=== PATIENT | female | born 1955 | race Caucasian/White ===

== ENCOUNTER 2017-04-20 11:19 | Inpatient (IN) | payer SELFPAY ==
[2017-04-20] VITALS (11 sets, daily range): BP systolic 130–169; BP diastolic 75–103; PULSE 85–104; RESP 14–22; TEMP 98–99; O2SAT 98–100
[~2017-04-20] VITALS: Ht 147.3 cm; Wt 37.6 kg
[~2017-04-20 11:19] MED LIST: OXYC-360 PO; PROM25TA5 PO; Z.0.NO CURRENT MEDS; ZITH250T PO
[2017-04-20] MEDS ORDERED: SODIUM CHLOR 0.9% 1000 ML INJ 1,000 ML IV SCH (11:43)
[2017-04-20] MEDS ORDERED: ONDANSETRON HCL 4 MG/2 ML VIAL IVP ONE (11:45)
[2017-04-20] MEDS ORDERED: SODIUM CHLORIDE 0.9% FLUSH 10 ML FLUSH IV FLUSH PRN ×2 (11:45→15:45)
[2017-04-20] MEDS ORDERED: PANTOPRAZOLE SODIUM 40 MG VIAL IVP ONE (11:45)
[2017-04-20] MEDS ORDERED: FAMOTIDINE 20 MG/2 ML VIAL IV PUSH ONE (11:45)
[2017-04-20] MEDS ORDERED: ALUMINUM/MAGNESIUM/SIMETH 30 ML CUP PO ONE (11:45)
[2017-04-20] MEDS ORDERED: LIDOCAINE VISCOUS 2% SOLN 15 ML UDC PO ONE (11:45)
--- NOTE | 2017-04-20 11:47 | PD ---
HPI Chief Complaint: Respiratory Symptoms Time Seen by Provider: 11:42 Travel History International Travel<30 days: No Contact w/Intl Traveler<30days: No Traveled to known affect area: No History of Present Illness HPI Patient presents with acute onset of abdominal pain, nausea and vomiting since 3 AM this morning. Denies any recent antibiotics, camping, picnics or travel. She was accompanying her at [facility] earlier in the week. Denies any blood per emesis. Denies any diarrhea. Last bowel movement 2 days ago. History of abdominal hysterectomy. Denies any new chest pain shortness of breath urinary or bowel symptoms. PFSH Past Medical History Heart Rhythm Problems: No Cardiac Catheterization: No Cardiovascular Problems: Yes (mild heart attack 10 years ago) High Cholesterol: No Congestive Heart Failure: No Coronary Artery Disease: Yes ([place] 2006) Diabetes: No Diminished Hearing: No Hypertension: No Myocardial Infarction: Yes (2006) Tetanus Vaccination: Unknown Influenza Vaccination: No ?: Not Menopausal: Yes Past Surgical History Coronary Artery Bypass Graft: No Genitourinary Surgery: Yes (CERVICAL CA) Hysterectomy: Yes (25 YEARS AGO FOR CERVICAL CANCER) Tonsillectomy: Yes Social History Alcohol Use: Yes (6 BEERS DAILY) Tobacco Use: Yes (CIGARETTES, 1 PPD X 25 YEARS) Substance Use: No Allergies-Medications (Allergen,Severity, Reaction): Coded Allergies: Penicillin (Verified Allergy, Severe, Anaphylaxis, 07/06/13) Reported Meds & Prescriptions Reported Meds & Active Scripts Active Review of Systems General / Constitutional: No: Fever Eyes: No: Visual changes HENT: No: Headaches Cardiovascular: No: Chest Pain or Discomfort Respiratory: No: Shortness of Breath Gastrointestinal: Positive: Nausea, Vomiting, Abdominal Pain Genitourinary: No: Dysuria Musculoskeletal: No: Pain Skin: No Rash Neurologic: No: Weakness Psychiatric: No: Depression Endocrine: No: Polydipsia Hematologic/Lymphatic: No: Easy Bruising Physical Exam Narrative GENERAL: Well-nourished, well-developed patient. SKIN: Focused skin assessment warm/dry. HEAD: Normocephalic. EYES: No scleral icterus. No injection or drainage. NECK: Supple, trachea midline. No JVD or lymphadenopathy. CARDIOVASCULAR: Regular rate and rhythm without murmurs, gallops, or rubs. RESPIRATORY: Breath sounds equal bilaterally. No accessory muscle use. GASTROINTESTINAL: Abdomen soft, diffusely tender bilateral upper quadrants right greater than left, mildly distended. MUSCULOSKELETAL: No cyanosis, or edema. BACK: Nontender without obvious deformity. No CVA tenderness. Data Data Last Documented VS Vital Signs Date Time Temp Pulse Resp B/P Pulse Ox O2 Delivery O2 Flow Rate FiO2 04/20/17 14:04 104 163/100 100 04/20/17 12:32 98.0 20 Orders Complete Blood Count With Diff (04/20/17 11:43) Comprehensive Metabolic Panel (04/20/17 11:43) Lipase (04/20/17 11:43) Lactic Acid (04/20/17 11:43) Ct Abd/Pel W Iv Contrast(Rout) (04/20/17 11:43) Iv Access Insert/Monitor (04/20/17 11:43) Ecg Monitoring (04/20/17 11:43) Oximetry (04/20/17 11:43) Ondansetron Inj (Zofran Inj) (04/20/17 11:45) Pantoprazole Inj (Protonix Inj) (04/20/17 11:45) Sodium Chlor 0.9% 1000 Ml Inj (Ns 1000 M (04/20/17 11:43) Sodium Chloride 0.9% Flush (Ns Flush) (04/20/17 11:45) Famotidine Inj (Pepcid Inj) (04/20/17 11:45) Al-Mag Hy-Si 40-40-4 Mg/Ml Liq (Mag-Al P (04/20/17 11:45) Lidocaine 2% Viscous (Xylocaine 2% Visco (04/20/17 11:45) Oral Contrast - Adult (04/20/17 11:54) Diatrizoate Liq ( Gastroview Liq) (04/20/17 12:01) Ondansetron Inj (Zofran Inj) (04/20/17 13:30) Iohexol 350 Inj (Omnipaque 350 Inj) (04/20/17 13:57) Electrocardiogram (04/20/17 11:26) Ondansetron Inj (Zofran Inj) (04/20/17 15:15) Ketorolac Inj (Toradol Inj) (04/20/17 15:15) Admit Order (Ed Use Only) (04/20/17 ) Vital Signs (Adult) Q4H (04/20/17 15:26) Diet Npo (04/20/17 Dinner) Activity Oob With Assistance (04/20/17 15:) ^ Saline Lock (04/20/17 15:) Resp Oxygen Junaid C Titrat 1-4 L (04/20/17 ) Notify Dr: Other (04/20/17 15:26) Ondansetron Inj (Zofran Inj) (04/20/17 15:30) Acetaminophen Supp (Tylenol Supp) (04/20/17 15:30) Consult General Surgery (04/20/17 15:26) Abdomen, Kub Only (04/21/17 05:00) Labs Laboratory Tests Test 04/20/17 04/20/17 11:45 11:55 White Blood Count 8.5 TH/MM3 Red Blood Count 4.38 MIL/MM3 Hemoglobin 15.4 GM/DL Hematocrit 45.1 % Mean Corpuscular Volume 103.1 FL Mean Corpuscular Hemoglobin 35.3 PG Mean Corpuscular Hemoglobin 34.2 % Concent Red Cell Distribution Width 14.0 % Platelet Count 189 TH/MM3 Mean Platelet Volume 8.5 FL Neutrophils (%) (Auto) % Lymphocytes (%) (Auto) % Monocytes (%) (Auto) % Eosinophils (%) (Auto) % Basophils (%) (Auto) % Neutrophils # (Auto) TH/MM3 Lymphocytes # (Auto) TH/MM3 Monocytes # (Auto) TH/MM3 Eosinophils # (Auto) TH/MM3 Basophils # (Auto) TH/MM3 CBC Comment AUTO DIFF Differential Total Cells 100 Counted Neutrophils % (Manual) 82 % Lymphocytes % 9 % Monocytes % 9 % Neutrophils # (Manual) 7.0 TH/MM3 Differential Comment FINAL DIFF MANUAL Platelet Estimate NORMAL Platelet Morphology Comment NORMAL Sodium Level 132 MEQ/L Potassium Level 3.7 MEQ/L Chloride Level 94 MEQ/L Carbon Dioxide Level 25.5 MEQ/L Anion Gap 13 MEQ/L Blood Urea Nitrogen 4 MG/DL Creatinine 0.48 MG/DL Estimat Glomerular Filtration 131 ML/MIN Rate Random Glucose 138 MG/DL Calcium Level 9.6 MG/DL Total Bilirubin 2.2 MG/DL Aspartate Amino Transf 73 U/L (AST/SGOT) Alanine Aminotransferase 52 U/L (ALT/SGPT) Alkaline Phosphatase 141 U/L Total Protein 7.4 GM/DL Albumin 3.3 GM/DL Lipase 56 U/L Lactic Acid Level 1.1 mmol/L MDM Medical Decision Making Medical Screen Exam Complete: Yes Emergency Medical Condition: Yes Differential Diagnosis Small bowel obstruction, viral gastritis, GERD, cholangitis Narrative Course Assessment and plan discussed with patient at bedside. EKG reveals sinus tachycardia rate 101. CT the abdomen and pelvis reveals a small bowel obstruction and a surgically altered bladder. Physician Communication Physician Communication Spoke with Dr. Kingston / Dr Christian who are in agreement will admit with a surgical consult Diagnosis Primary Impression: SBO (small bowel obstruction) Admitting Information Admitting Physician Requests: Admit Gary Becker MD Apr 20, 2017 11:47
[2017-04-20 11:55] LABS: HEMATOCRIT 45.1 % (35.0-46.0); MEAN CELL VOLUME 103.1 FL (80.0-100.0); MEAN CORPUSCULAR HEMOGLOBIN 35.3 PG (27.0-34.0); MEAN CORPUSCULAR HGB CONC 34.2 % (32.0-36.0); PLATELET COUNT 189 TH/MM3 (150-450); RED BLOOD COUNT 4.38 MIL/MM3 (4.00-5.30); WHITE BLOOD COUNT 8.5 TH/MM3 (4.0-11.0)
[2017-04-20] MEDS ORDERED: DIATRIZOATE MEGLUM/DIATRIZOATE SOD 9 ML CUP ONE (12:01)
[2017-04-20 12:04] LABS: HEMO FLAGS AUTO DIFF
[2017-04-20 12:05] LABS: CHLORIDE 94 MEQ/L (98-107); POTASSIUM 3.7 MEQ/L (3.5-5.1); SODIUM (NA) 132 MEQ/L (136-145)
[2017-04-20 12:08] LABS: ANION GAP 13 MEQ/L (5-15); BICARBONATE 25.5 MEQ/L (21.0-32.0); BLOOD UREA NITROGEN 4 MG/DL (7-18)
[2017-04-20 12:11] LABS: ALT (GPT) 52 U/L (10-53); AST (GOT) 73 U/L (15-37); GLOMERULAR FILTRATION RATE 131 ML/MIN (>89)
[2017-04-20 12:13] LABS: TOTAL BILIRUBIN ADULT 2.2 MG/DL (0.2-1.0)
[2017-04-20 12:14] LABS: ALKALINE PHOSPHATASE 141 U/L (45-117)
[2017-04-20 12:26] LABS: PLATELET ESTIMATE SMEAR NORMAL (NORMAL); PLATELET MORPHOLOGY NORMAL (NORMAL); POLYS (SEG NEUTROPHILS) 82 % (16-70); SCAN/DIFF FINAL DIFF MANUAL; WBC DIFF SAMPLE 100
[2017-04-20] MEDS ORDERED: ONDANSETRON HCL 4 MG/2 ML VIAL IV PUSH ONE ×2 (13:30→15:15)
[2017-04-20] MEDS ORDERED: IOHEXOL 350 MG/ML 10 ML VIAL (for RAD DIAG) IV ONE (13:57)
--- NOTE | 2017-04-20 15:14 | RADHPO ---
EXAM DATE/TIME: 04/20/2017 13:36 [facility] COMPARISON: No previous studies available for comparison. INDICATIONS : Shortness of breath and pain under ribs bilateral. IV CONTRAST: 99 cc Omnipaque 350 (iohexol) IV ORAL CONTRAST: Partial prescribed oral contrast ingested. RADIATION DOSE: 4.44 CTDIvol (mGy) MEDICAL HISTORY : Cardiovascular disease. Cervical carcinoma SURGICAL HISTORY : Hysterectomy. ENCOUNTER: Initial ACUITY: 2 days PAIN SCALE: 10/10 LOCATION: Bilateral TECHNIQUE: Volumetric scanning of the abdomen and pelvis was performed. Using automated exposure control and ad justment of the mA and/or kV according to patient size, radiation dose was kept as low as reasonably achievable to obtain optimal diagnostic quality images. FINDINGS: LOWER LUNGS: The visualized lower lungs are clear. LIVER: Diffuse hypodensity of the liver indicating hepatic steatosis. SPLEEN: Normal size without lesion. PANCREAS: Within normal limits. KIDNEYS: Normal in size and shape. There is no mass, stone or hydronephrosis. ADRENAL GLANDS: Within normal limits. VASCULAR: Diffuse aortic calcification. Aortic diameter are within normal limits. BOWEL/MESENTERY: Multiple loops of dilated small bowel to the level of the pelvis. Decompressed distal small bowel is noted. There is evidence of a transition point in the anterior right lower quadrant. Possible small r ight inguinal hernia in this region. Contrast is seen to the level of the mid small bowel. Contrast i s not seen past the transition point. Colon is decompressed. No free air or free fluid. ABDOMINAL WALL: Within normal limits. RETROPERITONEUM: There is no lymphadenopathy. BLADDER: There is a trabeculated appearance of the bladder along with mild diffuse wall thickening. Question p rior cystectomy with neobladder. REPRODUCTIVE: Status post hysterectomy. Surgical clips in the retroperitoneum. INGUINAL: There is no lymphadenopathy or hernia. MUSCULOSKELETAL: Within normal limits for patient age. CONCLUSION: 1. Evidence of small bowel obstruction with transition point in the right lower quadrant. Possible sm all inguinal hernia in this region. 2. Evidence of prior hysterectomy. 3. Atypical appearance of the urinary bladder. Wall thickening and trabeculated appearance. Question prior cystectomy with neobladder. 4. Hepatic steatosis. Chivo Leigh MD on April 20, 2017 at 14:59 Board Certified Radiologist. This report was verified electronically.
[2017-04-20] MEDS ORDERED: KETOROLAC TROMETHAMINE 30 MG/ML (IVP) VIAL IV PUSH ONE (15:15)
[2017-04-20] MEDS ORDERED: ACETAMINOPHEN 650 MG SUPP PR PRN (15:30)
[2017-04-20] MEDS ORDERED: ONDANSETRON HCL 4 MG/2 ML VIAL IV PRN (15:30)
[2017-04-20] MEDS ORDERED: ONDANSETRON HCL 4 MG/2 ML VIAL IVP PRN (15:45)
[2017-04-20] MEDS ORDERED: hydrALAZINE HCL 20 MG/ML VIAL IV PRN (15:45)
[2017-04-20] MEDS ORDERED: MORPHINE SULFATE 4 MG/ML INJ IV PRN ×2 (15:45)
[2017-04-20] MEDS ORDERED: ACETAMINOPHEN 650 MG SUPP RECTAL PRN (15:45)
[2017-04-20] MEDS: REMOVE OLD PATCH T-DERMAL SCH (15:45)
[2017-04-20] MEDS ORDERED: BISACODYL 10 MG SUPP RECTAL PRN (15:45)
[2017-04-20] MEDS ORDERED: FLUMAZENIL 0.5 MG/5 ML VIAL IV PUSH PRN (15:45)
[2017-04-20] MEDS ORDERED: NS + KCL 20 MEQ INJ 1,000 ML IV SCH (15:45)
[2017-04-20] MEDS ORDERED: ENALAPRILAT 1.25 MG/ML VIAL IV PRN (15:45)
[2017-04-20] MEDS ORDERED: LORazepam 1 MG TAB PO PRN (15:45)
[2017-04-20] MEDS ORDERED: LORazepam 2 MG TAB PO PRN (15:45)
[2017-04-20] MEDS ORDERED: NALOXONE HCL 0.4 MG/ML AMP IV PRN (15:45)
[2017-04-20] MEDS ORDERED: LORazepam 2 MG/ML VIAL IV PUSH PRN ×4 (15:45)
[2017-04-20] MEDS ORDERED: HALOPERIDOL LACTATE 5 MG/ML AMP IM PRN (15:45)
[2017-04-20 15:54] LABS: PROTHROMBIN TIME - PATIENT 10.9 SEC (9.8-11.6)
--- NOTE | 2017-04-20 16:02 | HHI.HP ---
[facility] No Primary Care Physician Admission Diagnosis SBO Diagnoses: Chief Complaint: Abdominal pain Travel History International Travel<30 Days: No Contact w/Intl Traveler <30 Da: No Traveled to Known Affected Are: No History of Present Illness This is a 62-year-old female with history of coronary artery disease, tobacco and alcohol abuse and cervical cancer status post radical hysterectomy. She presents to the emergency department with acute onset of abdominal pain, nausea and vomiting since 2 AM this morning. She reports of non-bilious nonbloody vomiting associated with constant severe sharp upper abdominal pain without radiation. She also noted abdominal distention improved after several episodes of vomiting last episode 10 this morning. No bowel movement for [address] scan showed SBO. Denies fever, chills, chest pain, shortness of breath and UTI symptoms. All other systems reviewed negative Review of Systems Except as stated in HPI: all other systems reviewed are Neg Past Family Social History Past Medical History Coronary artery disease. 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 Past Surgical History Hysterectomy and tonsillectomy Reported Medications None Allergies: Coded Allergies: Penicillin (Verified Allergy, Severe, Anaphylaxis, 07/06/13) Family History No CAD Social History Continues to smoke a pack per day and drinks 6 beers a day history of alcohol withdrawal Physical Exam Vital Signs Vital Signs Date Time Temp Pulse Resp B/P Pulse Ox O2 Delivery O2 Flow Rate FiO2 04/20/17 14:04 104 163/100 100 04/20/17 12:34 100 04/20/17 12:32 98.0 103 20 169/103 100 04/20/17 11:41 100 04/20/17 11:28 98.0 103 22 163/99 100 Physical Exam GENERAL: This is a petite, well-developed patient, in no apparent distress. SKIN: No rashes, ecchymoses or lesions. Cool and dry. HEAD: Atraumatic. Normocephalic. No temporal or scalp tenderness. EYES: Pupils equal round and reactive. Extraocular motions intact. No scleral icterus. No injection or drainage. ENT: Nose without bleeding, purulent drainage or septal hematoma. Throat without erythema, tonsillar hypertrophy or exudate. Uvula midline. Airway patent. NECK: Trachea midline. No JVD or lymphadenopathy. Supple, nontender, no meningeal signs. CARDIOVASCULAR: Regular rate and rhythm without murmurs, gallops, or rubs. RESPIRATORY: Clear to auscultation. Breath sounds equal bilaterally. No wheezes , rales, or rhonchi. GASTROINTESTINAL: Abdomen soft, tender on the lower quadrants with mild distention and hypoactive bowel sounds. No guarding. MUSCULOSKELETAL: Extremities without clubbing, cyanosis, or edema. No joint tenderness, effusion, or edema noted. No calf tenderness. Negative Homans sign bilaterally. NEUROLOGICAL: Awake and alert. Cranial nerves II through XII intact. Motor and sensory grossly within normal limits. Five out of 5 muscle strength in all muscle groups. Normal speech. Laboratory Laboratory Tests Test 04/20/17 04/20/17 11:45 11:55 White Blood Count 8.5 Red Blood Count 4.38 Hemoglobin 15.4 Hematocrit 45.1 Mean Corpuscular Volume 103.1 Mean Corpuscular Hemoglobin 35.3 Mean Corpuscular Hemoglobin 34.2 Concent Red Cell Distribution Width 14.0 Platelet Count 189 Mean Platelet Volume 8.5 Neutrophils (%) (Auto) Lymphocytes (%) (Auto) Monocytes (%) (Auto) Eosinophils (%) (Auto) Basophils (%) (Auto) Neutrophils # (Auto) Lymphocytes # (Auto) Monocytes # (Auto) Eosinophils # (Auto) Basophils # (Auto) CBC Comment AUTO DIFF Differential Total Cells 100 Counted Neutrophils % (Manual) 82 Lymphocytes % 9 Monocytes % 9 Neutrophils # (Manual) 7.0 Differential Comment FINAL DIFF MANUAL Platelet Estimate NORMAL Platelet Morphology Comment NORMAL Sodium Level 132 Potassium Level 3.7 Chloride Level 94 Carbon Dioxide Level 25.5 Anion Gap 13 Blood Urea Nitrogen 4 Creatinine 0.48 Estimat Glomerular Filtration 131 Rate Random Glucose 138 Calcium Level 9.6 Total Bilirubin 2.2 Aspartate Amino Transf 73 (AST/SGOT) Alanine Aminotransferase 52 (ALT/SGPT) Alkaline Phosphatase 141 Total Protein 7.4 Albumin 3.3 Lipase 56 Lactic Acid Level 1.1 Result Diagram: 04/20/17 1145 04/20/17 1145 Imaging EKG tracing interpreted by me with sinus tachycardia, rightward axis and nonspecific inferior T changes no significant change from previous EKG Last Impressions Abdomen/Pelvis CT 04/20/17 1143 Signed Impressions: Service Date/Time: Thursday, April 20, 2017 13:36 - CONCLUSION: 1. Evidence of small bowel obstruction with transition point in the right lower quadrant. Possible small inguinal hernia in this region. 2. Evidence of prior hysterectomy. 3. Atypical appearance of the urinary bladder. Wall thickening and trabeculated appearance. Question prior cystectomy with neobladder. 4. Hepatic steatosis. Chivo Leigh MD Assessment and Plan Problem List: (1) SBO (small bowel obstruction) ICD Code: K56.69 Status: Acute Assessment and Plan This is a 62-year-old female who presents to the emergency department with acute onset of abdominal pain, nausea and vomiting since 2 AM this morning. She reports of non-bilious nonbloody vomiting associated with constant severe sharp upper abdominal pain without radiation. She also noted abdominal distention improved after several episodes of vomiting last episode 10 this morning. No bowel movement for [address] scan showed SBO. SBO with transition point in the right lower quadrant and possible inguinal hernia. History of hysterectomy. Patient will be admitted for further evaluation and treatment. Keep nothing by mouth and start IV hydration. Pain management with IV morphine counseled regarding narcotics. GI prophylaxis with IV Protonix. NGT to low intermittent wall suction if persistent vomiting or increasing abdominal distention. Gen. surgery consultation Elevated blood pressure secondary to above. Monitor with antihypertensives SIRS secondary to above. Obtain urinalysis Mild hyponatremia. Secondary to vomiting. Repeat BMP in the morning Mild AST elevation with history of alcohol use. Patient counseled. [facility] protocol Tobacco abuse. Tobacco cessation History of coronary artery disease. Denies chest pain. Outpatient follow-up DVT prophylaxis with SCD and early ambulation. Pharmacological prophylaxis pending general surgery evaluation Discussed Condition With Patient Physician Certification 2 Midnight Certification Type: Admission for Inpatient Services Order for Inpatient Services The services are ordered in accordance with Medicare regulations or non- Medicare payer requirements, as applicable. In the case of services not specified as inpatient-only, they are appropriately provided as inpatient services in accordance with the 2-midnight benchmark. Estimated LOS (days): 2 days is the estimated time the patient will need to remain in the hospital, assuming treatment plan goals are met and no additional complications. Post-Hospital Plan: Home Cuco Kingston MD Apr 20, 2017 16:02
[2017-04-20] MEDS ORDERED: MULTIVITAMIN INJ 10 ML, FOLIC ACID INJ 1 MG in SODIUM CHLORID 0.9% 500 ML INJ 500 ML IV SCH ×2 (17:00→18:00)
[2017-04-20] MEDS: PANTOPRAZOLE SODIUM 40 MG VIAL IV PUSH SCH (17:08)
[2017-04-20] MEDS ORDERED: THIAMINE INJ 100 MG in SODIUM CHLORIDE 0.9% INJ 100 ML IV SCH (18:00)
[2017-04-20] MEDS: MORPHINE SULFATE 4 MG/ML INJ IV PRN (20:00)
[2017-04-20] MEDS: THIAMINE INJ 100 MG in SODIUM CHLORIDE 0.9% INJ 100 ML IV SCH (20:06)
[2017-04-20] MEDS: MULTIVITAMIN INJ 10 ML, FOLIC ACID INJ 1 MG in SODIUM CHLORID 0.9% 500 ML INJ 500 ML IV SCH (21:54)
[2017-04-20] MEDS: SODIUM CHLORIDE 0.9% FLUSH 10 ML FLUSH IV FLUSH SCH (21:54)
[2017-04-21 00:34] VITALS: BP 136/87; PULSE 90; RESP 12; TEMP 98.9; O2SAT 98
[2017-04-21] MEDS: NS + KCL 20 MEQ INJ 1,000 ML IV SCH ×2 (03:43→13:47)
[2017-04-21 04:58] VITALS: BP 131/77; PULSE 69; RESP 12; TEMP 98; O2SAT 97
--- NOTE | 2017-04-21 05:40 | RADHPO ---
EXAM DATE/TIME: 04/21/2017 05:29 [facility] COMPARISON: CT ABDOMEN & PELVIS W CONTRAST, April 20, 2017, 13:36. INDICATIONS : Abdominal pain and distention. MEDICAL HISTORY : Cardiovascular disease. Cervical carcinoma SURGICAL HISTORY : Hysterectomy. ENCOUNTER: Initial ACUITY: 4 - 6 days PAIN SCORE: 5/10 LOCATION: Bilateral abdomen FINDINGS: The bladder appears trabeculated and distended may be a neurogenic bladder or possibly a neobladder i f the patient has had prior cystectomy. There is slight distention of loops of small bowel with maxim um diameter of 3.4 cm. CONCLUSION: Distended small bowel loops probably representing some degree of obstruction similar to the patient's CT examination. Clive Myers MD on April 21, 2017 at 5:36 Board Certified Radiologist. This report was verified electronically.
[2017-04-21] MEDS: MORPHINE SULFATE 4 MG/ML INJ IV PRN ×4 (06:34→21:52)
[2017-04-21 07:31] LABS: AUTOMATED NEUTROPHIL # 4.3 TH/MM3 (1.8-7.7); BASOPHIL # 0.1 TH/MM3 (0-0.2); BASOPHIL % 1.6 % (0.0-2.0); EOSINOPHIL % 0.6 % (0.0-4.0); HEMATOCRIT 37.1 % (35.0-46.0); HEMO FLAGS DIFF FINAL; LYMPH % 19.5 % (9.0-44.0); LYMPHOCYTE # 1.2 TH/MM3 (1.0-4.8); MEAN CELL VOLUME 103.9 FL (80.0-100.0); MEAN CORPUSCULAR HEMOGLOBIN 36.4 PG (27.0-34.0); MONO % 11.2 % (0.0-8.0); NEUT % 67.1 % (16.0-70.0); PLATELET COUNT 169 TH/MM3 (150-450); RED BLOOD COUNT 3.57 MIL/MM3 (4.00-5.30); RED CELL DISTRIBUTION WIDTH 14.2 % (11.6-17.2); WHITE BLOOD COUNT 6.3 TH/MM3 (4.0-11.0)
[2017-04-21 08:00] VITALS: BP 113/73; PULSE 76; RESP 20; TEMP 97.8; O2SAT 96; O2SAT 99
[2017-04-21 08:11] LABS: BICARBONATE 23.5 MEQ/L (21.0-32.0); POTASSIUM 3.7 MEQ/L (3.5-5.1)
[2017-04-21] MEDS: NICOTINE 21 MG/24 HR PATCH T-DERMAL SCH (08:46)
[2017-04-21] MEDS: REMOVE OLD PATCH T-DERMAL SCH (08:46)
[2017-04-21] MEDS: SODIUM CHLORIDE 0.9% FLUSH 10 ML FLUSH IV FLUSH SCH ×2 (08:46→20:08)
[2017-04-21 11:23] LABS: BLOOD, URINE NEG (NEG); GLUCOSE,URINE NEG (NEG); KETONE, URINE 15 mg/dL (NEG); PH, URINE 5.5 (5.0-8.5)
[2017-04-21 11:25] LABS: METHOD OF COLLECTION CLEAN CATCH; NITRITE,URINE POS (NEG); URINE COLOR DARK-YELLOW (YELLW/STRAW)
[2017-04-21 11:27] LABS: BACTERIA, URINE MANY /hpf; COMMENT (UR) CULTURE INDICATED; CULTURE IF INDICATED CULTURE INDICATED; SQUAMOUS EPITHELIAL CELL URINE 0-5 /hpf (0-5); WBC, URINE 15-19 /hpf (0-5)
--- NOTE | 2017-04-21 11:40 | HHI.PR ---
Subjective Remarks Follow-up SBO. Improving pain scale of 7 out of 10 with less abdominal distention. Still no gas. No nausea. Discussed with RN Objective Vitals Vital Signs Date Time Temp Pulse Resp B/P Pulse Ox O2 Delivery O2 Flow Rate FiO2 04/21/17 08:00 97.8 76 20 113/73 99 04/21/17 04:58 98.0 69 12 131/77 97 04/21/17 00:34 98.9 90 12 136/87 98 04/20/17 22:47 99 21 04/20/17 22:44 95 04/20/17 21:26 99.0 98 14 160/93 99 04/20/17 18:28 98.8 95 18 146/91 98 04/20/17 17:58 85 16 147/85 100 04/20/17 17:31 98 21 04/20/17 17:02 94 18 130/75 100 04/20/17 14:04 104 163/100 100 04/20/17 12:34 100 04/20/17 12:32 98.0 103 20 169/103 100 04/20/17 11:41 100 I/O 04/20/17 04/20/17 04/20/17 04/21/17 04/21/17 04/21/17 07:00 15:00 23:00 07:00 15:00 23:00 Intake Total 240 ml 672 ml Balance 240 ml 672 ml Intake Oral 240 ml IV Total 672 ml # Voids 0 Result Diagram: 04/21/17 0700 04/21/17 0700 Imaging Last Impressions Abdomen X-Ray 04/21/17 0500 Signed Impressions: Service Date/Time: Friday, April 21, 2017 05:29 - CONCLUSION: Distended small bowel loops probably representing some degree of obstruction similar to the patient's CT examination. Clive Myers MD Abdomen/Pelvis CT 04/20/17 1143 Signed Impressions: Service Date/Time: Thursday, April 20, 2017 13:36 - CONCLUSION: 1. Evidence of small bowel obstruction with transition point in the right lower quadrant. Possible small inguinal hernia in this region. 2. Evidence of prior hysterectomy. 3. Atypical appearance of the urinary bladder. Wall thickening and trabeculated appearance. Question prior cystectomy with neobladder. 4. Hepatic steatosis. Chivo Leigh MD Objective Remarks GENERAL: This is a petite, well-developed patient, in no apparent distress. SKIN: No rashes, ecchymoses or lesions. Cool and dry. HEAD: Atraumatic. Normocephalic. No temporal or scalp tenderness. EYES: Pupils equal round and reactive. Extraocular motions intact. No scleral icterus. No injection or drainage. ENT: Nose without bleeding, purulent drainage or septal hematoma. Throat without erythema, tonsillar hypertrophy or exudate. Uvula midline. Airway patent. NECK: Trachea midline. No JVD or lymphadenopathy. Supple, nontender, no meningeal signs. CARDIOVASCULAR: Regular rate and rhythm without murmurs, gallops, or rubs. RESPIRATORY: Clear to auscultation. Breath sounds equal bilaterally. No wheezes , rales, or rhonchi. GASTROINTESTINAL: Abdomen soft, tender on the lower quadrants with mild distention. Normoactive bowel sounds. No guarding. MUSCULOSKELETAL: Extremities without clubbing, cyanosis, or edema. No joint tenderness, effusion, or edema noted. No calf tenderness. Negative Homans sign bilaterally. NEUROLOGICAL: Awake and alert. Cranial nerves II through XII intact. Motor and sensory grossly within normal limits. Five out of 5 muscle strength in all muscle groups. Normal speech. Procedures None A/P Problem List: (1) SBO (small bowel obstruction) ICD Code: K56.69 Status: Acute Assessment and Plan This is a 62-year-old female who presents to the emergency department with acute onset of abdominal pain, nausea and vomiting since 2 AM this morning. She reports of non-bilious nonbloody vomiting associated with constant severe sharp upper abdominal pain without radiation. She also noted abdominal distention improved after several episodes of vomiting last episode 10 this morning. No bowel movement for [address] scan showed SBO. SBO with transition point in the right lower quadrant and possible inguinal hernia. History of hysterectomy. KUB today with distended small bowel loops. Improving pain but still not passing gas or bowel movement. Ice chips and IV hydration. Pain management with IV morphine counseled regarding narcotics. GI prophylaxis with IV Protonix. NGT to low intermittent wall suction if persistent vomiting or increasing abdominal distention. Gen. surgery consultation pending Elevated blood pressure secondary to above. Improving. Monitor with antihypertensives SIRS secondary to above. Resolved but abnormal urinalysis and start empiric ciprofloxacin and follow culture Mild hyponatremia. Secondary to vomiting. Improved Repeat BMP in the morning Mild AST elevation with history of alcohol use. Patient counseled. [facility] protocol Tobacco abuse. Tobacco cessation History of coronary artery disease. Denies chest pain. Outpatient follow-up DVT prophylaxis with SCD and early ambulation. Pharmacological prophylaxis pending general surgery evaluation Discharge Planning Not ready for discharge Cuco Kingston MD Apr 21, 2017 11:40
[2017-04-21 12:00] VITALS: BP 135/88; PULSE 87; RESP 21; TEMP 97; O2SAT 100
[2017-04-21] MEDS: CIPROFLOXACIN 400 MG PREMIX 200 ML IV SCH (13:47)
--- NOTE | 2017-04-21 14:46 | EKG ---
Date Performed: 04/20/2017 Time Performed: 11:26:40 PTAGE: 61 years EKG: Sinus tachycardia Rightward axis rSr'(V1) - probable normal variant Inferior T wave changes are nonspecific Borderline ECG Since PREVIOUS TRACING 08/16/2012, PACs no longer present, otherwise no significant change. [place] EVIOUS TRACIN08/16/2012 17.54 DOCTOR: Chacorta Helton Interpretating Date/Time 04/21/2017 14:46:16
--- NOTE | 2017-04-21 14:47 | EKG ---
Date Performed: 04/20/2017 Time Performed: 14:50:30 PTAGE: 61 years EKG: Sinus tachycardia. Rightward axis Inferior T wave changes are nonspecific Borderline ECG Si nce PREVIOUS TRACING 04/20/2017, no significant change. PREVIOUS TRACING 04/20/2017 DOCTOR: Chacorta Helton Interpretating Date/Time 04/21/2017 14:46:45
[2017-04-21 16:00] VITALS: BP 123/79; PULSE 77; RESP 20; TEMP 98; O2SAT 99
[2017-04-21] MEDS: PANTOPRAZOLE SODIUM 40 MG VIAL IV PUSH SCH (16:53)
[2017-04-21 20:00] VITALS: BP 132/83; PULSE 84; PULSE 90; RESP 16; TEMP 97.7; O2SAT 98
[2017-04-21] MEDS: MULTIVITAMIN INJ 10 ML, FOLIC ACID INJ 1 MG in SODIUM CHLORID 0.9% 500 ML INJ 500 ML IV SCH (20:08)
[2017-04-21] MEDS: THIAMINE INJ 100 MG in SODIUM CHLORIDE 0.9% INJ 100 ML IV SCH (20:08)
--- NOTE | 2017-04-21 20:33 | MB ---
cc: CHAGO WELSH MD DATE OF CONSULTATION 04/21/2017 REASON FOR CONSULTATION Small-bowel obstruction. HISTORY OF PRESENT ILLNESS The patient is 61-year-old female several medical issues including coronary artery disease, chronic EtOH and tobacco use, history of radical hysterectomy presents with complaints of nausea, vomiting, abdominal pain. She stated the pain started approximately 02:00 a.m. and continued to get worse. She had multiple episodes greater than 10 of vomiting and nausea. She states the pain was initially a 10/10, currently a 05/10, was worse with palpation, better with lying still. She states also some improvement with IV pain medications. She states her last bowel movement was night and she is not passing gas prior to this or after this. She also reports very weak bladder and issues of incontinence. She further denies fevers, chills, dysuria, hematuria. PAST MEDICAL HISTORY 1. Coronary artery disease. 2. Blindness. 3. Incontinence. PAST SURGICAL HISTORY 1. Medical hysterectomy, 2. Tonsillectomy. MEDICATIONS The patient is on no medications. ALLERGIES PENICILLIN. FAMILY HISTORY Denies hypertension or diabetes. SOCIAL HISTORY Positive smoking. Positive EtOH daily approximately 8 beers per day. Denies IVDA. FAMILY HISTORY Denies hypertension, diabetes. REVIEW OF SYSTEMS GENERAL: The patient denies fevers, chills. HEENT: Denies eye pain, ear pain or drainage. NECK: Denies swelling or pain. RESPIRATORY: Denies cough or wheeze. CARDIOVASCULAR: Denies palpitations or chest pain. ABDOMEN: Complains of nausea, vomiting, abdominal pain. MUSCULOSKELETAL: Denies arthralgia, myalgias. NEUROLOGIC: Denies numbness, tingling. GENITOURINARY: Denies dysuria or hematuria. ENDOCRINE: Denies polyuria, polydipsia. PHYSICAL EXAMINATION GENERAL: The patient no acute distress. VITAL SIGNS: Temperature 98, pulse 103, respiration 22, blood pressure 163/99, saturation 100%. HEENT: Pupils equal, round, reactive bilaterally. Moist mucous membranes. NECK: Supple. Trachea midline. LUNGS: Bilateral expansion. Clear. No wheeze. HEART: S1-S2 regular rhythm. No murmur. ABDOMEN: Soft. Significant distension. Mild tenderness to palpation diffuse. No rebound or guarding. EXTREMITIES: Warm, cachectic. well perfused. NEUROLOGIC: Alert and oriented times four. 5/5 motor strength. Normal gait. PSYCHIATRIC: Good insight good judgment. LABORATORY AND DIAGNOSTIC DATA WBC is 6.3, hemoglobin 13, hematocrit 37.1, platelets 169. Sodium 138, potassium 3.7, chloride 105, BUN 5, creatinine 0.41, calcium 7.9. INR is 1.0. IMAGING CT scan reviewed by myself, small-bowel obstruction transitioned right lower quadrant. Small inguinal hernia. Evidence of hysterectomy. Urinary bladder distension and thickening. ASSESSMENT The patient is a 61-year-old female, acute onset abdominal pain consistent with small-bowel obstruction. History of hysterectomy in the past. PLAN After full clinical, radiological and laboratory workup the patient with above-named issues including bowel obstruction likely etiology from previous hysterectomy and adhesions. At this point recommend n.p.o., IV fluids, NG tube placement, bowel rest. We will continue nonoperative management including abdominal exams. Observe the patient and see how she progresses. If she still delayed and does not progress, we will consider a small bowel follow-through however, if she progresses well we will remove the nasogastric tube in next several days and slowly start a diet. Currently, however, she is very significantly distended has had no flatus or bowel movement in the past several days. Further the patient drinks eight beers per day, recommend consideration for CIWA protocol and continue to monitor, observe and correct electrolytes. Thank you for consultation. MD VIVIAN Tucker/VASQUEZ /7:57 PM /8:20 PM [facility] CAMPUSFilomena
[2017-04-22] VITALS (7 sets, daily range): BP systolic 119–147; BP diastolic 73–99; PULSE 81–97; RESP 16–20; TEMP 97.1–98.8; O2SAT 98–100
[2017-04-22] MEDS: CIPROFLOXACIN 400 MG PREMIX 200 ML IV SCH ×2 (00:09→12:46)
[2017-04-22] MEDS: MORPHINE SULFATE 4 MG/ML INJ IV PRN ×3 (02:29→16:19)
[2017-04-22] MEDS: NS + KCL 20 MEQ INJ 1,000 ML IV SCH ×2 (03:37→20:52)
[2017-04-22 06:02] LABS: AUTOMATED NEUTROPHIL # 3.9 TH/MM3 (1.8-7.7); BASOPHIL % 0.4 % (0.0-2.0); EOSINOPHIL % 0.7 % (0.0-4.0); HEMATOCRIT 37.2 % (35.0-46.0); HEMO FLAGS DIFF FINAL; LYMPH % 16.5 % (9.0-44.0); LYMPHOCYTE # 0.9 TH/MM3 (1.0-4.8); MEAN CELL VOLUME 106.4 FL (80.0-100.0); MEAN CORPUSCULAR HEMOGLOBIN 36.9 PG (27.0-34.0); MEAN CORPUSCULAR HGB CONC 34.6 % (32.0-36.0); NEUT % 70.4 % (16.0-70.0); PLATELET COUNT 167 TH/MM3 (150-450); POTASSIUM 3.9 MEQ/L (3.5-5.1); RED BLOOD COUNT 3.49 MIL/MM3 (4.00-5.30); RED CELL DISTRIBUTION WIDTH 14.2 % (11.6-17.2); WHITE BLOOD COUNT 5.4 TH/MM3 (4.0-11.0)
[2017-04-22 06:06] LABS: BICARBONATE 21.4 MEQ/L (21.0-32.0); MAGNESIUM 1.8 MG/DL (1.5-2.5)
--- NOTE | 2017-04-22 06:38 | RADHPO ---
EXAM DATE/TIME: 04/22/2017 06:13 [facility] COMPARISON: ABDOMEN KUB ONLY, April 21, 2017, 5:29. INDICATIONS : Distention. MEDICAL HISTORY : Cardiovascular disease. Carcinoma, cervical. SURGICAL HISTORY : Hysterectomy. ENCOUNTER: Subsequent ACUITY: 4 - 6 days PAIN SCORE: Non-responsive. LOCATION: abdomen, all quadrants. FINDINGS: Supine view of the abdomen was performed. The bladder remains filled with contrast. Numerous air filled loops of small bowel are noted. The abdominal bowel gas pattern is normal. No abnormal masses , calcifications, or organomegaly is seen. The osseous structures are unremarkable. CONCLUSION: Normal examination. Numerous air filled loops of distended small bowel Tyler Dillon MD on April 22, 2017 at 6:34 Board Certified Radiologist. This report was verified electronically.
[2017-04-22] MEDS: SODIUM CHLORIDE 0.9% FLUSH 10 ML FLUSH IV FLUSH SCH ×2 (09:15→20:53)
[2017-04-22] MEDS: REMOVE OLD PATCH T-DERMAL SCH (09:16)
[2017-04-22] MEDS: NICOTINE 21 MG/24 HR PATCH T-DERMAL SCH (09:16)
--- NOTE | 2017-04-22 12:16 | HHI.PR ---
Subjective Subjective Notes Resting in bed Reports pain better today Objective Vitals/I&O Vital Signs Date Time Temp Pulse Resp B/P Pulse Ox O2 Delivery O2 Flow Rate FiO2 04/22/17 09:29 16 04/22/17 08:00 98.2 83 144/79 99 04/21/17 20:00 21 Labs Laboratory Tests Test 04/22/17 05:05 White Blood Count 5.4 Red Blood Count 3.49 Hemoglobin 12.9 Hematocrit 37.2 Mean Corpuscular Volume 106.4 Mean Corpuscular Hemoglobin 36.9 Mean Corpuscular Hemoglobin 34.6 Concent Red Cell Distribution Width 14.2 Platelet Count 167 Mean Platelet Volume 9.1 Neutrophils (%) (Auto) 70.4 Lymphocytes (%) (Auto) 16.5 Monocytes (%) (Auto) 12.0 Eosinophils (%) (Auto) 0.7 Basophils (%) (Auto) 0.4 Neutrophils # (Auto) 3.9 Lymphocytes # (Auto) 0.9 Monocytes # (Auto) 0.6 Eosinophils # (Auto) 0.0 Basophils # (Auto) 0.0 CBC Comment DIFF FINAL Differential Comment Sodium Level 137 Potassium Level 3.9 Chloride Level 103 Carbon Dioxide Level 21.4 Anion Gap 13 Blood Urea Nitrogen 3 Creatinine 0.36 Estimat Glomerular Filtration 183 Rate Random Glucose 58 Calcium Level 8.1 Magnesium Level 1.8 Date/Time Procedure Status Source Growth 04/21/17 11:10 Urine Culture Received Urine Clean Catch Pending Cardiovascular: Regular Lungs: Clear Abdomen: Other (distended; RLQ tenderness with palpation ) Extremities: No edema Narrative Exam NGT in place to LIWS A/P Assessment and Plan 61 year old female with SBO -Continue bowel rest -NGT to LIWS---okay to clamp while patient ambulates in the room and hallways -A few ice chips okay -Plan for SBFT tomorrow -Discussed with Dr. Kingston Attending Statement patient seen at bedside appears to be progressing well sbft tomorrow Attestation The exam, history, and the medical decision-making described in the above note were completed with the assistance of the mid-level provider. I reviewed and agree with the findings presented. I attest that I had a [id number] encounter with the patient on the same day, and personally performed and documented my assessment and findings in the medical record. Renetta Diggs 5, 2017 12:16 Joao Hatch MD May 01, 2017 09:52
--- NOTE | 2017-04-22 12:18 | HHI.PR ---
Subjective Remarks Follow-up SBO. Improving pain but not passing gas or stool. Still with abdominal distention. Discussed with general surgery, keep nothing by mouth, NGT and small bowel series. Discussed with RN Objective Vitals Vital Signs Date Time Temp Pulse Resp B/P Pulse Ox O2 Delivery O2 Flow Rate FiO2 04/22/17 09:29 16 04/22/17 08:00 98.2 83 20 144/79 99 04/22/17 04:00 98.0 87 16 142/73 99 04/22/17 00:00 97.1 81 16 142/82 98 04/21/17 20:00 98 21 04/21/17 20:00 84 04/21/17 20:00 97.7 90 16 132/83 98 04/21/17 16:00 98.0 77 20 123/79 99 I/O 04/21/17 04/21/17 04/21/17 04/22/17 04/22/17 04/22/17 07:00 15:00 23:00 07:00 15:00 23:00 Intake Total 672 ml 240 ml 1672 ml Output Total 300 ml Balance 672 ml 240 ml 1372 ml Intake Oral 240 ml IV Total 672 ml 1672 ml Output Gastric Drainage Total 300 ml # Voids 0 5 # Bowel Movements 0 Result Diagram: 04/22/17 0505 04/22/17 0505 Imaging Last Impressions Abdomen X-Ray 04/22/17 0600 Signed Impressions: Service Date/Time: Saturday, April 22, 2017 06:13 - CONCLUSION: Normal examination. Numerous air filled loops of distended small bowel Tyler Dillon MD Abdomen/Pelvis CT 04/20/17 1143 Signed Impressions: Service Date/Time: Thursday, April 20, 2017 13:36 - CONCLUSION: 1. Evidence of small bowel obstruction with transition point in the right lower quadrant. Possible small inguinal hernia in this region. 2. Evidence of prior hysterectomy. 3. Atypical appearance of the urinary bladder. Wall thickening and trabeculated appearance. Question prior cystectomy with neobladder. 4. Hepatic steatosis. Chivo Leigh MD Objective Remarks GENERAL: This is a petite, well-developed patient, in no apparent distress. SKIN: No rashes, ecchymoses or lesions. HEAD: Atraumatic. Normocephalic. EYES: Pupils equal round and reactive. Extraocular motions intact. No scleral icterus. No injection or drainage. ENT: Nose without bleeding, purulent drainage or septal hematoma. NECK: Trachea midline. No JVD or lymphadenopathy. Supple CARDIOVASCULAR: Regular rate and rhythm without murmurs, gallops, or rubs. RESPIRATORY: Clear to auscultation. Breath sounds equal bilaterally. No wheezes , rales, or rhonchi. GASTROINTESTINAL: Abdomen soft, tender on the lower quadrants with mild distention. Normoactive bowel sounds. No guarding. MUSCULOSKELETAL: Extremities without clubbing, cyanosis, or edema. No joint tenderness, effusion, or edema noted. No calf tenderness. Negative Homans sign bilaterally. NEUROLOGICAL: Awake and alert. Cranial nerves II through XII intact. Motor and sensory grossly within normal limits. Five out of 5 muscle strength in all muscle groups. Normal speech. Procedures None A/P Problem List: (1) SBO (small bowel obstruction) ICD Code: K56.69 Status: Acute Assessment and Plan This is a 62-year-old female who presents to the emergency department with acute onset of abdominal pain, nausea and vomiting since 2 AM this morning. She reports of non-bilious nonbloody vomiting associated with constant severe sharp upper abdominal pain without radiation. She also noted abdominal distention improved after several episodes of vomiting last episode 10 this morning. No bowel movement for [address] scan showed SBO. SBO with transition point in the right lower quadrant and possible inguinal hernia. History of hysterectomy. KUB today with distended small bowel loops. Improving pain but still not passing gas or bowel movement. Ice chips and IV hydration. Pain management with IV morphine counseled regarding narcotics. GI prophylaxis with IV Protonix. NGT to suction. Gen. surgery recommending small bowel series. I'm concerned she has not improved at this time she may need surgical intervention Elevated blood pressure secondary to above. Improving. Monitor with antihypertensives Sepsis with abnormal urinalysis. Continue empiric ciprofloxacin and follow culture Mild hyponatremia. Secondary to vomiting. Improved Repeat BMP in the morning Mild AST elevation with history of alcohol use. Patient counseled. [facility] protocol Tobacco abuse. Tobacco cessation History of coronary artery disease. Denies chest pain. Outpatient follow-up DVT prophylaxis with SCD and early ambulation. Pharmacological prophylaxis if okay with general surgery Discharge Planning Not ready for discharge Cuco Kingston MD Apr 22, 2017 12:18
[2017-04-22] MEDS: PANTOPRAZOLE SODIUM 40 MG VIAL IV PUSH SCH (16:13)
[2017-04-22] MEDS: THIAMINE INJ 100 MG in SODIUM CHLORIDE 0.9% INJ 100 ML IV SCH (20:53)
[2017-04-22] MEDS: MULTIVITAMIN INJ 10 ML, FOLIC ACID INJ 1 MG in SODIUM CHLORID 0.9% 500 ML INJ 500 ML IV SCH (20:53)
[2017-04-23] VITALS: BP 161/90; PULSE 102; RESP 20; TEMP 99; O2SAT 99
[2017-04-23] MEDS: CIPROFLOXACIN 400 MG PREMIX 200 ML IV SCH (01:27)
[2017-04-23] MEDS: MORPHINE SULFATE 4 MG/ML INJ IV PRN ×2 (01:28→23:44)
[2017-04-23 04:00] VITALS: BP 129/74; PULSE 95; RESP 18; TEMP 97.5; O2SAT 99
[2017-04-23 08:00] VITALS: PULSE 88; O2SAT 99
[2017-04-23] MEDS: NICOTINE 21 MG/24 HR PATCH T-DERMAL SCH (09:00)
[2017-04-23] MEDS: REMOVE OLD PATCH T-DERMAL SCH (09:00)
[2017-04-23] MEDS: SODIUM CHLORIDE 0.9% FLUSH 10 ML FLUSH IV FLUSH SCH ×2 (09:00→21:00)
[2017-04-23] MEDS ORDERED: DIATRIZOATE MEGLUM/DIATRIZOATE SOD 120 ML BTL (for RAD DIAG) NG ONE (10:00)
--- NOTE | 2017-04-23 10:56 | HHI.PR ---
Subjective Remarks Follow-up SBO. Improved abdominal pain and distention. States she passed gas. Discussed with RN and Gen. surgery [employer] Objective Vitals Vital Signs Date Time Temp Pulse Resp B/P Pulse Ox O2 Delivery O2 Flow Rate FiO2 04/23/17 08:00 99 21 04/23/17 04:00 97.5 95 18 129/74 99 04/23/17 01:33 18 04/23/17 00:00 99.0 102 20 161/90 99 04/22/17 20:35 99 21 04/22/17 20:00 98.6 96 20 136/78 100 04/22/17 16:00 98.8 94 20 119/77 100 04/22/17 12:00 97.3 97 16 147/99 99 I/O 04/22/17 04/22/17 04/22/17 04/23/17 04/23/17 04/23/17 07:00 15:00 23:00 07:00 15:00 23:00 Intake Total 1672 ml 4160 ml 240 ml 1495 ml Output Total 300 ml 500 ml 1000 ml Balance 1372 ml 3660 ml 240 ml 495 ml Intake Oral 240 ml 0 ml IV Total 1672 ml 4160 ml 1495 ml Output Gastric Drainage Total 300 ml 500 ml 1000 ml # Voids 2 2 # Bowel Movements 0 Result Diagram: 04/22/17 0505 04/22/17 0505 Imaging Last Impressions Abdomen X-Ray 04/22/17 0600 Signed Impressions: Service Date/Time: Saturday, April 22, 2017 06:13 - CONCLUSION: Normal examination. Numerous air filled loops of distended small bowel Tyler Dillon MD Abdomen/Pelvis CT 04/20/17 1143 Signed Impressions: Service Date/Time: Thursday, April 20, 2017 13:36 - CONCLUSION: 1. Evidence of small bowel obstruction with transition point in the right lower quadrant. Possible small inguinal hernia in this region. 2. Evidence of prior hysterectomy. 3. Atypical appearance of the urinary bladder. Wall thickening and trabeculated appearance. Question prior cystectomy with neobladder. 4. Hepatic steatosis. Chivo Leigh MD Objective Remarks GENERAL: This is a petite, well-developed patient, in no apparent distress. SKIN: No rashes, ecchymoses or lesions. HEAD: Atraumatic. Normocephalic. EYES: Pupils equal round and reactive. Extraocular motions intact. No scleral icterus. No injection or drainage. ENT: Nose without bleeding, purulent drainage or septal hematoma. NECK: Trachea midline. No JVD or lymphadenopathy. Supple CARDIOVASCULAR: Regular rate and rhythm without murmurs, gallops, or rubs. RESPIRATORY: Clear to auscultation. Breath sounds equal bilaterally. No wheezes , rales, or rhonchi. GASTROINTESTINAL: Abdomen soft, improved tenderness on the lower quadrants with mild distention. Normoactive bowel sounds. No guarding. MUSCULOSKELETAL: Extremities without clubbing, cyanosis, or edema. No joint tenderness, effusion, or edema noted. No calf tenderness. Negative Homans sign bilaterally. NEUROLOGICAL: Awake and alert. Cranial nerves II through XII intact. Motor and sensory grossly within normal limits. Five out of 5 muscle strength in all muscle groups. Normal speech. Procedures None A/P Problem List: (1) SBO (small bowel obstruction) ICD Code: K56.69 Status: Acute Assessment and Plan This is a 62-year-old female who presents to the emergency department with acute onset of abdominal pain, nausea and vomiting since 2 AM this morning. She reports of non-bilious nonbloody vomiting associated with constant severe sharp upper abdominal pain without radiation. She also noted abdominal distention improved after several episodes of vomiting last episode 10 this morning. No bowel movement for [address] scan showed SBO. SBO with transition point in the right lower quadrant and possible inguinal hernia. History of hysterectomy. Improving pain and passed gas no bowel movement yet. Ice chips and IV hydration. Pain management with IV morphine counseled regarding narcotics. GI prophylaxis with IV Protonix. NGT drained 1500 mL. Gen. surgery recommending small bowel series. Elevated blood pressure secondary to above. Improving. Monitor with antihypertensives Sepsis with Escherichia coli UTI resistant to ciprofloxacin. Switch to IV Bactrim while nothing by mouth. Discussed with pharmacy. Allergic to penicillin causing anaphylaxis Mild hyponatremia. Secondary to vomiting. Improved Repeat BMP in the morning Mild AST elevation with history of alcohol use. Patient counseled. [facility] protocol Tobacco abuse. Tobacco cessation History of coronary artery disease. Denies chest pain. Outpatient follow-up DVT prophylaxis with SCD and early ambulation. Pharmacological prophylaxis if okay with general surgery Discharge Planning Not ready for discharge Cuco Kingston MD Apr 23, 2017 10:56
[2017-04-23] MEDS ORDERED: DEXTROSE 5% IV SCH ×2 (11:00)
[2017-04-23] MEDS ORDERED: SULFAMETHOX IV SCH ×2 (11:00)
[2017-04-23] MEDS ORDERED: TRIMETHOPRIM IV SCH ×2 (11:00)
[2017-04-23] MEDS ORDERED: WATE IV SCH ×2 (11:00)
[2017-04-23 12:00] VITALS: BP_SYST 127; BP_SYST 148; BP_DIAS 78; BP_DIAS 98; PULSE 116; PULSE 119; RESP 18; TEMP 97.8; TEMP 98.7; O2SAT 98; O2SAT 99
[2017-04-23] MEDS: AZTREONAM INJ 500 MG in SODIUM CHLORIDE 0.9% INJ 100 ML IV SCH ×2 (12:00→22:58)
--- NOTE | 2017-04-23 13:32 | HHI.PR ---
Subjective Subjective Notes Patient reports she feels better today Reports she did pass a little gas this morning; does feel less distended Objective Vitals/I&O Vital Signs Date Time Temp Pulse Resp B/P Pulse Ox O2 Delivery O2 Flow Rate FiO2 04/23/17 12:00 98.7 116 18 148/98 99 04/23/17 08:00 21 Labs Date/Time Procedure Status Source Growth 04/21/17 11:10 Urine Culture - Final Complete Urine Clean Catch Escherichia Coli Cardiovascular: Regular Lungs: Clear Abdomen: Other (distended; less tender today than on previous exam ) Extremities: No edema Narrative Exam NGT in place to LIWS A/P Assessment and Plan 61 year old female with SBO -NGT to LIWS---okay to clamp while patient ambulates in the room and hallways -A few ice chips okay -SBFT today -Discussed with Dr. Kingston Attending Statement patient seen at bedside continues to do well await sbft Attestation The exam, history, and the medical decision-making described in the above note were completed with the assistance of the mid-level provider. I reviewed and agree with the findings presented. I attest that I had a [id number] encounter with the patient on the same day, and personally performed and documented my assessment and findings in the medical record. Renetta Diggs Apr 23, 2017 13:32 Joao Hatch MD May 01, 2017 09:57
[2017-04-23] MEDS: NS + KCL 20 MEQ INJ 1,000 ML IV SCH ×2 (16:20→21:45)
[2017-04-23] MEDS: PANTOPRAZOLE SODIUM 40 MG VIAL IV PUSH SCH (17:00)
[2017-04-23 20:00] VITALS: BP 154/89; PULSE 93; RESP 20; TEMP 98.1; O2SAT 100
[2017-04-23] MEDS: MULTIVITAMIN INJ 10 ML, FOLIC ACID INJ 1 MG in SODIUM CHLORID 0.9% 500 ML INJ 500 ML IV SCH (21:45)
[2017-04-23] MEDS: THIAMINE INJ 100 MG in SODIUM CHLORIDE 0.9% INJ 100 ML IV SCH (21:49)
[2017-04-24] VITALS: BP 157/98; PULSE 102; RESP 20; TEMP 96.9; O2SAT 98
[2017-04-24 04:00] VITALS: BP 154/102; PULSE 102; RESP 20; TEMP 98; O2SAT 98
[2017-04-24 06:18] LABS: POTASSIUM 3.5 MEQ/L (3.5-5.1)
[2017-04-24 06:22] LABS: HEMATOCRIT 38.9 % (35.0-46.0); MEAN CELL VOLUME 105.6 FL (80.0-100.0); PLATELET COUNT 240 TH/MM3 (150-450); RED BLOOD COUNT 3.68 MIL/MM3 (4.00-5.30); RED CELL DISTRIBUTION WIDTH 14.1 % (11.6-17.2); WHITE BLOOD COUNT 4.9 TH/MM3 (4.0-11.0)
[2017-04-24 06:24] LABS: BICARBONATE 19.7 MEQ/L (21.0-32.0); HEMO FLAGS AUTO DIFF
[2017-04-24 06:25] LABS: MAGNESIUM 1.6 MG/DL (1.5-2.5)
[2017-04-24 07:48] LABS: BANDS 1 % (0-6); NEUTROPHIL # MANUAL DIFF 3.7 TH/MM3 (1.8-7.7); PLATELET ESTIMATE SMEAR NORMAL (NORMAL); PLATELET MORPHOLOGY NORMAL (NORMAL); POLYS (SEG NEUTROPHILS) 74 % (16-70); SCAN/DIFF AUTO DIFF CONFIRMED; WBC DIFF SAMPLE 100
[2017-04-24 08:00] VITALS: BP 151/90; PULSE 103; PULSE 82; RESP 18; TEMP 97.7; O2SAT 100
[2017-04-24] MEDS: NICOTINE 21 MG/24 HR PATCH T-DERMAL SCH (08:50)
[2017-04-24] MEDS: SODIUM CHLORIDE 0.9% FLUSH 10 ML FLUSH IV FLUSH SCH ×2 (08:51→20:35)
[2017-04-24] MEDS: REMOVE OLD PATCH T-DERMAL SCH (09:00)
--- NOTE | 2017-04-24 09:41 | RADHPO ---
EXAM DATE/TIME: 04/23/2017 08:52 [facility] COMPARISON: ABDOMEN KUB ONLY, April 22, 2017, 6:13. INDICATIONS : Small bowel obstruction. Distention. FLUORO TIME: 0 minutes IMAGE COUNT: 13 CONTRAST: [facility] IMAGING TIME(S): 15 min, 30 min, 45 min, 1 hr, 1.5 hrs, 2.5 hrs4.5 hrs, 6.5 hrs, 9.5 hrs, 11.5 hrs, 19hrs. MEDICAL HISTORY : Myocardial infarction. Cardiovascular disease. Cervical carcinoma SURGICAL HISTORY : Hysterectomy. Tonsillectomy. ENCOUNTER: Initial ACUITY: 4 - 6 days PAIN SCORE: 8/10 LOCATION: entire abdomen. FINDINGS: The patient was given Gastrografin via the nasogastric tube. The portions of the stomach visualized a re unremarkable. There is prompt emptying of contrast through the duodenum into the proximal small dwain wel. There is diffuse dilation of the proximal small bowel. At the conclusion of the study there does appear to be some contrast within the colon. The contrast is significantly diluted throughout the di stal small bowel. CONCLUSION: Diffuse dilation of the small bowel. Contrast does appear to reach the colon. Followup KUB in approxi mately 12 hours would be of benefit for further assessment. Sammy Oliver MD on April 24, 2017 at 9:38 Board Certified Radiologist. This report was verified electronically.
[2017-04-24 12:00] VITALS: BP 153/92; PULSE 98; RESP 20; TEMP 96.6; O2SAT 100
[2017-04-24] MEDS: AZTREONAM INJ 500 MG in SODIUM CHLORIDE 0.9% INJ 100 ML IV SCH (12:00)
--- NOTE | 2017-04-24 12:06 | HHI.PR ---
Subjective Remarks Patient seen in follow-up for small bowel obstruction and Escherichia coli UTI She reports feeling better this morning. No vomiting. Still copious amount of drainage from the NG tube. She reports she had one soft bowel movement this morning. Abdomen is less distended. Objective Vitals Vital Signs Date Time Temp Pulse Resp B/P Pulse Ox O2 Delivery O2 Flow Rate FiO2 04/24/17 08:00 97.7 103 18 151/90 100 04/24/17 04:00 98.0 102 20 154/102 98 04/24/17 00:00 96.9 102 20 157/98 98 04/23/17 20:00 98.1 93 20 154/89 100 I/O 04/23/17 04/23/17 04/23/17 04/24/17 04/24/17 04/24/17 07:00 15:00 23:00 07:00 15:00 23:00 Intake Total 1495 ml 0 ml 0 ml 600 ml 500 ml Output Total 1000 ml 1025 ml Balance 495 ml 0 ml 0 ml 600 ml -525 ml Intake Oral 0 ml 0 ml 0 ml 0 ml IV Total 1495 ml 600 ml Other 500 ml Output Gastric Drainage Total 1000 ml 1025 ml # Voids 2 3 2 2 # Bowel Movements 0 1 1 0 Result Diagram: 04/24/17 0458 04/24/17 0458 Imaging Last Impressions Small Bowel X-Ray 04/23/17 0600 Signed Impressions: Service Date/Time: Sunday, April 23, 2017 08:52 - CONCLUSION: Diffuse dilation of the small bowel. Contrast does appear to reach the colon. Followup KUB in approximately 12 hours would be of benefit for further assessment. Sammy lOiver MD Abdomen X-Ray 04/22/17 0600 Signed Impressions: Service Date/Time: Saturday, April 22, 2017 06:13 - CONCLUSION: Normal examination. Numerous air filled loops of distended small bowel Tyler Dillon MD Abdomen/Pelvis CT 04/20/17 1143 Signed Impressions: Service Date/Time: Thursday, April 20, 2017 13:36 - CONCLUSION: 1. Evidence of small bowel obstruction with transition point in the right lower quadrant. Possible small inguinal hernia in this region. 2. Evidence of prior hysterectomy. 3. Atypical appearance of the urinary bladder. Wall thickening and trabeculated appearance. Question prior cystectomy with neobladder. 4. Hepatic steatosis. Chivo Leigh MD Objective Remarks GENERAL: Thin appearing female, in no apparent distress. CARDIOVASCULAR: Normal rate and regular rhythm without murmurs, gallops, or rubs. RESPIRATORY: Good respiratory efforts. Breath sounds equal and clear to auscultation bilaterally. GASTROINTESTINAL: Abdomen with some distention, nontender. Hyperactive bowel sounds. MUSCULOSKELETAL: Extremities without cyanosis, or edema. NEURO: Alert & Oriented x4 to person, place, time, situation. Moves all ext x4 PSYCH: Appropriate mood and affect. Procedures None A/P Problem List: (1) SBO (small bowel obstruction) ICD Code: K56.69 Status: Acute Assessment and Plan 62-year-old female who presents to the emergency department with acute onset of abdominal pain, nausea and vomiting since 2 AM on the day of admission. She reports of non-bilious nonbloody vomiting associated with constant severe sharp upper abdominal pain without radiation. She also noted abdominal distention improved after several episodes of vomiting last episode 10 this morning. No bowel movement for [address] scan showed SBO. SBO with transition point in the right lower quadrant and possible inguinal hernia. History of hysterectomy. - Improving pain. Patient had a bowel movement. However still having copious amount of bilious drainage from the NG tube. Small bowel study showed some contrast in the colon. KUB is recommended in 12 hours. Repeat KUB ordered. Appreciate general surgery following. Ice chips and IV hydration. - Keep NGT for now given large amount of NG tube drainage. Follow-up KUB in 12 hours. Elevated blood pressure secondary to above. Stable. Monitor with antihypertensives Sepsis with Escherichia coli UTI resistant to ciprofloxacin. Patient is allergic to penicillin. On IV Azactam. Plan to switch to oral Bactrim once able to tolerate by mouth. Mild hyponatremia. Secondary to vomiting. Resolved with hydration. Mild AST elevation with history of alcohol use. Patient counseled. CIWA protocol Tobacco abuse. Tobacco cessation DVT prophylaxis with SCD and early ambulation. Pharmacological prophylaxis if okay with general surgery Misa Leal MD Apr 24, 2017 12:06
[2017-04-24] MEDS: PANTOPRAZOLE SODIUM 40 MG VIAL IV PUSH SCH (14:56)
--- NOTE | 2017-04-24 15:46 | RADHPO ---
EXAM DATE/TIME: 04/24/2017 14:52 [facility] COMPARISON: SMALL BOWEL SERIES W/GASTROGRAFIN, April 23, 2017, 8:52. INDICATIONS : Small bowel obstruction MEDICAL HISTORY : Cardiovascular disease. SURGICAL HISTORY : Hysterectomy. ENCOUNTER: Subsequent ACUITY: 1 day PAIN SCORE: 0/10 LOCATION: Bilateral Abdomen FINDINGS: The exam demonstrates diffuse dilation of the small bowel. Contrast has passed through the small yvonne l and is present within the colon. Overall size of the distended loops of small bowel appear mildly d ecreased. CONCLUSION: 1. The oral contrast has passed through the small bowel. There is some contrast within the colon. Sammy Oliver MD on April 24, 2017 at 15:43 Board Certified Radiologist. This report was verified electronically.
[2017-04-24 16:00] VITALS: BP 173/96; PULSE 102; RESP 20; TEMP 96; O2SAT 100
--- NOTE | 2017-04-24 16:00 | HHI.PR ---
Subjective Subjective Notes Patient seen around 0715 Resting in bed Reports several BMs overnight Objective Vitals/I&O Vital Signs Date Time Temp Pulse Resp B/P Pulse Ox O2 Delivery O2 Flow Rate FiO2 04/24/17 12:00 96.6 98 20 153/92 100 04/23/17 08:00 21 Labs Laboratory Tests Test 04/24/17 04:58 White Blood Count 4.9 Red Blood Count 3.68 Hemoglobin 13.3 Hematocrit 38.9 Mean Corpuscular Volume 105.6 Mean Corpuscular Hemoglobin 36.0 Mean Corpuscular Hemoglobin 34.0 Concent Red Cell Distribution Width 14.1 Platelet Count 240 Mean Platelet Volume 8.5 Neutrophils (%) (Auto) Lymphocytes (%) (Auto) Monocytes (%) (Auto) Eosinophils (%) (Auto) Basophils (%) (Auto) Neutrophils # (Auto) Lymphocytes # (Auto) Monocytes # (Auto) Eosinophils # (Auto) Basophils # (Auto) CBC Comment AUTO DIFF Differential Total Cells 100 Counted Neutrophils % (Manual) 74 Band Neutrophils % 1 Lymphocytes % 15 Monocytes % 10 Neutrophils # (Manual) 3.7 Differential Comment AUTO DIFF CONFIRMED Platelet Estimate NORMAL Platelet Morphology Comment NORMAL Sodium Level 144 Potassium Level 3.5 Chloride Level 110 Carbon Dioxide Level 19.7 Anion Gap 14 Blood Urea Nitrogen 2 Creatinine 0.43 Estimat Glomerular Filtration 149 Rate Random Glucose 56 Calcium Level 8.5 Magnesium Level 1.6 Date/Time Procedure Status Source Growth 04/21/17 11:10 Urine Culture - Final Complete Urine Clean Catch Escherichia Coli Cardiovascular: Regular Lungs: Clear Abdomen: Non-distended, Non-tender Extremities: No edema Narrative Exam NGT in place to LIWS A/P Assessment and Plan 61 year old female with SBO -Repeat KUB this afternoon shows contrast moving to colon -Clamp NGT -Start clear liquids---sips only -SBFT shows diffuse dilation and recommends follow up KUB -Discussed with Dr. Hatch -Continue non operative treatment Attending Statement patient seen at bedside obstruction resolving clinically and radiologically continue non operative mgnt Attestation The exam, history, and the medical decision-making described in the above note were completed with the assistance of the mid-level provider. I reviewed and agree with the findings presented. I attest that I had a [id number] encounter with the patient on the same day, and personally performed and documented my assessment and findings in the medical record. Renetta Diggs Apr 24, 2017 16:00 Joao Hatch MD May 01, 2017 10:01
[2017-04-24 20:00] VITALS: BP 132/96; PULSE 98; RESP 20; TEMP 97.4; O2SAT 100
[2017-04-24] MEDS: MULTIVITAMIN INJ 10 ML, FOLIC ACID INJ 1 MG in SODIUM CHLORID 0.9% 500 ML INJ 500 ML IV SCH (20:34)
[2017-04-24] MEDS: THIAMINE INJ 100 MG in SODIUM CHLORIDE 0.9% INJ 100 ML IV SCH (20:34)
[2017-04-25] VITALS: BP 145/97; PULSE 99; RESP 20; TEMP 97.7; O2SAT 100
[2017-04-25] MEDS: AZTREONAM INJ 500 MG in SODIUM CHLORIDE 0.9% INJ 100 ML IV SCH ×2 (01:38→12:36)
[2017-04-25 04:00] VITALS: BP 136/96; PULSE 98; RESP 20; TEMP 96
[2017-04-25 05:44] LABS: MEAN CELL VOLUME 104.1 FL (80.0-100.0); MEAN CORPUSCULAR HEMOGLOBIN 36.4 PG (27.0-34.0); PLATELET COUNT 266 TH/MM3 (150-450); RED BLOOD COUNT 3.74 MIL/MM3 (4.00-5.30); RED CELL DISTRIBUTION WIDTH 14.3 % (11.6-17.2); REVIEW FLAG FINAL; WHITE BLOOD COUNT 5.3 TH/MM3 (4.0-11.0)
[2017-04-25 06:02] LABS: BICARBONATE 19.9 MEQ/L (21.0-32.0)
[2017-04-25 08:00] VITALS: BP 145/85; PULSE 102; RESP 18; TEMP 97.4; O2SAT 96
[2017-04-25] MEDS: REMOVE OLD PATCH T-DERMAL SCH (08:49)
[2017-04-25] MEDS: NICOTINE 21 MG/24 HR PATCH T-DERMAL SCH (08:49)
[2017-04-25] MEDS: SODIUM CHLORIDE 0.9% FLUSH 10 ML FLUSH IV FLUSH SCH ×2 (08:50→20:42)
[2017-04-25] MEDS: NS + KCL 20 MEQ INJ 1,000 ML IV SCH (08:50)
--- NOTE | 2017-04-25 09:45 | HHI.PR ---
Subjective Remarks Patient reports she is feeling better today. She tolerated sips of clear liquid diet. She would like to advance her diet. She denies abdominal pain, nausea or vomiting. She had one bowel movement earlier today which she described as normal. Objective Vitals Vital Signs Date Time Temp Pulse Resp B/P Pulse Ox O2 Delivery O2 Flow Rate FiO2 04/25/17 08:00 97.4 102 18 145/85 96 04/25/17 04:00 96.0 98 20 136/96 Automatic Cuff 04/25/17 00:00 97.7 99 20 145/97 100 04/24/17 20:00 97.4 98 20 132/96 100 04/24/17 16:00 96.0 102 20 173/96 100 04/24/17 12:00 96.6 98 20 153/92 100 I/O 04/24/17 04/24/17 04/24/17 04/25/17 04/25/17 04/25/17 07:00 15:00 23:00 07:00 15:00 23:00 Intake Total 600 ml 550 ml 360 ml 480 ml Output Total 1025 ml 2500 ml Balance 600 ml -475 ml -2140 ml 480 ml Intake Oral 0 ml 50 ml 360 ml 480 ml IV Total 600 ml Other 500 ml Output Gastric Drainage Total 1025 ml 2500 ml # Voids 2 3 2 3 # Bowel Movements 0 0 1 0 Result Diagram: 04/25/17 0510 04/25/17 0510 Objective Remarks GENERAL: Thin appearing female, in no apparent distress. CARDIOVASCULAR: Normal rate and regular rhythm without murmurs, gallops, or rubs. RESPIRATORY: Good respiratory efforts. Breath sounds equal and clear to auscultation bilaterally. GASTROINTESTINAL: Abdomen with some distention, nontender. Normal and active bowel sounds. MUSCULOSKELETAL: Extremities without cyanosis, or edema. NEURO: Alert & Oriented x4 to person, place, time, situation. Moves all ext x4 PSYCH: Appropriate mood and affect. Procedures None A/P Problem List: (1) SBO (small bowel obstruction) ICD Code: K56.69 Status: Acute Assessment and Plan 62-year-old female who presents to the emergency department with acute onset of abdominal pain, nausea and vomiting since 2 AM on the day of admission. She reports of non-bilious nonbloody vomiting associated with constant severe sharp upper abdominal pain without radiation. She also noted abdominal distention improved after several episodes of vomiting last episode 10 this morning. No bowel movement for [address] scan showed SBO. SBO with transition point in the right lower quadrant and possible inguinal hernia. History of hysterectomy. - Improving pain. Patient had a bowel movement. However still having copious amount of bilious drainage from the NG tube. Small bowel study showed some contrast in the colon. Repeat KUB showed contrast in the colon. Appreciate general surgery following. Patient tolerated the clear liquids. Advance to mechanical soft. -NGT clamped. Further plans per general surgery. Elevated blood pressure secondary to above. Stable. Monitor with antihypertensives Sepsis with Escherichia coli UTI resistant to ciprofloxacin. Patient is allergic to penicillin. Patient has been on Azactam. Switch to oral Bactrim for 2 more days. Mild hyponatremia. Secondary to vomiting. Resolved with hydration. Mild AST elevation with history of alcohol use. Patient counseled. CIWA protocol Tobacco abuse. Tobacco cessation DVT prophylaxis with SCD and early ambulation. Discharge Planning If continue to improve and SBO completely resolves, may potentially discharge tomorrow. Misa Leal MD Apr 25, 2017 09:44
[2017-04-25 12:00] VITALS: BP 159/86; PULSE 106; RESP 16; TEMP 98.7; O2SAT 97
[2017-04-25] MEDS ORDERED: POTASSIUM CHLORIDE 10 MEQ CONTROLLED RELEASE TAB PO ONE (12:15)
--- NOTE | 2017-04-25 12:19 | HHI.PR ---
Subjective Subjective Notes Patient seen at 0730 Resting in bed Had multiple BMs overnight Tolerated clear liquids without any nausea or vomiting Objective Vitals/I&O Vital Signs Date Time Temp Pulse Resp B/P Pulse Ox O2 Delivery O2 Flow Rate FiO2 04/25/17 12:00 98.7 106 16 159/86 97 04/23/17 08:00 21 Labs Laboratory Tests Test 04/25/17 05:10 White Blood Count 5.3 Red Blood Count 3.74 Hemoglobin 13.6 Hematocrit 39.0 Mean Corpuscular Volume 104.1 Mean Corpuscular Hemoglobin 36.4 Mean Corpuscular Hemoglobin 35.0 Concent Red Cell Distribution Width 14.3 Platelet Count 266 Mean Platelet Volume 8.1 Sodium Level 144 Potassium Level 3.0 Chloride Level 110 Carbon Dioxide Level 19.9 Anion Gap 14 Blood Urea Nitrogen 2 Creatinine 0.41 Estimat Glomerular Filtration 157 Rate Random Glucose 111 Calcium Level 8.8 Date/Time Procedure Status Source Growth 04/21/17 11:10 Urine Culture - Final Complete Urine Clean Catch Escherichia Coli Cardiovascular: Regular Lungs: Clear Abdomen: Non-distended, Non-tender Extremities: No edema Narrative Exam NGT in place ---clamped A/P Assessment and Plan 61 year old female with SBO -Tolerated clears -DC NGT -Advance to full liquids; plan to advance diet as tolerated -Discussed with Dr. Hatch -Continue non operative treatment Attending Statement patient seen at bedside doing well tolerating liquids advance remove ng Attestation The exam, history, and the medical decision-making described in the above note were completed with the assistance of the mid-level provider. I reviewed and agree with the findings presented. I attest that I had a [id number] encounter with the patient on the same day, and personally performed and documented my assessment and findings in the medical record. Renetta Diggs Apr 25, 2017 12:19 Joao Hatch MD May 02, 2017 16:34
[2017-04-25 16:00] VITALS: BP 165/78; PULSE 97; RESP 16; TEMP 97.2; O2SAT 98
[2017-04-25] MEDS: PANTOPRAZOLE SODIUM 40 MG VIAL IV PUSH SCH (17:38)
[2017-04-25 20:00] VITALS: BP 158/90; PULSE 105; RESP 16; TEMP 98.7; O2SAT 97
[2017-04-25] MEDS: MULTIVITAMIN INJ 10 ML, FOLIC ACID INJ 1 MG in SODIUM CHLORID 0.9% 500 ML INJ 500 ML IV SCH (20:42)
[2017-04-25] MEDS: THIAMINE INJ 100 MG in SODIUM CHLORIDE 0.9% INJ 100 ML IV SCH (20:42)
[2017-04-26] VITALS: BP 145/91; PULSE 108; RESP 16; TEMP 100.1; O2SAT 98
[2017-04-26] MEDS: AZTREONAM INJ 500 MG in SODIUM CHLORIDE 0.9% INJ 100 ML IV SCH (00:16)
[2017-04-26] MEDS: NS + KCL 20 MEQ INJ 1,000 ML IV SCH (04:26)
[2017-04-26 07:10] LABS: HEMATOCRIT 37.6 % (35.0-46.0); MEAN CELL VOLUME 103.6 FL (80.0-100.0); MEAN CORPUSCULAR HEMOGLOBIN 35.1 PG (27.0-34.0); MEAN CORPUSCULAR HGB CONC 33.9 % (32.0-36.0); PLATELET COUNT 270 TH/MM3 (150-450); RED BLOOD COUNT 3.63 MIL/MM3 (4.00-5.30); RED CELL DISTRIBUTION WIDTH 13.8 % (11.6-17.2); REVIEW FLAG FINAL; WHITE BLOOD COUNT 4.8 TH/MM3 (4.0-11.0)
[2017-04-26] MEDS: REMOVE OLD PATCH T-DERMAL SCH (07:25)
[2017-04-26] MEDS: SODIUM CHLORIDE 0.9% FLUSH 10 ML FLUSH IV FLUSH SCH (07:25)
[2017-04-26 07:42] LABS: BICARBONATE 21.2 MEQ/L (21.0-32.0)
[2017-04-26 07:47] LABS: POTASSIUM 2.9 MEQ/L (3.5-5.1)
--- NOTE | 2017-04-26 07:49 | HHI.PR ---
Subjective Subjective Notes Resting in bed Had regular dinner last night with no issues +BM Objective Vitals/I&O Vital Signs Date Time Temp Pulse Resp B/P Pulse Ox O2 Delivery O2 Flow Rate FiO2 04/26/17 00:00 100.1 108 16 145/91 98 04/23/17 08:00 21 Labs Laboratory Tests Test 04/26/17 05:55 White Blood Count 4.8 Red Blood Count 3.63 Hemoglobin 12.8 Hematocrit 37.6 Mean Corpuscular Volume 103.6 Mean Corpuscular Hemoglobin 35.1 Mean Corpuscular Hemoglobin 33.9 Concent Red Cell Distribution Width 13.8 Platelet Count 270 Mean Platelet Volume 8.6 Sodium Level 143 Potassium Level 2.9 Chloride Level 111 Carbon Dioxide Level 21.2 Anion Gap 11 Blood Urea Nitrogen 2 Creatinine 0.32 Estimat Glomerular Filtration 209 Rate Random Glucose 83 Calcium Level 8.2 Date/Time Procedure Status Source Growth 04/21/17 11:10 Urine Culture - Final Complete Urine Clean Catch Escherichia Coli Cardiovascular: Regular Lungs: Clear Abdomen: Non-distended, Non-tender Extremities: No edema A/P Assessment and Plan 61 year old female with SBO -Tolerating regular diet -+BM -GS clear for DC -Discussed with Dr. Hatch Attending Statement Patient seen at bedside progressing well bms tolerating diet d/c home Attestation The exam, history, and the medical decision-making described in the above note were completed with the assistance of the mid-level provider. I reviewed and agree with the findings presented. I attest that I had a [id number] encounter with the patient on the same day, and personally performed and documented my assessment and findings in the medical record. Renetta Diggs Apr 26, 2017 07:49 Joao Hatch MD May 02, 2017 16:36
[2017-04-26 08:00] VITALS: BP_SYST 147; BP_SYST 166; BP_DIAS 91; BP_DIAS 98; PULSE 79; RESP 18; TEMP 96.2; O2SAT 95
[2017-04-26] MEDS ORDERED: POTASSIUM CHLORIDE 20 MEQ CONTROLLED RELEASE TAB PO ONE (08:00)
[2017-04-26] MEDS: NICOTINE 21 MG/24 HR PATCH T-DERMAL SCH (08:13)
[2017-04-26] MEDS: POTASSIUM CHLOR 20 MEQ PREMIX 100 ML IV SCH ×2 (08:13→10:16)
[2017-04-26] MEDS ORDERED: MAGNESIUM SULFATE 1 GM PREMIX 100 ML IV ONE (09:30)
--- NOTE | 2017-04-26 11:38 | HHI.PR ---
Subjective Remarks Patient seen this morning around 10 AM. Says she is feeling all right. Tolerating diet. Positive bowel movement. Would like to go home. Potassium was low, will be replaced. Objective Vital Signs Date Time Temp Pulse Resp B/P Pulse Ox O2 Delivery O2 Flow Rate FiO2 04/26/17 08:00 96.2 79 18 147/91 95 04/26/17 00:00 100.1 108 16 145/91 98 04/25/17 20:00 98.7 105 16 158/90 97 04/25/17 16:00 97.2 97 16 165/78 98 04/25/17 12:00 98.7 106 16 159/86 97 I/O 04/25/17 04/25/17 04/25/17 04/26/17 04/26/17 04/26/17 07:00 15:00 23:00 07:00 15:00 23:00 Intake Total 1230 ml 750 ml 1340 ml Balance 1230 ml 750 ml 1340 ml Intake Oral 1230 ml 240 ml IV Total 750 ml 1100 ml # Voids 8 1 # Bowel Movements 2 1 Result Diagram: 04/26/17 0555 04/26/17 0555 Objective Remarks GENERAL: Patient sitting up in bed. Appears comfortable. Alert and oriented 3. SKIN: Warm and dry. HEAD: Normocephalic. EYES: No scleral icterus. No injection or drainage. NECK: Supple, trachea midline. No JVD. CARDIOVASCULAR: Regular rate and rhythm without murmurs, gallops, or rubs. RESPIRATORY: Breath sounds equal bilaterally. No accessory muscle use. GASTROINTESTINAL: Abdomen soft, non-tender, nondistended. No rebound or guarding. MUSCULOSKELETAL: No cyanosis, or edema. BACK: Nontender without obvious deformity. No CVA tenderness. A/P Assessment and Plan =====04/26/17 -Patient ready to be discharged, with the exception of acute hypokalemia with potassium 2.9. Will be replaced, with recheck this afternoon. Can discharge home if improved. Magnesium 1.6 on 04/24, was replaced as well. Will need to follow-up with general surgery as outpatient. 62-year-old female who presents to the emergency department with acute onset of abdominal pain, nausea and vomiting since 2 AM on the day of admission. She reports of non-bilious nonbloody vomiting associated with constant severe sharp upper abdominal pain without radiation. She also noted abdominal distention improved after several episodes of vomiting last episode 10 this morning. No bowel movement for [address] scan showed SBO. //SBO with transition point in the right lower quadrant and possible inguinal hernia. History of hysterectomy. - Improving pain. Patient had a bowel movement. However still having copious amount of bilious drainage from the NG tube. Small bowel study showed some contrast in the colon. Repeat KUB showed contrast in the colon. Appreciate general surgery following. Patient tolerated the clear liquids. Advance to mechanical soft. -NGT clamped. Further plans per general surgery. -Resolved. Patient with bowel movements //Hypokalemia. Ice and monitor. //Elevated blood pressure secondary to above. Stable. Monitor with antihypertensives //Sepsis with Escherichia coli UTI resistant to ciprofloxacin. Patient is allergic to penicillin. Patient has been on Azactam. Switch to oral Bactrim for 2 more days. //Mild hyponatremia. Secondary to vomiting. Resolved with hydration. //Mild AST elevation with history of alcohol use. Patient counseled. [place] protocol. Follow-up primary care as outpatient. Stop drinking alcohol. //Tobacco abuse. Tobacco cessation DVT prophylaxis with SCD and early ambulation. Discharge Planning Discharge home today when potassium improved. Gianni Hurtado MD Apr 26, 2017 11:38
[2017-04-26] MEDS ORDERED: MIRA3350 PO (11:39)
[2017-04-26] MEDS ORDERED: BACT800T5 PO (11:45)
--- NOTE | 2017-04-26 11:48 | HHI.DS ---
Discharge Summary Admission Date Apr 20, 2017 at 15:30 Discharge Date: Apr 26, 2017 Admitting Diagnosis SBO (1) SBO (small bowel obstruction) ICD Code: K56.69 Procedures None Brief History - From Admission This is a 62-year-old female with history of coronary artery disease, tobacco and alcohol abuse and cervical cancer status post radical hysterectomy. She presents to the emergency department with acute onset of abdominal pain, nausea and vomiting since 2 AM this morning. She reports of non-bilious nonbloody vomiting associated with constant severe sharp upper abdominal pain without radiation. She also noted abdominal distention improved after several episodes of vomiting last episode 10 this morning. No bowel movement for [address] scan showed SBO. Denies fever, chills, chest pain, shortness of breath and UTI symptoms. All other systems reviewed negative CBC/BMP: 04/26/17 0555 04/26/17 0555 Significant Findings Laboratory Tests Test 04/24/17 04/25/17 04/26/17 04:58 05:10 05:55 Red Blood Count 3.68 MIL/MM3 3.74 MIL/MM3 3.63 MIL/MM3 (4.00-5.30) (4.00-5.30) (4.00-5.30) Mean Corpuscular Volume 105.6 FL 104.1 FL 103.6 FL (80.0-100.0) (80.0-100.0) (80.0-100.0) Mean Corpuscular Hemoglobin 36.0 PG 36.4 PG 35.1 PG (27.0-34.0) (27.0-34.0) (27.0-34.0) Neutrophils % (Manual) 74 % (16-70) Monocytes % 10 % (0-8) Chloride Level 110 MEQ/L 110 MEQ/L 111 MEQ/L (98-107) (98-107) (98-107) Carbon Dioxide Level 19.7 MEQ/L 19.9 MEQ/L (21.0-32.0) (21.0-32.0) Blood Urea Nitrogen 2 MG/DL (7-18) 2 MG/DL (7-18) 2 MG/DL (7-18) Creatinine 0.43 MG/DL 0.41 MG/DL 0.32 MG/DL (0.50-1.00) (0.50-1.00) (0.50-1.00) Random Glucose 56 MG/DL 111 MG/DL (74-106) (74-106) Potassium Level 3.0 MEQ/L 2.9 MEQ/L (3.5-5.1) (3.5-5.1) Calcium Level 8.2 MG/DL (8.5-10.1) Imaging Last Impressions Abdomen X-Ray 04/24/17 2100 Signed Impressions: Service Date/Time: Monday, April 24, 2017 14:52 - CONCLUSION: 1. The oral contrast has passed through the small bowel. There is some contrast within the colon. Sammy Oliver MD Small Bowel X-Ray 04/23/17 0600 Signed Impressions: Service Date/Time: Sunday, April 23, 2017 08:52 - CONCLUSION: Diffuse dilation of the small bowel. Contrast does appear to reach the colon. Followup KUB in approximately 12 hours would be of benefit for further assessment. Sammy Oliver MD Abdomen/Pelvis CT 04/20/17 1143 Signed Impressions: Service Date/Time: Thursday, April 20, 2017 13:36 - CONCLUSION: 1. Evidence of small bowel obstruction with transition point in the right lower quadrant. Possible small inguinal hernia in this region. 2. Evidence of prior hysterectomy. 3. Atypical appearance of the urinary bladder. Wall thickening and trabeculated appearance. Question prior cystectomy with neobladder. 4. Hepatic steatosis. Chivo Leigh MD PE at Discharge GENERAL: Thin appearing female, in no apparent distress. CARDIOVASCULAR: Normal rate and regular rhythm without murmurs, gallops, or rubs. RESPIRATORY: Good respiratory efforts. Breath sounds equal and clear to auscultation bilaterally. GASTROINTESTINAL: Abdomen with some distention, nontender. Normal and active bowel sounds. MUSCULOSKELETAL: Extremities without cyanosis, or edema. NEURO: Alert & Oriented x4 to person, place, time, situation. Moves all ext x4 PSYCH: Appropriate mood and affect. Hospital Course Imaging as above. Gen. surgery was consulted. NG tube was placed, for decompression. Patient had resolution of bowel movements. Patient also had UTI , which was treated with IV antibiotics, and will continue on Bactrim to complete treatment course. Imaging as above shows thickened bladder, for which patient will need to follow-up with primary care. Patient also developed hypokalemia, potassium 2.9, likely secondary to a small degree of refeeding. This was replaced. She will need to follow-up with primary care with repeat labs. Patient conveys understanding. She will avoid alcohol consumption. =====04/26/17 -Patient ready to be discharged, with the exception of acute hypokalemia with potassium 2.9. Will be replaced, with recheck this afternoon. Can discharge home if improved. Magnesium 1.6 on 04/24, was replaced as well. Will need to follow-up with general surgery as outpatient. 62-year-old female who presents to the emergency department with acute onset of abdominal pain, nausea and vomiting since 2 AM on the day of admission. She reports of non-bilious nonbloody vomiting associated with constant severe sharp upper abdominal pain without radiation. She also noted abdominal distention improved after several episodes of vomiting last episode 10 this morning. No bowel movement for [address] scan showed SBO. //SBO with transition point in the right lower quadrant and possible inguinal hernia. History of hysterectomy. - Improving pain. Patient had a bowel movement. However still having copious amount of bilious drainage from the NG tube. Small bowel study showed some contrast in the colon. Repeat KUB showed contrast in the colon. Appreciate general surgery following. Patient tolerated the clear liquids. Advance to mechanical soft. -NGT clamped. Further plans per general surgery. -Resolved. Patient with bowel movements //UTI. Patient treated with IV antibiotics. Continue Bactrim to complete treatment course. //Hypokalemia. Ice and monitor. //Elevated blood pressure secondary to above. Stable. Monitor with antihypertensives //Sepsis with Escherichia coli UTI resistant to ciprofloxacin. Patient is allergic to penicillin. Patient has been on Azactam. Switch to oral Bactrim for 2 more days. //Mild hyponatremia. Secondary to vomiting. Resolved with hydration. //Mild AST elevation with history of alcohol use. Patient counseled. CIWA protocol. Follow-up primary care as outpatient. Stop drinking alcohol. //Tobacco abuse. Tobacco cessation DVT prophylaxis with SCD and early ambulation. Discharge Planning Discharge home today when potassium improved. Pt Condition on Discharge: Good Discharge Disposition: Discharge Home Discharge Time: <= 30 minutes Discharge Instructions DIET: Follow Instructions for: As Tolerated, No Restrictions Activities you can perform: Regular-No Restrictions Follow up Referrals: PCP Follow-up - 1 Week New Medications: Polyethylene Glycol 3350 Powder (Miralax Powder) 17 Gm Powd 17 GM PO DAILY Mix and dissolve one measuring cap-ful (17 grams) in water or juice. Constipation #1 Ref 0 CAN Sulfamethoxazole-Trimethoprim (Bactrim DS) 800-160 Mg Tab 1 TAB PO BID Infection #14 Ref 0 TAB Gianni Hurtado MD Apr 26, 2017 11:48
[2017-04-26 12:00] VITALS: BP 158/93; PULSE 103; RESP 17; TEMP 99.5; O2SAT 97
[2017-04-26 13:42] LABS: POTASSIUM 3.6 MEQ/L (3.5-5.1)
[2017-04-26 13:45] LABS: BICARBONATE 22.2 MEQ/L (21.0-32.0)
[2017-04-26 14:56] LABS: POTASSIUM 3.6 MEQ/L (3.5-5.1)
[2017-04-26 14:58] LABS: MAGNESIUM 1.9 MG/DL (1.5-2.5)
== END 2017-04-26 16:40 | disposition home or self-care (01) | DRG 872 ==
LOC: PHED 11:19 → PHEDA 15:30 → PH3B 18:11
PROVIDERS: ADMIT Internal Medicine; ATTEND Internal Medicine
DX: A41.9 Sepsis, unspecified organism (principal); K56.60 Unspecified intestinal obstruction; N39.0 Urinary tract infection, site not specified; E87.1 Hypo-osmolality and hyponatremia; I25.10 Atherosclerotic heart disease of native coronary artery without angina pectoris; F17.210 Nicotine dependence, cigarettes, uncomplicated; H54.41 Blindness, right eye, normal vision left eye; R32 Unspecified urinary incontinence; B96.20 Unspecified Escherichia coli [E. coli] as the cause of diseases classified elsewhere; Z90.710 Acquired absence of both cervix and uterus; Z88.0 Allergy status to penicillin
CPT/HCPCS: 74000; 74177; 74250; 76937; 80048; 80053; 81001; 83605; 83690; 83735; 84132; 85007; 85025; 85027; 85610; 87077; 87086; 87186; 93005; 96361; 96374; 96375; 96376; C9113; J0744; J1885; J2270; J2405; J3411; J3475; J3480; J7030; J7040; Q9963; Q9967

== ENCOUNTER 2017-10-20 03:31 | Inpatient (IN) | payer SELFPAY ==
[2017-10-20] VITALS (13 sets, daily range): BP systolic 96–190; BP diastolic 47–116; PULSE 75–110; RESP 16–24; TEMP 97.2–98.8; O2SAT 93–100
[~2017-10-20] VITALS: Ht 147.3 cm; Wt 85.1 kg
[~2017-10-20 03:31] MED LIST changes: +BACT800T5 PO; +MIRA3350 PO; -OXYC-360 PO; -PROM25TA5 PO; -Z.0.NO CURRENT MEDS; -ZITH250T PO
[2017-10-20] MEDS ORDERED: SODIUM CHLOR 0.9% 1000 ML INJ 1,000 ML IV SCH ×2 (03:53→07:15)
[2017-10-20] MEDS ORDERED: SODIUM CHLORIDE 0.9% FLUSH 10 ML FLUSH IV FLUSH PRN ×2 (04:00→07:30)
[2017-10-20] MEDS ORDERED: DIATRIZOATE MEGLUM/DIATRIZOATE SOD 9 ML CUP ONE (04:11)
[2017-10-20] MEDS ORDERED: ONDANSETRON HCL 4 MG/2 ML VIAL IV ONE ×2 (04:15→05:45)
--- NOTE | 2017-10-20 04:22 | PD ---
HPI Chief Complaint: Abdominal Pain Time Seen by Provider: 03:53 Travel History International Travel<30 days: No Contact w/Intl Traveler<30days: No Traveled to known affect area: No History of Present Illness HPI The patient is a 62-year-old female that complains of severe abdominal pain beginning at 9 PM. She took some Miralax and the pain got worse. The patient started vomiting shortly after she arrived here in the emergency department at 3 :30 AM. The patient states this is the same way she felt when she had a bowel obstruction. The patient states she had a radical hysterectomy for cervical cancer but she still has her ovaries. She has not had any other abdominal surgeries and still has her appendix and gallbladder. She denies any diarrhea. The patient admits to about 4 beers daily. She does have a history of alcohol abuse. PFSH Past Medical History Autoimmune Disease: No Heart Rhythm Problems: Yes (murmur since ) Cancer: Yes (cervical cancer ) Cardiac Catheterization: No Cardiovascular Problems: Yes (mild heart attack 10 years ago) High Cholesterol: No Chest Pain: No Congestive Heart Failure: No Coronary Artery Disease: Yes ([place] 2006) Diabetes: No Diminished Hearing: No Endocrine: No Genitourinary: No Hypertension: No Immune Disorder: No Musculoskeletal: No Neurologic: No Psychiatric: No Reproductive: No Respiratory: No Myocardial Infarction: Yes (2006) Thyroid Disease: No Menopausal: Yes Past Surgical History Coronary Artery Bypass Graft: No Genitourinary Surgery: Yes (CERVICAL CA- hysterectomy ) Hysterectomy: Yes (25 YEARS AGO FOR CERVICAL CANCER) Tonsillectomy: Yes Social History Alcohol Use: Yes (6 BEERS DAILY) Tobacco Use: Yes (CIGARETTES, 1 PPD X 25 YEARS) Substance Use: No Allergies-Medications (Allergen,Severity, Reaction): Coded Allergies: penicillin G (Unverified Allergy, Severe, Anaphylaxis, 10/20/17) Reported Meds & Prescriptions Reported Meds & Active Scripts Active Miralax Powder (Polyethylene Glycol 3350 Powder) 17 Gm Powd 17 Gm PO DAILY Mix and dissolve one measuring cap-ful (17 grams) in water or juice. Review of Systems Except as stated in HPI: all other systems reviewed are Neg Physical Exam Narrative GENERAL: The patient is alert, oriented 3, slightly dehydrated-appearing in moderate apparent distress with her abdominal discomfort. Her vital signs show heart rate of 110 a pressure 190/116 but otherwise normal. SKIN: Focused skin assessment warm/dry. HEAD: Atraumatic. Normocephalic. EYES: Pupils equal and round. No scleral icterus. No injection or drainage. ENT: No nasal bleeding or discharge. Mucous membranes pink and moist. NECK: Trachea midline. No JVD. CARDIOVASCULAR: Regular rate and rhythm. No murmur appreciated. RESPIRATORY: No accessory muscle use. Clear to auscultation. Breath sounds equal bilaterally. GASTROINTESTINAL: Abdomen soft, with tenderness primarily in the lower quadrants and the abdomen is distended. Hepatic and splenic margins not palpable. No guarding or rebound is present. MUSCULOSKELETAL: No obvious deformities. No clubbing. No cyanosis. No edema. NEUROLOGICAL: Awake and alert. No obvious cranial nerve deficits. Motor grossly within normal limits. Normal speech. PSYCHIATRIC: Appropriate mood and affect; insight and judgment normal. RECTAL EXAM: No masses or tenderness, stool is brown. No fecal impactions are noted. The stool is guaiac-negative. Data Data Last Documented VS Vital Signs Date Time Temp Pulse Resp B/P (MAP) Pulse Ox O2 Delivery O2 Flow Rate FiO2 10/20/17 07:24 75 17 97/50 (66) 100 Nasal Cannula 2.00 10/20/17 03:39 98.1 Orders Orders Complete Blood Count With Diff (10/20/17 03:53) Comprehensive Metabolic Panel (10/20/17 03:53) Lipase (10/20/17 03:53) Urinalysis - C+S If Indicated (10/20/17 03:53) Ct Abd/Pel W Iv Contrast(Rout) (10/20/17 03:53) Iv Access Insert/Monitor (10/20/17 03:53) Ecg Monitoring (10/20/17 03:53) Oximetry (10/20/17 03:53) Sodium Chlor 0.9% 1000 Ml Inj (Ns 1000 M (10/20/17 03:53) Sodium Chloride 0.9% Flush (Ns Flush) (10/20/17 04:00) Electrocardiogram (10/20/17 03:53) Chest, Pa & Lat (10/20/17 03:55) Oral Contrast - Adult (10/20/17 04:04) Diatrizoate Liq ( Gastroview Liq) (10/20/17 04:11) Ondansetron Inj (Zofran Inj) (10/20/17 04:15) Diatrizoate Liq (Md Stoner Liq) (10/20/17 04:30) Cath For Specimen (10/20/17 04:54) Urine Culture (10/20/17 05:00) Ondansetron Inj (Zofran Inj) (10/20/17 05:45) Hydromorphone Pf Inj (Dilaudid Pf Inj) (10/20/17 06:00) Metoclopramide Inj (Reglan Inj) (10/20/17 06:00) Ng Gastric Tube Insert/Monitor (10/20/17 05:59) Iohexol 350 Inj (Omnipaque 350 Inj) (10/20/17 06:09) Alcohol (Ethanol) (10/20/17 06:57) Sodium Chlor 0.9% 1000 Ml Inj (Ns 1000 M (10/20/17 07:15) Admit To Inpatient (10/20/17 ) Vital Signs (Adult) Q4H (10/20/17 07:27) Activity Bed Rest With Brp (10/20/17 07:27) Diet Npo (10/20/17 Breakfast) Sodium Chlor 0.9% 1000 Ml Inj (Ns 1000 M (10/20/17 08:00) Sodium Chloride 0.9% Flush (Ns Flush) (10/20/17 07:30) Sodium Chloride 0.9% Flush (Ns Flush) (10/20/17 09:00) Ondansetron Inj (Zofran Inj) (10/20/17 07:30) Basic Metabolic Panel (Bmp) (10/21/17 06:00) Complete Blood Count With Diff (10/21/17 06:00) Naloxone Inj (Narcan Inj) (10/20/17 07:30) Basic Metabolic Panel (Bmp) (10/20/17 07:27) Admit Order (Ed Use Only) (10/20/17 07:31) Labs Laboratory Tests Test 10/20/17 03:55 10/20/17 05:00 10/20/17 07:10 White Blood Count 8.1 TH/MM3 Red Blood Count 4.87 MIL/MM3 Hemoglobin 16.4 GM/DL Hematocrit 49.3 % Mean Corpuscular Volume 101.1 FL Mean Corpuscular Hemoglobin 33.7 PG Mean Corpuscular Hemoglobin Concent 33.3 % Red Cell Distribution Width 14.8 % Platelet Count 262 TH/MM3 Mean Platelet Volume 9.4 FL Neutrophils (%) (Auto) 55.0 % Lymphocytes (%) (Auto) 34.8 % Monocytes (%) (Auto) 7.7 % Eosinophils (%) (Auto) 1.8 % Basophils (%) (Auto) 0.7 % Neutrophils # (Auto) 4.5 TH/MM3 Lymphocytes # (Auto) 2.8 TH/MM3 Monocytes # (Auto) 0.6 TH/MM3 Eosinophils # (Auto) 0.1 TH/MM3 Basophils # (Auto) 0.1 TH/MM3 CBC Comment DIFF FINAL Differential Comment Blood Urea Nitrogen 3 MG/DL Creatinine 0.53 MG/DL Random Glucose 106 MG/DL Total Protein 8.5 GM/DL Albumin 3.6 GM/DL Calcium Level 9.5 MG/DL Alkaline Phosphatase 131 U/L Aspartate Amino Transf (AST/SGOT) 162 U/L Alanine Aminotransferase (ALT/SGPT) 98 U/L Total Bilirubin 0.7 MG/DL Sodium Level 131 MEQ/L Potassium Level 6.3 MEQ/L Chloride Level 98 MEQ/L Carbon Dioxide Level 25.1 MEQ/L Anion Gap 8 MEQ/L Estimat Glomerular Filtration Rate 117 ML/MIN Lipase 117 U/L Urine Color YELLOW Urine Turbidity CLEAR Urine pH 5.5 Urine Specific [place] 1.005 Urine Protein NEG mg/dL Urine Glucose (UA) NEG mg/dL Urine Ketones NEG mg/dL Urine Occult Blood NEG Urine Nitrite POS Urine Bilirubin NEG Urine Leukocyte Esterase NEG Urine WBC 0-2 /hpf Urine Squamous Epithelial Cells 0-5 /hpf Urine Bacteria MANY /hpf Microscopic Urinalysis Comment CULTURE INDICATED Ethyl Alcohol Level 71 MG/DL [facility] Medical Decision Making Medical Screen Exam Complete: Yes Emergency Medical Condition: Yes Medical Record Reviewed: Yes Interpretation(s) The CT abdomen/pelvis with IV contrast is suggestive of a small bowel obstruction. A small amount of air in the right abdomen is nonspecific and follow-up is suggested to see if this is free air. The CBC shows a hemoglobin of 16.4 and hematocrit of 49.3. This is likely hemoconcentration from dehydration. The urine shows positive nitrite and many bacteria and culture is indicated. This was a catheterized urine. The complete metabolic profile shows a total protein of 8.5, alkaline phosphatase of 131 and GOT of 162 with ALT of 98 and sodium of 131. The lipase is normal. Differential Diagnosis Small bowel obstruction, fecal impaction, electrolyte disorder, dehydration Narrative Course The patient is very symptomatic and is getting an NG tube. This is likely a small bowel obstruction. She is dehydrated as reflected by the elevated hemoglobin and hematocrit which probably represent hemoconcentration. Diagnosis Primary Impression: SBO (small bowel obstruction) Additional Impression: Dehydration, moderate Admitting Information Admitting Physician Requests: Admit Bob Mora MD Oct 20, 2017 04:22
[2017-10-20 04:23] LABS: CHLORIDE 98 MEQ/L (98-107); POTASSIUM 6.3 MEQ/L (3.5-5.1); SODIUM (NA) 131 MEQ/L (136-145)
[2017-10-20 04:27] LABS: ANION GAP 8 MEQ/L (5-15); BICARBONATE 25.1 MEQ/L (21.0-32.0); BLOOD UREA NITROGEN 3 MG/DL (7-18)
[2017-10-20 04:30] LABS: AST (GOT) 162 U/L (15-37); GLOMERULAR FILTRATION RATE 117 ML/MIN (>89)
[2017-10-20] MEDS ORDERED: DIATRIZOATE MEGLUM/DIATRIZOATE SOD 9 ML CUP PO ONE (04:30)
[2017-10-20 04:31] LABS: TOTAL BILIRUBIN ADULT 0.7 MG/DL (0.2-1.0)
[2017-10-20 04:33] LABS: ALKALINE PHOSPHATASE 131 U/L (45-117)
[2017-10-20 05:16] LABS: BLOOD, URINE NEG (NEG); GLUCOSE,URINE NEG (NEG); KETONE, URINE NEG (NEG); NITRITE,URINE POS (NEG); PH, URINE 5.5 (5.0-8.5)
[2017-10-20 05:23] LABS: URINE COLOR YELLOW (YELLW/STRAW)
--- NOTE | 2017-10-20 05:23 | RADRPT ---
EXAM DATE/TIME: 10/20/2017 04:11 [facility] COMPARISON: No previous studies available for comparison. INDICATIONS : Shortness of breath and vomiting. MEDICAL HISTORY : Myocardial infarction. Cardiovascular disease, Cervical carcinoma SURGICAL HISTORY : Hysterectomy. Tonsillectomy. ENCOUNTER: Initial ACUITY: 1 day PAIN SCORE: 8/10 LOCATION: Bilateral chest FINDINGS: PA and lateral views of the chest demonstrate a normal-sized cardiac silhouette. There is no effusion , consolidation, or pneumothorax. The bones and soft tissues demonstrate no acute abnormality. CONCLUSION: No acute cardiopulmonary abnormality is identified. Harris Aranda MD on October 20, 2017 at 5:19 Board Certified Radiologist. This report was verified electronically.
[2017-10-20 05:24] LABS: BACTERIA, URINE MANY /hpf; COMMENT (UR) CULTURE INDICATED; CULTURE IF INDICATED CULTURE INDICATED; SQUAMOUS EPITHELIAL CELL URINE 0-5 /hpf (0-5); WBC, URINE 0-2 /hpf (0-5)
[2017-10-20 05:46] LABS: AUTOMATED NEUTROPHIL # 4.5 TH/MM3 (1.8-7.7); BASOPHIL # 0.1 TH/MM3 (0-0.2); BASOPHIL % 0.7 % (0.0-2.0); EOSINOPHIL # 0.1 TH/MM3 (0-0.4); EOSINOPHIL % 1.8 % (0.0-4.0); HEMATOCRIT 49.3 % (35.0-46.0); LYMPH % 34.8 % (9.0-44.0); LYMPHOCYTE # 2.8 TH/MM3 (1.0-4.8); MEAN CELL VOLUME 101.1 FL (80.0-100.0); MEAN CORPUSCULAR HEMOGLOBIN 33.7 PG (27.0-34.0); MEAN CORPUSCULAR HGB CONC 33.3 % (32.0-36.0); MONO % 7.7 % (0.0-8.0); PLATELET COUNT 262 TH/MM3 (150-450); RED BLOOD COUNT 4.87 MIL/MM3 (4.00-5.30); RED CELL DISTRIBUTION WIDTH 14.8 % (11.6-17.2); WHITE BLOOD COUNT 8.1 TH/MM3 (4.0-11.0)
[2017-10-20 05:49] LABS: HEMO FLAGS DIFF FINAL
[2017-10-20 05:52] LABS: ALT (GPT) 98 U/L (10-53)
[2017-10-20] MEDS ORDERED: HYDROmorphone HCL PF 1 MG/ML VIAL IVP ONE (06:00)
[2017-10-20] MEDS ORDERED: METOCLOPRAMIDE HCL 10 MG/2 ML VIAL IVS ONE (06:00)
[2017-10-20] MEDS ORDERED: IOHEXOL 350 MG/ML 10 ML VIAL (for RAD DIAG) IVCONTRAST ONE (06:09)
--- NOTE | 2017-10-20 06:36 | RADRPT ---
EXAM DATE/TIME: 10/20/2017 06:02 [facility] COMPARISON: CT ABDOMEN & PELVIS W CONTRAST, April 20, 2017, 13:36. INDICATIONS : Severe abdominal pain with extreme nausea and vomiting. Prior history of bowel obstruction. IV CONTRAST: 88 cc Omnipaque 350 (iohexol) IV ORAL CONTRAST: Partial prescribed oral contrast ingested. RADIATION DOSE: 3.64 CTDIvol (mGy) MEDICAL HISTORY : Cardiovascular disease. Cervical cancer SURGICAL HISTORY : Tonsillectomy. Hysterectomy. ENCOUNTER: Initial ACUITY: 1 day PAIN SCALE: 10/10 LOCATION: abdomen TECHNIQUE: Volumetric scanning of the abdomen and pelvis was performed. Using automated exposure control and ad justment of the mA and/or kV according to patient size, radiation dose was kept as low as reasonably achievable to obtain optimal diagnostic quality images. DICOM format image data is available electro nically for review and comparison. FINDINGS: LOWER LUNGS: The visualized lower lungs are clear. LIVER: Mild diffuse decreased density without lesion. There is no dilation of the biliary tree. No calcifi ed gallstones. SPLEEN: Normal size without lesion. PANCREAS: Within normal limits. KIDNEYS: Normal in size and shape. There is no mass, stone or hydronephrosis. ADRENAL GLANDS: Within normal limits. VASCULAR: There is no aortic aneurysm. There is severe atherosclerotic disease. BOWEL/MESENTERY: Stomach demonstrates no abnormality. Proximal small bowel is within normal limits. The mid to distal small bowel is abnormally dilated measuring up to 3.8 cm. These dilated small bowel segments demonstr ate air-fluid levels. Transition point is somewhere in the right lower quadrant but is not specifical ly identified. The distal small bowel is decompressed. Colon is decompressed. There is air in the rig ht abdomen that is nonspecific and could be within bowel that may be extraluminal. There is trace coni e fluid in the pelvis. ABDOMINAL WALL: Within normal limits. RETROPERITONEUM: There is no lymphadenopathy. Multiple surgical clips are present in the retroperitoneum. BLADDER: Urinary bladder demonstrates abnormal wall thickening with a trabeculated appearance stable from the prior study. REPRODUCTIVE: Uterus is absent. INGUINAL: No lymphadenopathy or hernia. MUSCULOSKELETAL: There are degenerative changes of the lumbar spine. CONCLUSION: 1. Abnormal dilated mid and distal small bowel with air-fluid levels and decompressed distal small dwain wel. Transition point is in the right lower quadrant but no specific cause for the caliber change is identified. The appearance is suggestive of some degree of small bowel obstruction and appears simila r to the prior exam. 2. There is a small amount of air in the right abdomen that is nonspecific and cannot exclude a small amount of free air. Suggest followup imaging to assess for change if no surgery was performed. 3. Stable abnormal appearance of the urinary bladder with wall thickening and trabeculated appearance . Harris Aranda MD on October 20, 2017 at 6:25 Board Certified Radiologist. This report was verified electronically.
[2017-10-20] MEDS ORDERED: NALOXONE HCL 0.4 MG/ML AMP IV PUSH PRN (07:30)
[2017-10-20] MEDS ORDERED: ONDANSETRON HCL 4 MG/2 ML VIAL IVP PRN (07:30)
[2017-10-20] MEDS: SODIUM CHLOR 0.9% 1000 ML INJ 1,000 ML IV SCH ×2 (08:06→15:31)
[2017-10-20] MEDS: SODIUM CHLORIDE 0.9% FLUSH 10 ML FLUSH IV FLUSH SCH ×2 (09:00→21:18)
--- NOTE | 2017-10-20 09:17 | HHI.HP ---
HPI Service [facility] Primary Care Physician No Primary Care Physician Admission Diagnosis Small bowel obstruction, moderate dehydration Diagnoses: (1) SBO (small bowel obstruction) (2) Dehydration, moderate (3) Abnormal urinalysis Chief Complaint: Abdominal pain Travel History International Travel<30 Days: No Contact w/Intl Traveler <30 Da: No Traveled to Known Affected Are: No History of Present Illness Written by Roma Browne, acting as scribe for Dr. New on 10/20/17 at 09:12. Mrs. Pretty is a 62-year-old female patient with a known medical history of small bowel obstruction, CAD with history of MS who presented to the ED with complaints of worsening abdominal pain. Patient states that the abdominal pain started yesterday morning and had become more severe around 2100 when she decided to take a Miralax. Patient's last BM was three days ago. Does admit to nausea and vomiting upon presentation to the ED. Does admit to low-grade fever and chills. Denies diarrhea. Patient was admitted in April for a small bowel obstruction, was seen by general surgery and was treated nonoperatively with IV antibiotics which eventually the obstruction resolved. Since that time symptoms have resolved up until yesterday. Patient lives with her who is disabled , patient is primary refueler. Daughter is arriving to town to assist. Patient indicates full code status. Review of Systems Constitutional: COMPLAINS OF: Fever, Chills Eyes: COMPLAINS OF: Vision loss (chronic right eye blindness) Respiratory: DENIES: Cough, Shortness of breath Cardiovascular: DENIES: Chest pain, Palpitations Gastrointestinal: COMPLAINS OF: Abdominal pain, Nausea, Vomiting, DENIES: Black stools, Bloody stools, Constipation, Diarrhea Musculoskeletal: DENIES: Joint pain Integumentary: DENIES: Rash Psychiatric: COMPLAINS OF: Anxiety Except as stated in HPI: all other systems reviewed are Neg Past Family Social History Past Medical History CAD Right eye blindness Past Surgical History Hysterectomy Tonsillectomy Reported Medications Active Miralax Powder (Polyethylene Glycol 3350 Powder) 17 Gm Powd 17 Gm PO DAILY Mix and dissolve one measuring cap-ful (17 grams) in water or juice. Allergies: Coded Allergies: penicillin G (Unverified Allergy, Severe, Anaphylaxis, 10/20/17) Active Ordered Medications Current Medications Medications (Trade) Dose Ordered Sig/Jeremy Route Start Time Stop Time Status Last Admin Sodium Chloride 1,000 ml @ 100 mls/hr Q10H IV 10/20/17 08:00 10/20/17 08:06 (NS Flush) 2 ml UNSCH PRN IV FLUSH 10/20/17 07:30 (NS Flush) 2 ml BID IV FLUSH 10/20/17 09:00 (Zofran Inj) 4 mg Q6H PRN IVP 10/20/17 07:30 (Narcan Inj) 0.4 mg UNSCH PRN IV PUSH 10/20/17 07:30 Family History Denies any significant family medical history. Social History Does admit to smoking 1 ppd of cigarettes x 25 years. Admits to drinking 6 beers daily. Denies any illicit drug use. Physical Exam Vital Signs Vital Signs Date Time Temp Pulse Resp B/P (MAP) Pulse Ox O2 Delivery O2 Flow Rate FiO2 10/20/17 08:50 10/20/17 08:15 100 18 114/66 (82) 94 Room Air 10/20/17 07:50 93 Room Air 10/20/17 07:24 75 17 97/50 (66) 100 Nasal Cannula 2.00 10/20/17 07:02 89 18 96/47 (63) 99 Room Air 10/20/17 06:41 98 20 131/64 (86) 99 10/20/17 04:48 20 10/20/17 04:23 94 16 175/89 (117) 96 10/20/17 03:39 98.1 110 18 190/116 (140) 96 Physical Exam GENERAL: This is a well-developed thin female patient lying in bed with present abdominal discomfort, dry heaving and nausea. SKIN: No rashes Warm and dry. HEENT: Atraumatic. Normocephalic. Pupils equal round and reactive. Extraocular motions intact. No scleral icterus. No injection or drainage. Nose without bleeding. Uvula midline. Airway patent. NECK: Trachea midline. No JVD. Supple. CARDIOVASCULAR: Regular rate and rhythm without murmurs, gallops, or rubs. RESPIRATORY: Clear to auscultation. Breath sounds equal bilaterally. No wheezes , rales, or rhonchi. GASTROINTESTINAL: Abdomen soft, round, distended. No guarding. Bowel sounds absent. NGT in place to suction. MUSCULOSKELETAL: Extremities without clubbing, cyanosis, or edema. No joint tenderness, effusion, or edema noted. NEUROLOGICAL: Awake and alert. Cranial nerves II through XII intact. Motor and sensory grossly within normal limits. Five out of 5 muscle strength in all muscle groups. Normal speech. Laboratory Laboratory Tests Test 10/20/17 03:55 10/20/17 05:00 10/20/17 07:10 10/20/17 08:43 White Blood Count 8.1 Red Blood Count 4.87 Hemoglobin 16.4 Hematocrit 49.3 Mean Corpuscular Volume 101.1 Mean Corpuscular Hemoglobin 33.7 Mean Corpuscular Hemoglobin Concent 33.3 Red Cell Distribution Width 14.8 Platelet Count 262 Mean Platelet Volume 9.4 Neutrophils (%) (Auto) 55.0 Lymphocytes (%) (Auto) 34.8 Monocytes (%) (Auto) 7.7 Eosinophils (%) (Auto) 1.8 Basophils (%) (Auto) 0.7 Neutrophils # (Auto) 4.5 Lymphocytes # (Auto) 2.8 Monocytes # (Auto) 0.6 Eosinophils # (Auto) 0.1 Basophils # (Auto) 0.1 CBC Comment DIFF FINAL Differential Comment Blood Urea Nitrogen 3 Creatinine 0.53 Random Glucose 106 Total Protein 8.5 Albumin 3.6 Calcium Level 9.5 Alkaline Phosphatase 131 Aspartate Amino Transf (AST/SGOT) 162 Alanine Aminotransferase (ALT/SGPT) 98 Total Bilirubin 0.7 Sodium Level 131 Potassium Level 6.3 Chloride Level 98 Carbon Dioxide Level 25.1 Anion Gap 8 Estimat Glomerular Filtration Rate 117 Lipase 117 Urine Color YELLOW Urine Turbidity CLEAR Urine pH 5.5 Urine Specific [place] 1.005 Urine Protein NEG Urine Glucose (UA) NEG Urine Ketones NEG Urine Occult Blood NEG Urine Nitrite POS Urine Bilirubin NEG Urine Leukocyte Esterase NEG Urine WBC 0-2 Urine Squamous Epithelial Cells 0-5 Urine Bacteria MANY Microscopic Urinalysis Comment CULTURE INDICATED Ethyl Alcohol Level 71 Date/Time Source Procedure Growth Status 10/20/17 05:00 Urine Clean Catch Urine Culture Pending Received Result Diagram: 10/20/175 10/20/17354 Imaging Last Impressions Chest X-Ray 10/20/17354 Signed Impressions: Service Date/Time: Friday, October 20, 2017 04:11 - CONCLUSION: No acute cardiopulmonary abnormality is identified. Harris Aranda MD Abdomen/Pelvis CT 10/20/17 0353 Signed Impressions: Service Date/Time: Friday, October 20, 2017 06:02 - CONCLUSION: 1. Abnormal dilated mid and distal small bowel with air-fluid levels and decompressed distal small bowel. Transition point is in the right lower quadrant but no specific cause for the caliber change is identified. The appearance is suggestive of some degree of small bowel obstruction and appears similar to the prior exam. 2. There is a small amount of air in the right abdomen that is nonspecific and cannot exclude a small amount of free air. Suggest followup imaging to assess for change if no surgery was performed. 3. Stable abnormal appearance of the urinary bladder with wall thickening and trabeculated appearance. MD Michi Martinez VTE Risk Assessment Caprindeangelo VTE Risk Assessment: Mod/High Risk (score >= 2) Caprini Risk Assessment Model Point Value = 1 Point Value = 2 Point Value = 3 Point Value = 5 Age 41-60 Minor surgery BMI > 25 kg/m2 Swollen legs Varicose veins or History of unexplained or recurrent spontaneous Oral contraceptives or hormone replacement Sepsis (< 1 month) Serious lung disease, including pneumonia (< 1 month) Abnormal pulmonary function Acute myocardial infarction Congestive heart failure (< 1 month) History of inflammatory bowel disease Medical patient at bed rest Age 61-74 Arthroscopic surgery Major open surgery (> 45 min) Laparoscopic surgery (> 45 min) Malignancy Confined to bed (> 72 hours) Immobilizing plaster cast Central venous access Age >= 75 History of VTE Family history of VTE Factor V Leiden Prothrombin [id number] Lupus anticoagulant Anticardiolipin antibodies Elevated serum homocysteine Heparin-induced thrombocytopenia Other congenital or acquired thrombophilia Stroke (< 1 month) Elective arthroplasty Hip, pelvis, or leg fracture Acute spinal cord injury (< 1 month) Prophylaxis Regimen Total Risk Factor Score Risk Level Prophylaxis Regimen 0-1 Low Early ambulation 2 Moderate Order ONE of the following: *Sequential Compression Device (SCD) *Heparin 5000 units SQ BID 3-4 Higher Order ONE of the following medications: *Heparin 5000 units SQ TID *Enoxaparin/Lovenox 40 mg SQ daily (WT < 150 kg, CrCl > 30 mL/min) *Enoxaparin/Lovenox 30 mg SQ daily (WT < 150 kg, CrCl > 10-29 mL/min) *Enoxaparin/Lovenox 30 mg SQ BID (WT < 150 kg, CrCl > 30 mL/min) AND/OR *Sequential Compression Device (SCD) 5 or more Highest Order ONE of the following medications: *Heparin 5000 units SQ TID (Preferred with Epidurals) *Enoxaparin/Lovenox 40 mg SQ daily (WT < 150 kg, CrCl > 30 mL/min) *Enoxaparin/Lovenox 30 mg SQ daily (WT < 150 kg, CrCl > 10-29 mL/min) *Enoxaparin/Lovenox 30 mg SQ BID (WT < 150 kg, CrCl > 30 mL/min) AND *Sequential Compression Device (SCD) Assessment and Plan Problem List: (1) SBO (small bowel obstruction) ICD Code: K56.69 - Other intestinal obstruction Status: Acute Plan: Abdominal/Pelvis CT reviewed showing abnormal dilated mid and distal small bowel air-fluid suggesting some degree of small bowel obstruction. CXR reviewed showing no acute disease. General surgery consulted, appreciate input and further recommendations. NGT placed, continued and placed to suction. Monitor output. Ensure hydration, NS @ 100 ml/hr. Control nausea, Zofran available PRN. Control pain, Dilaudid IV available PRN pain. Will check KUB in am. Follow. (2) Dehydration, moderate ICD Code: E86.0 - Dehydration Status: Acute Plan: Status post 2 L NS bolus in ED. CBC reviewed, hemoglobin 16.4/hematocrit 49.3 likely secondary to dehydration. BMP showing hyperkalemia, repeat 3.9 status post hydration. Continue IVF. Supportive care. Follow CBC and BMP in am. (3) Abnormal urinalysis ICD Code: R82.90 - Unspecified abnormal findings in urine Plan: UA showing bacteria, culture pending. Will follow. Code Status Full code. Discussed Condition With Patient Physician Certification 2 Midnight Certification Type: Admission for Inpatient Services Order for Inpatient Services The services are ordered in accordance with Medicare regulations or non- Medicare payer requirements, as applicable. In the case of services not specified as inpatient-only, they are appropriately provided as inpatient services in accordance with the 2-midnight benchmark. Estimated LOS (days): 3 3 days is the estimated time the patient will need to remain in the hospital, assuming treatment plan goals are met and no additional complications. Post-Hospital Plan: Not yet determined Roma Browne Oct 20, 2017 09:17
[2017-10-20 09:21] LABS: BICARBONATE 20.6 MEQ/L (21.0-32.0); POTASSIUM 3.9 MEQ/L (3.5-5.1)
[2017-10-20] MEDS: HYDROmorphone HCL PF 1 MG/ML VIAL IV PUSH PRN ×2 (10:18→13:54)
--- NOTE | 2017-10-20 10:26 | RADRPT ---
EXAM DATE/TIME: 10/20/2017 09:51 [facility] COMPARISON: CT ABDOMEN & PELVIS W CONTRAST, October 20, 2017, 6:02. ABDOMEN KUB ONLY, April 24, 2017, 14:52. INDICATIONS : Abdomen pain, nausea MEDICAL HISTORY : Myocardial infarction. bowel obstruction SURGICAL HISTORY : Hysterectomy. ENCOUNTER: Subsequent ACUITY: 2 days PAIN SCORE: 3/10 LOCATION: Bilateral abdomen FINDINGS: Supine view of the abdomen was performed. Dilated small bowel loops are seen. Contrast in distended u rinary bladder. No abnormal masses, calcifications, or organomegaly is seen. Nasogastric tube tip in stomach. Multiple surgical clips in the mid to lower abdomen. The osseous structures are unremarkabl e. CONCLUSION: Multiple dilated small bowel loops which can be seen with ileus/obstruction. Quirino Mccain MD on October 20, 2017 at 10:22 Board Certified Radiologist. This report was verified electronically.
[2017-10-20] MEDS ORDERED: FLUMAZENIL 0.5 MG/5 ML VIAL IV PUSH PRN ×2 (14:00→14:15)
[2017-10-20] MEDS ORDERED: LORazepam 2 MG TAB PO PRN (14:15)
[2017-10-20] MEDS ORDERED: LORazepam 1 MG TAB PO PRN (14:15)
[2017-10-20] MEDS ORDERED: LORazepam 2 MG/ML VIAL IV PUSH PRN ×4 (14:15)
[2017-10-20] MEDS: MULTIVITAMIN INJ 10 ML, FOLIC ACID INJ 1 MG in SODIUM CHLORID 0.9% 500 ML INJ 500 ML IV SCH (15:31)
[2017-10-20] MEDS: THIAMINE INJ 100 MG in SODIUM CHLORIDE 0.9% INJ 100 ML IV SCH (15:31)
--- NOTE | 2017-10-20 16:25 | MB ---
cc: CHAGO WELSH MD DATE OF CONSULTATION 10/20/2017 REASON FOR CONSULTATION Small-bowel obstruction. HISTORY OF PRESENT ILLNESS The patient is a 62-year-old female who presents with a history of previous small bowel obstruction treated nonoperative. She presents with acute onset of abdominal pain, starting approximately around 09:00 p.m. She states the pain was initially a 10/10, it was somewhat diffuse, located in mid abdomen and continued to get worse. She came to emergency department for further evaluation including CT scan showing findings of significantly dilated loops of small bowel with decompressed bowel. Therefore surgery was consulted. The patient notes again the pain was somewhat of a sudden onset and she has had multiple dry heaves with nausea and some vomiting. She did have bowel movement last night after giving herself some MiraLax to try to improve the situation. She did complain of some distension as well. She denied any fevers or chills. PAST MEDICAL HISTORY 1. Coronary artery disease. 2. History of myocardial infarction. 3. Blindness. 4. Incontinence. PAST SURGICAL HISTORY 1. Hysterectomy. 2. Tonsillectomy. MEDICATIONS See EMR. ALLERGIES PENICILLIN. FAMILY HISTORY Denies diabetes, hypertension. SOCIAL HISTORY Positive smoking. Positive ethyl alcohol, approximately 8 beers a day. Denies IVDA. REVIEW OF SYSTEMS GENERAL: Denies fevers, chills. HEENT: Denies eye pain, ear pain. NECK: Denies swelling or pain. RESPIRATORY: Denies cough or wheeze. CARDIOVASCULAR: Denies palpitations or chest pain. ABDOMEN: Complains of nausea, vomiting, abdominal pain. MUSCULOSKELETAL: Denies arthralgia, myalgias. NEUROLOGIC: Denies numbness or tingling. GENITOURINARY: Denies dysuria, hematuria. ENDOCRINE: Denies polyuria, polydipsia. PHYSICAL EXAMINATION GENERAL: The patient no acute distress. VITAL SIGNS: Temperature 98.8, pulse 92, respirations 20, 162/74 was blood pressure. Saturation 97%. HEENT: Pupils equal, round, reactive. NECK: Supple. Trachea midline. LUNGS: Clear to auscultation bilaterally. Bilateral expansion. HEART: S1-S2 regular. ABDOMEN: Soft, distended. Positive tenderness to palpation. No rebound. No guarding. Well-healed surgical scars. No peritoneal signs. EXTREMITIES: Warm, well-perfused. NEUROLOGIC: GCS of 15. 5/5 motor all extremities. PSYCHIATRIC: Good insight, good judgment. LABORATORY AND DIAGNOSTIC DATA WBC is 8.1, hemoglobin 16.4, hematocrit 49.3, platelets 262. Sodium 138, potassium 3.9, chloride 108, BUN 3, creatinine 0.4. IMAGING CT reviewed by myself discussed with radiology, significant dilated fluid filled loops of small bowel similar to previous CT scan over 6 months ago. Transition point in the right lower quadrant. Further examination does not appear to any extraluminal air on the scan. ASSESSMENT The patient is a 62-year-old female presents with recurrent small-bowel obstruction history of a surgeries, significant medical issues as well. . PLAN After full clinical, radiologic, and laboratory workup the patient with above-named issues including small bowel obstruction. At this point I recommend and agree with NG tube placement for decompression. Continue abdominal exams. Will check and correct any electrolytes. IV fluids, pain control. Will attempt nonoperative management. The patient may be better warranted transferring to the main [facility] if surgery is entertained as this is her repeat bowel obstruction but again will initially attempt nonoperative management. Discussed with the patient in detail who understands and agrees. MD VIVIAN Tucker/VASQUEZ /3:40 PM /4:01 PM
--- NOTE | 2017-10-20 22:14 | EKG ---
Date Performed: 10/20/2017 Time Performed: 04:35:15 PTAGE: 62 years EKG: Sinus rhythm MARKED RIGHT AXIS DEVIATION ABNORMAL ECG PREVIOUS TRACING : 04/20/2017 14.50 Compared to prior tracing no significant change DOCTOR: [place]an Interpretating Date/Time 10/20/2017 22:13:44
[2017-10-21] VITALS: BP 134/79; PULSE 78; RESP 20; TEMP 97.9; O2SAT 98
[2017-10-21] MEDS: SODIUM CHLOR 0.9% 1000 ML INJ 1,000 ML IV SCH ×3 (00:19→23:45)
[2017-10-21 06:46] LABS: AUTOMATED NEUTROPHIL # 5.6 TH/MM3 (1.8-7.7); BASOPHIL % 0.5 % (0.0-2.0); EOSINOPHIL # 0.1 TH/MM3 (0-0.4); EOSINOPHIL % 0.8 % (0.0-4.0); HEMATOCRIT 39.9 % (35.0-46.0); HEMO FLAGS DIFF FINAL; LYMPH % 13.8 % (9.0-44.0); MEAN CELL VOLUME 102.3 FL (80.0-100.0); MEAN CORPUSCULAR HEMOGLOBIN 33.9 PG (27.0-34.0); MEAN CORPUSCULAR HGB CONC 33.2 % (32.0-36.0); MONO % 7.4 % (0.0-8.0); NEUT % 77.5 % (16.0-70.0); PLATELET COUNT 192 TH/MM3 (150-450); RED CELL DISTRIBUTION WIDTH 14.8 % (11.6-17.2); WHITE BLOOD COUNT 7.2 TH/MM3 (4.0-11.0)
--- NOTE | 2017-10-21 06:50 | RADRPT ---
EXAM DATE/TIME: 10/21/2017 06:08 [facility] COMPARISON: ABDOMEN KUB ONLY, October 20, 2017, 9:51. INDICATIONS : Distention. MEDICAL HISTORY : Cardiovascular disease. Cervical cancer. SURGICAL HISTORY : Hysterectomy. ENCOUNTER: Subsequent ACUITY: 2 days PAIN SCORE: 4/10 LOCATION: abdomen, all quadrants. FINDINGS: A single AP view of the abdomen was obtained and again demonstrates a nasogastric tube in place. Ther e's been interval improvement in the bowel gas pattern with increased colonic gas. There is a single loop of nondilated air-containing small bowel in the midabdomen. There is no evidence of free air on this supine study. Multiple surgical clips and ronnie are again noted in the lower abdomen. There is decreased stool in the distal colon. CONCLUSION: Interval improvement in bowel gas pattern. Dayo Winter MD on October 21, 2017 at 6:47 Board Certified Radiologist. This report was verified electronically.
[2017-10-21 07:00] LABS: BICARBONATE 20.3 MEQ/L (21.0-32.0)
[2017-10-21 07:12] LABS: CALCIUM-PROTEIN CORRECTED 7.8 MG/DL (8.5-10.1)
[2017-10-21 08:00] VITALS: BP 147/78; PULSE 85; RESP 16; TEMP 98.5; O2SAT 97
[2017-10-21] MEDS ORDERED: BENZOCAINE 6 MG/MENTHOL 10 MG LOZENGE BUCCAL PRN (08:30)
--- NOTE | 2017-10-21 09:39 | HHI.PR ---
cc: HoldenoJao Jania WRIGHT Subjective Subjective Notes Resting in bed Has had multiple BMs overnight and this AM Thirsty Asking for cough drops Objective Vitals/I&O Vital Signs Date Time Temp Pulse Resp B/P (MAP) Pulse Ox O2 Delivery O2 Flow Rate FiO2 10/21/17 08:00 98.5 85 16 147/78 (101) 97 10/20/17 08:15 Room Air 10/20/17 07:24 2.00 Labs Laboratory Tests Test 10/21/17 06:22 White Blood Count 7.2 Red Blood Count 3.90 Hemoglobin 13.2 Hematocrit 39.9 Mean Corpuscular Volume 102.3 Mean Corpuscular Hemoglobin 33.9 Mean Corpuscular Hemoglobin Concent 33.2 Red Cell Distribution Width 14.8 Platelet Count 192 Mean Platelet Volume 8.0 Neutrophils (%) (Auto) 77.5 Lymphocytes (%) (Auto) 13.8 Monocytes (%) (Auto) 7.4 Eosinophils (%) (Auto) 0.8 Basophils (%) (Auto) 0.5 Neutrophils # (Auto) 5.6 Lymphocytes # (Auto) 1.0 Monocytes # (Auto) 0.5 Eosinophils # (Auto) 0.1 Basophils # (Auto) 0.0 CBC Comment DIFF FINAL Differential Comment Blood Urea Nitrogen 3 Creatinine 0.34 Random Glucose 61 Total Protein 5.9 Calcium Level 7.2 Sodium Level 141 Potassium Level 3.0 Chloride Level 107 Carbon Dioxide Level 20.3 Anion Gap 14 Estimat Glomerular Filtration Rate 194 Protein Corrected Calcium 7.8 Date/Time Source Procedure Growth Status 10/20/17 05:00 Urine Clean Catch Urine Culture Pending Received Cardiovascular: Regular Lungs: Clear Abdomen: Other (soft non tender; NGT to LIWS ) Extremities: No edema A/P Assessment and Plan 62 year old female with SBO -Clamp NGT -Okay for ice chips -+BM -OOB and mobilize -Continue IVF -Continue nonoperative treatment Renetta Diggs Oct 21, 2017 09:39
[2017-10-21] MEDS ORDERED: POTASSIUM PHOSPHATE INJ 30 MMOL in SODIUM CHLOR 0.9% 250 ML INJ 250 ML IV ONE (10:00)
[2017-10-21] MEDS ORDERED: CALCIUM GLUCONATE INJ 1 GM in DEXTROSE 5% IN WATER 100ML INJ 100 ML IV ONE ×2 (10:00)
--- NOTE | 2017-10-21 10:27 | HHI.PR ---
Subjective Remarks Follow up small bowel obstruction. Patient seen and examined, lying in bed comfortably. Slept well. Positive BM x 3 overnight. NGT clamped this am, denies any nausea or vomiting. Afebrile. Abdominal pain minimal. Objective Vitals Vital Signs Date Time Temp Pulse Resp B/P (MAP) Pulse Ox O2 Delivery O2 Flow Rate FiO2 10/21/17 08:00 98.5 85 16 147/78 (101) 97 10/21/17 00:00 97.9 78 20 134/79 (97) 98 10/20/17 20:00 98.4 102 20 147/87 (107) 97 Manual Cuff/Auscultation 10/20/17 16:00 98.0 94 24 142/80 (100) 94 10/20/17 14:43 140/88 (105) 10/20/17 14:24 20 10/20/17 12:00 98.8 92 20 162/74 (103) 97 I/O 10/20/17 10/20/17 10/20/17 10/21/17 10/21/17 10/21/17 07:00 15:00 23:00 07:00 15:00 23:00 Intake Total 1000 ml 1066 ml 1600 ml 1600 ml Output Total 30 ml 200 ml 25 ml Balance 970 ml 866 ml 1600 ml 1575 ml Intake Oral 0 ml 0 ml IV Total 1000 ml 1066 ml 1600 ml 1600 ml Gastric Drainage Total 200 ml 25 ml Emesis 30 ml # Voids 3 3 3 # Bowel Movements 1 3 1 Result Diagram: 10/21/1722 10/21/17 06 Imaging Last Impressions Abdomen X-Ray 10/21/17 06 Signed Impressions: Service Date/Time: Saturday, October 21, 2017 06:08 - CONCLUSION: Interval improvement in bowel gas pattern. Dayo Winter MD Chest X-Ray 10/20/17 0352 Signed Impressions: Service Date/Time: Friday, October 20, 2017 04:11 - CONCLUSION: No acute cardiopulmonary abnormality is identified. Harris Aranda MD Abdomen/Pelvis CT 10/20/17 5850 Signed Impressions: Service Date/Time: Friday, October 20, 2017 06:02 - CONCLUSION: 1. Abnormal dilated mid and distal small bowel with air-fluid levels and decompressed distal small bowel. Transition point is in the right lower quadrant but no specific cause for the caliber change is identified. The appearance is suggestive of some degree of small bowel obstruction and appears similar to the prior exam. 2. There is a small amount of air in the right abdomen that is nonspecific and cannot exclude a small amount of free air. Suggest followup imaging to assess for change if no surgery was performed. 3. Stable abnormal appearance of the urinary bladder with wall thickening and trabeculated appearance. Harris Aranda MD Objective Remarks GENERAL: This is a well-developed thin female patient lying in bed with presence of NGT, no distress. SKIN: No rashes Warm and dry. HEENT: Atraumatic. Normocephalic. Pupils equal round and reactive. Extraocular motions intact. No scleral icterus. No injection or drainage. Nose without bleeding. Uvula midline. Airway patent. NECK: Trachea midline. No JVD. Supple. CARDIOVASCULAR: Regular rate and rhythm without murmurs, gallops, or rubs. RESPIRATORY: Clear to auscultation. Breath sounds equal bilaterally. No wheezes , rales, or rhonchi. GASTROINTESTINAL: Abdomen soft, round, distended. No guarding. Bowel sounds present x 4 quadrants. NGT clamped. MUSCULOSKELETAL: Extremities without clubbing, cyanosis, or edema. No joint tenderness, effusion, or edema noted. NEUROLOGICAL: Awake and alert. Cranial nerves II through XII intact. Motor and sensory grossly within normal limits. Five out of 5 muscle strength in all muscle groups. Normal speech. A/P Problem List: (1) SBO (small bowel obstruction) ICD Code: K56.69 - Other intestinal obstruction Status: Acute Plan: Abdominal/Pelvis CT reviewed showing abnormal dilated mid and distal small bowel air-fluid suggesting some degree of small bowel obstruction. CXR reviewed showing no acute disease. General surgery consulted, appreciate input and further recommendations. Nonoperative at this time, NGT placed and clamped. Minimal output at night. Ensure hydration, NS @ 100 ml/hr. Control nausea, Zofran available PRN. Control pain, Dilaudid IV available PRN pain. Repeat KUB this am showing interval improvement in bowel gas pattern. (2) Dehydration, moderate ICD Code: E86.0 - Dehydration Status: Acute Plan: Status post 2 L NS bolus in ED. CBC reviewed, hemoglobin 16.4/hematocrit 49.3 likely secondary to dehydration is now WNL today. Follow CBC And BMP in am. (3) Abnormal urinalysis ICD Code: R82.90 - Unspecified abnormal findings in urine Plan: UA showing bacteria, culture pending. Will follow. (4) Electrolyte abnormality ICD Code: E87.8 - Other disorders of electrolyte and fluid balance, not elsewhere classified Plan: BMP showing hypokalemia, 3.0 today. Replete. Presence of hypomagnesium and hypocalcemia. Replete. Continue IVF. Supportive care. Repeat BMP in am. Follow. (5) Alcohol abuse ICD Code: F10.10 - Alcohol abuse, uncomplicated Plan: [facility] protocol as ordered. Monitor for withdrawal symptoms. Seizure precautions. Continue thiamine, multivitamin and folate. Encourage cessation. Roma Browne Oct 21, 2017 10:27
[2017-10-21 12:00] VITALS: BP 155/89; PULSE 93; RESP 16; TEMP 99.4; O2SAT 96
[2017-10-21] MEDS: SODIUM CHLORIDE 0.9% FLUSH 10 ML FLUSH IV FLUSH SCH ×2 (13:15→19:52)
[2017-10-21] MEDS ORDERED: cefTRIAXone INJ 1,000 MG in SODIUM CHLORIDE 0.9% INJ 100 ML IV SCH (15:15)
[2017-10-21 16:00] VITALS: BP 153/92; PULSE 90; RESP 18; TEMP 99.4; O2SAT 97
[2017-10-21] MEDS: THIAMINE INJ 100 MG in SODIUM CHLORIDE 0.9% INJ 100 ML IV SCH (18:51)
[2017-10-21] MEDS: MULTIVITAMIN INJ 10 ML, FOLIC ACID INJ 1 MG in SODIUM CHLORID 0.9% 500 ML INJ 500 ML IV SCH (18:51)
[2017-10-21] MEDS: AZTREONAM INJ 1,000 MG in SODIUM CHLORIDE 0.9% INJ 100 ML IV SCH ×2 (18:52→23:50)
[2017-10-21 20:00] VITALS: BP 165/90; PULSE 89; RESP 20; TEMP 98.8; O2SAT 98
[2017-10-22] VITALS: BP 165/96; PULSE 93; RESP 20; TEMP 98.7; O2SAT 98
[2017-10-22 06:18] LABS: AUTOMATED NEUTROPHIL # 5.1 TH/MM3 (1.8-7.7); BASOPHIL % 0.3 % (0.0-2.0); EOSINOPHIL # 0.1 TH/MM3 (0-0.4); EOSINOPHIL % 1.3 % (0.0-4.0); HEMATOCRIT 39.7 % (35.0-46.0); HEMO FLAGS DIFF FINAL; LYMPH % 15.9 % (9.0-44.0); LYMPHOCYTE # 1.1 TH/MM3 (1.0-4.8); MEAN CELL VOLUME 102.5 FL (80.0-100.0); MEAN CORPUSCULAR HEMOGLOBIN 34.1 PG (27.0-34.0); MEAN CORPUSCULAR HGB CONC 33.3 % (32.0-36.0); MONO % 7.1 % (0.0-8.0); NEUT % 75.4 % (16.0-70.0); PLATELET COUNT 180 TH/MM3 (150-450); RED BLOOD COUNT 3.87 MIL/MM3 (4.00-5.30); RED CELL DISTRIBUTION WIDTH 14.8 % (11.6-17.2); WHITE BLOOD COUNT 6.8 TH/MM3 (4.0-11.0)
[2017-10-22 06:27] LABS: POTASSIUM 3.3 MEQ/L (3.5-5.1)
[2017-10-22 06:31] LABS: BICARBONATE 15.8 MEQ/L (21.0-32.0)
[2017-10-22 06:34] LABS: MAGNESIUM 1.4 MG/DL (1.5-2.5)
[2017-10-22] MEDS ORDERED: DEXTROSE 50% IN WATER 50 ML SYRINGE ONE (06:49)
[2017-10-22] MEDS ORDERED: DEXTROSE 50% IN WATER 50 ML VIAL(D50) IV PUSH PRN (07:00)
[2017-10-22] MEDS ORDERED: GLUCAGON 1 MG/ML VIAL OTHER PRN (07:00)
--- NOTE | 2017-10-22 07:03 | HHI.PR ---
Subjective Subjective Notes no nausea or vomiting, +bms, ng clamped Objective Vitals/I&O Vital Signs Date Time Temp Pulse Resp B/P (MAP) Pulse Ox O2 Delivery O2 Flow Rate FiO2 10/22/17 00:00 98.7 93 20 165/96 (119) 98 10/20/17 08:15 Room Air 10/20/17 07:24 2.00 Labs Laboratory Tests Test 10/22/17 05:30 White Blood Count 6.8 Red Blood Count 3.87 Hemoglobin 13.2 Hematocrit 39.7 Mean Corpuscular Volume 102.5 Mean Corpuscular Hemoglobin 34.1 Mean Corpuscular Hemoglobin Concent 33.3 Red Cell Distribution Width 14.8 Platelet Count 180 Mean Platelet Volume 8.3 Neutrophils (%) (Auto) 75.4 Lymphocytes (%) (Auto) 15.9 Monocytes (%) (Auto) 7.1 Eosinophils (%) (Auto) 1.3 Basophils (%) (Auto) 0.3 Neutrophils # (Auto) 5.1 Lymphocytes # (Auto) 1.1 Monocytes # (Auto) 0.5 Eosinophils # (Auto) 0.1 Basophils # (Auto) 0.0 CBC Comment DIFF FINAL Differential Comment Blood Urea Nitrogen 5 Creatinine 0.35 Random Glucose 49 Calcium Level 7.9 Magnesium Level 1.4 Sodium Level 137 Potassium Level 3.3 Chloride Level 105 Carbon Dioxide Level 15.8 Anion Gap 16 Estimat Glomerular Filtration Rate 188 Date/Time Source Procedure Growth Status 10/20/17 05:00 Urine Clean Catch Urine Culture - Preliminary Gram Negative Jackson Resulted Abdomen: Other (soft nt/nd) A/P Assessment and Plan 62 year old female with recurrent SBO -Clamp NGT -Okay for ice chips -+BM -OOB and mobilize -Continue IVF - will check SBFT if negative will remove ng and start clears Joao Hatch MD Oct 22, 2017 07:03
[2017-10-22 08:00] VITALS: BP 168/80; PULSE 76; RESP 16; TEMP 98.2; O2SAT 98
[2017-10-22] MEDS: AZTREONAM INJ 1,000 MG in SODIUM CHLORIDE 0.9% INJ 100 ML IV SCH (08:00)
[2017-10-22] MEDS: MAGNESIUM SULFATE 1 GM PREMIX 100 ML IV SCH ×4 (08:00→14:31)
[2017-10-22] MEDS ORDERED: D5-NS + KCL 20 MEQ INJ 1,000 ML IV SCH ×2 (08:00→12:00)
[2017-10-22] MEDS: SODIUM CHLORIDE 0.9% FLUSH 10 ML FLUSH IV FLUSH SCH (09:14)
[2017-10-22] MEDS ORDERED: DIATRIZOATE MEGLUM/DIATRIZOATE SOD 120 ML BTL (for RAD DIAG) NG ONE (10:00)
--- NOTE | 2017-10-22 11:31 | RADRPT ---
EXAM DATE/TIME: 10/22/2017 09:48 [facility] COMPARISON: SMALL BOWEL SERIES W/GASTROGRAFIN, April 23, 2017, 8:52. INDICATIONS : Evaluate small bowel obstruction. Vomiting. FLUORO TIME: 0.5 minutes IMAGE COUNT: 7 CONTRAST: MD Stoner IMAGING TIME(S): 15 min, 30 min, 45 min, 1 hr MEDICAL HISTORY : Cardiovascular disease. Cervical cancer SURGICAL HISTORY : Tonsillectomy. Hysterectomy. ENCOUNTER: Subsequent ACUITY: 3 days PAIN SCORE: 0/10 LOCATION: Abdomen, upper quadrant. FINDINGS: Naso- gastric tube colon decompressed stomach. No constricting or obstructing lesion identified. There is mild dilatation of proximal small bowel c ompared to distal, nonspecific. Transit time is 45 minutes. CONCLUSION: Limited exam, negative for obstruction. Varun Oliver MD FACR on October 22, 2017 at 11:28 Board Certified Radiologist. This report was verified electronically.
[2017-10-22 12:00] VITALS: BP 154/78; PULSE 72; RESP 16; TEMP 96.7; O2SAT 99
--- NOTE | 2017-10-22 13:18 | HHI.PR ---
Subjective Remarks Patient seen and examined today for follow-up on small bowel obstruction. Patient is doing well. She denies any abdominal pain. She indicates that she has had multiple bowel movements over the last 2 days. Discussed with nursing staff indicates general surgery wanting to have small bowel follow-through and depending on the results will determine her course of care. The present time she is clinically stable. Afebrile. Very eager to get the NG tube removed Objective Vitals Vital Signs Date Time Temp Pulse Resp B/P (MAP) Pulse Ox O2 Delivery O2 Flow Rate FiO2 10/22/17 12:00 96.7 72 16 154/78 (103) 99 10/22/17 08:00 98.2 76 16 168/80 (109) 98 10/22/17 00:00 98.7 93 20 165/96 (119) 98 10/21/17 20:00 98.8 89 20 165/90 (115) 98 10/21/17 16:00 99.4 90 18 153/92 (112) 97 I/O 10/21/17 10/21/17 10/21/17 10/22/17 10/22/17 10/22/17 07:00 15:00 23:00 07:00 15:00 23:00 Intake Total 1600 ml 201 ml 510 ml 900 ml Output Total 25 ml Balance 1575 ml 201 ml 510 ml 900 ml Intake Oral 0 ml 0 ml 0 ml IV Total 1600 ml 201 ml 510 ml 900 ml Gastric Drainage Total 25 ml # Voids 3 1 1 6 # Bowel Movements 3 1 1 3 Result Diagram: 10/22/17 0530 10/22/17 0530 Imaging Last Impressions Small Bowel X-Ray 10/22/17 0000 Signed Impressions: Service Date/Time: Sunday, October 22, 2017 09:48 - CONCLUSION: Limited exam , negative for obstruction. Varun Oliver MD FACR Abdomen X-Ray 10/21/17 0600 Signed Impressions: Service Date/Time: Saturday, October 21, 2017 06:08 - CONCLUSION: Interval improvement in bowel gas pattern. Dayo Winter MD Chest X-Ray 10/20/17 0355 Signed Impressions: Service Date/Time: Friday, October 20, 2017 04:11 - CONCLUSION: No acute cardiopulmonary abnormality is identified. Harris Aranda MD Abdomen/Pelvis CT 10/20/17 0357 Signed Impressions: Service Date/Time: Friday, October 20, 2017 06:02 - CONCLUSION: 1. Abnormal dilated mid and distal small bowel with air-fluid levels and decompressed distal small bowel. Transition point is in the right lower quadrant but no specific cause for the caliber change is identified. The appearance is suggestive of some degree of small bowel obstruction and appears similar to the prior exam. 2. There is a small amount of air in the right abdomen that is nonspecific and cannot exclude a small amount of free air. Suggest followup imaging to assess for change if no surgery was performed. 3. Stable abnormal appearance of the urinary bladder with wall thickening and trabeculated appearance. Harris Aranda MD Objective Remarks GENERAL: Well-developed, frail and cachectic, in no acute distress. alert and orientated HEENT: Head is normocephalic without any lesions or masses noted. Facial features are symmetric. Eyes: Extraocular muscles are intact. Conjunctivae were clear. NG tube in place NECK: Supple without any masses. Trachea midline no deviation. No JVD, CARDIAC: Regular rhythm, regular rate. S1/S2 are heard. No murmurs gallops or rubs. LUNGS: Clear to auscultation bilaterally. No wheeze, rhonchi or rales. No use of accessory muscles on inspiration or expiration. ABDOMEN: Soft, nontender. Nondistended. Bowel sounds heard in all 4 quadrants. No organomegaly or masses. Negative rebound, negative guarding EXTREMITIES: No edema, pulses are equal bilaterally. No cyanosis or clubbing NEUROLOGY: Mood and affect appear appropriate. Cranial nerves II through XII grossly intact. Moving all extremities, speech is clear Urinary Catheter: No Vascular Central Line Catheter: No A/P Assessment and Plan Small bowel obstruction, recurrent Abdominal CT does show abnormal dilated mid and distal small bowel with air fluid suggesting small bowel obstruction Patient was admitted with conservative management, nothing by mouth, IV fluids, NG tube, Zofran, pain control Gen. surgery consulted who recommended small bowel series today Small bowel series does not show any signs of obstruction Discussed with general surgery who indicated can remove NG tube and start sips of clear liquid diet Metabolic acidosis with anion gap Likely secondary to NG tube, small bowel obstruction, GI loss, hypoglycemia, alcohol abuse Continue IV fluids changed to D5 NS with KCL Continue monitor BMP Electrolyte abnormalities with hypokalemia, hypomagnesemia, hypocalcemia Continue monitor and replete as needed Hypoglycemia Status post D50 Change IV fluids Monitor glucose level Urinary tract infection Culture with greater than 100,000 colonies of Escherichia coli, which is resistant to Cipro, tetracycline, Bactrim Patient on Azactam, anticipate changing to Macrobid upon discharge Alcohol abuse Patient started on CIWA protocol, has not required any treatment since Discontinue CIWA at this time DVT prevention Sequential compression devices Discharge Planning Discharge planning in 24-48 hours depending on patient's response to treatment and tolerating diet Medical Decision Making MDM Remarks The exam, history, and the medical decision-making described in the above note were completed with the assistance of the mid-level provider. I reviewed and agree with the findings presented. I attest that I had a [id number] encounter with the patient on the same day, and personally performed and documented my assessment and findings in the medical record. Ms. Pretty is currently doing well. Sitting on the toilet seat. She reports no acute concerns. Denies any abdominal pain, fever, chills. GENERAL: Alert, NAD. NG tube in place. SKIN: Warm and dry. HEAD: Normocephalic. EYES: No scleral icterus. No injection or drainage. NECK: Supple, trachea midline. No JVD or lymphadenopathy. CARDIOVASCULAR: Regular rate and rhythm without murmurs, gallops, or rubs. RESPIRATORY: Breath sounds equal bilaterally. No accessory muscle use. GASTROINTESTINAL: Abdomen soft, non-tender, nondistended. MUSCULOSKELETAL: No cyanosis, or edema. BACK: Nontender without obvious deformity. No CVA tenderness. A/P: Recurrent SBO - NG tube to be discontinued today. Advance diet as tolerated. Currently on Clear liquid diet. UTI - Continue Aztreonam. We can switch her to Nitrofurantoin on discharge. If she tolerated diet well, possibly discharge tomorrow. Rudy Mora Oct 22, 2017 1:18 pm Adrián Burrell DO Oct 22, 2017 2:22 pm
[2017-10-22] MEDS: MULTIVITAMIN INJ 10 ML, FOLIC ACID INJ 1 MG in SODIUM CHLORID 0.9% 500 ML INJ 500 ML IV SCH (14:31)
[2017-10-22] MEDS: THIAMINE INJ 100 MG in SODIUM CHLORIDE 0.9% INJ 100 ML IV SCH (15:21)
[2017-10-22 16:00] VITALS: BP 172/80; PULSE 80; RESP 16; TEMP 97.6; O2SAT 99
[2017-10-22 16:20] LABS: POTASSIUM 4.1 MEQ/L (3.5-5.1)
== END 2017-10-22 18:05 | disposition left against medical advice (07) | DRG 389 ==
LOC: PHED 03:31 → PHEDA 07:33 → PH3B 08:52
PROVIDERS: ADMIT Hospitalist; ATTEND Hospitalist
DX: K56.609 Unspecified intestinal obstruction, unspecified as to partial versus complete obstruction (principal); E87.2 Acidosis; N39.0 Urinary tract infection, site not specified; E83.42 Hypomagnesemia; E16.2 Hypoglycemia, unspecified; F17.210 Nicotine dependence, cigarettes, uncomplicated; I25.10 Atherosclerotic heart disease of native coronary artery without angina pectoris; E83.51 Hypocalcemia; E87.6 Hypokalemia; E86.0 Dehydration; F10.10 Alcohol abuse, uncomplicated; H54.61 Unqualified visual loss, right eye, normal vision left eye; Z16.23 Resistance to quinolones and fluoroquinolones; R01.1 Cardiac murmur, unspecified; B96.20 Unspecified Escherichia coli [E. coli] as the cause of diseases classified elsewhere; I25.2 Old myocardial infarction; Z85.41 Personal history of malignant neoplasm of cervix uteri
CPT/HCPCS: 71020; 74000; 74177; 74250; 80048; 80053; 80307; 81001; 82948; 83690; 83735; 84100; 84155; 85025; 87077; 87086; 87186; 93005; 96361; 96374; 96375; 96376; J0610; J1170; J2405; J2765; J3411; J3475; J3480; J7030; J7040; J7050; P9612; Q9963; Q9967

== ENCOUNTER 2017-11-01 05:51 | Inpatient (IN) | payer SELFPAY ==
[2017-11-01] VITALS (8 sets, daily range): BP systolic 161–197; BP diastolic 76–97; PULSE 93–103; RESP 16–20; TEMP 97–98.1; O2SAT 94–100
[~2017-11-01] VITALS: Ht 147.3 cm; Wt 42.9 kg
[~2017-11-01 05:51] MED LIST changes: -BACT800T5 PO; +EPINEPHrine HCL (1:10,000) 1 MG/10 ML SYRINGE IV ONE
--- NOTE | 2017-11-01 06:30 | PD ---
HPI Chief Complaint: Abdominal Pain Time Seen by Provider: 05:59 Travel History International Travel<30 days: No Contact w/Intl Traveler<30days: No Traveled to known affect area: No History of Present Illness HPI The patient is a 62-year-old female that I saw on 20 October and admitted for a small bowel obstruction. During the admission she ultimately began having bowel movements and her abdominal pain and distention 1 away. She actually signed out AMA but felt much better at the time. It appears that the physicians were about to discharge her anyway. She did well until 7 PM yesterday when she began having the same abdominal distention and pain along with nausea without vomiting. She comes in today for possible small bowel obstruction. She denies any melanotic or bloody stools. She denies any fever. The patient's only abdominal surgery is a radical hysterectomy for cervical cancer. She still has her ovaries in place. She still has her gallbladder and appendix. PFSH Past Medical History Autoimmune Disease: No Heart Rhythm Problems: Yes (MURMUR SINCE ) Cancer: Yes (CERVICAL CA) Cardiac Catheterization: No Cardiovascular Problems: Yes High Cholesterol: No Chest Pain: No Congestive Heart Failure: No COPD: Yes Coronary Artery Disease: Yes (DC 2006) Diabetes: No Diminished Hearing: No Endocrine: No Gastrointestinal Disorders: Yes (BOWEL OBSTRUCTION 04/2017) Genitourinary: No Hypertension: No Immune Disorder: No Musculoskeletal: No Neurologic: No Psychiatric: No Reproductive: No Respiratory: Yes Immunizations Current: No Myocardial Infarction: Yes (2006) Thyroid Disease: No ?: Not Menopausal: Yes Past Surgical History Coronary Artery Bypass Graft: No Genitourinary Surgery: Yes Hysterectomy: Yes Tonsillectomy: Yes Other Surgery: Yes Social History Alcohol Use: Yes (6 BEERS DAILY) Tobacco Use: Yes (CIGARETTES, 1 PPD X 25 YEARS) Substance Use: No Allergies-Medications (Allergen,Severity, Reaction): Coded Allergies: penicillin G (Unverified Allergy, Severe, Anaphylaxis, 11/01/17) Reported Meds & Prescriptions Reported Meds & Active Scripts Active Review of Systems Except as stated in HPI: all other systems reviewed are Neg Physical Exam Narrative GENERAL: The patient is alert, oriented 3 in moderate apparent distress with her abdominal discomfort. Her vital signs show blood pressure 197/76 and pulse of 93 but otherwise normal. SKIN: Focused skin assessment warm/dry. HEAD: Atraumatic. Normocephalic. EYES: Pupils equal and round. No scleral icterus. No injection or drainage. ENT: No nasal bleeding or discharge. Mucous membranes pink and moist. NECK: Trachea midline. No JVD. CARDIOVASCULAR: Regular rate and rhythm. No murmur appreciated. RESPIRATORY: No accessory muscle use. Clear to auscultation. Breath sounds equal bilaterally. GASTROINTESTINAL: Abdomen soft, with tenderness diffusely but mostly over the lower quadrants with the abdomen distended again over the lower quadrants. Hepatic and splenic margins not palpable. No guarding or rebound is present. MUSCULOSKELETAL: No obvious deformities. No clubbing. No cyanosis. No edema. NEUROLOGICAL: Awake and alert. No obvious cranial nerve deficits. Motor grossly within normal limits. Normal speech. PSYCHIATRIC: Appropriate mood and affect; insight and judgment normal. RECTAL EXAM: No masses or tenderness, stool is brown and guaiac-negative. No fecal impactions are noted. Data Data Last Documented VS Vital Signs Date Time Temp Pulse Resp B/P (MAP) Pulse Ox O2 Delivery O2 Flow Rate FiO2 11/01/17 06:09 98.1 93 20 197/76 (116) 100 Orders Orders Complete Blood Count With Diff (11/01/17 06:34) Comprehensive Metabolic Panel (11/01/17 06:34) Lipase (11/01/17 06:34) Urinalysis - C+S If Indicated (11/01/17 06:34) Ct Abd/Pel W Iv Contrast(Rout) (11/01/17 06:34) Iv Access Insert/Monitor (11/01/17 06:34) Ecg Monitoring (11/01/17 06:34) Oximetry (11/01/17 06:34) Sodium Chloride 0.9% Flush (Ns Flush) (11/01/17 06:45) Oral Contrast - Adult (11/01/17 06:39) Ondansetron Inj (Zofran Inj) (11/01/17 06:45) Sodium Chlor 0.9% 1000 Ml Inj (Ns 1000 M (11/01/17 06:45) Alcohol (Ethanol) (11/01/17 06:48) MDM Medical Decision Making Medical Screen Exam Complete: Yes Emergency Medical Condition: Yes Medical Record Reviewed: Yes Differential Diagnosis Small bowel obstruction, intestinal ileus, appendicitis, cholecystitis, dehydration, pancreatitis, electrolyte disorder Narrative Course It is now 0654 and the patient is discharged to Dr. Breaux. Bob Mora MD Nov 01, 2017 06:30
[2017-11-01] MEDS ORDERED: SODIUM CHLOR 0.9% 1000 ML INJ 1,000 ML IV SCH (06:45)
[2017-11-01] MEDS ORDERED: SODIUM CHLORIDE 0.9% FLUSH 10 ML FLUSH IV FLUSH PRN ×2 (06:45→09:45)
[2017-11-01] MEDS ORDERED: ONDANSETRON HCL 4 MG/2 ML VIAL IV ONE (06:45)
[2017-11-01 07:01] LABS: AUTOMATED NEUTROPHIL # 7.3 TH/MM3 (1.8-7.7); BASOPHIL # 0.4 TH/MM3 (0-0.2); EOSINOPHIL # 0.1 TH/MM3 (0-0.4); EOSINOPHIL % 1.1 % (0.0-4.0); HEMATOCRIT 44.4 % (35.0-46.0); HEMO FLAGS DIFF FINAL; LYMPH % 12.9 % (9.0-44.0); LYMPHOCYTE # 1.2 TH/MM3 (1.0-4.8); MEAN CELL VOLUME 100.7 FL (80.0-100.0); MEAN CORPUSCULAR HGB CONC 33.8 % (32.0-36.0); MONO % 4.9 % (0.0-8.0); NEUT % 77.1 % (16.0-70.0); PLATELET COUNT 415 TH/MM3 (150-450); RED BLOOD COUNT 4.41 MIL/MM3 (4.00-5.30); RED CELL DISTRIBUTION WIDTH 14.6 % (11.6-17.2); WHITE BLOOD COUNT 9.5 TH/MM3 (4.0-11.0)
[2017-11-01] MEDS ORDERED: DIATRIZOATE MEGLUM/DIATRIZOATE SOD 9 ML CUP ONE (07:01)
--- NOTE | 2017-11-01 07:19 | PD ---
Physical Exam Narrative Received sign out from previous team to follow up labs, CTa/p 62yo F with PMH of repeat small bowel obstruction, cervical CA s/p radical hysterectomy, alcohol abuse, and right eye blindness since childhood presents to the ED with c/o abdominal pain, abdominal distension and nausea since 7pm yesterday. Pain is achy and diffuse, started in upper abdomen then travel throughout. Pain is mild and intermittent. Last bowel movement was 2 days ago. She was passing gas last night. Denies any fever, chest pain, sob, vomiting. Pt was admitted 10/20 for small bowel obstruction and medically managed. Pt was seen by Dr. Hatch. Pt also had another episode of small bowel obstruction that was medically managed in 04/2017. Only abdominal surgery was hysterectomy. Pt does drink alcohol often but not every day. Last drink was 8pm last night. Labs reviewed, no leukocytosis. H/H normal. K is 5.4 but there is slight hemolysis noted. Lipase low. AST mildly elevated at 42 which is lower than before. Alcohol less than 3. CT a/p showed distal small bowel obstruction again. Pt had a bowel movement at CT scan. She is currently refusing NG tube placement and said she has not vomited. Discussed with Dr. New and accepted to her service. Surgery consult placed. Data Data Last Documented VS Vital Signs Date Time Temp Pulse Resp B/P (MAP) Pulse Ox O2 Delivery O2 Flow Rate FiO2 11/01/17 08:20 103 18 163/84 (110) 99 Room Air 11/01/17 06:09 98.1 Orders Orders Complete Blood Count With Diff (11/01/17 06:34) Comprehensive Metabolic Panel (11/01/17 06:34) Lipase (11/01/17 06:34) Urinalysis - C+S If Indicated (11/01/17 06:34) Ct Abd/Pel W Iv Contrast(Rout) (11/01/17 06:34) Iv Access Insert/Monitor (11/01/17 06:34) Ecg Monitoring (11/01/17 06:34) Oximetry (11/01/17 06:34) Sodium Chloride 0.9% Flush (Ns Flush) (11/01/17 06:45) Oral Contrast - Adult (11/01/17 06:39) Ondansetron Inj (Zofran Inj) (11/01/17 06:45) Sodium Chlor 0.9% 1000 Ml Inj (Ns 1000 M (11/01/17 06:45) Alcohol (Ethanol) (11/01/17 06:54) Diatrizoate Liq ( Gastroview Liq) (11/01/17 07:01) NPO (11/01/17 08:26) Iohexol 350 Inj (Omnipaque 350 Inj) (11/01/17 08:36) Insert Ng Tube (11/01/17 08:43) Consult General Surgery (11/01/17 ) Morphine Inj (Morphine Inj) (11/01/17 09:45) (Hub Use Only)Inp Phy Cons/Ref (11/01/17 ) Admit To Inpatient (11/01/17 ) Vital Signs (Adult) Q4H (11/01/17 09:40) Diet Npo (11/01/17 Breakfast) Sodium Chlor 0.9% 1000 Ml Inj (Ns 1000 M (11/01/17 09:40) Sodium Chloride 0.9% Flush (Ns Flush) (11/01/17 09:45) Sodium Chloride 0.9% Flush (Ns Flush) (11/01/17 21:00) Ondansetron Inj (Zofran Inj) (11/01/17 09:45) Basic Metabolic Panel (Bmp) (11/02/17 06:00) Naloxone Inj (Narcan Inj) (11/01/17 09:45) Admit Order (Ed Use Only) (11/01/17 09:41) Labs Laboratory Tests Test 11/01/17 06:54 White Blood Count 9.5 TH/MM3 Red Blood Count 4.41 MIL/MM3 Hemoglobin 15.0 GM/DL Hematocrit 44.4 % Mean Corpuscular Volume 100.7 FL Mean Corpuscular Hemoglobin 34.0 PG Mean Corpuscular Hemoglobin Concent 33.8 % Red Cell Distribution Width 14.6 % Platelet Count 415 TH/MM3 Mean Platelet Volume 7.6 FL Neutrophils (%) (Auto) 77.1 % Lymphocytes (%) (Auto) 12.9 % Monocytes (%) (Auto) 4.9 % Eosinophils (%) (Auto) 1.1 % Basophils (%) (Auto) 4.0 % Neutrophils # (Auto) 7.3 TH/MM3 Lymphocytes # (Auto) 1.2 TH/MM3 Monocytes # (Auto) 0.5 TH/MM3 Eosinophils # (Auto) 0.1 TH/MM3 Basophils # (Auto) 0.4 TH/MM3 CBC Comment DIFF FINAL Differential Comment Blood Urea Nitrogen 2 MG/DL Creatinine 0.54 MG/DL Random Glucose 100 MG/DL Total Protein 6.9 GM/DL Albumin 2.8 GM/DL Calcium Level 8.8 MG/DL Alkaline Phosphatase 114 U/L Aspartate Amino Transf (AST/SGOT) 42 U/L Alanine Aminotransferase (ALT/SGPT) 31 U/L Total Bilirubin 0.6 MG/DL Sodium Level 139 MEQ/L Potassium Level 5.4 MEQ/L Chloride Level 103 MEQ/L Carbon Dioxide Level 29.4 MEQ/L Anion Gap 7 MEQ/L Estimat Glomerular Filtration Rate 114 ML/MIN Lipase 67 U/L Ethyl Alcohol Level LESS THAN 3 MG/DL MDM Supervised Visit with LULY: No Diagnosis Primary Impression: SBO (small bowel obstruction) Admitting Information Admitting Physician Requests: Admit Itzel Breaux DO Nov 01, 2017 07:19
[2017-11-01 07:48] LABS: CHLORIDE 103 MEQ/L (98-107); SODIUM (NA) 139 MEQ/L (136-145)
[2017-11-01 07:50] LABS: POTASSIUM 5.4 MEQ/L (3.5-5.1)
[2017-11-01 07:52] LABS: BICARBONATE 29.4 MEQ/L (21.0-32.0)
[2017-11-01 07:53] LABS: BLOOD UREA NITROGEN 2 MG/DL (7-18)
[2017-11-01 07:55] LABS: ALT (GPT) 31 U/L (10-53); AST (GOT) 42 U/L (15-37); GLOMERULAR FILTRATION RATE 114 ML/MIN (>89)
[2017-11-01 07:57] LABS: TOTAL BILIRUBIN ADULT 0.6 MG/DL (0.2-1.0)
[2017-11-01 07:58] LABS: ALKALINE PHOSPHATASE 114 U/L (45-117)
[2017-11-01 08:10] LABS: ALCOHOL LESS THAN 3 MG/DL (0-5); ANION GAP 7 MEQ/L (5-15)
[2017-11-01] MEDS ORDERED: IOHEXOL 350 MG/ML 10 ML VIAL (for RAD DIAG) IVCONTRAST ONE (08:36)
--- NOTE | 2017-11-01 08:55 | RADRPT ---
EXAM DATE/TIME: 11/01/2017 08:28 [facility] COMPARISON: CT ABDOMEN & PELVIS W CONTRAST, October 20, 2017, 6:02. INDICATIONS : Diagnosed last week with small bowel obstruction, has increased pain now. IV CONTRAST: 80 cc Omnipaque 350 (iohexol) IV ORAL CONTRAST: Partial prescribed oral contrast ingested. RADIATION DOSE: 4.32 CTDIvol (mGy) MEDICAL HISTORY : Chronic obstructive pulmonary disease. Myocardial infarction. Cervical cancer, Bowel obstruction SURGICAL HISTORY : Hysterectomy. ENCOUNTER: Initial ACUITY: 2 weeks PAIN SCALE: 10/10 LOCATION: abdomen TECHNIQUE: Volumetric scanning of the abdomen and pelvis was performed. Using automated exposure control and ad justment of the mA and/or kV according to patient size, radiation dose was kept as low as reasonably achievable to obtain optimal diagnostic quality images. DICOM format image data is available electro nically for review and comparison. FINDINGS: Today's exam is compared to the prior study of 10/20/2017. On the prior exam multiple distended loops of small bowel are seen throughout the abdomen. There appears to be a transition zone in the right lo wer quadrant. These findings are characteristic of a small bowel structure. On today's examination th ere is been no new significant changes. There continues to be multiple distended loops of small bowel with a transition zone in the right lower quadrant characteristic of a small bowel obstruction. The overall small bowel distention is about the same. No free air or free fluid is seen. The colon is non distended. There is some stool and air in the colon. The urinary bladder is moderately distended. No new or significant changes are seen compared to the prior examination. CONCLUSION: Followup CT scan of the abdomen pelvis again demonstrates a distal small bowel obstruction without si gnificant change compared to the prior examination. Daljit Jenkins MD on November 01, 2017 at 8:49 Board Certified Radiologist. This report was verified electronically.
[2017-11-01] MEDS ORDERED: ONDANSETRON HCL 4 MG/2 ML VIAL IVP PRN (09:45)
[2017-11-01] MEDS ORDERED: MORPHINE SULFATE 2 MG/ML INJ IV PUSH ONE (09:45)
[2017-11-01] MEDS ORDERED: NALOXONE HCL 0.4 MG/ML AMP IV PUSH PRN (09:45)
[2017-11-01] MEDS: SODIUM CHLOR 0.9% 1000 ML INJ 1,000 ML IV SCH ×2 (09:58→21:31)
--- NOTE | 2017-11-01 13:26 | HHI.PR ---
Subjective Remarks Readmit < 30 days. Please refer to previous History and Physical note from prior admission. Agree with plan. Patient seen and examined at bedside. Patient was discharged last week for small bowel obstruction and treated medically. She actually left AMA due to some family issues but a that time it appeared that she was improving to go home. Patient states she has overall been feeling well since she left the hospital up until around 1900 last evening. She developed severe abdominal pain located in her mid-epigastric area that is constant in nature, rated a 8/10 on pain scale. She does admit to one bout of vomiting in radiology last evening. Last BM was two days ago. Denies any hematochezia. Denies any recent fever, chills, headache, shortness of breath, or dysuria. Has been eating well for the past week. Does admit to drinking two alcoholic drinks last evening. Objective Vitals Vital Signs Date Time Temp Pulse Resp B/P (MAP) Pulse Ox O2 Delivery O2 Flow Rate FiO2 11/01/17 10:37 11/01/17 09:52 101 16 161/82 (108) 94 Room Air 11/01/17 08:20 103 18 163/84 (110) 99 Room Air 11/01/17 07:05 100 Room Air 11/01/17 06:09 98.1 93 20 197/76 (116) 100 11/01/17 05:56 98.1 93 20 197/76 (116) 100 I/O 10/31/17 10/31/17 10/31/17 11/01/17 11/01/17 11/01/17 07:00 15:00 23:00 07:00 15:00 23:00 Intake Total 1000 ml Balance 1000 ml Intake IV Total 1000 ml Result Diagram: 11/01/17 0654 11/01/17 0654 Imaging Last Impressions Abdomen/Pelvis CT 11/01/17 0634 Signed Impressions: Service Date/Time: Wednesday, November 01, 2017 08:28 - CONCLUSION: Followup CT scan of the abdomen pelvis again demonstrates a distal small bowel obstruction without significant change compared to the prior examination. Daljit Jenkins MD Objective Remarks GENERAL: This is a well-developed thin female patient lying in bed with present abdominal discomfort and distention. SKIN: No rashes Warm and dry. HEENT: Atraumatic. Normocephalic. Pupils equal round and reactive. Extraocular motions intact. No scleral icterus. No injection or drainage. Nose without bleeding. Uvula midline. Airway patent. NECK: Trachea midline. No JVD. Supple. CARDIOVASCULAR: Regular rate and rhythm without murmurs, gallops, or rubs. RESPIRATORY: Clear to auscultation. Breath sounds equal bilaterally. No wheezes , rales, or rhonchi. GASTROINTESTINAL: Abdomen soft, round, distended. No guarding. Bowel sounds present. MUSCULOSKELETAL: Extremities without clubbing, cyanosis, or edema. No joint tenderness, effusion, or edema noted. NEUROLOGICAL: Awake and alert. Cranial nerves II through XII intact. Motor and sensory grossly within normal limits. Five out of 5 muscle strength in all muscle groups. Normal speech. A/P Problem List: (1) SBO (small bowel obstruction) ICD Code: K56.69 - Other intestinal obstruction Status: Acute Plan: Abdominal CT reviewed showing small bowel obstruction. General surgery reconsulted, appreciate further recommendations and input. NGT ordered and patient previously refused. Patient encouraged to allow NGT placement for decompression. She is agreeable. Ensure hydration. Control pain with IV narcotics. Control nausea, Zofran available PRN. (2) Hypertension ICD Code: I10 - Essential (primary) hypertension Plan: Suspect secondary to pain. Will monitor BP trends. No hx of HTN. DVT Prophylaxis: SCDs. Roma Browne Nov 01, 2017 13:26
[2017-11-01] MEDS: MORPHINE SULFATE 4 MG/ML INJ IV PUSH PRN ×2 (16:06→21:28)
[2017-11-01 18:27] LABS: PROTHROMBIN TIME - PATIENT 10.5 SEC (9.8-11.6)
[2017-11-01] MEDS ORDERED: LACTATED RINGER'S 1000 ML IV PRN (21:00)
[2017-11-01] MEDS: SODIUM CHLORIDE 0.9% FLUSH 10 ML FLUSH IV FLUSH SCH (21:28)
--- NOTE | 2017-11-01 21:28 | EKG ---
Date Performed: 11/01/2017 Time Performed: 17:34:28 PTAGE: 62 years EKG: Sinus rhythm RIGHT AXIS DEVIATION LOW QRS VOLTAGE IN EXTREMITY LEADS ABNORMAL ECG PREVIOUS TRACING : 10/20/2017 04.35 No significant change from previous tracing noted. DOCTOR: Stanton Valentin Interpretating Date/Time 11/01/2017 21:27:31
[2017-11-02] VITALS: BP 174/86; PULSE 90; RESP 18; TEMP 96.5; O2SAT 96
[2017-11-02 04:00] VITALS: BP 157/85; PULSE 92; RESP 18; TEMP 97.9; O2SAT 94
[2017-11-02] MEDS: MORPHINE SULFATE 4 MG/ML INJ IV PUSH PRN ×2 (06:28→23:21)
[2017-11-02] MEDS: SODIUM CHLOR 0.9% 1000 ML INJ 1,000 ML IV SCH ×3 (06:29→23:09)
--- NOTE | 2017-11-02 07:22 | MB ---
cc: CHAGO WELSH MD DATE OF CONSULTATION: 11/01/2017 REASON FOR CONSULTATION: A recurrent small-bowel obstruction. HISTORY OF PRESENT ILLNESS The patient is a 62-year-old female who presents with acute onset of abdominal pain, distension and nausea, vomiting. The patient had a very recent admission with similar symptoms in small bowel obstruction. She was treated initially nonoperatively and slowly began to improve. However she did leave AMA due to social issues and family issues at the time was tolerating clear liquids. She returns to the emergency department due to recurrence of abdominal pain and significant nausea, vomiting. She had a CT scan showing similar dilated small bowel and obstruction and similar area. NG tube has been placed. She does feel with better. She has not had bowel movement in several days is not passing gas. She denies any fevers at home. PAST MEDICAL HISTORY 1. Coronary disease 2. Myocardial infarction 3. Blindness. 4. Incontinence. 5. Bowel obstructions. PAST SURGICAL HISTORY Tonsillectomy hysterectomy. MEDICATIONS See EMR. ALLERGIES PENICILLIN. FAMILY HISTORY Denies any diabetes, hypertension. SOCIAL HISTORY Positive smoking, occasional Ethyl alcohol, eight beers daily. Denies IVDA. REVIEW OF SYSTEMS GENERAL: Denies fevers, chills. HEAD, EYES, EARS, NOSE, AND THROAT: Denies eye pain, ear pain. NECK: Denies swelling or pain. RESPIRATORY: Denies cough, wheeze. HEART: Denies palpitation or chest pain. ABDOMEN: Complained of nausea and vomiting, abdominal pain. GENITOURINARY: Denies dysuria, hematuria. ENDOCRINE: Denies polyuria, polydipsia. PHYSICAL EXAMINATION GENERAL: The patient notes acute distress. VITAL SIGNS: Temperature 97.6, pulse 80, respirations 16, blood pressure 152/84, saturation 99%. HEAD, EYES, EARS, NOSE, AND THROAT: Pupils equal, round, reactive to light and accommodation, eye blindness, no acuity. NECK: Supple. Trachea midline. LUNGS: Clear to auscultation bilateral expansion. HEART: S1, S2, regular. ABDOMEN: Soft. positive distension with positive tenderness to palpation. No rebound, no guarding. EXTREMITIES: Warm, well-perfused. NEUROLOGIC: GCS of 15, moving all extremities. Has had good insight. Good judgment. LABORATORY AND DIAGNOSTIC DATA WBC 9.5, hemoglobin 15, hematocrit 44.4, platelets 4153, 139, potassium 5.4, chloride of 103, BUN is 2, creatinine 0.5, AST 42, ALT 31, INR is 1. The CT reviewed by myself showing bowel obstruction similar to previous with dilated loops of small bowel. No intraperitoneal air. ASSESSMENT The patient is a 61-year-old female who presents with recurrent small-bowel obstruction likely due to the adhesions. PLAN After full clinical radiologic laboratory workup the patient with the above named diagnosis including bowel obstruction at this point will discuss with the patient regarding operative intervention and plan for operation including diagnostic laparoscopy, Possible small bowel resection. Possible exploratory laparotomy, possible ostomy. She has failed conservative management and is in need of operation. The patient understands, agrees and would like to proceed. I discussed risks in full detail. She would like to proceed with the operation and states she cannot continue to live like this. We will continue NG tube to low intermittent suction. Continue abdominal exams. Correct electrolytes and continue to follow the patient. MD VIVIAN Tucker/ez /12:01 AM /6:58 AM MOUNA
[2017-11-02 07:25] LABS: BICARBONATE 23.1 MEQ/L (21.0-32.0)
[2017-11-02 08:00] VITALS: BP 155/84; PULSE 98; RESP 18; TEMP 98; O2SAT 94
[2017-11-02] MEDS: SODIUM CHLORIDE 0.9% FLUSH 10 ML FLUSH IV FLUSH SCH ×2 (08:44→23:09)
[2017-11-02 10:31] LABS: MAGNESIUM 1.4 MG/DL (1.5-2.5)
--- NOTE | 2017-11-02 10:35 | HHI.HP ---
[facility] Service [facility] Primary Care Physician No Primary Care Physician Admission Diagnosis Small bowel obstruction Diagnoses: (1) SBO (small bowel obstruction) Diagnosis: Principal (2) Hypertension Diagnosis: Secondary Chief Complaint: Severe abdominal pain and nausea Travel History International Travel<30 Days: No Contact w/Intl Traveler <30 Da: No Traveled to Known Affected Are: No History of Present Illness Note from 11/01/17. Ms. Pretty is a 62-year-old female patient with a known medical history of small bowel obstruction, CAD with history of GA who presented to the ED with complaints of worsening abdominal pain. Patient was discharged last week for small bowel obstruction and treated medically. She actually left AMA due to some family issues but a that time it appeared that she was improving to go home. Patient states she has overall been feeling well since she left the hospital up until around 1900 last evening. She developed severe abdominal pain located in her mid-epigastric area that is constant in nature, rated a 8/10 on pain scale. She does admit to one bout of vomiting in radiology last evening. Last BM was two days ago. Denies any hematochezia. Denies any recent fever, chills, headache, shortness of breath, or dysuria. Has been eating well for the past week. Does admit to drinking two alcoholic drinks last evening. Patient was admitted in April for a small bowel obstruction, was seen by general surgery and was treated nonoperatively with IV antibiotics which eventually the obstruction resolved. Review of Systems Constitutional: DENIES: Fever, Chills Eyes: DENIES: Blurred vision, Diplopia Respiratory: DENIES: Cough, Sputum production, Shortness of breath Cardiovascular: DENIES: Chest pain Gastrointestinal: COMPLAINS OF: Abdominal pain, Nausea, Vomiting, DENIES: Black stools, Bloody stools, Constipation, Diarrhea Hematologic/lymphatic: DENIES: Bruising Psychiatric: COMPLAINS OF: Anxiety Except as stated in HPI: all other systems reviewed are Neg Past Family Social History Past Medical History CAD Right eye blindness Previous SBO with medical management. Past Surgical History Tonsillectomy Reported Medications Reported Meds & Active Scripts Active Allergies: Coded Allergies: penicillin G (Unverified Allergy, Severe, Anaphylaxis, 11/01/17) Active Ordered Medications Current Medications Medications (Trade) Dose Ordered Sig/Jeremy Route Start Time Stop Time Status Last Admin Sodium Chloride 1,000 ml @ 100 mls/hr Q10H IV 11/01/17 09:40 11/02/17 06:29 (NS Flush) 2 ml UNSCH PRN IV FLUSH 11/01/17 09:45 (NS Flush) 2 ml BID IV FLUSH 11/01/17 21:00 11/01/17 21:28 (Zofran Inj) 4 mg Q6H PRN IVP 11/01/17 09:45 (Narcan Inj) 0.4 mg UNSCH PRN IV PUSH 11/01/17 09:45 (Morphine Inj) 4 mg Q3H PRN IV PUSH 11/01/17 13:45 11/02/17 06:28 Lactated Ringer's 1,000 ml @ 30 mls/hr Q24H PRN IV 11/01/17 21:00 11/04/17 20:59 Potassium Chloride 100 ml @ 50 mls/hr Q2H IV 11/02/17 11:00 11/02/17 14:59 Family History Denies any significant family medical history. Social History Does admit to smoking 1 ppd of cigarettes x 25 years. Admits to drinking 6 beers daily. Denies any illicit drug use. Physical Exam Vital Signs Vital Signs Date Time Temp Pulse Resp B/P (MAP) Pulse Ox O2 Delivery O2 Flow Rate FiO2 11/02/17 08:00 98.0 98 18 155/84 (107) 94 11/02/17 04:00 97.9 92 18 157/85 (109) 94 11/02/17 00:00 96.5 90 18 174/86 (115) 96 11/01/17 20:00 97.5 94 18 169/82 (111) 96 11/01/17 16:00 97.0 97 16 182/97 (125) 97 11/01/17 12:00 97.3 96 18 166/85 (112) 97 11/01/17 10:37 Physical Exam GENERAL: This is a well-developed thin female patient lying in bed with present abdominal discomfort and distention. SKIN: No rashes Warm and dry. HEENT: Atraumatic. Normocephalic. Pupils equal round and reactive. Extraocular motions intact. No scleral icterus. No injection or drainage. Nose without bleeding. Uvula midline. Airway patent. NECK: Trachea midline. No JVD. Supple. CARDIOVASCULAR: Regular rate and rhythm without murmurs, gallops, or rubs. RESPIRATORY: Clear to auscultation. Breath sounds equal bilaterally. No wheezes , rales, or rhonchi. GASTROINTESTINAL: Abdomen soft, round, distended. No guarding. Bowel sounds present. MUSCULOSKELETAL: Extremities without clubbing, cyanosis, or edema. No joint tenderness, effusion, or edema noted. NEUROLOGICAL: Awake and alert. Cranial nerves II through XII intact. Motor and sensory grossly within normal limits. Five out of 5 muscle strength in all muscle groups. Normal speech. Laboratory Laboratory Tests Test 11/01/17 17:39 11/02/17 06:22 Prothrombin Time 10.5 Prothromb Time International Ratio 1.0 Blood Urea Nitrogen 1 Creatinine 0.30 Random Glucose 75 Calcium Level 7.6 Magnesium Level 1.4 Sodium Level 143 Potassium Level 3.0 Chloride Level 109 Carbon Dioxide Level 23.1 Anion Gap 11 Estimat Glomerular Filtration Rate 225 Result Diagram: 11/01/17 0654 11/02/17 0622 Imaging Last Impressions Abdomen/Pelvis CT 11/01/17 0634 Signed Impressions: Service Date/Time: Wednesday, November 01, 2017 08:28 - CONCLUSION: Followup CT scan of the abdomen pelvis again demonstrates a distal small bowel obstruction without significant change compared to the prior examination. Daljit Jenkins MD Septic Shock Reassessment Septic shock perfusion: reassessment completed Caprini VTE Risk Assessment Caprini VTE Risk Assessment: Mod/High Risk (score >= 2) Caprini Risk Assessment Model Point Value = 1 Point Value = 2 Point Value = 3 Point Value = 5 Age 41-60 Minor surgery BMI > 25 kg/m2 Swollen legs Varicose veins or History of unexplained or recurrent spontaneous Oral contraceptives or hormone replacement Sepsis (< 1 month) Serious lung disease, including pneumonia (< 1 month) Abnormal pulmonary function Acute myocardial infarction Congestive heart failure (< 1 month) History of inflammatory bowel disease Medical patient at bed rest Age 61-74 Arthroscopic surgery Major open surgery (> 45 min) Laparoscopic surgery (> 45 min) Malignancy Confined to bed (> 72 hours) Immobilizing plaster cast Central venous access Age >= 75 History of VTE Family history of VTE Factor V Leiden Prothrombin [id number] Lupus anticoagulant Anticardiolipin antibodies Elevated serum homocysteine Heparin-induced thrombocytopenia Other congenital or acquired thrombophilia Stroke (< 1 month) Elective arthroplasty Hip, pelvis, or leg fracture Acute spinal cord injury (< 1 month) Prophylaxis Regimen Total Risk Factor Score Risk Level Prophylaxis Regimen 0-1 Low Early ambulation 2 Moderate Order ONE of the following: *Sequential Compression Device (SCD) *Heparin 5000 units SQ BID 3-4 Higher Order ONE of the following medications: *Heparin 5000 units SQ TID *Enoxaparin/Lovenox 40 mg SQ daily (WT < 150 kg, CrCl > 30 mL/min) *Enoxaparin/Lovenox 30 mg SQ daily (WT < 150 kg, CrCl > 10-29 mL/min) *Enoxaparin/Lovenox 30 mg SQ BID (WT < 150 kg, CrCl > 30 mL/min) AND/OR *Sequential Compression Device (SCD) 5 or more Highest Order ONE of the following medications: *Heparin 5000 units SQ TID (Preferred with Epidurals) *Enoxaparin/Lovenox 40 mg SQ daily (WT < 150 kg, CrCl > 30 mL/min) *Enoxaparin/Lovenox 30 mg SQ daily (WT < 150 kg, CrCl > 10-29 mL/min) *Enoxaparin/Lovenox 30 mg SQ BID (WT < 150 kg, CrCl > 30 mL/min) AND *Sequential Compression Device (SCD) Assessment and Plan Problem List: (1) SBO (small bowel obstruction) ICD Code: K56.69 - Other intestinal obstruction Status: Acute Plan: Abdominal CT reviewed showing small bowel obstruction. General surgery reconsulted, appreciate further recommendations and input. NGT ordered and patient previously refused. Patient encouraged to allow NGT placement for decompression. She is agreeable. Ensure hydration. Control pain with IV narcotics. Control nausea, Zofran available PRN. (2) Hypertension ICD Code: I10 - Essential (primary) hypertension Plan: Suspect secondary to pain. Will monitor BP trends. No hx of HTN. DVT Prophylaxis: SCDs. Physician Certification 2 Midnight Certification Type: Admission for Inpatient Services Order for Inpatient Services The services are ordered in accordance with Medicare regulations or non- Medicare payer requirements, as applicable. In the case of services not specified as inpatient-only, they are appropriately provided as inpatient services in accordance with the 2-midnight benchmark. Estimated LOS (days): 3 3 days is the estimated time the patient will need to remain in the hospital, assuming treatment plan goals are met and no additional complications. Post-Hospital Plan: Home Roma Browne Nov 02, 2017 10:35
[2017-11-02] MEDS: POTASSIUM CHLOR 20 MEQ PREMIX 100 ML IV SCH ×2 (11:12→13:00)
[2017-11-02 11:45] VITALS: BP 161/93; PULSE 92; RESP 19; TEMP 98.1; O2SAT 93
--- NOTE | 2017-11-02 12:38 | HHI.PR ---
Subjective Remarks Admission Note: Ms. Pretty is a 62-year-old female patient with a known medical history of small bowel obstruction, CAD with history of MA who presented to the ED with complaints of worsening abdominal pain. Patient was discharged last week for small bowel obstruction and treated medically. She actually left AMA due to some family issues but a that time it appeared that she was improving to go home. Patient states she has overall been feeling well since she left the hospital up until around 1900 last evening. She developed severe abdominal pain located in her mid-epigastric area that is constant in nature, rated a 8/10 on pain scale. She does admit to one bout of vomiting in radiology last evening. Last BM was two days ago. Denies any hematochezia. Denies any recent fever, chills, headache, shortness of breath, or dysuria. Has been eating well for the past week. Does admit to drinking two alcoholic drinks last evening. Patient was admitted in April for a small bowel obstruction, was seen by general surgery and was treated nonoperatively with IV antibiotics which eventually the obstruction resolved. 11/02: Seen in her bedroom, discussed with nurse and Multidisciplinary rounds, she is awaiting for Surgery, as per patient she smokes on daily bases also she drinks at least 6 beer daily will start CIWA protocol. NG tube in place. Objective Vital Signs Date Time Temp Pulse Resp B/P (MAP) Pulse Ox O2 Delivery O2 Flow Rate FiO2 11/02/17 11:45 98.1 92 19 161/93 (115) 93 11/02/17 08:00 98.0 98 18 155/84 (107) 94 11/02/17 04:00 97.9 92 18 157/85 (109) 94 11/02/17 00:00 96.5 90 18 174/86 (115) 96 11/01/17 20:00 97.5 94 18 169/82 (111) 96 11/01/17 16:00 97.0 97 16 182/97 (125) 97 I/O 11/01/17 11/01/17 11/01/17 11/02/17 11/02/17 11/02/17 07:00 15:00 23:00 07:00 15:00 23:00 Intake Total 1000 ml 1060 ml 1000 ml Output Total 250 ml Balance 1000 ml 1060 ml 1000 ml -250 ml Intake Oral 60 ml 0 ml IV Total 1000 ml 1000 ml 1000 ml Gastric Drainage Total 250 ml # Voids 1 2 3 # Bowel Movements 1 1 0 Result Diagram: 11/01/17 0654 11/02/17 0622 Imaging Last Impressions Abdomen/Pelvis CT 11/01/17 0634 Signed Impressions: Service Date/Time: Wednesday, November 01, 2017 08:28 - CONCLUSION: Followup CT scan of the abdomen pelvis again demonstrates a distal small bowel obstruction without significant change compared to the prior examination. Daljit Jenkins MD Procedures NG tube placement to slow suction Other Results Laboratory Tests Test 11/01/17 06:54 11/01/17 17:39 11/02/17 06:22 White Blood Count 9.5 TH/MM3 Red Blood Count 4.41 MIL/MM3 Hemoglobin 15.0 GM/DL Hematocrit 44.4 % Mean Corpuscular Volume 100.7 FL Mean Corpuscular Hemoglobin 34.0 PG Mean Corpuscular Hemoglobin Concent 33.8 % Red Cell Distribution Width 14.6 % Platelet Count 415 TH/MM3 Mean Platelet Volume 7.6 FL Neutrophils (%) (Auto) 77.1 % Lymphocytes (%) (Auto) 12.9 % Monocytes (%) (Auto) 4.9 % Eosinophils (%) (Auto) 1.1 % Basophils (%) (Auto) 4.0 % Neutrophils # (Auto) 7.3 TH/MM3 Lymphocytes # (Auto) 1.2 TH/MM3 Monocytes # (Auto) 0.5 TH/MM3 Eosinophils # (Auto) 0.1 TH/MM3 Basophils # (Auto) 0.4 TH/MM3 CBC Comment DIFF FINAL Differential Comment Blood Urea Nitrogen 2 MG/DL 1 MG/DL Creatinine 0.54 MG/DL 0.30 MG/DL Random Glucose 100 MG/DL 75 MG/DL Total Protein 6.9 GM/DL Albumin 2.8 GM/DL Calcium Level 8.8 MG/DL 7.6 MG/DL Alkaline Phosphatase 114 U/L Aspartate Amino Transf (AST/SGOT) 42 U/L Alanine Aminotransferase (ALT/SGPT) 31 U/L Total Bilirubin 0.6 MG/DL Sodium Level 139 MEQ/L 143 MEQ/L Potassium Level 5.4 MEQ/L 3.0 MEQ/L Chloride Level 103 MEQ/L 109 MEQ/L Carbon Dioxide Level 29.4 MEQ/L 23.1 MEQ/L Lipase 67 U/L Ethyl Alcohol Level LESS THAN 3 MG/DL Prothrombin Time 10.5 SEC Prothromb Time International Ratio 1.0 RATIO Magnesium Level 1.4 MG/DL Anion Gap 11 MEQ/L Estimat Glomerular Filtration Rate 225 ML/MIN Objective Remarks GENERAL: no acute distress. laying in bed. SKIN: No rashes Warm and dry. HEENT: Atraumatic. Normocephalic. NECK: Trachea midline. No JVD. Supple. CARDIOVASCULAR: Regular rate and rhythm without murmurs, gallops, or rubs. RESPIRATORY: Clear to auscultation. Breath sounds equal bilaterally. No wheezes , rales, or rhonchi. GASTROINTESTINAL: Abdomen soft, round, distended. No guarding. Bowel sounds present. MUSCULOSKELETAL: Extremities without clubbing, cyanosis, or edema. No joint tenderness, effusion, or edema noted. NEUROLOGICAL: Awake and alert. No focal deficits. Medications and IVs Current Medications Medications (Trade) Dose Ordered Sig/Jeremy Route Start Time Stop Time Status Last Admin Sodium Chloride 1,000 ml @ 100 mls/hr Q10H IV 11/01/17 09:40 11/02/17 06:29 (NS Flush) 2 ml UNSCH PRN IV FLUSH 11/01/17 09:45 (NS Flush) 2 ml BID IV FLUSH 11/01/17 21:00 11/01/17 21:28 (Zofran Inj) 4 mg Q6H PRN IVP 11/01/17 09:45 (Narcan Inj) 0.4 mg UNSCH PRN IV PUSH 11/01/17 09:45 (Morphine Inj) 4 mg Q3H PRN IV PUSH 11/01/17 13:45 11/02/17 06:28 Lactated Ringer's 1,000 ml @ 30 mls/hr Q24H PRN IV 11/01/17 21:00 11/04/17 20:59 Potassium Chloride 100 ml @ 50 mls/hr Q2H IV 11/02/17 11:00 11/02/17 14:59 11/02/17 11:12 A/P Assessment and Plan 1. Small bowel obstruction, status post NG tube to Slow suction, seen by General service center specialist doctor Holden recommended for diagnostic laparoscopy, possible small bowel resection, exploratory laparotomy and possible Ostomy. 2. hypertension mild uncontrol started on Hydralazine IV PRN 3. electrolyte derangement replaced and following. DVT Prophylaxis: SCDs. Bi Richmond MD Nov 02, 2017 12:38
[2017-11-02] MEDS ORDERED: hydrALAZINE HCL 20 MG/ML VIAL IV PUSH PRN (12:45)
[2017-11-02] MEDS ORDERED: LORazepam 2 MG TAB PO PRN (14:00)
[2017-11-02] MEDS ORDERED: ENALAPRILAT 1.25 MG/ML VIAL IV PUSH PRN (14:00)
[2017-11-02] MEDS ORDERED: FLUMAZENIL 0.5 MG/5 ML VIAL IV PUSH PRN (14:00)
[2017-11-02] MEDS ORDERED: LORazepam 1 MG TAB PO PRN (14:00)
[2017-11-02] MEDS: MAGNESIUM SULFATE 1 GM PREMIX 100 ML IV SCH ×2 (14:25→15:09)
[2017-11-02 16:00] VITALS: BP 151/86; PULSE 87; RESP 18; TEMP 97.8; O2SAT 91
[2017-11-02] MEDS ORDERED: THIAMINE INJ 100 MG in SODIUM CHLORIDE 0.9% INJ 100 ML IV SCH (16:00)
[2017-11-02] MEDS ORDERED: MULTIVITAMIN INJ 10 ML, FOLIC ACID INJ 1 MG in SODIUM CHLORID 0.9% 500 ML INJ 500 ML IV SCH (16:00)
[2017-11-02] MEDS: RESP: ALBUTEROL 2.5 MG/IPRATROPIUM 0.5 MG NEB (SCH) NEB ×2 (16:13→21:08)
[2017-11-02 20:00] VITALS: BP 163/92; PULSE 105; RESP 20; TEMP 100.1; O2SAT 94
[2017-11-02] MEDS: guaiFENesin E.R. 600 MG TAB PO SCH (21:00)
[2017-11-03] VITALS (12 sets, daily range): BP systolic 119–169; BP diastolic 76–90; PULSE 90–102; RESP 16–20; TEMP 98–98.9; O2SAT 94–100
[2017-11-03] MEDS: RESP: ALBUTEROL 2.5 MG/IPRATROPIUM 0.5 MG NEB (SCH) NEB ×4 (03:52→20:16)
[2017-11-03 07:47] LABS: AUTOMATED NEUTROPHIL # 8.8 TH/MM3 (1.8-7.7); BASOPHIL # 0.1 TH/MM3 (0-0.2); BASOPHIL % 1.4 % (0.0-2.0); EOSINOPHIL # 0.1 TH/MM3 (0-0.4); EOSINOPHIL % 0.5 % (0.0-4.0); HEMATOCRIT 40.1 % (35.0-46.0); HEMO FLAGS DIFF FINAL; LYMPH % 10.2 % (9.0-44.0); LYMPHOCYTE # 1.1 TH/MM3 (1.0-4.8); MEAN CELL VOLUME 102.8 FL (80.0-100.0); MEAN CORPUSCULAR HEMOGLOBIN 35.5 PG (27.0-34.0); MEAN CORPUSCULAR HGB CONC 34.5 % (32.0-36.0); MONO % 5.7 % (0.0-8.0); NEUT % 82.2 % (16.0-70.0); PLATELET COUNT 360 TH/MM3 (150-450); WHITE BLOOD COUNT 10.7 TH/MM3 (4.0-11.0)
[2017-11-03 08:09] LABS: BICARBONATE 21.1 MEQ/L (21.0-32.0); MAGNESIUM 1.7 MG/DL (1.5-2.5); POTASSIUM 3.2 MEQ/L (3.5-5.1)
[2017-11-03] MEDS: SODIUM CHLORIDE 0.9% FLUSH 10 ML FLUSH IV FLUSH SCH ×2 (09:00→19:44)
[2017-11-03] MEDS: guaiFENesin E.R. 600 MG TAB PO SCH ×2 (09:00→19:44)
[2017-11-03] MEDS ORDERED: BUPIVACAINE/EPINEPHRINE 0.25% PF 30 ML VIAL ONE (10:44)
[2017-11-03] MEDS ORDERED: ACETAMINOPHEN 1000 MG/100 ML 100 ML IV ONE (10:57)
--- NOTE | 2017-11-03 11:07 | HHI.PR ---
Immediate Post Op Note Procedure Date: Nov 03, 2017 Pre Op Diagnosis: recurrent small bowel obstruction Post Op Diagnosis: same, adhesions Surgeon: Joao Hatch MD Lumber Loader(s): see or sheet Procedure: ex lap, SANKET, small bowel resection Findings: multiple adhesions Complications: none Specimen(s) removed: none Estimated blood loss: 50cc Anesthesia: General IVF Patient to: PACU Patient Condition: Good Joao Hatch MD Nov 03, 2017 11:07
[2017-11-03] MEDS ORDERED: metroNIDAZOLE 500 MG INJ 100 ML IV ONE (11:11)
[2017-11-03] MEDS ORDERED: CLINDAMYCIN PHOS 600 MG/4 ML VIAL ONE (11:11)
[2017-11-03] MEDS ORDERED: POTASSIUM CHLOR 20 MEQ PREMIX 100 ML ONE (11:17)
[2017-11-03] MEDS ORDERED: PHENYLEPH/NS 1000 MCG/10 ML SYR IV ONE (12:00)
[2017-11-03] MEDS ORDERED: ROCURONIUM INJ 50 MG/5 ML SYRINGE IV PUSH ONE (12:00)
[2017-11-03] MEDS ORDERED: POTASSIUM CHLOR 20 MEQ PREMIX 100 ML IV ONE (12:00)
[2017-11-03] MEDS ORDERED: ONDANSETRON HCL 4 MG/2 ML VIAL IV PUSH ONE (12:00)
[2017-11-03] MEDS ORDERED: GLYCOPYRROLATE 1 MG/5 ML SYRINGE IV PUSH ONE (12:00)
[2017-11-03] MEDS ORDERED: DEXAMETHASONE SOD PHOS 4 MG/ML VIAL IV ONE (12:00)
[2017-11-03] MEDS ORDERED: MIDAZOLAM HCL 2 MG/2 ML VIAL IV ONE (12:00)
[2017-11-03] MEDS ORDERED: NEOSTIGMINE 5 MG/5 ML SYRINGE IV PUSH ONE (12:00)
[2017-11-03] MEDS: MAGNESIUM SULFATE 1 GM PREMIX 100 ML IV SCH ×4 (12:00→15:30)
[2017-11-03] MEDS ORDERED: LIDOCAINE HCL 1% PF 5 ML SYRINGE OTHER ONE (12:00)
[2017-11-03] MEDS ORDERED: PROPOFOL 200 MG/20 ML AMP IV ONE (12:00)
[2017-11-03] MEDS ORDERED: SUCCINYLCHOLINE CHLORIDE 100 MG/5 ML SYRINGE IV PUSH ONE (12:00)
--- NOTE | 2017-11-03 12:03 | HHI.PR ---
Subjective Remarks Admission Note: Ms. Pretty is a 62-year-old female patient with a known medical history of small bowel obstruction, CAD with history of CA who presented to the ED with complaints of worsening abdominal pain. Patient was discharged last week for small bowel obstruction and treated medically. She actually left AMA due to some family issues but a that time it appeared that she was improving to go home. Patient states she has overall been feeling well since she left the hospital up until around 1900 last evening. She developed severe abdominal pain located in her mid-epigastric area that is constant in nature, rated a 8/10 on pain scale. She does admit to one bout of vomiting in radiology last evening. Last BM was two days ago. Denies any hematochezia. Denies any recent fever, chills, headache, shortness of breath, or dysuria. Has been eating well for the past week. Does admit to drinking two alcoholic drinks last evening. Patient was admitted in April for a small bowel obstruction, was seen by general surgery and was treated nonoperatively with IV antibiotics which eventually the obstruction resolved. 11/02: Seen in her bedroom, discussed with nurse and Multidisciplinary rounds, she is awaiting for Surgery, as per patient she smokes on daily bases also she drinks at least 6 beer daily will start CIWA protocol. NG tube in place. 11/03: Stable in her bedroom awaiting surgery later today, discussed on Multidisciplinary round at 10 am, follow electrolytes in am tomorrow. no nausea , vomit or diarrhea. Objective Vital Signs Date Time Temp Pulse Resp B/P (MAP) Pulse Ox O2 Delivery O2 Flow Rate FiO2 11/03/17 08:00 98.2 102 19 169/90 (116) 96 11/03/17 00:00 98.0 90 20 143/76 (98) 95 11/02/17 20:00 100.1 105 20 163/92 (115) 94 11/02/17 16:00 97.8 87 18 151/86 (107) 91 I/O 11/02/17 11/02/17 11/02/17 11/03/17 11/03/17 11/03/17 07:00 15:00 23:00 07:00 15:00 23:00 Intake Total 1000 ml 400 ml 0 ml Output Total 250 ml 75 ml 100 ml Balance 1000 ml -250 ml 325 ml -100 ml Intake Oral 0 ml 0 ml 0 ml IV Total 1000 ml 400 ml Gastric Drainage Total 250 ml 75 ml 100 ml # Voids 3 2 2 # Bowel Movements 0 0 Result Diagram: 11/03/17 0658 11/03/1758 Imaging Last Impressions Abdomen/Pelvis CT 11/01/17 0634 Signed Impressions: Service Date/Time: Wednesday, November 01, 2017 08:28 - CONCLUSION: Followup CT scan of the abdomen pelvis again demonstrates a distal small bowel obstruction without significant change compared to the prior examination. Daljit Jenkins MD Procedures NG tube placement to slow suction Other Results Laboratory Tests Test 11/01/17 06:54 11/01/17 17:39 11/03/17 06:58 Blood Urea Nitrogen 2 MG/DL 2 MG/DL Creatinine 0.54 MG/DL 0.39 MG/DL Random Glucose 100 MG/DL 92 MG/DL Total Protein 6.9 GM/DL Albumin 2.8 GM/DL Calcium Level 8.8 MG/DL 8.2 MG/DL Alkaline Phosphatase 114 U/L Aspartate Amino Transf (AST/SGOT) 42 U/L Alanine Aminotransferase (ALT/SGPT) 31 U/L Total Bilirubin 0.6 MG/DL Sodium Level 139 MEQ/L 140 MEQ/L Potassium Level 5.4 MEQ/L 3.2 MEQ/L Chloride Level 103 MEQ/L 107 MEQ/L Carbon Dioxide Level 29.4 MEQ/L 21.1 MEQ/L Lipase 67 U/L Ethyl Alcohol Level LESS THAN 3 MG/DL Prothrombin Time 10.5 SEC Prothromb Time International Ratio 1.0 RATIO White Blood Count 10.7 TH/MM3 Red Blood Count 3.90 MIL/MM3 Hemoglobin 13.9 GM/DL Hematocrit 40.1 % Mean Corpuscular Volume 102.8 FL Mean Corpuscular Hemoglobin 35.5 PG Mean Corpuscular Hemoglobin Concent 34.5 % Red Cell Distribution Width 15.0 % Platelet Count 360 TH/MM3 Mean Platelet Volume 8.0 FL Neutrophils (%) (Auto) 82.2 % Lymphocytes (%) (Auto) 10.2 % Monocytes (%) (Auto) 5.7 % Eosinophils (%) (Auto) 0.5 % Basophils (%) (Auto) 1.4 % Neutrophils # (Auto) 8.8 TH/MM3 Lymphocytes # (Auto) 1.1 TH/MM3 Monocytes # (Auto) 0.6 TH/MM3 Eosinophils # (Auto) 0.1 TH/MM3 Basophils # (Auto) 0.1 TH/MM3 CBC Comment DIFF FINAL Differential Comment Phosphorus Level 2.9 MG/DL Magnesium Level 1.7 MG/DL Anion Gap 12 MEQ/L Estimat Glomerular Filtration Rate 166 ML/MIN Objective Remarks GENERAL: no acute distress. laying in bed. SKIN: No rashes Warm and dry. HEENT: Atraumatic. Normocephalic. NECK: Trachea midline. No JVD. Supple. CARDIOVASCULAR: Regular rate and rhythm without murmurs, gallops, or rubs. RESPIRATORY: Clear to auscultation. Breath sounds equal bilaterally. No wheezes , rales, or rhonchi. GASTROINTESTINAL: Abdomen soft, round, distended. No guarding. Bowel sounds present. MUSCULOSKELETAL: Extremities without clubbing, cyanosis, or edema. No joint tenderness, effusion, or edema noted. NEUROLOGICAL: Awake and alert. No focal deficits. Medications and IVs Current Medications Medications (Trade) Dose Ordered Sig/Jeremy Route Start Time Stop Time Status Last Admin Sodium Chloride 1,000 ml @ 100 mls/hr Q10H IV 11/01/17 09:40 11/02/17 23:09 (NS Flush) 2 ml UNSCH PRN IV FLUSH 11/01/17 09:45 (NS Flush) 2 ml BID IV FLUSH 11/01/17 21:00 11/02/17 23:09 (Zofran Inj) 4 mg Q6H PRN IVP 11/01/17 09:45 (Narcan Inj) 0.4 mg UNSCH PRN IV PUSH 11/01/17 09:45 (Morphine Inj) 4 mg Q3H PRN IV PUSH 11/01/17 13:45 11/02/17 23:21 Lactated Ringer's 1,000 ml @ 30 mls/hr Q24H PRN IV 11/01/17 21:00 11/04/17 20:59 (Vasotec Inj) 0.65 mg Q6H PRN IV PUSH 11/02/17 14:00 11/02/17 15:09 (Duoneb Neb) 1 ampule Q6HR NEB NEB 11/02/17 16:00 11/03/17 03:52 (Mucinex Er) 600 mg BID PO 11/02/17 21:00 Multivitamins 10 ml/Folic Acid 1 mg/Sodium Chloride 510.2 ml @ 125 mls/hr Q24H IV 11/02/17 16:00 11/07/17 15:59 11/02/17 16:00 Thiamine HCl 100 mg/Sodium Chloride 101 ml @ 100 mls/hr Q24H IV 11/02/17 16:00 11/05/17 15:59 11/02/17 16:06 (Vitamin B1) 100 mg DAILY PO 11/06/17 09:00 (Romazicon Inj) 0.2 mg Q1M PRN IV PUSH 11/02/17 14:00 (Ativan) 1 mg Q4H PRN PO 11/02/17 14:00 (Ativan) 2 mg Q2H PRN PO 11/02/17 14:00 A/P Assessment and Plan 1. Small bowel obstruction, status post NG tube to Slow suction, seen by General practice specialist doctor Holden recommended for diagnostic laparoscopy, possible small bowel resection, exploratory laparotomy and possible Ostomy. will be going for surgery later today 2. hypertension mild uncontrol started on Hydralazine IV PRN 3. electrolyte derangement replaced yesterday today continue with Potassium level in 3.2 will give 40 meq of Potassium chloride replace also magnesium will follow in am tomorrow. 4. Tobacco dependence strongly recommended to stop smoking, giving bronchodilator, mucolytic and incentive spirometry 5. Alcohol abuse on CIWA protocol no signs of withdrawal. DVT Prophylaxis: SCDs. Discharge Planning once cleared by General Surgery. Bi Richmond MD Nov 03, 2017 12:03
[2017-11-03 13:24] LABS: BLOOD GAS BASE EXCESS -7.6 mmol/L (-2-2); BLOOD GAS CARBOXYHEMOGLOBIN 0.7 % (0-4); BLOOD GAS HCO3 19 mmol/L (22-26); BLOOD GAS O2 HGB SATURATION 93 % (90-100); BLOOD GAS OXYGEN CONTENT 16.8 Vol % (12.0-20.0); BLOOD GAS PCO2 45 mmHg (38-42); BLOOD GAS PO2 90 mmHg (61-120); BLOOD GAS TOTAL HGB 12.8 G/DL (12.0-16.0); CRITICAL VALUE YES; DRAW SITE ART LINE; FIO2 60 %; OXYGEN DEVICE VENTILATOR; TEMP CORR TO 98.6; VENT SETTINGS CPAP +5PEEP/15PSV
[2017-11-03 13:25] LABS: STAT YES
[2017-11-03] MEDS ORDERED: SODIUM CHLOR 0.9% 1000 ML INJ 1,000 ML IV SCH (13:29)
[2017-11-03] MEDS ORDERED: SODIUM CHLORIDE 0.9% FLUSH 10 ML FLUSH IV FLUSH PRN (13:30)
[2017-11-03 13:33] LABS: AUTOMATED NEUTROPHIL # 9.7 TH/MM3 (1.8-7.7); BASOPHIL # 0.1 TH/MM3 (0-0.2); BASOPHIL % 0.9 % (0.0-2.0); EOSINOPHIL # 0.1 TH/MM3 (0-0.4); EOSINOPHIL % 0.5 % (0.0-4.0); HEMATOCRIT 39.3 % (35.0-46.0); LYMPH % 16.5 % (9.0-44.0); MEAN CELL VOLUME 103.8 FL (80.0-100.0); MEAN CORPUSCULAR HEMOGLOBIN 34.6 PG (27.0-34.0); MEAN CORPUSCULAR HGB CONC 33.3 % (32.0-36.0); MONO % 2.8 % (0.0-8.0); NEUT % 79.3 % (16.0-70.0); PLATELET COUNT 351 TH/MM3 (150-450); RED BLOOD COUNT 3.79 MIL/MM3 (4.00-5.30); RED CELL DISTRIBUTION WIDTH 14.6 % (11.6-17.2); WHITE BLOOD COUNT 12.3 TH/MM3 (4.0-11.0)
[2017-11-03 13:34] LABS: HEMO FLAGS AUTO DIFF
[2017-11-03] MEDS ORDERED: SODIUM BICARBONATE 8.4% INJ 50 ML ONE (13:35)
[2017-11-03] MEDS ORDERED: NOREPINEPHRINE 4 MG/4 ML AMP ONE (13:35)
[2017-11-03] MEDS ORDERED: SODIUM BICARBONATE 8.4% INJ 50 MEQ/50 ML SYR ONE (13:49)
[2017-11-03] MEDS ORDERED: VASOPRESSIN 20 UNITS/ML VIAL (IVTITR) ONE (13:50)
[2017-11-03] MEDS: VASOPRESSIN INJ 40 UNITS in DEXTROSE 5% IN WATER 100ML INJ 98 ML IV SCH ×4 (13:52→19:00)
--- NOTE | 2017-11-03 13:52 | PD.CONS ---
HPI Service Critical Care Medicine Consult Requested By Dr. Burgos Reason for Consult Ventricular fibrillation arrest Acute respiratory failure Cardiogenic shock Metabolic acidosis Lactic acidosis Status post lysis of additional small bowel resection Hypokalemia Hypomagnesemia Primary Care Physician No Primary Care Physician History of Present Illness Patient is a 62-year-old female with past medical history significant for coronary artery disease, NC in 2017, alcohol abuse, tobacco abuse who underwent small bowel resection and lysis of additions today by Dr. Hatch for recurrent small bowel obstruction. Postop patient was extubated and was moved to the PACU. While entering PACU unit patient suddenly became cyanotic and unresponsive and was emergently placed on the monitor in PACU, and Zoll pads attached. CPR was immediately initiated as the patient was found to be pulseless. Patient received epinephrine 2 and monitor showed ventricular fibrillation. Patient was shocked with 200 J DC CV, with return of spontaneous circulation. Patient was reintubated and placed on mechanical ventilation by anesthesia during the Code which last for only 3 minutes. Post code received one amp of bicarbonate, as ABG showed metabolic acidosis. 2 L of normal saline boluses ordered which she is getting now. Had been started on Levophed for shock I evaluated the patient in the PACU. Patient's intubated not on sedation. Systolic blood pressure in the mid 80s on Levophed 5 mcg/m. Patient appears critically ill but she can wake up and follow basic commands. There is no indication for induced hypothermia at this time for neuro protection. I have ordered cardiac workup including cardiac enzymes stat 2-D echo. EKG did not show QT prolongation. Other labs are pending at this time. Levophed will be titrated to maintain MAP>65, and also vasopressin added Review of Systems ROS Limitations: Intubated Past Family Social History Allergies: Coded Allergies: penicillin G (Unverified Allergy, Severe, Anaphylaxis, 11/01/17) Past Medical History Coronary artery disease with's history of NC in 2007 Right eye blindness Recurrent small bowel obstruction Alcohol dependence Tobacco abuse Past Surgical History Tonsillectomy Reported Medications No metastases Active Ordered Medications Currently on Levophed infusion Family History Unable to obtain as patient is intubated Social History Smokes about a pack of cigarettes daily and drinks 6 beers daily Physical Exam Vital Signs Vital Signs Date Time Temp Pulse Resp B/P (MAP) Pulse Ox O2 Delivery O2 Flow Rate FiO2 11/03/17 08:00 98.2 102 19 169/90 (116) 96 11/03/17 00:00 98.0 90 20 143/76 (98) 95 11/02/17 20:00 100.1 105 20 163/92 (115) 94 11/02/17 16:00 97.8 87 18 151/86 (107) 91 Physical Exam GENERAL: This is a well-developed thin female patient lying in PACU, intubated SKIN: No rashes Warm and dry. HEENT: Atraumatic. Normocephalic. R eye nonreactive (Blind i right eye per history), L eye reactive NECK: Trachea midline. No JVD. Supple. CARDIOVASCULAR: Tachycardic rhythm. Hypotensive. On Levophed 5 mcg/m RESPIRATORY: Breath sounds equal bilaterally. Bilateral crackles GASTROINTESTINAL: Abdomen soft, round, non distended. Midline incision dressing intact MUSCULOSKELETAL: Extremities without clubbing, cyanosis, or edema. NEUROLOGICAL: Intubated sedated. Wakes up follows commands 4. Weak lethargic Laboratory Laboratory Tests Test 11/03/17 06:58 11/03/17 13:15 11/03/17 13:23 11/03/17 13:38 White Blood Count 10.7 12.3 Red Blood Count 3.90 3.79 Hemoglobin 13.9 13.1 Hematocrit 40.1 39.3 Mean Corpuscular Volume 102.8 103.8 Mean Corpuscular Hemoglobin 35.5 34.6 Mean Corpuscular Hemoglobin Concent 34.5 33.3 Red Cell Distribution Width 15.0 14.6 Platelet Count 360 351 Mean Platelet Volume 8.0 7.1 Neutrophils (%) (Auto) 82.2 79.3 Lymphocytes (%) (Auto) 10.2 16.5 Monocytes (%) (Auto) 5.7 2.8 Eosinophils (%) (Auto) 0.5 0.5 Basophils (%) (Auto) 1.4 0.9 Neutrophils # (Auto) 8.8 9.7 Lymphocytes # (Auto) 1.1 2.0 Monocytes # (Auto) 0.6 0.3 Eosinophils # (Auto) 0.1 0.1 Basophils # (Auto) 0.1 0.1 CBC Comment DIFF FINAL AUTO DIFF Differential Comment Blood Urea Nitrogen 2 Creatinine 0.39 Random Glucose 92 Calcium Level 8.2 Phosphorus Level 2.9 Magnesium Level 1.7 Sodium Level 140 Potassium Level 3.2 Chloride Level 107 Carbon Dioxide Level 21.1 Anion Gap 12 Estimat Glomerular Filtration Rate 166 Blood Gas Puncture Site ART LINE Blood Gas Patient Temperature 98.6 Blood Gas HCO3 19 Blood Gas Base Excess -7.6 Blood Gas Oxygen Saturation 93 Arterial Blood pH 7.24 Arterial Blood Partial Pressure CO2 45 Arterial Blood Partial Pressure O2 90 Arterial Blood Oxygen Content 16.8 Arterial Blood Carboxyhemoglobin 0.7 Arterial Blood Methemoglobin 1.0 Blood Gas Hemoglobin 12.8 Oxygen Delivery Device VENTILATOR Blood Gas Ventilator Setting CPAP +5PEEP/15PSV Blood Gas Inspired Oxygen 60 Result Diagram: 11/03/17 1323 11/03/17 0658 Imaging Chest x-ray shows pulmonary edema CT of the abdomen pelvis shows evidence of distal small bowel obstruction Septic Shock Reassessment Septic shock perfusion: reassessment completed Assessment and Plan Assessment and Plan ASSESSMENT: Cardiac arrest/ventricular fibrillation Acute hypoxemic respiratory failure Pulmonary edema Cardiogenic shock Metabolic acidosis Lactic acidosis Status post lysis of additional small bowel resection Hypokalemia Hypomagnesemia PLAN by system: NEURO: Alcohol dependence - Versed for sedation and fentanyl for pain control - Patient does open eyes and follow commands, no indication for induced hypothermia - Supplement and multivitamin thiamine RESP: Acute hypoxemic respiratory failure Pulmonary edema - Assist-control mechanical ventilation with rate of 16 total volume 450 PEEP 5 - Titrate FiO2 to keep saturation more than 90% - Sputum culture, DuoNeb every 6 hours when necessary - Ventilator bundle CV: Ventricular fibrillation arrest Cardiac shock History of coronary artery disease rule out ACS - Postop developed ventricle fibrillation received CPR for 3 minutes, epinephrine 2 and DC cardioversion 1 - EKG does not show any acute ST-T wave changes, check cardiac enzymes - Stat 2-D echo, cardiology consult - Levophed and vasopressin to keep map above 65 - Total 3 L normal saline boluses and normal saline at 150 ML per hour - Keep potassium more than 4, magnesium more than 2 GI: Recurrent small bowel obstruction 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 Hatch : - Monitor renal function closely. Place Dang catheter. ID: Probable sepsis - Send sputum blood and urine culture - Empiric Zosyn 3.375 GM IV q6, for broad-spectrum abdominal and lung coverage HEME: - Monitor CBC, CMP, coags ENDO: Hypokalemia Hypomagnesemia - Aggressive electrolyte replacement per protocol PROPH: - Bilateral lower extremity SCDs. Avoid chemical DVT prophylaxis immediately postop. IV famotidine LINES: - Left radial art line placed by anesthesia today. Will place central line in ICU CC time 82 min Patient is critically ill status post cardiac arrest. Currently on 2 pressors Levophed and vasopressin. Need aggressive fluid resuscitation cardiac evaluation, and work up for cardiac arrest Code Status Full Discussed Condition With Roman Burgos and Aleena Lee MD Nov 03, 2017 13:52
--- NOTE | 2017-11-03 13:53 | RADRPT ---
EXAM DATE/TIME: 11/03/2017 13:18 [facility] COMPARISON: No previous studies available for comparison. INDICATIONS : Post intubation. MEDICAL HISTORY : Chronic obstructive pulmonary disease. Myocardial infarction. Cervical cancer, Bowel obstruction. SURGICAL HISTORY : Hysterectomy. ENCOUNTER: Initial ACUITY: 1 day PAIN SCORE: Non-responsive. LOCATION: Bilateral chest FINDINGS: The endotracheal tube has its tip 2 cm above the polo. A nasogastric has its tip below diaphragm. D iffuse infiltrates are noted bilaterally consistent with mild pulmonary vascular congestion versus pn eumonia. The heart is top normal in size. CONCLUSION: 1. Diffuse infiltrates consistent with mild pulmonary vascular congestion versus pneumonia. 2. Endotracheal tube and nasogastric tube are in good positions. Christopher Osborne MD on November 03, 2017 at 13:50 Board Certified Radiologist. This report was verified electronically.
[2017-11-03] MEDS ORDERED: MIDAZOLAM 100 MG/100 ML INJ 100 ML ONE (13:56)
[2017-11-03 14:05] LABS: BICARBONATE 20.5 MEQ/L (21.0-32.0); MAGNESIUM 1.4 MG/DL (1.5-2.5); POTASSIUM 3.4 MEQ/L (3.5-5.1)
[2017-11-03 14:06] LABS: SCAN/DIFF AUTO DIFF CONFIRMED
[2017-11-03] MEDS ORDERED: DO NOT ADM ANY ANTICOAGULANT DRUGS PRN (14:15)
[2017-11-03] MEDS ORDERED: POTASSIUM CHLOR 40 MEQ PREMIX 100 ML IV PRN (14:15)
[2017-11-03] MEDS ORDERED: POTASSIUM CHLORIDE 25 MEQ EFFERVESCENT TAB PO PRN (14:15)
[2017-11-03] MEDS ORDERED: MAGNESIUM SULFATE INJ 4 GM in SODIUM CHLORIDE 0.9% INJ 92 ML IV PRN (14:15)
[2017-11-03] MEDS ORDERED: POTASSIUM PHOSPHATE MONOBASIC 500 MG TAB PO PRN (14:15)
[2017-11-03] MEDS ORDERED: POTASSIUM PHOSPHATE MONOBASIC 500 MG TAB PO/TUBE PRN (14:15)
[2017-11-03] MEDS ORDERED: SODIUM PHOSPHATE INJ 30 MMOL in SODIUM CHLOR 0.9% 250 ML INJ 240 ML IV PRN (14:15)
[2017-11-03] MEDS ORDERED: POTASSIUM PHOSPHATE INJ 30 MMOL in SODIUM CHLOR 0.9% 250 ML INJ 250 ML IV PRN (14:15)
[2017-11-03] MEDS ORDERED: MAGNESIUM OXIDE 400 MG TAB PO PRN (14:15)
[2017-11-03] MEDS ORDERED: POTASSIUM CHLOR 20 MEQ PREMIX 100 ML IV PRN ×2 (14:15)
[2017-11-03 14:21] LABS: CALCIUM-PROTEIN CORRECTED 8.5 MG/DL (8.5-10.1)
[2017-11-03] MEDS ORDERED: MIDAZOLAM HCL 5 MG/ML VIAL (1 ML) ONE (14:58)
[2017-11-03 15:25] LABS: BLOOD GAS BASE EXCESS -3.2 mmol/L (-2-2); BLOOD GAS CARBOXYHEMOGLOBIN 1.2 % (0-4); BLOOD GAS HCO3 21 mmol/L (22-26); BLOOD GAS METHEMOGLOBIN 0.9 % (0-2); BLOOD GAS O2 HGB SATURATION 92 % (90-100); BLOOD GAS OXYGEN CONTENT 15.9 Vol % (12.0-20.0); BLOOD GAS PCO2 36 mmHg (38-42); BLOOD GAS PO2 73 mmHg (61-120); BLOOD GAS TOTAL HGB 12.3 G/DL (12.0-16.0); TEMP CORR TO 98.6
[2017-11-03 15:26] LABS: CRITICAL VALUE NO; DRAW SITE ART LINE; FIO2 50 %; OXYGEN DEVICE VENTILATOR; STAT YES; ULNAR PULSE PRESENT; VENT SETTINGS PRVC/AC
[2017-11-03 15:27] LABS: BLOOD GAS VENOUS BASE EXCESS -0.7 mmol/L (-2-2); BLOOD GAS VENOUS HCO3 24 mmol/L (22-26); BLOOD GAS VENOUS O2 CONTENT 12.8 Vol % (9.0-17.0); BLOOD GAS VENOUS O2 HGB SAT 71 % (70-76); BLOOD GAS VENOUS PCO2 44 mmHg (44-48); BLOOD GAS VENOUS PO2 43 mmHg (35-40); BLOOD GAS VENOUS pH 7.36 (7.360-7.400); CRITICAL VALUE NO; OXYGEN DEVICE VENTILATOR; TEMP CORR TO 98.6
[2017-11-03 15:28] LABS: DRAW SITE CENTRAL LINE; FIO2 50 %; STAT YES; VENT SETTINGS PRVC/AC
--- NOTE | 2017-11-03 15:28 | ECHRPT ---
Indication: cardiac arrest CONCLUSIONS The left ventricular systolic function is severely reduced . Ejection fraction is somewhat difficul t to estimate, possibly 30%. Moderate sized area of apical akinesis. Normal left ventricular size. Wall thickness is normal. Mild mitral valve regurgitation. There is mild tricuspid valve regurgitation. The estimated pulmonary arterial pressure is 46 mmHg. BP: / HR: Rhythm: MEASUREMENTS (Male / Female) Normal Values Technical Quality: 2D ECHO LV Diastolic Diameter PLAX 2.9 cm 4.2 - 5.9 / 3.9 - 5.3 cm LV Systolic Diameter PLAX 2.6 cm IVS Diastolic Thickness 0.6 cm 0.6 - 1.0 / 0.6 - 0.9 cm LVPW Diastolic Thickness 0.6 cm 0.6 - 1.0 / 0.6 - 0.9 cm LV Relative Wall Thickness 0.4 RV Internal Dim ED PLAX 1.8 cm DOPPLER LV E' Lateral Velocity 8.2 cm/s LV E' Septal Velocity 8.7 cm/s TR Peak Velocity 301.0 cm/s TR Peak Gradient 36.0 mmHg Right Atrial Pressure 10.0 mmHg Pulmonary Artery Systolic Pressu 46.2 mmHg Right Ventricular Systolic Press 46.2 mmHg FINDINGS LEFT VENTRICLE The left ventricular systolic function is severely reduced . Ejection fraction is somewhat difficul t to estimate, possibly 30%. Moderate sized area of apical akinesis. Normal left ventricular size. Wall thickness is normal. RIGHT VENTRICLE Normal right ventricular size and systolic function. LEFT ATRIUM The left atrial size is normal. RIGHT ATRIUM The right atrial size is normal. ATRIAL SEPTUM Normal atrial septal thickness without atrial level shunting by limited color doppler interrogation. AORTA The aortic root and proximal ascending aorta are normal in size on limited imaging. MITRAL VALVE Structurally normal mitral valve. Mild mitral valve regurgitation. AORTIC VALVE Trileaflet aortic valve. No aortic valve regurgitation. No aortic valve stenosis. TRICUSPID VALVE Structurally normal tricuspid valve. There is mild tricuspid valve regurgitation. The estimated pulmonary arterial pressure is 46 mmHg. PULMONARY VALVE No pulmonary valve regurgitation or stenosis. VESSELS The inferior vena cava is normal in size. PERICARDIUM No pericardial effusion. Stanton Valentin MD (Electronically Signed) Final Date:03 November 2017 15:27
[2017-11-03] MEDS: SODIUM CHLOR 0.9% 1000 ML INJ 1,000 ML IV SCH ×2 (15:30→19:09)
--- NOTE | 2017-11-03 15:36 | PD.PROCEDR ---
Central Line Procedure REASON FOR PROCEDURE Central venous access PROCEDURE PERFORMED Central line placement: Right subclavian central line CONSENT Emergency procedure, s/p Cardiac arrest, Shock ANESTHESIA Local injection of 1% Lidocaine DESCRIPTION OF THE PROCEDURE The patient was placed in supine, mild Trendelenburg position. The area was exposed and cleansed with ChloraPrep, times two. Large sterile drape was used to cover the patient, with the site exposed, under sterile conditions including cap, face mask, sterile gown, and sterile gloves. On single attempt, the introducer needle was inserted with negative pressure in syringe and venous flash was obtained. The guide wire was then advanced without any restriction and the needle was removed. The dilator was used without any complications. Using Seldinger technique the 20 CM 7F ABX coated catheter was advanced over the guide wire to a depth of 17centimeters. The guide wire was removed. All ports were aspirated with dark venous blood return and flushed easily with sterile saline. All ports were capped. Antibiotic disc was placed around central line at puncture site. The central line was secured to the skin with two interrupted 2.0 silk sutures. The area was bandaged with sterile see- through central line bandage. COMPLICATIONS: No apparent complications ESTIMATED BLOOD LOSS: Less than 1 cc. Aleena Iglesias MD Nov 03, 2017 15:36
[2017-11-03] MEDS: MAGNESIUM SULFATE INJ 2 GM in SODIUM CHLORIDE 0.9% INJ 96 ML IV PRN (15:40)
[2017-11-03] MEDS ORDERED: MIDAZOLAM HCL 5 MG/ML VIAL (1 ML) IV ONE (16:00)
--- NOTE | 2017-11-03 16:14 | RADRPT ---
EXAM DATE/TIME: 11/03/2017 15:26 [facility] COMPARISON: CHEST PA & LAT, October 20, 2017, 4:11. INDICATIONS : Confirm placement of right subclavian central line. MEDICAL HISTORY : Chronic obstructive pulmonary disease. Myocardial infarction. Cervical can cer SURGICAL HISTORY : Hysterectomy. ENCOUNTER: Subsequent ACUITY: 4 - 6 days PAIN SCORE: Non-responsive. LOCATION: Right chest FINDINGS: A single view of the chest demonstrates a right-sided subclavian venous catheter. The catheter extend s across midline and overlies the left side of the mediastinum. Could be within a left-sided SVC or a lateral internal mammary vein . The endotracheal tube, nasogastric are both in good position. Mild diffuse pulmonary vascular prominence The cardiomediastinal contours are unremarkable. Osseous stru ctures are intact. Minimal consolidation right lower lobe CONCLUSION: Right subclavian line in place extending across midline to the left. Low glass reveal ed it to be within a venous structure. Left-sided SVC versus some type of internal mammary vessel is suggested .lateral film could confirm . Some indistinctness of the right hemidiaphragm c/w right low er lobe atelectasis. Tyler Dillon MD on November 03, 2017 at 16:10 Board Certified Radiologist. This report was verified electronically.
--- NOTE | 2017-11-03 16:18 | MB ---
cc: DEAN HALL M.D. DATE OF CONSULTATION: 11/03/2017. REASON FOR CONSULTATION: Status post ventricular fibrillation arrest. HISTORY OF PRESENT ILLNESS: History is currently unobtainable from the patient who is intubated and sedated. History is obtained from medical records and from Dr. Aleena Iglesias. She is a 62-year-old white female with a history of cervical cancer, poorly documented history of myocardial infarction in 2006 and right eye blindness who was admitted to the hospital with recurrent small-bowel obstruction. Today she underwent exploratory laparotomy, lysis of adhesions, partial small bowel resection. After the surgery, she apparently became cyanotic and developed ventricular fibrillation. Brief chest compressions were administered and the patient's rhythm was restored to sinus rhythm after a single shock. PAST MEDICAL HISTORY: 1. Cervical cancer status post radical hysterectomy in the . 2. Right eye blindness. 3. Not well-documented history of myocardial infarction 2006. [place] records show no evidence for myocardial infarction in 2006. PAST SURGICAL HISTORY: 1. Tonsillectomy 2. Radical hysterectomy . CARDIAC MEDICATIONS AT HOME: None. ALLERGIES: PENICILLIN. FAMILY HISTORY: Currently unobtainable. SOCIAL HISTORY: Currently unobtainable. The patient apparently smokes about a pack of cigarettes per day and drinks six beers a day. REVIEW OF SYSTEMS: Currently unobtainable. PHYSICAL EXAMINATION: VITAL SIGNS: Blood pressure 120/70 with a pulse of 100, respirations 20. GENERAL: In general she is a well-developed, well-nourished white female currently intubated and sedated. HEAD, EYES, EARS, NOSE, THROAT: On HEENT examination jugular venous pressure is hard to assess. Carotid pulses are 2+ bilaterally and without bruits. CHEST: Examination of the chest reveals clear lung jurado anteriorly. CARDIAC: On cardiac examination, she has a regular rhythm and rate without S3, S4 or murmur. ABDOMEN: On abdominal examination, aggressive palpation was not pursued. No bowel sounds are present. EXTREMITIES: Examination of extremities reveals no clubbing, cyanosis or edema. LABORATORY DATA: Laboratory data includes WBC 12.3, hemoglobin 13.1, platelets 351,000. Potassium 3.4, magnesium 1.4, BUN to creatinine 0.40. Troponin 0.02. INR 1.0. IMAGING STUDIES: Chest x-ray shows diffuse infiltrates suggestive of mild pulmonary vascular congestion versus pneumonia. EKGS: EKG shows sinus tachycardia, low QRS voltage in the limb leads, borderline poor R-wave progression, nonspecific intraventricular conduction delay, right axis deviation. IMPRESSION: Apparent ventricular fibrillation arrest in this 62-year-old white female with a history of cervical cancer, not well-documented history of myocardial infarction in 2006, status post exploratory laparotomy and lysis of adhesions and small bowel resection today for small bowel obstruction. At this point, there is no definite evidence for acute coronary syndrome. No acute ST segment or T-wave changes are seen on EKG. Initial cardiac enzymes are negative. Her echocardiogram does show a moderate sized area of apical akinesis. Ejection fraction is somewhat difficult to estimate, possibly 30%. The echo findings certainly could be due to a previous myocardial infarction. Takotsubo syndrome also could be considered. At this time, she remains in sinus rhythm. RECOMMENDATIONS: 1. Eventually start beta tosha and ZENA therapy as blood pressures will allow. 2. When okay from a surgical standpoint, recommend daily baby aspirin. 3. Consider cardiac catheterization or nuclear stress testing for further evaluation once she has been extubated. 4. Await subsequent cardiac enzymes. 5. Start lidocaine drip or Amiodarone drip if she has recurrent ventricular tachyarrhythmias. MD HECTOR Callahan/LESIA /3:44 PM /4:00 PM MOUNA
[2017-11-03] MEDS: ASPIRIN 300 MG SUPP RECTAL SCH (18:00)
[2017-11-03 18:33] LABS: CREATINE KINASE 49 U/L (26-192)
[2017-11-03] MEDS: MIDAZOLAM 100 MG/100 ML INJ 100 ML IV PRN (19:00)
[2017-11-03] MEDS: NOREPINEPHRINE 4 MG/D5W 250 ML IV PRN (19:00)
[2017-11-03] MEDS: FAMOTIDINE 20 MG/2 ML VIAL IV PUSH SCH (19:43)
[2017-11-03] MEDS: MORPHINE SULFATE 4 MG/ML INJ IV PUSH PRN (20:00)
[2017-11-03] MEDS: CHLORHEXIDINE 0.12% (ORAL KIT) 15 ML CUP MT SCH (20:00)
[2017-11-03 22:27] LABS: APTT (PATIENT) 26.5 SEC (24.3-30.1); INTERNATIONAL NORMALIZED RATIO 1.1 RATIO; PROTHROMBIN TIME - PATIENT 11.4 SEC (9.8-11.6)
[2017-11-03 23:00] LABS: POTASSIUM 4.7 MEQ/L (3.5-5.1)
[2017-11-03] MEDS ORDERED: SODIUM CHLORID 0.9% 500 ML INJ 500 ML IV ONE (23:15)
[2017-11-04] VITALS (18 sets, daily range): BP systolic 90–129; BP diastolic 59–92; PULSE 83–129; RESP 16; TEMP 97.8–98.9; O2SAT 100
[2017-11-04 00:47] LABS: AUTOMATED NEUTROPHIL # 12.3 TH/MM3 (1.8-7.7); BASOPHIL % 0.2 % (0.0-2.0); HEMATOCRIT 35.5 % (35.0-46.0); HEMO FLAGS DIFF FINAL; LYMPH % 3.8 % (9.0-44.0); LYMPHOCYTE # 0.5 TH/MM3 (1.0-4.8); MEAN CELL VOLUME 102.1 FL (80.0-100.0); MEAN CORPUSCULAR HEMOGLOBIN 35.7 PG (27.0-34.0); MONO % 4.8 % (0.0-8.0); NEUT % 91.2 % (16.0-70.0); PLATELET COUNT 270 TH/MM3 (150-450); RED BLOOD COUNT 3.48 MIL/MM3 (4.00-5.30); RED CELL DISTRIBUTION WIDTH 14.1 % (11.6-17.2); WHITE BLOOD COUNT 13.5 TH/MM3 (4.0-11.0)
[2017-11-04] MEDS: MORPHINE SULFATE 4 MG/ML INJ IV PUSH PRN ×2 (00:48→05:17)
[2017-11-04] MEDS: SODIUM CHLOR 0.9% 1000 ML INJ 1,000 ML IV SCH ×3 (00:48→08:38)
[2017-11-04] MEDS ORDERED: SODIUM CHLORID 0.9% 500 ML INJ 500 ML IV ONE ×2 (03:15→05:15)
[2017-11-04] MEDS: MIDAZOLAM 100 MG/100 ML INJ 100 ML IV PRN (03:54)
[2017-11-04] MEDS: RESP: ALBUTEROL 2.5 MG/IPRATROPIUM 0.5 MG NEB (SCH) NEB ×4 (04:04→21:12)
[2017-11-04] MEDS: NOREPINEPHRINE 4 MG/D5W 250 ML IV PRN (08:45)
--- NOTE | 2017-11-04 08:49 | RADRPT ---
EXAM DATE/TIME: 11/04/2017 08:21 [facility] COMPARISON: CHEST SINGLE AP, November 03, 2017, 15:26. INDICATIONS : Respiratory distress. Short of breath MEDICAL HISTORY : Myocardial infarction. Cardiovascular disease, Cervical carcinoma SURGICAL HISTORY : Hysterectomy. Tonsillectomy. ENCOUNTER: Subsequent ACUITY: 3 weeks PAIN SCORE: Non-responsive. LOCATION: Bilateral chest FINDINGS: A single portable frontal view the chest shows an endotracheal tube with the tip 2 cm proximal to the polo. Right subclavian central line crosses the midline and courses inferior along the left parast ernal region. This is unchanged. Nasogastric tube coiled in the stomach. Tiny bilateral pleural effus ions and bibasilar parenchymal opacities are stable. CONCLUSION: 1. Unchanged tiny bilateral pleural effusions and bibasilar atelectasis versus infiltrates. 2. Right subclavian central line in an atypical location. I cannot exclude an arterial access based o n this image alone. PA and lateral views of the chest could be performed to further evaluate if neede nicole Perea Jr., MD on November 04, 2017 at 8:43 Board Certified Radiologist. This report was verified electronically.
[2017-11-04] MEDS ORDERED: MULTIVITAMIN INJ 10 ML, THIAMINE INJ 100 MG, FOLIC ACID INJ 1 MG in DEXT 5%-NACL 0.9% 5... IV SCH (09:00)
[2017-11-04] MEDS: ASPIRIN 300 MG SUPP RECTAL SCH (09:00)
[2017-11-04] MEDS: SODIUM CHLORIDE 0.9% FLUSH 10 ML FLUSH IV FLUSH SCH ×2 (09:00→20:44)
[2017-11-04] MEDS: guaiFENesin E.R. 600 MG TAB PO SCH ×2 (09:00→20:42)
[2017-11-04] MEDS: MULTIVITAMIN INJ 10 ML, THIAMINE INJ 100 MG, FOLIC ACID INJ 1 MG in DEXT 5%-NACL 0.9% 5... IV SCH (09:00)
[2017-11-04] MEDS: FAMOTIDINE 20 MG/2 ML VIAL IV PUSH SCH ×2 (09:12→20:43)
[2017-11-04] MEDS: CHLORHEXIDINE 0.12% (ORAL KIT) 15 ML CUP MT SCH ×2 (09:13→20:00)
--- NOTE | 2017-11-04 09:54 | PD.CARD.PN ---
Subjective Subjective Remarks Intubated. Sedated. Objective Medications Item Value Date Time Norepinephrine 250 ml @ 7.5 mls/hr 11/03/172014 Bitartrate TITRATE PRN/IV 11/03/17 1900 Aspirin 150 mg 11/03/17 1800 (Aspirin Supp) DAILY/RECTAL 11/03/17 1800 Current Medications Medications (Trade) Dose Ordered Sig/Jeremy Route Start Time Stop Time Status Last Admin Sodium Chloride 1,000 ml @ 150 mls/hr Q6H40M IV 11/01/17 09:40 11/04/17 08:38 (Zofran Inj) 4 mg Q6H PRN IVP 11/01/17 09:45 (Narcan Inj) 0.4 mg UNSCH PRN IV PUSH 11/01/17 09:45 Lactated Ringer's 1,000 ml @ 30 mls/hr Q24H PRN IV 11/01/17 21:00 11/04/17 20:59 (Vasotec Inj) 0.65 mg Q6H PRN IV PUSH 11/02/17 14:00 11/02/17 15:09 (Duoneb Neb) 1 ampule Q6HR NEB NEB 11/02/17 16:00 11/04/17 09:02 (Mucinex Er) 600 mg BID PO 11/02/17 21:00 (Vitamin B1) 100 mg DAILY PO 11/06/17 09:00 (Romazicon Inj) 0.2 mg Q1M PRN IV PUSH 11/02/17 14:00 (Ativan) 1 mg Q4H PRN PO 11/02/17 14:00 (Ativan) 2 mg Q2H PRN PO 11/02/17 14:00 (NS Flush) 2 ml UNSCH PRN IV FLUSH 11/03/17 13:30 (NS Flush) 2 ml BID IV FLUSH 11/03/17 21:00 11/04/17 09:00 (Peridex 0.12% Liq) 15 ml BID@08,20 MT 11/03/17 20:00 11/04/17 09:13 (Pepcid Inj) 20 mg Q12HR IV PUSH 11/03/17 13:30 11/04/17 09:12 Midazolam HCl 100 ml @ 2 mls/hr TITRATE PRN IV 11/03/17 14:00 11/04/17 03:54 Vasopressin 40 units/Dextrose 100 ml @ 6 mls/hr [id number] IV 11/03/17 13:52 Future Hold 11/03/17 19:00 Multivitamins 10 ml/Thiamine HCl 100 mg/Folic Acid 1 mg/Dextrose/ Sodium Chloride 511.2 ml @ 125 mls/hr DAILY IV 11/03/17 15:00 11/04/17 09:00 Miscellaneous Information ALL NURSING DEPARTME... UNSCH PRN .XX 11/03/17 14:15 11/04/17 14:14 Potassium Chloride 100 ml @ 50 mls/hr Q2H PRN IV 11/03/17 14:15 Potassium Chloride 100 ml @ 50 mls/hr Q2H PRN IV 11/03/17 14:15 (K-Lyte Cl Eff) 50 meq UNSCH PRN PO 11/03/17 14:15 Potassium Chloride 100 ml @ 25 mls/hr UNSCH PRN IV 11/03/17 14:15 Potassium Chloride 100 ml @ 50 mls/hr Q2H PRN IV 11/03/17 14:15 11/03/17 15:40 Magnesium Sulfate 4 gm/Sodium Chloride 100 ml @ 50 mls/hr UNSCH PRN IV 11/03/17 14:15 (Mag-Ox) 800 mg UNSCH PRN PO 11/03/17 14:15 Magnesium Sulfate 2 gm/Sodium Chloride 100 ml @ 50 mls/hr UNSCH PRN IV 11/03/17 14:15 11/03/17 15:40 (K-Phos) 2,000 mg Q4H PRN PO 11/03/17 14:15 Sodium Phosphate 30 mmol/Sodium Chloride 250 ml @ 42 mls/hr UNSCH PRN IV 11/03/17 14:15 (K-Phos) 2,000 mg UNSCH PRN PO/TUBE 11/03/17 14:15 Potassium Phosphate 30 mmol/ Sodium Chloride 260 ml @ 42 mls/hr UNSCH PRN IV 11/03/17 14:15 (Aspirin Supp) 150 mg DAILY RECTAL 11/03/17 18:00 11/03/17 18:00 Norepinephrine Bitartrate 250 ml @ 7.5 mls/hr TITRATE PRN IV 11/03/17 20:15 11/03/17 19:00 (Morphine Inj) 4 mg Q3H PRN IV PUSH 11/04/17 10:00 Vital Signs / I&O Vital Signs Date Time Temp Pulse Resp B/P (MAP) Pulse Ox O2 Delivery O2 Flow Rate FiO2 11/04/17 09:02 100 50 11/04/17 06:25 98 89/59 11/04/17 06:00 98 11/04/17 04:05 100 50 11/04/17 04:00 98.9 98 16 90/59 (69) 100 11/04/17 04:00 88 11/04/17 02:00 85 11/04/17 01:05 100 50 11/04/17 00:00 83 11/04/17 00:00 98.7 92 16 122/92 (102) 100 11/03/17 22:00 98 11/03/17 21:26 100 50 11/03/17 20:00 90 11/03/17 20:00 98.9 90 16 119/84 (96) 100 11/03/17 19:00 102 133/85 11/03/17 19:00 102 135/85 11/03/17 16:41 100 50 11/03/17 15:30 100 16 137/90 (106) 100 126/78 (94) 11/03/17 15:23 96 11/03/17 14:30 94 50 11/03/17 14:20 99 100 11/03/17 14:15 97 50 11/03/17 14:15 108 22 96 Mechanical Ventilator 120/70 (87) 11/03/17 14:10 109 22 98 Mechanical Ventilator 124/72 (89) 11/03/17 14:00 106 22 103/68 (80) 98 Mechanical Ventilator 99/54 (69) 11/03/17 13:56 107 22 109/63 (78) 100 Mechanical Ventilator 99/54 (69) 11/03/17 13:55 100 87/52 11/03/17 13:52 100 19 87/52 (64) 99 Mechanical Ventilator 83/48 (60) 11/03/17 13:48 100 20 97/59 (72) 100 Mechanical Ventilator 93/53 (66) 11/03/17 13:44 106 19 91/53 (66) 100 Mechanical Ventilator 84/47 (59) 11/03/17 13:40 118 18 106/69 (81) 97 Mechanical Ventilator 105/56 (72) 11/03/17 13:40 118 106/56 11/03/17 13:36 105 19 103/67 (79) 97 Mechanical Ventilator 99/53 (68) 11/03/17 13:35 109 15 97 Mechanical Ventilator 133/81 (98) 11/03/17 13:33 104 15 94/61 (72) 97 Mechanical Ventilator 99/54 (69) 11/03/17 13:30 106 15 91/66 (74) 95 Mechanical Ventilator 98/63 (75) 11/03/17 13:28 110 15 89/69 (76) 99 Mechanical Ventilator 88/58 (68) 11/03/17 13:25 127 15 99 Mechanical Ventilator 106/68 (81) 11/03/17 13:24 122 15 102/64 (77) 99 Mechanical Ventilator 109/73 (85) 11/03/17 13:20 97.2 126 15 123/77 (92) 99 Mechanical Ventilator 127/77 (94) 11/03/17 13:16 138 15 153/90 (111) 99 Mechanical Ventilator 168/96 (120) 11/03/17 13:15 144 15 176/102 (126) 99 Mechanical Ventilator 60 11/03/17 13:15 96 60 11/03/17 13:12 60 11/03/17 13:12 146 15 193/102 (132) 99 Mechanical Ventilator 60 11/03/17 13:10 161 15 211/112 (145) 99 Mechanical Ventilator 60 11/03/17 13:09 158 15 213/127 (155) 99 Mechanical Ventilator 60 11/03/17 13:08 162 15 218/145 (169) 99 Mechanical Ventilator 60 11/03/17 13:05 12 93 Ambu Bag 11/03/17 13:02 82/47 (59) Ambu Bag I/O 11/03/17 11/03/17 11/03/17 11/04/17 11/04/17 11/04/17 07:00 15:00 23:00 07:00 15:00 23:00 Intake Total 0 ml 2900 ml 1254 ml 2668.4 ml Output Total 100 ml 1510 ml 340 ml 695 ml Balance -100 ml 1390 ml 914 ml 1973.4 ml Intake Oral 0 ml 0 ml IV Total 2500 ml 1254 ml 2668.4 ml Other 400 ml Output Urine Total 1400 ml 220 ml 175 ml Gastric Drainage Total 100 ml 0 ml Drainage Total 60 ml 120 ml 520 ml Estimated Blood Loss 50 ml Bladder Scan Volume Amount 8 ml # Voids 2 # Bowel Movements 0 Physical Exam GENERAL: Well developed, well nourished. Intubated. Sedated. HEENT: Jugular venous pressure is normal. CHEST: Lungs clear to auscultation anteriorly. CARDIAC: Regular rate and rhythm without S3, S4, or murmur. ABDOMEN: Soft, aggressive palpation not pursued. No definite bowel sounds. EXTREMITIES: No clubbing, cyanosis, or edema. Laboratory Laboratory Tests Test 11/03/17 13:15 11/03/17 13:23 11/03/17 13:38 11/03/17 14:30 Blood Gas Puncture Site ART LINE Blood Gas Patient Temperature 98.6 Blood Gas HCO3 19 mmol/L Blood Gas Base Excess -7.6 mmol/L Blood Gas Oxygen Saturation 93 % Arterial Blood pH 7.24 Arterial Blood Partial Pressure CO2 45 mmHg Arterial Blood Partial Pressure O2 90 mmHg Arterial Blood Oxygen Content 16.8 Vol % Arterial Blood Carboxyhemoglobin 0.7 % Arterial Blood Methemoglobin 1.0 % Blood Gas Hemoglobin 12.8 G/DL Oxygen Delivery Device VENTILATOR Blood Gas Ventilator Setting CPAP +[id number] Blood Gas Inspired Oxygen 60 % White Blood Count 12.3 TH/MM3 Red Blood Count 3.79 MIL/MM3 Hemoglobin 13.1 GM/DL Hematocrit 39.3 % Mean Corpuscular Volume 103.8 FL Mean Corpuscular Hemoglobin 34.6 PG Mean Corpuscular Hemoglobin Concent 33.3 % Red Cell Distribution Width 14.6 % Platelet Count 351 TH/MM3 Mean Platelet Volume 7.1 FL Neutrophils (%) (Auto) 79.3 % Lymphocytes (%) (Auto) 16.5 % Monocytes (%) (Auto) 2.8 % Eosinophils (%) (Auto) 0.5 % Basophils (%) (Auto) 0.9 % Neutrophils # (Auto) 9.7 TH/MM3 Lymphocytes # (Auto) 2.0 TH/MM3 Monocytes # (Auto) 0.3 TH/MM3 Eosinophils # (Auto) 0.1 TH/MM3 Basophils # (Auto) 0.1 TH/MM3 CBC Comment AUTO DIFF Differential Comment AUTO DIFF CONFIRMED Blood Urea Nitrogen 2 MG/DL Creatinine 0.40 MG/DL Random Glucose 176 MG/DL Total Protein 5.1 GM/DL Calcium Level 7.4 MG/DL Magnesium Level 1.4 MG/DL Sodium Level 139 MEQ/L Potassium Level 3.4 MEQ/L Chloride Level 108 MEQ/L Carbon Dioxide Level 20.5 MEQ/L Anion Gap 11 MEQ/L Estimat Glomerular Filtration Rate 161 ML/MIN Protein Corrected Calcium 8.5 MG/DL Total Creatine Kinase 49 U/L Troponin I 0.02 NG/ML Lactic Acid Level 4.2 mmol/L Nasal Screen MRSA (PCR) MRSA NOT DETECTED Test 11/03/17 15:13 11/03/17 15:15 11/03/17 20:57 11/04/17 00:30 Blood Gas Puncture Site CENTRAL LINE ART LINE Blood Gas Patient Temperature 98.6 98.6 Venous Blood pH 7.36 Venous Blood Partial Pressure CO2 44 mmHg Venous Blood Partial Pressure O2 43 mmHg Venous Blood HCO3 24 mmol/L Venous Blood Oxygen Saturation 71 % Venous Blood Oxygen Content 12.8 Vol % Venous Blood Base Excess -0.7 mmol/L Oxygen Delivery Device VENTILATOR VENTILATOR Blood Gas Ventilator Setting PRVC/AC PRVC/AC Blood Gas Inspired Oxygen 50 % 50 % Blood Gas HCO3 21 mmol/L Blood Gas Base Excess -3.2 mmol/L Blood Gas Oxygen Saturation 92 % Arterial Blood pH 7.39 Arterial Blood Partial Pressure CO2 36 mmHg Arterial Blood Partial Pressure O2 73 mmHg Arterial Blood Oxygen Content 15.9 Vol % Arterial Blood Carboxyhemoglobin 1.2 % Arterial Blood Methemoglobin 0.9 % Blood Gas Hemoglobin 12.3 G/DL Prothrombin Time 11.4 SEC Prothromb Time International Ratio 1.1 RATIO Activated Partial Thromboplast Time 26.5 SEC Potassium Level 4.7 MEQ/L Phosphorus Level 2.8 MG/DL Magnesium Level 2.0 MG/DL Total Creatine Kinase 56 U/L Troponin I 0.29 NG/ML White Blood Count 13.5 TH/MM3 Red Blood Count 3.48 MIL/MM3 Hemoglobin 12.4 GM/DL Hematocrit 35.5 % Mean Corpuscular Volume 102.1 FL Mean Corpuscular Hemoglobin 35.7 PG Mean Corpuscular Hemoglobin Concent 35.0 % Red Cell Distribution Width 14.1 % Platelet Count 270 TH/MM3 Mean Platelet Volume 7.7 FL Neutrophils (%) (Auto) 91.2 % Lymphocytes (%) (Auto) 3.8 % Monocytes (%) (Auto) 4.8 % Eosinophils (%) (Auto) 0.0 % Basophils (%) (Auto) 0.2 % Neutrophils # (Auto) 12.3 TH/MM3 Lymphocytes # (Auto) 0.5 TH/MM3 Monocytes # (Auto) 0.6 TH/MM3 Eosinophils # (Auto) 0.0 TH/MM3 Basophils # (Auto) 0.0 TH/MM3 CBC Comment DIFF FINAL Differential Comment Test 11/04/17 05:25 11/04/17 09:05 Total Creatine Kinase 60 U/L Troponin I 0.29 NG/ML Imaging Last 24 hours Impressions Chest X-Ray 11/04/17 0000 Signed Impressions: Service Date/Time: Saturday, November 04, 2017 08:21 - CONCLUSION: 1. Unchanged tiny bilateral pleural effusions and bibasilar atelectasis versus infiltrates. 2. Right subclavian central line in an atypical location. I cannot exclude an arterial access based on this image alone. PA and lateral views of the chest could be performed to further evaluate if needed. Larry Perea Jr., MD Assessment and Plan Problem List: (1) Ventricular fibrillation ICD Codes: I49.01 - Ventricular fibrillation Status: Acute Plan: Stable overnight. No further ventricular tachyarrhythmias. Continue to monitor. Work up her cardiomyopathy. (2) Cardiomyopathy ICD Codes: I42.9 - Cardiomyopathy, unspecified Plan: Moderate size area of apical akinesis, EF roughly 30% by echo. Troponin levels flat and only slightly elevated. CK's negative for acute OK. Cardiomyopathy possibly from underlying CAD, possibly Takotsubo syndrome. BP's too low for beta tosha, ZENA-I at this time. REC continue supportive care, daily aspirin cath possibly mid to late week Code Status full code Discussed Condition With patient Problem Qualifiers (1) Cardiomyopathy: Qualified Codes: I42.9 - Cardiomyopathy, unspecified Stanton Valentin MD Nov 04, 2017 09:54
[2017-11-04] MEDS ORDERED: MORPHINE SULFATE 2 MG/ML INJ IV PUSH PRN (10:00)
[2017-11-04 10:10] LABS: BICARBONATE 20.9 MEQ/L (21.0-32.0); CALCIUM-PROTEIN CORRECTED 8.4 MG/DL (8.5-10.1); MAGNESIUM 1.8 MG/DL (1.5-2.5); POTASSIUM 3.6 MEQ/L (3.5-5.1); TOTAL BILIRUBIN ADULT 0.4 MG/DL (0.2-1.0)
[2017-11-04] MEDS ORDERED: ALBUMIN 25% INJ 100 ML IV STA (14:47)
--- NOTE | 2017-11-04 14:49 | HHI.CCPN ---
Objective Vital Signs Date Time Temp Pulse Resp B/P (MAP) Pulse Ox O2 Delivery O2 Flow Rate FiO2 11/04/17 14:00 92 11/04/17 12:00 97.8 16 111/76 (88) 100 116/70 (85) 11/04/17 09:02 50 11/03/17 14:15 Mechanical Ventilator Intake and Output 11/04/17 11/04/17 11/05/17 08:00 16:00 00:00 Intake Total 2668.4 ml 240 ml Output Total 695 ml Balance 1973.4 ml 240 ml Result Diagram: 11/04/17 0030 11/04/17 0905 Other Results Laboratory Tests Test 11/03/17 15:13 11/03/17 15:15 Blood Gas Puncture Site CENTRAL LINE ART LINE Blood Gas Patient Temperature 98.6 98.6 Venous Blood pH 7.36 (7.360-7.400) Venous Blood Partial Pressure CO2 44 mmHg (44-48) Venous Blood Partial Pressure O2 43 mmHg (35-40) Venous Blood HCO3 24 mmol/L (22-26) Venous Blood Oxygen Saturation 71 % (70-76) Venous Blood Oxygen Content 12.8 Vol % (9.0-17.0) Venous Blood Base Excess -0.7 mmol/L (-2-2) Oxygen Delivery Device VENTILATOR VENTILATOR Blood Gas Ventilator Setting PRVC/AC PRVC/AC Blood Gas Inspired Oxygen 50 % 50 % Blood Gas HCO3 21 mmol/L (22-26) Blood Gas Base Excess -3.2 mmol/L (-2-2) Blood Gas Oxygen Saturation 92 % (90-100) Arterial Blood pH 7.39 (7.380-7.420) Arterial Blood Partial Pressure CO2 36 mmHg (38-42) Arterial Blood Partial Pressure O2 73 mmHg (61-120) Arterial Blood Oxygen Content 15.9 Vol % (12.0-20.0) Arterial Blood Carboxyhemoglobin 1.2 % (0-4) Arterial Blood Methemoglobin 0.9 % (0-2) Blood Gas Hemoglobin 12.3 G/DL (12.0-16.0) Imaging Chest x-ray shows pulmonary edema CT of the abdomen pelvis shows evidence of distal small bowel obstruction Objective Remarks GENERAL: This is a well-developed thin female patient lying in PACU, intubated SKIN: No rashes Warm and dry. HEENT: Atraumatic. Normocephalic. R eye nonreactive (Blind i right eye per history), L eye reactive NECK: Trachea midline. No JVD. Supple. CARDIOVASCULAR: Tachycardic rhythm. Hypotensive. On Levophed 5 mcg/m RESPIRATORY: Breath sounds equal bilaterally. Bilateral crackles GASTROINTESTINAL: Abdomen soft, round, non distended. Midline incision dressing intact MUSCULOSKELETAL: Extremities without clubbing, cyanosis, or edema. NEUROLOGICAL: Intubated sedated. Wakes up follows commands 4. Weak lethargic A/P Assessment and Plan ASSESSMENT: Cardiac arrest/ventricular fibrillation Acute hypoxemic respiratory failure Pulmonary edema Cardiogenic shock Metabolic acidosis Lactic acidosis Status post lysis of additional small bowel resection Hypokalemia Hypomagnesemia PLAN by system: NEURO: Alcohol dependence - Versed for sedation and fentanyl for pain control - Patient does open eyes and follow commands, no indication for induced hypothermia - Supplement and multivitamin thiamine RESP: Acute hypoxemic respiratory failure Pulmonary edema - Assist-control mechanical ventilation with rate of 16 total volume 450 PEEP 5 - Titrate FiO2 to keep saturation more than 90% - Sputum culture, DuoNeb every 6 hours when necessary - Ventilator bundle CV: Ventricular fibrillation arrest Cardiac shock History of coronary artery disease rule out ACS - Postop developed ventricle fibrillation received CPR for 3 minutes, epinephrine 2 and DC cardioversion 1 - EKG does not show any acute ST-T wave changes, check cardiac enzymes - Stat 2-D echo, cardiology consult - Levophed and vasopressin to keep map above 65 - Total 3 L normal saline boluses and normal saline at 150 ML per hour - Keep potassium more than 4, magnesium more than 2 GI: Recurrent small bowel obstruction 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 Hatch : - Monitor renal function closely. Place Dang catheter. ID: Probable sepsis - Send sputum blood and urine culture - Empiric Zosyn 3.375 GM IV q6, for broad-spectrum abdominal and lung coverage HEME: - Monitor CBC, CMP, coags ENDO: Hypokalemia Hypomagnesemia - Aggressive electrolyte replacement per protocol PROPH: - Bilateral lower extremity SCDs. Avoid chemical DVT prophylaxis immediately postop. IV famotidine LINES: - Left radial art line placed by anesthesia today. Will place central line in ICU CC time 82 min Patient is critically ill status post cardiac arrest. Currently on 2 pressors Levophed and vasopressin. Need aggressive fluid resuscitation cardiac evaluation, and work up for cardiac arrest Aleena Iglesias MD Nov 04, 2017 14:49
[2017-11-04] MEDS ORDERED: FUROSEMIDE 40 MG/4 ML VIAL IV PUSH ONE (15:00)
--- NOTE | 2017-11-04 15:07 | HHI.CCPN ---
Subjective Remarks/Hospital Course Patient is a 62-year-old female with past medical history significant for coronary artery disease, [place] in 2017, alcohol abuse, tobacco abuse who underwent small bowel resection and lysis of additions today by Dr. Hatch for recurrent small bowel obstruction. Postop patient was extubated and was moved to the PACU. While entering PACU unit patient suddenly became cyanotic and unresponsive and was emergently placed on the monitor in PACU, and Zoll pads attached. CPR was immediately initiated as the patient was found to be pulseless. Patient received epinephrine 2 and monitor showed ventricular fibrillation. Patient was shocked with 200 J DC CV, with return of spontaneous circulation. Patient was reintubated and placed on mechanical ventilation by anesthesia during the Code which last for only 3 minutes. Post code received one amp of bicarbonate, as ABG showed metabolic acidosis. 2 L of normal saline boluses ordered which she is getting now. Had been started on Levophed for shock I evaluated the patient in the PACU. Patient's intubated not on sedation. Systolic blood pressure in the mid 80s on Levophed 5 mcg/m. Patient appears critically ill but she can wake up and follow basic commands. There is no indication for induced hypothermia at this time for neuro protection. I have ordered cardiac workup including cardiac enzymes stat 2-D echo. EKG did not show QT prolongation. Other labs are pending at this time. Levophed will be titrated to maintain MAP>65, and also vasopressin added SUBJ 11/04: Patient remains intubated sedated critically ill. Currently on 7 mcg/m of Levophed. Chest x-ray shows pulmonary vascular congestion. Will start weaning sedation. Give IV Lasix 40 mg 1 along with IV albumin and potassium replacement. Son at bedside updated Objective Vital Signs Date Time Temp Pulse Resp B/P (MAP) Pulse Ox O2 Delivery O2 Flow Rate FiO2 11/04/17 14:00 92 11/04/17 12:00 97.8 16 111/76 (88) 100 116/70 (85) 11/04/17 09:02 50 11/03/17 14:15 Mechanical Ventilator Intake and Output 11/04/17 11/04/17 11/05/17 08:00 16:00 00:00 Intake Total 2668.4 ml 240 ml Output Total 695 ml Balance 1973.4 ml 240 ml Result Diagram: 11/04/17 0030 11/04/17904 Other Results Laboratory Tests Test 11/03/17 15:13 11/03/17 15:15 Blood Gas Puncture Site CENTRAL LINE ART LINE Blood Gas Patient Temperature 98.6 98.6 Venous Blood pH 7.36 (7.360-7.400) Venous Blood Partial Pressure CO2 44 mmHg (44-48) Venous Blood Partial Pressure O2 43 mmHg (35-40) Venous Blood HCO3 24 mmol/L (22-26) Venous Blood Oxygen Saturation 71 % (70-76) Venous Blood Oxygen Content 12.8 Vol % (9.0-17.0) Venous Blood Base Excess -0.7 mmol/L (-2-2) Oxygen Delivery Device VENTILATOR VENTILATOR Blood Gas Ventilator Setting PRVC/AC PRVC/AC Blood Gas Inspired Oxygen 50 % 50 % Blood Gas HCO3 21 mmol/L (22-26) Blood Gas Base Excess -3.2 mmol/L (-2-2) Blood Gas Oxygen Saturation 92 % (90-100) Arterial Blood pH 7.39 (7.380-7.420) Arterial Blood Partial Pressure CO2 36 mmHg (38-42) Arterial Blood Partial Pressure O2 73 mmHg (61-120) Arterial Blood Oxygen Content 15.9 Vol % (12.0-20.0) Arterial Blood Carboxyhemoglobin 1.2 % (0-4) Arterial Blood Methemoglobin 0.9 % (0-2) Blood Gas Hemoglobin 12.3 G/DL (12.0-16.0) Imaging Chest x-ray shows pulmonary edema CT of the abdomen pelvis shows evidence of distal small bowel obstruction Objective Remarks GENERAL: This is a well-developed thin female patient lying in bed, intubated SKIN: No rashes Warm and dry. HEENT: Atraumatic. Normocephalic. R eye nonreactive (Blind in right eye per history), L eye reactive NECK: Trachea midline. No JVD. Supple. CARDIOVASCULAR: Tachycardic rhythm. On Levophed 7 mcg/m RESPIRATORY: Breath sounds equal bilaterally. Bilateral crackles GASTROINTESTINAL: Abdomen soft, round, non distended. Midline incision dressing intact MUSCULOSKELETAL: Extremities without clubbing, cyanosis, or edema. NEUROLOGICAL: Intubated sedated. Wakes up follows commands 4. Sedated with Versed Urinary Catheter: Yes Assessment to: Continue Vascular Central Line Catheter: Yes Assessment to: Continue A/P Assessment and Plan ASSESSMENT: Cardiac arrest/ventricular fibrillation Acute hypoxemic respiratory failure Pulmonary edema Cardiogenic shock Metabolic acidosis Lactic acidosis Status post lysis of additional small bowel resection Hypokalemia Hypomagnesemia PLAN by system: NEURO: Alcohol dependence - Versed for sedation and fentanyl for pain control - Patient does open eyes and follow commands, no indication for induced hypothermia - Supplement and multivitamin thiamine - Watch for seizure, withdrawal symptoms RESP: Acute hypoxemic respiratory failure Pulmonary edema - Assist-control mechanical ventilation with rate of 16 total volume 450 PEEP 5 - Titrate FiO2 to keep saturation more than 90% - Sputum culture, DuoNeb every 6 hours when necessary - Ventilator bundle CV: Ventricular fibrillation arrest Cardiogenic shock History of coronary artery disease rule out ACS - Postop developed ventricle fibrillation received CPR for 3 minutes, epinephrine 2 and DC cardioversion 1 11/03 - EKG does not show any acute ST-T wave changes, Cardiac enzymes mildly elevated - Stat 2-D echo, cardiology Dr. aceves. Continue asa - Echo showed apical wall motion abnormality EF 30%. Tentative plan for cardiac catheter Saturday - Levophed to keep map above 65 - Total 3 L normal saline boluses and normal saline at 150 ML per hour DC IVF. 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 Hatch : - Monitor renal function closely. Dang catheter. - IV Lasix as above ID: Probable sepsis - F/u sputum blood and urine culture - Empiric Zosyn 3.375 GM IV q6, for broad-spectrum abdominal and lung coverage HEME: - Monitor CBC, CMP, coags ENDO: Hypokalemia Hypomagnesemia - Aggressive electrolyte replacement per protocol PROPH: - Bilateral lower extremity SCDs. Place on 30 mg Lovenox daily. IV famotidine LINES: - Left radial art line placed by anesthesia today. s/p L subclavian central line in ICU 11/03/17 CC time 40 min Patient is critically ill status post cardiac arrest. Currently on Levophed and vasopressin. Start diuresis. Need cardiac catheterization once extubated Aleena Iglesias MD Nov 04, 2017 15:06
--- NOTE | 2017-11-04 15:42 | EKG ---
Date Performed: 11/03/2017 Time Performed: 13:28:50 PTAGE: 62 years EKG: SINUS TACHYCARDIA WITH OCCASIONAL VENTRICULAR PREMATURE COMPLEXES LOW QRS VOLTAGE IN EXTREM ITY LEADS LEFT POSTERIOR FASCICULAR BLOCK ABNORMAL ECG Since PREVIOUS TRACING , no significant change noted PREVIOUS TRACIN11/01/2017 17.34 DOCTOR: Graciela Paz Interpretating Date/Time 11/04/2017 15:40:16
--- NOTE | 2017-11-04 17:06 | HHI.PR ---
Subjective Subjective Notes Intubated/Sedated Objective Vitals/I&O Vital Signs Date Time Temp Pulse Resp B/P (MAP) Pulse Ox O2 Delivery O2 Flow Rate FiO2 11/04/17 16:35 100 40 11/04/17 14:00 92 11/04/17 12:00 97.8 16 111/76 (88) 116/70 (85) 11/03/17 14:15 Mechanical Ventilator Labs Laboratory Tests Test 11/03/17 20:57 11/04/17 00:30 11/04/17 05:25 11/04/17 09:05 Prothrombin Time 11.4 Prothromb Time International Ratio 1.1 Activated Partial Thromboplast Time 26.5 Potassium Level 4.7 3.6 Phosphorus Level 2.8 Magnesium Level 2.0 1.8 Total Creatine Kinase 56 60 Troponin I 0.29 0.29 White Blood Count 13.5 Red Blood Count 3.48 Hemoglobin 12.4 Hematocrit 35.5 Mean Corpuscular Volume 102.1 Mean Corpuscular Hemoglobin 35.7 Mean Corpuscular Hemoglobin Concent 35.0 Red Cell Distribution Width 14.1 Platelet Count 270 Mean Platelet Volume 7.7 Neutrophils (%) (Auto) 91.2 Lymphocytes (%) (Auto) 3.8 Monocytes (%) (Auto) 4.8 Eosinophils (%) (Auto) 0.0 Basophils (%) (Auto) 0.2 Neutrophils # (Auto) 12.3 Lymphocytes # (Auto) 0.5 Monocytes # (Auto) 0.6 Eosinophils # (Auto) 0.0 Basophils # (Auto) 0.0 CBC Comment DIFF FINAL Differential Comment Blood Urea Nitrogen 4 Creatinine 0.27 Random Glucose 125 Total Protein 4.6 Albumin 1.7 Calcium Level 7.0 Alkaline Phosphatase 80 Aspartate Amino Transf (AST/SGOT) 36 Alanine Aminotransferase (ALT/SGPT) 34 Total Bilirubin 0.4 Sodium Level 143 Chloride Level 115 Carbon Dioxide Level 20.9 Anion Gap 7 Estimat Glomerular Filtration Rate 254 Protein Corrected Calcium 8.4 Date/Time Source Procedure Growth Status 11/03/17 20:57 Blood Peripheral Aerobic Blood Culture - Preliminary NO GROWTH IN 1 DAY Resulted 11/03/17 20:57 Blood Peripheral Anaerobic Blood Culture - Preliminary NO GROWTH IN 1 DAY Resulted Cardiovascular: Regular Lungs: Clear Abdomen: Other (ALEJANDRO in place with mild drainage ) Extremities: No edema A/P Assessment and Plan 62 year old female POD1 ex lap; SANKET; SBR -intubated sedated vent mgnt per ccm -Requiring low dose of pressor support -CCM following -f/u cardio recs -Leave ALEJANDRO in place Attending Statement patient seen at bedside on vent cardio eval for possible intervention surgery site stable Attestation The exam, history, and the medical decision-making described in the above note were completed with the assistance of the mid-level provider. I reviewed and agree with the findings presented. I attest that I had a [id number] encounter with the patient on the same day, and personally performed and documented my assessment and findings in the medical record. Renetta Diggs Nov 04, 2017 17:06 Joao Hatch MD Nov 11, 2017 07:22
[2017-11-05] VITALS (21 sets, daily range): BP systolic 115–151; BP diastolic 75–92; PULSE 105–138; RESP 16–28; TEMP 97.8–100; O2SAT 91–100
[2017-11-05] MEDS: RESP: ALBUTEROL 2.5 MG/IPRATROPIUM 0.5 MG NEB (SCH) NEB ×4 (03:37→22:13)
[2017-11-05] MEDS ORDERED: SODIUM CHLOR 0.9% 1000 ML INJ 1,000 ML IV SCH (07:48)
--- NOTE | 2017-11-05 07:48 | PD.CARD.PN ---
Subjective Subjective Remarks Intubated. Awake. Alert. Denies CP, dyspnea, dizziness. Denies history of CP 's at home. Objective Medications Item Value Date Time Norepinephrine 250 ml @ 7.5 mls/hr 11/03/172014 Bitartrate TITRATE PRN/IV 11/04/17 0845 Aspirin 150 mg 11/03/17 1800 (Aspirin Supp) DAILY/RECTAL 11/04/17 0900 Current Medications Medications (Trade) Dose Ordered Sig/Jeremy Route Start Time Stop Time Status Last Admin (Zofran Inj) 4 mg Q6H PRN IVP 11/01/17 09:45 (Narcan Inj) 0.4 mg UNSCH PRN IV PUSH 11/01/17 09:45 (Vasotec Inj) 0.65 mg Q6H PRN IV PUSH 11/02/17 14:00 11/02/17 15:09 (Duoneb Neb) 1 ampule Q6HR NEB NEB 11/02/17 16:00 11/05/17 03:37 (Mucinex Er) 600 mg BID PO 11/02/17 21:00 (Vitamin B1) 100 mg DAILY PO 11/06/17 09:00 (Romazicon Inj) 0.2 mg Q1M PRN IV PUSH 11/02/17 14:00 (Ativan) 1 mg Q4H PRN PO 11/02/17 14:00 11/04/17 23:25 (Ativan) 2 mg Q2H PRN PO 11/02/17 14:00 (NS Flush) 2 ml UNSCH PRN IV FLUSH 11/03/17 13:30 (NS Flush) 2 ml BID IV FLUSH 11/03/17 21:00 11/04/17 20:44 (Peridex 0.12% Liq) 15 ml BID@08,20 MT 11/03/17 20:00 11/04/17 20:00 (Pepcid Inj) 20 mg Q12HR IV PUSH 11/03/17 13:30 11/04/17 20:43 Midazolam HCl 100 ml @ 2 mls/hr TITRATE PRN IV 11/03/17 14:00 11/04/17 03:54 Vasopressin 40 units/Dextrose 100 ml @ 6 mls/hr [id number] IV 11/03/17 13:52 Future Hold 11/03/17 19:00 Multivitamins 10 ml/Thiamine HCl 100 mg/Folic Acid 1 mg/Dextrose/ Sodium Chloride 511.2 ml @ 125 mls/hr DAILY IV 11/03/17 15:00 11/04/17 09:00 Potassium Chloride 100 ml @ 50 mls/hr Q2H PRN IV 11/03/17 14:15 Potassium Chloride 100 ml @ 50 mls/hr Q2H PRN IV 11/03/17 14:15 (K-Lyte Cl Eff) 50 meq UNSCH PRN PO 11/03/17 14:15 Potassium Chloride 100 ml @ 25 mls/hr UNSCH PRN IV 11/03/17 14:15 Potassium Chloride 100 ml @ 50 mls/hr Q2H PRN IV 11/03/17 14:15 11/03/17 15:40 Magnesium Sulfate 4 gm/Sodium Chloride 100 ml @ 50 mls/hr UNSCH PRN IV 11/03/17 14:15 (Mag-Ox) 800 mg UNSCH PRN PO 11/03/17 14:15 Magnesium Sulfate 2 gm/Sodium Chloride 100 ml @ 50 mls/hr UNSCH PRN IV 11/03/17 14:15 11/03/17 15:40 (K-Phos) 2,000 mg Q4H PRN PO 11/03/17 14:15 Sodium Phosphate 30 mmol/Sodium Chloride 250 ml @ 42 mls/hr UNSCH PRN IV 11/03/17 14:15 (K-Phos) 2,000 mg UNSCH PRN PO/TUBE 11/03/17 14:15 Potassium Phosphate 30 mmol/ Sodium Chloride 260 ml @ 42 mls/hr UNSCH PRN IV 11/03/17 14:15 (Aspirin Supp) 150 mg DAILY RECTAL 11/03/17 18:00 11/04/17 09:00 Norepinephrine Bitartrate 250 ml @ 7.5 mls/hr TITRATE PRN IV 11/03/17 20:15 11/04/17 08:45 (Morphine Inj) 4 mg Q3H PRN IV PUSH 11/04/17 10:00 Vital Signs / I&O Vital Signs Date Time Temp Pulse Resp B/P (MAP) Pulse Ox O2 Delivery O2 Flow Rate FiO2 11/05/17 06:00 119 11/05/17 04:20 100 40 11/05/17 04:00 98.4 110 16 127/78 (94) 100 138/77 (97) 11/05/17 04:00 110 11/05/17 02:00 114 11/05/17 00:10 100 40 11/05/17 00:00 97.8 120 20 137/92 (107) 100 144/78 (100) 11/05/17 00:00 120 11/04/17 22:00 120 11/04/17 21:08 100 40 11/04/17 20:00 98.6 129 16 121/79 (93) 100 129/69 (89) 11/04/17 20:00 129 11/04/17 18:00 118 11/04/17 16:35 100 40 11/04/17 16:00 98.9 114 16 119/76 (90) 100 116/70 (85) 11/04/17 16:00 114 11/04/17 14:00 92 11/04/17 12:05 100 50 11/04/17 12:00 97.8 101 16 111/76 (88) 100 116/70 (85) 11/04/17 12:00 101 11/04/17 10:00 88 11/04/17 09:02 100 50 11/04/17 08:45 92 130/86 11/04/17 08:00 97.8 84 16 109/73 (85) 100 108/64 (79) 11/04/17 08:00 84 I/O 11/04/17 11/04/17 11/04/17 11/05/17 11/05/17 11/05/17 07:00 15:00 23:00 07:00 15:00 23:00 Intake Total 2668.4 ml 751.2 ml 1542 ml 184 ml Output Total 695 ml 1690 ml 1115 ml Balance 1973.4 ml 751.2 ml -148 ml -931 ml IV Total 2668.4 ml 751.2 ml 1542 ml 124 ml Tube Irrigant 60 ml Output Urine Total 175 ml 1300 ml 925 ml Gastric Drainage Total 0 ml 0 ml Drainage Total 520 ml 390 ml 190 ml Bladder Scan Volume Amount 8 ml # Bowel Movements 0 0 Physical Exam GENERAL: Well developed, well nourished. Intubated. HEENT: Jugular venous pressure is normal. CHEST: Lungs clear to auscultation anteriorly. CARDIAC: Regular rate and rhythm without S3, S4, or murmur. ABDOMEN: Soft, aggressive palpation not pursued. Bowel sounds scant. EXTREMITIES: No clubbing, cyanosis, or edema. Laboratory Laboratory Tests Test 11/04/17 09:05 11/05/17 00:50 Blood Urea Nitrogen 4 MG/DL Creatinine 0.27 MG/DL Random Glucose 125 MG/DL Total Protein 4.6 GM/DL Albumin 1.7 GM/DL Calcium Level 7.0 MG/DL Magnesium Level 1.8 MG/DL Alkaline Phosphatase 80 U/L Aspartate Amino Transf (AST/SGOT) 36 U/L Alanine Aminotransferase (ALT/SGPT) 34 U/L Total Bilirubin 0.4 MG/DL Sodium Level 143 MEQ/L Potassium Level 3.6 MEQ/L Chloride Level 115 MEQ/L Carbon Dioxide Level 20.9 MEQ/L Anion Gap 7 MEQ/L Estimat Glomerular Filtration Rate 254 ML/MIN Protein Corrected Calcium 8.4 MG/DL Troponin I 0.23 NG/ML Assessment and Plan Problem List: (1) Ventricular fibrillation ICD Codes: I49.01 - Ventricular fibrillation Status: Acute Plan: Stable overnight. No further ventricular tachyarrhythmias. Continue to monitor. To further work up her cardiomyopathy. (2) Cardiomyopathy ICD Codes: I42.9 - Cardiomyopathy, unspecified Plan: Moderate size area of apical akinesis, EF roughly 30% by echo. Troponin levels remain flat and only slightly elevated. CK's negative for acute TX. Cardiomyopathy possibly from underlying CAD, possibly Takotsubo syndrome. Repeat EKG last night with new diffuse T wave inversion. REC continue daily aspirin cath tomorrow start low dose beta tosha, ZENA-I Code Status full code Discussed Condition With patient Problem Qualifiers (1) Cardiomyopathy: Qualified Codes: I42.9 - Cardiomyopathy, unspecified Stanton Valentin MD Nov 05, 2017 07:48
[2017-11-05] MEDS ORDERED: diphenhydrAMINE HCL 50 MG CAP PO SCH (08:00)
[2017-11-05] MEDS ORDERED: DIAZEPAM 10 MG TAB PO SCH (08:00)
[2017-11-05] MEDS ORDERED: MIDAZOLAM HCL 2 MG/2 ML VIAL IV PUSH SCH (08:00)
[2017-11-05] MEDS: ASPIRIN 300 MG SUPP RECTAL SCH (09:00)
[2017-11-05 09:54] LABS: BLOOD GAS BASE EXCESS -0.4 mmol/L (-2-2); BLOOD GAS CARBOXYHEMOGLOBIN 1.1 % (0-4); BLOOD GAS HCO3 23 mmol/L (22-26); BLOOD GAS METHEMOGLOBIN 0.8 % (0-2); BLOOD GAS O2 HGB SATURATION 97 % (90-100); BLOOD GAS OXYGEN CONTENT 15.3 Vol % (12.0-20.0); BLOOD GAS PCO2 34 mmHg (38-42); BLOOD GAS PO2 126 mmHg (61-120); BLOOD GAS TOTAL HGB 11.1 G/DL (12.0-16.0); CRITICAL VALUE NO; DRAW SITE ART LINE; FIO2 40 %; OXYGEN DEVICE VENTILATOR; STAT NO; TEMP CORR TO 98.6; ULNAR PULSE PRESENT; VENT SETTINGS CPAP/PS5/PEEP5
[2017-11-05] MEDS: MULTIVITAMIN INJ 10 ML, THIAMINE INJ 100 MG, FOLIC ACID INJ 1 MG in DEXT 5%-NACL 0.9% 5... IV SCH (09:56)
[2017-11-05] MEDS: CHLORHEXIDINE 0.12% (ORAL KIT) 15 ML CUP MT SCH ×2 (09:56→20:00)
[2017-11-05] MEDS: FAMOTIDINE 20 MG/2 ML VIAL IV PUSH SCH ×2 (09:57→20:38)
[2017-11-05] MEDS: guaiFENesin E.R. 600 MG TAB PO SCH ×2 (09:57→19:57)
[2017-11-05] MEDS: SODIUM CHLORIDE 0.9% FLUSH 10 ML FLUSH IV FLUSH SCH ×2 (09:57→20:38)
[2017-11-05] MEDS: CARVEDILOL 3.125 MG TAB PO SCH ×2 (09:57→20:38)
--- NOTE | 2017-11-05 10:16 | RADRPT ---
EXAM DATE/TIME: 11/05/2017 09:28 [facility] COMPARISON: CHEST SINGLE AP, November 04, 2017, 8:21. CHEST SINGLE AP, November 03, 2017, 15:26. CHEST SINGLE A P, November 03, 2017, 13:18. INDICATIONS : Short of breath MEDICAL HISTORY : Myocardial infarction. Cardiovascular disease. SURGICAL HISTORY : Hysterectomy. Tonsillectomy. ENCOUNTER: Subsequent ACUITY: 3 weeks PAIN SCORE: Non-responsive. LOCATION: Chest FINDINGS: A single view of the chest demonstrates the endotracheal tube, nasogastric tube and right subclavian central line are unchanged in position. Again we are assuming a left-sided SVC or internal mammary ce ntral venous catheter placement. Persistent indistinctness of the right hemidiaphragm suggesting a pl eural effusion. Mild bibasilar consolidations.. The cardiomediastinal contours are unremarkable. Os seous structures are intact. CONCLUSION: Stable consolidation right lung base with probable pleural effusion. Tubes and catheters in good posi tion when accounting for the right subclavian aberrant anatomy. Tyler Dillon MD on November 05, 2017 at 10:12 Board Certified Radiologist. This report was verified electronically.
--- NOTE | 2017-11-05 10:24 | HHI.CCPN ---
Subjective Remarks/Hospital Course Patient is a 62-year-old female with past medical history significant for coronary artery disease, NM in 2017, alcohol abuse, tobacco abuse who underwent small bowel resection and lysis of additions today by Dr. Hatch for recurrent small bowel obstruction. Postop patient was extubated and was moved to the PACU. While entering PACU unit patient suddenly became cyanotic and unresponsive and was emergently placed on the monitor in PACU, and Zoll pads attached. CPR was immediately initiated as the patient was found to be pulseless. Patient received epinephrine 2 and monitor showed ventricular fibrillation. Patient was shocked with 200 J DC CV, with return of spontaneous circulation. Patient was reintubated and placed on mechanical ventilation by anesthesia during the Code which last for only 3 minutes. Post code received one amp of bicarbonate, as ABG showed metabolic acidosis. 2 L of normal saline boluses ordered which she is getting now. Had been started on Levophed for shock I evaluated the patient in the PACU. Patient's intubated not on sedation. Systolic blood pressure in the mid 80s on Levophed 5 mcg/m. Patient appears critically ill but she can wake up and follow basic commands. There is no indication for induced hypothermia at this time for neuro protection. I have ordered cardiac workup including cardiac enzymes stat 2-D echo. EKG did not show QT prolongation. Other labs are pending at this time. Levophed will be titrated to maintain MAP>65, and also vasopressin added SUBJ 11/04: Patient remains intubated sedated critically ill. Currently on 7 mcg/m of Levophed. Chest x-ray shows pulmonary vascular congestion. Will start weaning sedation. Give IV Lasix 40 mg 1 along with IV albumin and potassium replacement. Son at bedside updated 11/05: Off sedation. tolerating CPAP, following commands. Coreg and Lisinopril started by Dr. Valentin. Start scheduled IV Lasix, Add Aldactone if BP remains stable in 24 hours Objective Vital Signs Date Time Temp Pulse Resp B/P (MAP) Pulse Ox O2 Delivery O2 Flow Rate FiO2 11/05/17 10:17 95 Nasal Cannula 3.00 11/05/17 08:16 40 11/05/17 06:00 119 11/05/17 04:00 98.4 16 127/78 (94) 138/77 (97) Intake and Output 11/05/17 11/05/17 11/06/17 08:00 16:00 00:00 Intake Total 184 ml Output Total 1115 ml Balance -931 ml Result Diagram: 11/04/17 0030 11/04/17 0905 Other Results Laboratory Tests Test 11/05/17 09:45 Blood Gas Puncture Site ART LINE Blood Gas Patient Temperature 98.6 Blood Gas HCO3 23 mmol/L (22-26) Blood Gas Base Excess -0.4 mmol/L (-2-2) Blood Gas Oxygen Saturation 97 % (90-100) Arterial Blood pH 7.45 (7.380-7.420) Arterial Blood Partial Pressure CO2 34 mmHg (38-42) Arterial Blood Partial Pressure O2 126 mmHg (61-120) Arterial Blood Oxygen Content 15.3 Vol % (12.0-20.0) Arterial Blood Carboxyhemoglobin 1.1 % (0-4) Arterial Blood Methemoglobin 0.8 % (0-2) Blood Gas Hemoglobin 11.1 G/DL (12.0-16.0) Oxygen Delivery Device VENTILATOR Blood Gas Ventilator Setting CPAP/PS5/PEEP5 Blood Gas Inspired Oxygen 40 % Imaging Chest x-ray shows pulmonary edema CT of the abdomen pelvis shows evidence of distal small bowel obstruction Objective Remarks GENERAL: Thin built female patient lying in bed SKIN: No rashes Warm and dry. HEENT: Atraumatic. Normocephalic. R eye nonreactive (Blind in right eye per history), L eye reactive NECK: Trachea midline. No JVD. Supple. CARDIOVASCULAR: Tachycardic rhythm. No murmurs RESPIRATORY: Breath sounds equal bilaterally. Bilateral crackles GASTROINTESTINAL: Abdomen soft, round, non distended. Midline incision dressing intact MUSCULOSKELETAL: Extremities without clubbing, cyanosis, or edema. NEUROLOGICAL: Intubated off sedation. Wakes up follows commands 4. No focal deficits A/P Assessment and Plan ASSESSMENT: Cardiac arrest/ventricular fibrillation Acute hypoxemic respiratory failure Pulmonary edema Right pleural effusion Cardiogenic shock-resolved Metabolic acidosis Lactic acidosis Status post lysis of additional small bowel resection Hypokalemia Hypomagnesemia PLAN by system: NEURO: Alcohol dependence - Hold sedation for possible extubation - CIWA protocol post extubation - Supplement and multivitamin thiamine - Watch for seizure, withdrawal symptoms RESP: Acute hypoxemic respiratory failure Pulmonary edema - CPAP trial, wean to extubate - CXR shows R pl effusion - Sputum culture, DuoNeb every 6 hours when necessary - Ventilator bundle CV: Ventricular fibrillation arrest Cardiogenic shock -resolved History of coronary artery disease rule out ACS Cardiomyopathy with EF 30% most likely ischemic - Postop developed ventricle fibrillation received CPR for 3 minutes, epinephrine 2 and DC cardioversion 1 11/03 - New EKG shows lateral T inversions possibly ischemia - Stat 2-D echo, cardiology Dr. Valentin. Continue ASA - Started on lisinopril and Coreg. IV Lasix 40 mg every 12 with potassium replacement, add Aldactone in 24 hours - Echo showed apical wall motion abnormality EF 30%. Tentative plan for cardiac catheterization Saturday - Keep potassium more than 4, magnesium more than 2 - Evaluate for AICD prior to DC GI: Recurrent small bowel obstruction status post lysis of adhesion, SB resection - Keep nothing by mouth, IV famotidine - Postop management per Dr. Hatch : - Monitor renal function closely. Dang catheter. - IV Lasix as above ID: Probable sepsis - F/u sputum blood and urine culture. Send sputum cx - Empiric Zosyn 3.375 GM IV q6, for broad-spectrum abdominal and lung coverage - R pl effusion most likely from heart failure HEME: - Monitor CBC, CMP, coags ENDO: Hypokalemia Hypomagnesemia - Aggressive electrolyte replacement per protocol PROPH: - Bilateral lower extremity SCDs. Place on 30 mg Lovenox daily. IV famotidine LINES: - Left radial art line placed by anesthesia today. s/p L subclavian central line in ICU 11/03/17 - DC art line, central line CC time 30 min Patient is critically ill status post cardiac arrest. Currently on Levophed and vasopressin. Start diuresis. Need cardiac catheterization once extubated Aleena Iglesias MD Nov 05, 2017 10:24
[2017-11-05] MEDS: METOPROLOL TARTRATE 5 MG/5 ML VIAL IV PUSH PRN ×2 (11:04→17:05)
[2017-11-05] MEDS: ASPIRIN 81 MG CHEW TAB PO SCH (11:04)
[2017-11-05 11:10] LABS: AUTOMATED NEUTROPHIL # 9.4 TH/MM3 (1.8-7.7); BASOPHIL # 0.1 TH/MM3 (0-0.2); BASOPHIL % 0.5 % (0.0-2.0); EOSINOPHIL % 0.3 % (0.0-4.0); HEMATOCRIT 34.1 % (35.0-46.0); HEMO FLAGS DIFF FINAL; LYMPH % 9.7 % (9.0-44.0); LYMPHOCYTE # 1.1 TH/MM3 (1.0-4.8); MEAN CELL VOLUME 102.5 FL (80.0-100.0); MEAN CORPUSCULAR HEMOGLOBIN 35.3 PG (27.0-34.0); MEAN CORPUSCULAR HGB CONC 34.4 % (32.0-36.0); MONO % 5.3 % (0.0-8.0); NEUT % 84.2 % (16.0-70.0); PLATELET COUNT 339 TH/MM3 (150-450); RED BLOOD COUNT 3.33 MIL/MM3 (4.00-5.30); RED CELL DISTRIBUTION WIDTH 14.7 % (11.6-17.2); WHITE BLOOD COUNT 11.2 TH/MM3 (4.0-11.0)
[2017-11-05] MEDS: POTASSIUM CHLORIDE 25 MEQ EFFERVESCENT TAB PO SCH ×2 (11:12→20:38)
[2017-11-05 11:21] LABS: ALT (GPT) 26 U/L (10-53); ANION GAP 10 MEQ/L (5-15); AST (GOT) 18 U/L (15-37); BLOOD UREA NITROGEN 4 MG/DL (7-18); CHLORIDE 110 MEQ/L (98-107); GLOMERULAR FILTRATION RATE 234 ML/MIN (>89); MAGNESIUM 1.6 MG/DL (1.5-2.5); POTASSIUM 3.1 MEQ/L (3.5-5.1); SODIUM (NA) 144 MEQ/L (136-145)
[2017-11-05 11:36] LABS: ALKALINE PHOSPHATASE 75 U/L (45-117); TOTAL BILIRUBIN ADULT 0.6 MG/DL (0.2-1.0)
[2017-11-05] MEDS: ENALAPRIL MALEATE 2.5 MG TAB PO SCH (12:05)
[2017-11-05] MEDS: POTASSIUM CHLOR 40 MEQ PREMIX 100 ML IV PRN ×2 (12:06→16:28)
--- NOTE | 2017-11-05 12:06 | HHI.PR ---
Subjective Subjective Notes Intubated; following commands Objective Vitals/I&O Vital Signs Date Time Temp Pulse Resp B/P (MAP) Pulse Ox O2 Delivery O2 Flow Rate FiO2 11/05/17 10:17 95 Nasal Cannula 3.00 11/05/17 08:16 40 11/05/17 06:00 119 11/05/17 04:00 98.4 16 127/78 (94) 138/77 (97) Labs Laboratory Tests Test 11/05/17 00:50 11/05/17 09:45 11/05/17 10:00 Troponin I 0.23 Blood Gas Puncture Site ART LINE Blood Gas Patient Temperature 98.6 Blood Gas HCO3 23 Blood Gas Base Excess -0.4 Blood Gas Oxygen Saturation 97 Arterial Blood pH 7.45 Arterial Blood Partial Pressure CO2 34 Arterial Blood Partial Pressure O2 126 Arterial Blood Oxygen Content 15.3 Arterial Blood Carboxyhemoglobin 1.1 Arterial Blood Methemoglobin 0.8 Blood Gas Hemoglobin 11.1 Oxygen Delivery Device VENTILATOR Blood Gas Ventilator Setting CPAP/PS5/PEEP5 Blood Gas Inspired Oxygen 40 White Blood Count 11.2 Red Blood Count 3.33 Hemoglobin 11.7 Hematocrit 34.1 Mean Corpuscular Volume 102.5 Mean Corpuscular Hemoglobin 35.3 Mean Corpuscular Hemoglobin Concent 34.4 Red Cell Distribution Width 14.7 Platelet Count 339 Mean Platelet Volume 8.5 Neutrophils (%) (Auto) 84.2 Lymphocytes (%) (Auto) 9.7 Monocytes (%) (Auto) 5.3 Eosinophils (%) (Auto) 0.3 Basophils (%) (Auto) 0.5 Neutrophils # (Auto) 9.4 Lymphocytes # (Auto) 1.1 Monocytes # (Auto) 0.6 Eosinophils # (Auto) 0.0 Basophils # (Auto) 0.1 CBC Comment DIFF FINAL Differential Comment Blood Urea Nitrogen 4 Creatinine 0.29 Random Glucose 83 Total Protein 5.3 Albumin 2.4 Calcium Level 8.2 Magnesium Level 1.6 Alkaline Phosphatase 75 Aspartate Amino Transf (AST/SGOT) 18 Alanine Aminotransferase (ALT/SGPT) 26 Total Bilirubin 0.6 Sodium Level 144 Potassium Level 3.1 Chloride Level 110 Carbon Dioxide Level 24.0 Anion Gap 10 Estimat Glomerular Filtration Rate 234 Date/Time Source Procedure Growth Status 11/03/17 20:57 Blood Peripheral Aerobic Blood Culture - Preliminary NO GROWTH IN 2 DAYS Resulted 11/03/17 20:57 Blood Peripheral Anaerobic Blood Culture - Preliminary NO GROWTH IN 2 DAYS Resulted Cardiovascular: Regular Lungs: Clear Abdomen: Other (ALEJANDRO in place; abdomen soft ) Extremities: No edema A/P Assessment and Plan 62 year old female POD2 ex lap; SANKET; SBR -Off pressor support -CCM following -Vent per CCM---extubated after exam---discussed with Dr. Iglesias -Will start sips of clears; NPO after MN for cardiac cath in the morning -Leave ALEJANDRO in place Attending Statement patient seen at bedside cardio cath tomorrow pt more stable improving Attestation The exam, history, and the medical decision-making described in the above note were completed with the assistance of the mid-level provider. I reviewed and agree with the findings presented. I attest that I had a [id number] encounter with the patient on the same day, and personally performed and documented my assessment and findings in the medical record. Renetta Diggs Nov 05, 2017 12:06 Joao Hatch MD Nov 11, 2017 07:29
--- NOTE | 2017-11-05 16:18 | EKG ---
Date Performed: 11/05/2017 Time Performed: 00:03:30 PTAGE: 62 years EKG: Probable atrial tachycardia. Right axis deviation Possible anterior infarct - age undetermi lance Inferior/lateral ST-T changes may be due to myocardial ischemia Low QRS voltages in limb leads Wh en compared to previousn tracing, there is now new diffuse ST-T changes, suggestive of ischemia. Clin ical corrolation is suggested. Abnormal ECG PREVIOUS TRACING : 11/03/2017 13.28 DOCTOR: Te Garg Interpretating Date/Time 11/05/2017 16:17:58
[2017-11-05] MEDS: MAGNESIUM SULFATE INJ 2 GM in SODIUM CHLORIDE 0.9% INJ 96 ML IV PRN (17:05)
[2017-11-05] MEDS ORDERED: ROCURONIUM INJ 50 MG/5 ML VIAL ONE (17:55)
[2017-11-05] MEDS ORDERED: ETOMIDATE 40 MG/20 ML VIAL ONE (17:55)
[2017-11-05] MEDS ORDERED: FUROSEMIDE 40 MG/4 ML VIAL IV PUSH SCH (18:00)
--- NOTE | 2017-11-05 18:06 | PD.PROCEDR ---
Procedure Note Procedure After the risks and benefits were discussed the following procedure was performed: INTUBATION: The patient was put in optimal position for the procedure. Rapid sequence intubation was initiated by me using 20 milligrams of etomidate IV and 50 milligrams of Rocuronium IV. DL with Mac 4 blade Grade 2 view single attempt. The patient was intubated with a 7.5 cuffed endotracheal tube. Tube placement was confirmed by visualization of the tube and balloon passing through the cords, capnometry and subsequent chest x-ray. Breath sounds were equal and well aerated bilaterally postintubation. No breath sounds over stomach. Patient tolerated procedure well. Aleena Iglesias MD Nov 05, 2017 18:05
[2017-11-05] MEDS ORDERED: ROCURONIUM INJ 50 MG/5 ML VIAL IV PUSH ONE (18:15)
[2017-11-05] MEDS ORDERED: ETOMIDATE 40 MG/20 ML VIAL IV PUSH ONE (18:15)
--- NOTE | 2017-11-05 19:08 | RADRPT ---
EXAM DATE/TIME: 11/05/2017 18:15 [facility] COMPARISON: CHEST SINGLE AP, November 05, 2017, 9:28. INDICATIONS : Post intubation. MEDICAL HISTORY : Myocardial infarction. Cardiovascular disease. SURGICAL HISTORY : Hysterectomy. Tonsillectomy. ENCOUNTER: Subsequent ACUITY: 3 weeks PAIN SCORE: Non-responsive. LOCATION: Bilateral chest FINDINGS: Endotracheal tube tip is 2.2 cm above the polo. Right subclavian catheter tip is unchanged in posi tion superimposed upon the left suprahilar region. Gastric tube traverses the [id number]. There is persisting consolidation in the left lower lung and increasing patchy infiltrates throughout the r ight lung with new areas of partially consolidated infiltrate in the right upper lobe and stable trac e in the right lower lung causing loss of delineation of the entire right hemidiaphragm. CONCLUSION: 1. ET tube in good position. 2. New partially consolidated infiltrates in the right upper lobe and persistent infiltrates in both lower lobes. Larry Melissa MD on November 05, 2017 at 19:05 Board Certified Radiologist. This report was verified electronically.
[2017-11-05] MEDS ORDERED: METOPROLOL TARTRATE 5 MG/5 ML VIAL IV PUSH ONE (19:15)
[2017-11-05 22:13] LABS: BLOOD GAS BASE EXCESS 1.5 mmol/L (-2-2); BLOOD GAS CARBOXYHEMOGLOBIN 1.1 % (0-4); BLOOD GAS HCO3 24 mmol/L (22-26); BLOOD GAS METHEMOGLOBIN 0.8 % (0-2); BLOOD GAS O2 HGB SATURATION 95 % (90-100); BLOOD GAS OXYGEN CONTENT 17.2 Vol % (12.0-20.0); BLOOD GAS PCO2 31 mmHg (38-42); BLOOD GAS PO2 78 mmHg (61-120); BLOOD GAS TOTAL HGB 12.9 G/DL (12.0-16.0); DRAW SITE LT RADIAL; FIO2 60 %; NUMBER OF ARTERIAL PUNCTURES 1; OXYGEN DEVICE VENTILATOR; STAT NO; TEMP CORR TO 98.6; ULNAR PULSE PRESENT; VENT SETTINGS PRVC/AC
--- NOTE | 2017-11-05 22:43 | MP ---
cc: CHAGO HATCH MD DATE OF SURGERY 11/03/2017 PREOPERATIVE DIAGNOSIS Recurrent small-bowel obstruction. POSTOPERATIVE DIAGNOSIS Recurrent small bowel obstruction, adhesions. SURGEON Dr. Chago Hatch MARKER MAKER See OR sheet. ANESTHESIA GETA. IV FLUIDS See anesthesia sheet. PROCEDURES PERFORMED 1. Exploratory laparotomy. 2. Lysis of adhesions. 3. Small bowel resection with primary anastomosis. FINDINGS Good hemostasis. Adhesion with scarring, stricturing to the right lower quadrant. SPECIMEN Small bowel ESTIMATED BLOOD LOSS 50 mL DRAINS 10-Romansh round drain INDICATION The patient is a 62-year-old female who presented with acute onset of abdominal pain. She had further workup including CT scan showing bowel obstruction. This is the patient's third bowel obstruction in a year. The patient was recently admitted with bowel obstruction, initially treated nonoperatively. However, the patient did leave AMA and returned short interval due to continued significant symptoms. Therefore decision was made for operative intervention. Discussed with the patient in detail, stated understanding and agreed. Discussed with the patient in detail regarding some elevation of risk due to comorbidities. The patient wanting surgery due to the recurrence and obstruction and significant pain. PROCEDURE IN DETAIL The patient was taken to the operating suite, placed in supine position. She was prepped and draped in usual sterile fashion after induction of general endotracheal anesthesia, Brief time-out done stating correct patient, procedure, surgical site and we were all in agreement with this. Attention first directed to the midline abdomen, an incision was made with a [address] the way down to pubis. Further dissection done with electro Bovie cautery. Grasper was used to grasp the other side of the peritoneum. This was incised with Metzenbaum. Further excision with electro Bovie cautery. On inspection there is noted to be some adhesions. These adhesions were taken down with Metzenbaum scissors bluntly. Identification in the right lower quadrant noted a small stricturing with adhesions to the anterior right abdominal wall. The section was mobilized but again noted to have some stricturing and somewhat tight with dilated proximal bowel and decompressed distal bowel. The small bowel was run from ligament of Treitz all the way up to terminal ileum without further evidence of abnormality. Adhesions were continued to mobilize including the omentum and small bowel in order to adequately free the bowel from the attachments. The decision was made for a small bowel resection for which the adhesion and the tightened stricture were removed. This was done with a SHIRA stapler and blue load to either side. Debi was used to clamp the mesentery and tie with 2-0 ties. Hemostasis obtained. I then commenced with a primary anastomosis was done in a [id number] fashion. stay suture was placed with 3-0 silk. Enterotomies were made in the staple line and through and through layer was made with a SHIRA stapler blue load. A TA-30 was used for the further closure of the staple line. Limbert sutures were done to reapproximate and reinforce the staple line. Mesenteric defect was closed, crotch stitch was placed. Abdomen irrigated thoroughly. The anastomosis was placed in the abdominal wall and attempts to place omentum over it were done. Hemostasis obtained. Next the incision was then closed with a #1 looped PDS in a running fashion. The skin was closed with ronnie and a ALEJANDRO dressing was placed. All lap and instrument counts were correct at the end of the procedure. No operative complications. The patient was taken to PACU. Chago Hatch MD LSTaryn/KK /9:02 PM /10:25 PM MTDFilomena
[2017-11-06] VITALS (19 sets, daily range): BP systolic 119–140; BP diastolic 77–91; PULSE 89–114; RESP 15–22; TEMP 98.3–100.2; O2SAT 94–100
[2017-11-06 00:40] LABS: POTASSIUM 3.8 MEQ/L (3.5-5.1)
[2017-11-06] MEDS: RESP: ALBUTEROL 2.5 MG/IPRATROPIUM 0.5 MG NEB (SCH) NEB ×4 (03:55→20:06)
--- NOTE | 2017-11-06 05:56 | RADRPT ---
EXAM DATE/TIME: 11/06/2017 04:35 [facility] COMPARISON: CHEST SINGLE AP, November 05, 2017, 9:28. CHEST SINGLE AP, November 05, 2017, 18:15. INDICATIONS : Shortness of breath. MEDICAL HISTORY : Chronic obstructive pulmonary disease. Myocardial infarction. Cardiovascular disease, Cervical cancer, Bowel obstruction SURGICAL HISTORY : Hysterectomy. Tonsillectomy ENCOUNTER: Subsequent ACUITY: 3 weeks PAIN SCORE: Non-responsive. LOCATION: Bilateral chest FINDINGS: ET tube, NG tube and right subclavian line appear well placed. The right subclavian line does cross t he midline and extends inferiorly to the left of midline presumably within a left SVC. The heart size is normal. There is increased density seen throughout much the right lung and at the left mid and lo wer lung. There is at least a mild right pleural effusion. CONCLUSION: There is a fairly diffuse consolidation which appear worse. This likely represents worsening edema. T here is persistent mild right pleural effusion. Harris Nash MD on November 06, 2017 at 5:51 Board Certified Radiologist. This report was verified electronically.
[2017-11-06 06:10] LABS: ANION GAP 9 MEQ/L (5-15); AST (GOT) 26 U/L (15-37); BICARBONATE 26.9 MEQ/L (21.0-32.0); BLOOD UREA NITROGEN 5 MG/DL (7-18); CHLORIDE 106 MEQ/L (98-107); GLOMERULAR FILTRATION RATE 166 ML/MIN (>89); MAGNESIUM 1.8 MG/DL (1.5-2.5); POTASSIUM 3.9 MEQ/L (3.5-5.1); SODIUM (NA) 142 MEQ/L (136-145)
[2017-11-06 06:11] LABS: ALT (GPT) 21 U/L (10-53)
[2017-11-06 06:13] LABS: ALKALINE PHOSPHATASE 84 U/L (45-117); TOTAL BILIRUBIN ADULT 0.9 MG/DL (0.2-1.0)
[2017-11-06 06:18] LABS: AUTOMATED NEUTROPHIL # 12.5 TH/MM3 (1.8-7.7); BASOPHIL # 0.1 TH/MM3 (0-0.2); BASOPHIL % 0.4 % (0.0-2.0); EOSINOPHIL % 0.1 % (0.0-4.0); HEMATOCRIT 34.2 % (35.0-46.0); HEMO FLAGS DIFF FINAL; LYMPH % 6.8 % (9.0-44.0); LYMPHOCYTE # 0.9 TH/MM3 (1.0-4.8); MEAN CELL VOLUME 102.1 FL (80.0-100.0); MEAN CORPUSCULAR HEMOGLOBIN 34.9 PG (27.0-34.0); MEAN CORPUSCULAR HGB CONC 34.1 % (32.0-36.0); NEUT % 89.7 % (16.0-70.0); PLATELET COUNT 307 TH/MM3 (150-450); RED BLOOD COUNT 3.35 MIL/MM3 (4.00-5.30); RED CELL DISTRIBUTION WIDTH 14.8 % (11.6-17.2)
[2017-11-06] MEDS: CHLORHEXIDINE 0.12% (ORAL KIT) 15 ML CUP MT SCH ×2 (08:00→20:11)
[2017-11-06] MEDS: SODIUM CHLORIDE 0.9% FLUSH 10 ML FLUSH IV FLUSH SCH ×2 (08:01→20:12)
[2017-11-06] MEDS: THIAMINE HCL 100 MG TAB PO SCH (08:30)
[2017-11-06] MEDS: CARVEDILOL 3.125 MG TAB PO SCH ×2 (08:30→20:11)
[2017-11-06] MEDS: MULTIVITAMIN INJ 10 ML, THIAMINE INJ 100 MG, FOLIC ACID INJ 1 MG in DEXT 5%-NACL 0.9% 5... IV SCH (08:30)
[2017-11-06] MEDS: ASPIRIN 81 MG CHEW TAB PO SCH (08:30)
[2017-11-06] MEDS: guaiFENesin E.R. 600 MG TAB PO SCH ×2 (08:30→20:12)
[2017-11-06] MEDS: ENALAPRIL MALEATE 2.5 MG TAB PO SCH (08:30)
[2017-11-06] MEDS: FAMOTIDINE 20 MG/2 ML VIAL IV PUSH SCH ×2 (08:30→20:11)
[2017-11-06] MEDS: FUROSEMIDE 40 MG/4 ML VIAL IV PUSH SCH ×2 (08:31→17:14)
[2017-11-06] MEDS: POTASSIUM CHLORIDE 25 MEQ EFFERVESCENT TAB PO SCH ×2 (08:31→20:20)
--- NOTE | 2017-11-06 09:53 | HHI.CCPN ---
Subjective Remarks/Hospital Course Patient is a 62-year-old female with past medical history significant for coronary artery disease, MD in 2017, alcohol abuse, tobacco abuse who underwent small bowel resection and lysis of additions today by Dr. Hatch for recurrent small bowel obstruction. Postop patient was extubated and was moved to the PACU. While entering PACU unit patient suddenly became cyanotic and unresponsive and was emergently placed on the monitor in PACU, and Zoll pads attached. CPR was immediately initiated as the patient was found to be pulseless. Patient received epinephrine 2 and monitor showed ventricular fibrillation. Patient was shocked with 200 J DC CV, with return of spontaneous circulation. Patient was reintubated and placed on mechanical ventilation by anesthesia during the Code which last for only 3 minutes. Post code received one amp of bicarbonate, as ABG showed metabolic acidosis. 2 L of normal saline boluses ordered which she is getting now. Had been started on Levophed for shock I evaluated the patient in the PACU. Patient's intubated not on sedation. Systolic blood pressure in the mid 80s on Levophed 5 mcg/m. Patient appears critically ill but she can wake up and follow basic commands. There is no indication for induced hypothermia at this time for neuro protection. I have ordered cardiac workup including cardiac enzymes stat 2-D echo. EKG did not show QT prolongation. Other labs are pending at this time. Levophed will be titrated to maintain MAP>65, and also vasopressin added SUBJ 11/04: Patient remains intubated sedated critically ill. Currently on 7 mcg/m of Levophed. Chest x-ray shows pulmonary vascular congestion. Will start weaning sedation. Give IV Lasix 40 mg 1 along with IV albumin and potassium replacement. Son at bedside updated 11/05: Off sedation. tolerating CPAP, following commands. Coreg and Lisinopril started by Dr. Valentin. Start scheduled IV Lasix, Add Aldactone if BP remains stable in 24 hours 11/06: Reintubated yesterday evening for severe hypoxemic respiratory failure secondary to pulmonary edema. Chest x-ray shows bilateral severe pulmonary edema. IV Lasix increased to [address] Valentin planning on cardiac catheterization in the afternoon Objective Vital Signs Date Time Temp Pulse Resp B/P (MAP) Pulse Ox O2 Delivery O2 Flow Rate FiO2 11/06/17 09:12 99 40 11/06/17 08:00 111 11/06/17 08:00 99.3 22 123/81 (95) 11/05/17 20:00 Ventilator 11/05/17 10:17 3.00 Intake and Output 11/06/17 11/06/17 11/07/17 08:00 16:00 00:00 Intake Total 392 ml Output Total 3135 ml Balance -2743 ml Result Diagram: 11/06/17 0520 11/06/17 0520 Other Results Laboratory Tests Test 11/05/17 22:00 Blood Gas Puncture Site LT RADIAL Blood Gas Patient Temperature 98.6 Blood Gas HCO3 24 mmol/L (22-26) Blood Gas Base Excess 1.5 mmol/L (-2-2) Blood Gas Oxygen Saturation 95 % (90-100) Arterial Blood pH 7.51 (7.380-7.420) Arterial Blood Partial Pressure CO2 31 mmHg (38-42) Arterial Blood Partial Pressure O2 78 mmHg (61-120) Arterial Blood Oxygen Content 17.2 Vol % (12.0-20.0) Arterial Blood Carboxyhemoglobin 1.1 % (0-4) Arterial Blood Methemoglobin 0.8 % (0-2) Blood Gas Hemoglobin 12.9 G/DL (12.0-16.0) Oxygen Delivery Device VENTILATOR Blood Gas Ventilator Setting PRVC/AC Blood Gas Inspired Oxygen 60 % Imaging Chest x-ray shows pulmonary edema CT of the abdomen pelvis shows evidence of distal small bowel obstruction Objective Remarks GENERAL: Thin built female patient lying in bed, intubated SKIN: No rashes Warm and dry. HEENT: Atraumatic. Normocephalic. R eye nonreactive (Blind in right eye per history), L eye reactive NECK: Trachea midline. No JVD. Supple. CARDIOVASCULAR: Tachycardic rhythm. No murmurs RESPIRATORY: Breath sounds equal bilaterally. Bilateral crackles and few wheezes GASTROINTESTINAL: Abdomen soft, round, non distended. Midline incision dressing intact. Mild tenderness to palpation MUSCULOSKELETAL: Extremities without clubbing, cyanosis, or edema. NEUROLOGICAL: Intubated off sedation. Wakes up follows commands 4. No focal deficits Urinary Catheter: Yes Assessment to: Continue Vascular Central Line Catheter: Yes Assessment to: Continue A/P Assessment and Plan ASSESSMENT: Cardiac arrest/ventricular fibrillation Acute hypoxemic respiratory failure Pulmonary edema Right pleural effusion Cardiogenic shock-resolved Metabolic acidosis Lactic acidosis Status post lysis of additional small bowel resection Hypokalemia Hypomagnesemia PLAN by system: NEURO: Alcohol dependence - Propofol for sedation and patient comfort - CIWA protocol post extubation - Supplement and multivitamin thiamine - Watch for seizure, alcohol withdrawal RESP: Acute hypoxemic respiratory failure Pulmonary edema - Extubated 11/05/17 after patient passed weaning trials, but needed emergency intubation at 6 PM yesterday for severe pulmonary edema - CXR shows severe bilateral pulmonary edema - Sputum culture, DuoNeb every 6 hours when necessary. Ventilator bundle CV: Ventricular fibrillation arrest Cardiogenic shock -resolved History of coronary artery disease rule out ACS Cardiomyopathy with EF 30% most likely ischemic - Postop developed ventricle fibrillation received CPR for 3 minutes, epinephrine 2 and DC cardioversion 1 11/03 - New EKG shows lateral T inversions possibly ischemia - Stat 2-D echo, cardiology Dr. Valentin. Continue ASA Cath today - On lisinopril and Coreg. IV Lasix 40 mg every 12 with potassium replacement, increase to 40 q8 - DAPT may be beeded after cath today - Echo showed apical wall motion abnormality EF 30%. Tentative plan for cardiac catheterization Saturday - Keep potassium more than 4, magnesium more than 2 - Evaluate for AICD prior to Discharge GI: Recurrent small bowel obstruction status post lysis of adhesion, SB resection - Keep nothing by mouth, IV famotidine. Start trickle feed per general surgery - Postop management per Dr. Hatch : - Monitor renal function closely. Dang catheter. - IV Lasix as above ID: Probable sepsis - F/u sputum blood and urine culture. Send sputum cx - Empiric Zosyn 3.375 GM IV q6, for broad-spectrum abdominal and lung coverage - R pleural effusion most likely from heart failure HEME: - Monitor CBC, CMP, coags ENDO: Hypokalemia Hypomagnesemia - Aggressive electrolyte replacement per protocol PROPH: - Bilateral lower extremity SCDs. Lovenox on hold for cath. IV famotidine LINES: - Left radial art line placed by anesthesia today. s/p L subclavian central line in ICU 11/03/17 - Continue right subclavian central line (located in persistent left SVC) CC time 40 min Patient is critically ill status post cardiac arrest. Currently on Levophed and vasopressin. Start diuresis. Need cardiac catheterization once extubated Aleena Iglesias MD Nov 06, 2017 09:53
--- NOTE | 2017-11-06 10:26 | HHI.PR ---
Subjective Subjective Notes Re-intubated yesterday afternoon Family at bedside; Dr. Iglesias also at bedside Following commands Objective Vitals/I&O Vital Signs Date Time Temp Pulse Resp B/P (MAP) Pulse Ox O2 Delivery O2 Flow Rate FiO2 11/06/17 10:00 89 11/06/17 09:12 99 40 11/06/17 08:00 99.3 22 123/81 (95) 11/05/17 20:00 Ventilator 11/05/17 10:17 3.00 Labs Laboratory Tests Test 11/05/17 22:00 11/06/17 00:00 11/06/17 05:20 Blood Gas Puncture Site LT RADIAL Blood Gas Patient Temperature 98.6 Blood Gas HCO3 24 Blood Gas Base Excess 1.5 Blood Gas Oxygen Saturation 95 Arterial Blood pH 7.51 Arterial Blood Partial Pressure CO2 31 Arterial Blood Partial Pressure O2 78 Arterial Blood Oxygen Content 17.2 Arterial Blood Carboxyhemoglobin 1.1 Arterial Blood Methemoglobin 0.8 Blood Gas Hemoglobin 12.9 Oxygen Delivery Device VENTILATOR Blood Gas Ventilator Setting PRVC/AC Blood Gas Inspired Oxygen 60 Potassium Level 3.8 3.9 Magnesium Level 2.0 1.8 White Blood Count 14.0 Red Blood Count 3.35 Hemoglobin 11.7 Hematocrit 34.2 Mean Corpuscular Volume 102.1 Mean Corpuscular Hemoglobin 34.9 Mean Corpuscular Hemoglobin Concent 34.1 Red Cell Distribution Width 14.8 Platelet Count 307 Mean Platelet Volume 8.7 Neutrophils (%) (Auto) 89.7 Lymphocytes (%) (Auto) 6.8 Monocytes (%) (Auto) 3.0 Eosinophils (%) (Auto) 0.1 Basophils (%) (Auto) 0.4 Neutrophils # (Auto) 12.5 Lymphocytes # (Auto) 0.9 Monocytes # (Auto) 0.4 Eosinophils # (Auto) 0.0 Basophils # (Auto) 0.1 CBC Comment DIFF FINAL Differential Comment Blood Urea Nitrogen 5 Creatinine 0.39 Random Glucose 79 Total Protein 5.1 Albumin 2.1 Calcium Level 8.3 Phosphorus Level 2.0 Alkaline Phosphatase 84 Aspartate Amino Transf (AST/SGOT) 26 Alanine Aminotransferase (ALT/SGPT) 21 Total Bilirubin 0.9 Sodium Level 142 Chloride Level 106 Carbon Dioxide Level 26.9 Anion Gap 9 Estimat Glomerular Filtration Rate 166 Date/Time Source Procedure Growth Status 11/03/17 20:57 Blood Peripheral Aerobic Blood Culture - Preliminary NO GROWTH IN 2 DAYS Resulted 11/03/17 20:57 Blood Peripheral Anaerobic Blood Culture - Preliminary NO GROWTH IN 2 DAYS Resulted Cardiovascular: Regular Lungs: Clear Abdomen: Other (abdomen soft; minimally tenderness; ALEJANDRO in place with moderate drainage; DIPESH with SS drainage ) Extremities: No edema A/P Assessment and Plan 62 year old female POD3 ex lap; SANKET; SBR -Re-intubated yesterday afternoon -Vent per CCM---extubated after exam---discussed with Dr. Iglesias -Cardiology plans Cardiac Cath today -Okay to start trickle feed after cardiac cath -Leave ALEJANDRO in place Attending Statement patient seen at bedside await cardio cath results start TF Attestation The exam, history, and the medical decision-making described in the above note were completed with the assistance of the mid-level provider. I reviewed and agree with the findings presented. I attest that I had a [id number] encounter with the patient on the same day, and personally performed and documented my assessment and findings in the medical record. Renetta Diggs Nov 06, 2017 10:26 Joao Hatch MD Nov 11, 2017 16:48
[2017-11-06] MEDS ORDERED: MIDAZOLAM HCL 2 MG/2 ML VIAL ONE ×2 (14:10→14:37)
--- NOTE | 2017-11-06 14:45 | PD.CARD.PN ---
Subjective Subjective Remarks Intubated. Awake. Alert. Denies CP, dyspnea, dizziness. Objective Medications Item Value Date Time Furosemide 40 mg 11/06/17 1000 (Lasix Inj) Q8H/IV PUSH 11/06/17 0831 Aspirin 81 mg 11/05/17 1100 (Aspirin Chew) DAILY/PO 11/06/17 0830 Potassium Bicarb/ 25 meq 11/05/17 1030 Potassium Chloride Q12HR/PO 11/06/17 0831 (K-Lyte Cl Eff) Metoprolol 2.5 mg 11/05/17 1030 Tartrate Q6H PRN/IV PUSH 11/05/17 1705 (Lopressor Inj) Carvedilol 3.125 mg 11/05/17 0900 (Coreg) Q12HR/PO 11/06/17 0830 Enalapril Maleate 2.5 mg 11/05/17 0900 (Vasotec) DAILY/PO 11/06/17 0830 Enalaprilat 0.65 mg 11/02/17 1400 (Vasotec Inj) Q6H PRN/IV PUSH 11/02/17 1509 Current Medications Medications (Trade) Dose Ordered Sig/Jeremy Route Start Time Stop Time Status Last Admin (Zofran Inj) 4 mg Q6H PRN IVP 11/01/17 09:45 (Narcan Inj) 0.4 mg UNSCH PRN IV PUSH 11/01/17 09:45 (Vasotec Inj) 0.65 mg Q6H PRN IV PUSH 11/02/17 14:00 11/02/17 15:09 (Mucinex Er) 600 mg BID PO 11/02/17 21:00 11/06/17 08:30 (Vitamin B1) 100 mg DAILY PO 11/06/17 09:00 11/06/17 08:30 (Romazicon Inj) 0.2 mg Q1M PRN IV PUSH 11/02/17 14:00 (Ativan) 1 mg Q4H PRN PO 11/02/17 14:00 11/04/17 23:25 (Ativan) 2 mg Q2H PRN PO 11/02/17 14:00 (NS Flush) 2 ml UNSCH PRN IV FLUSH 11/03/17 13:30 (NS Flush) 2 ml BID IV FLUSH 11/03/17 21:00 11/06/17 08:01 (Peridex 0.12% Liq) 15 ml BID@08,20 MT 11/03/17 20:00 11/06/17 08:00 (Pepcid Inj) 20 mg Q12HR IV PUSH 11/03/17 13:30 11/06/17 08:30 Vasopressin 40 units/Dextrose 100 ml @ 6 mls/hr [id number] IV 11/03/17 13:52 Future Hold 11/03/17 19:00 Multivitamins 10 ml/Thiamine HCl 100 mg/Folic Acid 1 mg/Dextrose/ Sodium Chloride 511.2 ml @ 125 mls/hr DAILY IV 11/03/17 15:00 11/06/17 08:30 Potassium Chloride 100 ml @ 50 mls/hr Q2H PRN IV 11/03/17 14:15 11/05/17 16:28 Potassium Chloride 100 ml @ 50 mls/hr Q2H PRN IV 11/03/17 14:15 (K-Lyte Cl Eff) 50 meq UNSCH PRN PO 11/03/17 14:15 Potassium Chloride 100 ml @ 25 mls/hr UNSCH PRN IV 11/03/17 14:15 Potassium Chloride 100 ml @ 50 mls/hr Q2H PRN IV 11/03/17 14:15 11/03/17 15:40 Magnesium Sulfate 4 gm/Sodium Chloride 100 ml @ 50 mls/hr UNSCH PRN IV 11/03/17 14:15 (Mag-Ox) 800 mg UNSCH PRN PO 11/03/17 14:15 Magnesium Sulfate 2 gm/Sodium Chloride 100 ml @ 50 mls/hr UNSCH PRN IV 11/03/17 14:15 11/05/17 17:05 (K-Phos) 2,000 mg Q4H PRN PO 11/03/17 14:15 Sodium Phosphate 30 mmol/Sodium Chloride 250 ml @ 42 mls/hr UNSCH PRN IV 11/03/17 14:15 11/06/17 08:02 (K-Phos) 2,000 mg UNSCH PRN PO/TUBE 11/03/17 14:15 Potassium Phosphate 30 mmol/ Sodium Chloride 260 ml @ 42 mls/hr UNSCH PRN IV 11/03/17 14:15 (Morphine Inj) 4 mg Q3H PRN IV PUSH 11/04/17 10:00 (Benadryl) 50 mg SENIOR CARE SPECIALIST PO 11/05/17 08:00 11/09/17 07:59 (Valium) 10 mg SENIOR CARE SPECIALIST PO 11/05/17 08:00 11/09/17 07:59 (Coreg) 3.125 mg Q12HR PO 11/05/17 09:00 11/06/17 08:30 (Vasotec) 2.5 mg DAILY PO 11/05/17 09:00 11/06/17 08:30 (Aspirin Chew) 81 mg DAILY PO 11/05/17 11:00 11/06/17 08:30 (K-Lyte Cl Eff) 25 meq Q12HR PO 11/05/17 10:30 11/06/17 08:31 (Lopressor Inj) 2.5 mg Q6H PRN IV PUSH 11/05/17 10:30 11/05/17 17:05 Propofol 100 ml @ 1.425 mls/ hr TITRATE PRN IV 11/05/17 19:15 (Duoneb Neb) 1 ampule Q6HR NEB NEB 11/06/17 10:00 11/06/17 09:11 (Lasix Inj) 40 mg Q8H IV PUSH 11/06/17 10:00 11/06/17 08:31 Vital Signs / I&O Vital Signs Date Time Temp Pulse Resp B/P (MAP) Pulse Ox O2 Delivery O2 Flow Rate FiO2 11/06/17 12:01 96 40 11/06/17 12:00 105 11/06/17 12:00 99.6 110 20 119/77 (91) 99 11/06/17 12:00 60 11/06/17 10:00 89 11/06/17 09:12 99 40 11/06/17 08:00 111 11/06/17 08:00 60 11/06/17 08:00 99.3 111 22 123/81 (95) 100 11/06/17 06:00 97 11/06/17 04:00 60 11/06/17 04:00 99.9 112 18 140/91 (107) 98 11/06/17 04:00 103 11/06/17 03:50 100 60 11/06/17 02:00 108 11/06/17 00:00 60 11/06/17 00:00 100.2 112 18 140/91 (107) 98 11/06/17 00:00 112 11/05/17 23:38 99 60 11/05/17 22:00 117 11/05/17 20:00 100.0 105 16 147/84 (105) 100 11/05/17 20:00 60 11/05/17 20:00 105 11/05/17 20:00 99 Ventilator 11/05/17 19:55 99 60 11/05/17 18:19 95 60 11/05/17 18:00 138 11/05/17 18:00 60 11/05/17 17:45 92 100 11/05/17 16:00 121 11/05/17 16:00 98.3 121 28 151/90 (110) 91 I/O 11/05/17 11/05/17 11/05/17 11/06/17 11/06/17 11/06/17 07:00 15:00 23:00 07:00 15:00 23:00 Intake Total 184 ml 500 ml 900 ml 392 ml Output Total 1115 ml 605 ml 3135 ml Balance -931 ml 500 ml 295 ml -2743 ml Intake Oral 480 ml IV Total 124 ml 500 ml 300 ml 232 ml Tube Irrigant 60 ml Other 120 ml 160 ml Output Urine Total 925 ml 425 ml 2725 ml Gastric Drainage Total 0 ml 0 ml 350 ml Drainage Total 190 ml 180 ml 60 ml # Bowel Movements 0 0 0 Physical Exam GENERAL: Well developed, well nourished. Intubated. HEENT: Jugular venous pressure is normal. CHEST: Lungs clear to auscultation anteriorly. CARDIAC: Regular rate and rhythm without S3, S4, or murmur. ABDOMEN: Soft, aggressive palpation not pursued. Bowel sounds scant. EXTREMITIES: No clubbing, cyanosis, or edema. Laboratory Laboratory Tests Test 11/05/17 22:00 11/06/17 00:00 11/06/17 05:20 Blood Gas Puncture Site LT RADIAL Blood Gas Patient Temperature 98.6 Blood Gas HCO3 24 mmol/L Blood Gas Base Excess 1.5 mmol/L Blood Gas Oxygen Saturation 95 % Arterial Blood pH 7.51 Arterial Blood Partial Pressure CO2 31 mmHg Arterial Blood Partial Pressure O2 78 mmHg Arterial Blood Oxygen Content 17.2 Vol % Arterial Blood Carboxyhemoglobin 1.1 % Arterial Blood Methemoglobin 0.8 % Blood Gas Hemoglobin 12.9 G/DL Oxygen Delivery Device VENTILATOR Blood Gas Ventilator Setting PRVC/AC Blood Gas Inspired Oxygen 60 % Potassium Level 3.8 MEQ/L 3.9 MEQ/L Magnesium Level 2.0 MG/DL 1.8 MG/DL White Blood Count 14.0 TH/MM3 Red Blood Count 3.35 MIL/MM3 Hemoglobin 11.7 GM/DL Hematocrit 34.2 % Mean Corpuscular Volume 102.1 FL Mean Corpuscular Hemoglobin 34.9 PG Mean Corpuscular Hemoglobin Concent 34.1 % Red Cell Distribution Width 14.8 % Platelet Count 307 TH/MM3 Mean Platelet Volume 8.7 FL Neutrophils (%) (Auto) 89.7 % Lymphocytes (%) (Auto) 6.8 % Monocytes (%) (Auto) 3.0 % Eosinophils (%) (Auto) 0.1 % Basophils (%) (Auto) 0.4 % Neutrophils # (Auto) 12.5 TH/MM3 Lymphocytes # (Auto) 0.9 TH/MM3 Monocytes # (Auto) 0.4 TH/MM3 Eosinophils # (Auto) 0.0 TH/MM3 Basophils # (Auto) 0.1 TH/MM3 CBC Comment DIFF FINAL Differential Comment Blood Urea Nitrogen 5 MG/DL Creatinine 0.39 MG/DL Random Glucose 79 MG/DL Total Protein 5.1 GM/DL Albumin 2.1 GM/DL Calcium Level 8.3 MG/DL Phosphorus Level 2.0 MG/DL Alkaline Phosphatase 84 U/L Aspartate Amino Transf (AST/SGOT) 26 U/L Alanine Aminotransferase (ALT/SGPT) 21 U/L Total Bilirubin 0.9 MG/DL Sodium Level 142 MEQ/L Chloride Level 106 MEQ/L Carbon Dioxide Level 26.9 MEQ/L Anion Gap 9 MEQ/L Estimat Glomerular Filtration Rate 166 ML/MIN Imaging Last 24 hours Impressions Chest X-Ray 11/06/17 0600 Signed Impressions: Service Date/Time: Monday, November 06, 2017 04:35 - CONCLUSION: There is a fairly diffuse consolidation which appear worse. This likely represents worsening edema. There is persistent mild right pleural effusion. Harris Nash MD Assessment and Plan Problem List: (1) Ventricular fibrillation ICD Codes: I49.01 - Ventricular fibrillation Status: Acute Plan: Stable overnight. No further ventricular tachyarrhythmias. Continue to monitor. Continue beta tosha. Consider LifeVest prior to discharge. (2) Cardiomyopathy ICD Codes: I42.9 - Cardiomyopathy, unspecified Status: Chronic Plan: Moderate size area of apical akinesis, EF roughly 30% by echo, 25% by cath. Appears cardiomyopathy due to Takotsubo syndrome. Minimal CAD on cath. Worsening CXR findings and respiratory status. REC continue daily aspirin continue low dose beta tosha, ZENA-I, IV Lasix recheck echo in 3 months Code Status full code Problem Qualifiers (1) Cardiomyopathy: Qualified Codes: I42.9 - Cardiomyopathy, unspecified Stanton Valentin MD Nov 06, 2017 14:45
[2017-11-06] MEDS ORDERED: SODIUM CHLOR 0.9% 1000 ML INJ 1,000 ML IV SCH (14:46)
--- NOTE | 2017-11-06 14:54 | CATHPROC ---
[employer] HIS Report Study Information Study Number Admission Scheduled Start Study Start [id number] Nov 01 2017 9:41AM 11/05/2017 Nov 06 2017 1:46PM [facility] Cardiac Catheterization Admit Source Facility Department Emergency department [facility] Physician and Clinical Staff Initial Stanton Ferrara Tire Setter Julia Galarza RN Tire Setter Funmi Riggs RN Tire Setter Alvarado RN, Emil Recorder Nicolas Peters,RT(R) Scrub Yazmin Marquez,FISH ROD MAKER TECH2 Procedures Performed Procedure Location (Site) Vessel Name Angiogram LV LV Ventricle Coronary Angiograms LCA Left Coronary Coronary Angiograms RCA Right Coronary L Heart Cath Equipment Time Inventory Control/Shipping Receiving Description Size Mfg Part Number Used/Scraped TRANSDUCER, TRUWAVE [id number] 13:47 SCOTT DUTTA * Used W/STOCKCOCK *[id number] [id number] *[id number] *[id number] PIGTAIL ANG. 145 INFINITI 534-652S CATHETER *[id number] 13:47 MEDLINE INDUSTRIES PACK, CCL CUSTOM * Used *[id number] 13:47 MEDLINE PACER PEN, SKIN DUAL W/ RULER * Used *[id number] 13:47 PROFICIO SHEATH, FR6.5 PRELUDE 11CM FR 6.5 038ACT Used *[id number] 13:47 Collibra MEDICAL WIRE, 3MMJ .035 180CM 180CM Used *[id number] 13:47 NAMIC MANIFOLD, 4 PORT * Used *[id number] 13:47 NYCOMED OMNIPAQUE, 350 MG, 150ML 150ML [id number] Used 14:20 NYCOMED OMNIPAQUE, 350 MG, 50ML 50ML [id number] Used [id number] 13:47 LOPEZ MEDICAL BLANKET,WARM AIR CCL * Used *[id number] History: Current Medications Medication Dosage/Unit Route Frequency Last Date/Time Taken ASA CARVEDILOL History: Allergies Allergy Reaction Penicillin Anaphylaxis penicillin G Anaphylaxis History: Risk Factors Family History of Hypertension Dyslipidemia Previous AR Previous Heart Failure Premature CAD Yes No No Yes No Prior Valve Prior PCI Prior CABG Surgery No No No Cerebrovascular Peripheral Artery Chronic Lung On Dialysis Diabetes Disease Disease Disease No Yes No No No History: CV Disease Selection Items AR History: Stress Tests Stress or Imaging Studies Performed No History: Other Disease Selection Items HTN History: Other Current Smoker Method Packs a Day Years Used Pack Years Yes Cigarettes 12 07 20 Labs Hgb (g/dl) Hct (%) RBC (MIL/MM3) WBC (l/cumm) Platelets (thousands) 11.60-17.00 35.00-51.00 4.00-5.90 4.00-11.00 150.00-450.00 11.7 34.2 3.3 14 307 Glucose (mg/dl) BUN (mg/dl) Creatinine (mg/dl) BUN:Creatinine (1:x) 74.00-106.00 7.00-18.00 0.50-1.30 10.00-20.00 79 5 0.4 12.5 Na (meq/l) K (meq/l) Cl (meq/l) CO2 (mmol/L) Ca (mg/dl) 136.00-145.00 3.50-5.10 98.00-107.00 21.00-32.00 8.50-10.10 142 3.9 106 26.9 8.3 INR (PTT:PT) 0.90-1.10 1.1 CPK-MB (ng/ML) 0.50-3.60 Not Drawn Medication Medication Total Dose (Bolus/Oral) Medication Total Dosage/Unit 1% XYLOCAINE 20 mL VERSED 3 mg Medications (Bolus/Oral) Medication Time Given Dosage/Unit Administered By Reason 1% XYLOCAINE 11/06/2017 2:10:51 PM 20 mL Funmi Riggs 20 mL 1% XYLOCAINE given in lab by Funmi Riggs RN in Right Groin via Subcutaneous. VERSED 11/06/2017 2:11:49 PM 2 mg Funmi Riggs 2 mg VERSED given in lab by Funmi Riggs RN in Left Forearm via Peripheral IV. VERSED 11/06/2017 2:39:16 PM 1 mg Funmi Riggs 1 mg VERSED given in lab by Funmi Riggs RN in Left Forearm via Peripheral IV. Medication (Drip) Medication Time Given Dosage/Unit Concentration/Unit Diluent (ml) Solution IV Solutions 11/06/2017 1:46:44 PM 0 mL (IV) 500 NaCl .9 IV Solutions given in lab by Emil Childers RN in Left Forearm via Peripheral IV. Pump/Drip Flow = 20 m l/hr using NaCl .9. Initial Case Assessment Cardiovascular HR Rhythm NIBP Chest Pain 107 Sinus 135/91 0 Edema Present Skin color Skin None Normal Warm Dry Neurological State Unresponsive Respiration - General Respiration Rate SpO2 (%) (B/min) 35 98 Respiration - Ventilator Type Intubation Type ET(oral) Respiration - Ventilator Settings TV (ml) FIO2 (%) PEEP (cm/H2O) 475 40 5 Final Case Assessment Cardiovascular HR Rhythm NIBP Chest Pain 116 Sinus/Tach 138/95 0 Edema Present Skin color Skin None Normal Warm Dry Circulatory - Right Pulses Dorsalis Pedis Femoral 1 1 Scale (0,1,2,3,4,d) Circulatory - Left Pulses Dorsalis Pedis Femoral 1 1 Scale (0,1,2,3,4,d) Neurological State Drowsy Respiration - General Respiration Rate SpO2 (%) (B/min) 15 98 Respiration - Ventilator Type Intubation Type ET(oral) Respiration - Ventilator Settings TV (ml) FIO2 (%) PEEP (cm/H2O) 475 40 5 Chronological Log Time Study Chronological Log 13:45:41 Patient arrived via Bed. 13:46:24 Patient Name, D.O.B, / Armband Verified By R.N. 13:46:25 Consent signed by the physician and the patient and verified by the [facility] staff. 13:46:26 Pre-op and post- op instructions given; patient acknowledges understanding of instructions. 13:46:28 Verbal Stimulation=0 Physical Stimulation=0 Airway=2 Respiration=2 TOTAL=4. (0=absent, 1=li mited, 2=present) 13:46:29 Presedation assessment performed by [facility] RN. 13:46:33 Patient has been NPO for More than 6Hrs. 13:46:34 Skin Breakdown-mid line abdominal incision, post surgery. 13:46:35 Patient Warmer Placed on the Table. 13:46:37 Edyta Prominences Protected 13:46:43 A # 20 IV was noted in the Forearm (left). Grade = 0 13:46:44 IV Solutions given in lab by Emil Childers RN in Left Forearm via Peripheral IV. Pump/Drip F low = 20 ml/hr using NaCl .9. 13:46:44 History and physical on the chart or being dictated. Assessment: Initial Case, PI=896 BPM, Rhythm=Sinus, BACS=382/91 mmhg, Chest Pain=0, Edema=None, Color=Normal, Skin = Warm, Dry 13:46:45 Neurological: State=Unresponsive Respiration: Resp=35 B/min, SpO2=98 %, Type=ET(Oral), PG=560 mL, FIO2=40 %, PEEP=5 cm/H2O Vitals capture started with the following parameters, Patient=Adult, Interval=5 min, Initial Pr ijptym=221 mmHg, 13:52:18 Deflation Rate=5 mmHg, Cuff placed on Left Arm 13:52:36 A Central line triple lumen was noted in the Subclav. Vein (Rt). 13:53:13 HR=39 bpm, YLJU=183/91 mmhg, SpO2=96.0 %, Resp=27 B/min, Pain=0, Barbara=7, Norton=3 13:53:59 Reference ECG taken 13:57:48 CT=389 bpm, IZFR=233/85 mmhg, SpO2=98.0 %, Resp=15 B/min, Pain=0, Barbara=7, Norton=3 14:02:19 MD paged 14:02:21 MD responded 14:02:24 Bilateral groins prepped with 2% chlorhexidine, and draped after a 3 minute waiting time. 14:02:45 YL=776 bpm, AUZI=762/92 mmhg, SpO2=99.0 %, Resp=18 B/min, Pain=0, Barbara=7, Norton=3 14:05:49 MD arrived. 14:07:17 Pressure channel 1 zeroed. 14:07:46 AJ=812 bpm, OTRO=117/88 mmhg, ZmI7=131.0 %, Resp=16 B/min, Pain=0, Barbara=7, Norton=3 Time Out. Correct patient, correct procedure, correct physician, power injector 14:10:35 not loaded with contrast with surgical team present. Time Out Concurred by MD and individual st aff in procedure. 14:10:49 Case Start 14:10:51 20 mL 1% XYLOCAINE given in lab by Funmi Riggs, RN in Right Groin via Subcutaneous. 14:11:49 2 mg VERSED given in lab by Funmi Riggs, RN in Left Forearm via Peripheral IV. 14:12:45 DB=127 bpm, GTDK=112/90 mmhg, SpO2=99.0 %, Resp=14 B/min, Pain=0, Barbara=7, Norton=3 14:12:56 Access site was Right Femoral Artery. 14:13:01 A sheath was advanced into the Fem Art (right) using the ~TECHNIQUE~ technique. A JL 4.0 INFINITI CATHETER FR 6 was advanced over a wire. OMNIPAQUE, 350 MG, 150ML 150ML was us ed for 14:13:20 injections. 14:14:20 The LCA was injected and visualized at various angles. OMNIPAQUE, 350 MG, 150ML 150ML used . 14:14:57 Catheter was removed A 3DRC INFINITI CATHETER FR 6 was advanced over a wire. OMNIPAQUE, 350 MG, 150ML 150ML was used for 14:14:58 injections. 14:15:46 The RCA was injected and visualized at various angles. OMNIPAQUE, 350 MG, 150ML 150ML used . 14:16:43 Catheter was removed A PIGTAIL ANG. 145 INFINITI CATHETER FR 6 was advanced over a wire. OMNIPAQUE, 350 MG, 150ML 15 0ML was 14:17:38 used for injections. 14:17:46 CW=443 bpm, BNUI=525/93 mmhg, PmL2=661.0 %, Resp=20 B/min, Pain=0, Barbara=7, Norton=3 Recorded Pressure: LV, WD=513, Condition=Condition 1 14:18:24 (Left Ventricle) LV 138/16/24 14:19:34 The LV was injected at 12 cc/sec for a total of 42. OMNIPAQUE, 350 MG, 50ML 50ML used. Recorded Pressure: LV, Ao, DQ=524, Condition=Condition 1 14:19:55 (Left Ventricle) LV 104/11/15, (Aorta) Ao 109/60/82 14:20:43 Catheter was removed A JL 4.0 INFINITI CATHETER FR 6 was advanced over a wire. OMNIPAQUE, 350 MG, 150ML 150ML was us ed for 14:20:44 injections. 14:22:47 OC=964 bpm, MRWC=466/93 mmhg, SpO2=99.0 %, Resp=15 B/min, Pain=0, Barbara=7, Norton=3 14:23:35 An injection in the Fem Art (right) was made through the SHEATH, FR6.5 PRELUDE 11CM FR 6.5 . 14:26:53 Left subclavian venogram done to prove central line placement. No blood return thru centra l line. 14:27:44 Case End 14:27:50 LZ=881 bpm, UJBS=172/89 mmhg, BeH2=573.0 %, Resp=21 B/min, Pain=0, Barbara=7, Norton=3 14:29:11 Sheath removed; pressure applied to access site. 14:: No case complications noted. 14:: Cine recording checked. 14::22 A Left Heart Cath was performed. 14:30:57 Bedside Report will be given. Assessment: Final Case, FW=056 BPM, Rhythm=Sinus/Tach, SSYL=841/95 mmhg, Chest Pain=0, Edema=N one, Color=Normal, Skin = Warm, Dry Right Pulses: Castillo Ped=1, Femoral=1 14:31:54 Left Pulses: Castillo Ped=1, Femoral=1 Neurological: State=Drowsy Respiration: Resp=15 B/min, SpO2=98 %, Type=ET(Oral), ES=580 mL, FIO2=40 %, PEEP=5 cm/H2O 14:32:49 FX=997 bpm, GSII=730/95 mmhg, NwY8=090.0 %, Resp=28 B/min, Pain=0, Barbara=7, Norton=3 14:37:50 TT=618 bpm, IVSA=631/95 mmhg, SpO2=97.0 %, Resp=17 B/min, Pain=0, Barbara=7, Norton=3 14:39:16 1 mg VERSED given in lab by Funmi Riggs, RN in Left Forearm via Peripheral IV. 14:40:38 Sterile dressing applied to site 14:42:57 IT=721 bpm, LFEH=671/77 mmhg, SpO2=89.0 %, Resp=22 B/min, Pain=0, Barbara=7, Norton=3 14:47:46 BO=423 bpm, XGQP=616/86 mmhg, SpO2=98.0 %, Resp=27 B/min, Pain=0, Barbara=7, Norton=3 14:51:48 Vitals capture stopped. 14:53:31 Patient moved to stretcher End Study - Contrast Media Used In Study Contrast Total Opened (mL) Total Used (mL) Total Wasted (mL) Omnipaque 150 75 75 End Study - Maximum Contrast Load Max Contrast Load (mL) 590.9 End Study - Radiation Exposure Fluoro Time (minutes) 2.5 End Study - Patient Disposition Complications Transferred To Interventional Outcome No Critical Care Bed No attempt made
[2017-11-06] MEDS ORDERED: MISC INFORMATION XX ONE (15:00)
[2017-11-06] MEDS ORDERED: ATROPINE SULFATE 1 MG/ML VIAL IV PRN (15:00)
[2017-11-06] MEDS ORDERED: SODIUM CHLOR 0.9% 250 ML INJ 250 ML IV PRN (15:00)
[2017-11-06] MEDS ORDERED: HEPARIN-NS/PF INJ 500 ML ONE ×2 (15:22→15:23)
[2017-11-06] MEDS ORDERED: IOHEXOL 350 MG/ML 100 ML BTL (for Cath Lab) OTHER ONE (15:41)
--- NOTE | 2017-11-06 16:03 | MA ---
cc: DEAN HALL M.D. DATE: 11/06/2017 PROCEDURES Left heart catheterization, selective coronary angiography, left ventriculography, venogram of the left subclavian and persistent left superior vena cava. PROCEDURE NOTE The patient was brought to the cardiac catheterization laboratory in a fasting state after having signed informed consent. The right groin was prepped and draped as per policy and anesthetized with 1% lidocaine. Arterial access was obtained via the right femoral artery and a 6-Syrian sheath placed. Coronary arteriography was performed using 6-Syrian Dhruv left 4.0 and right progressive catheters. Left ventriculography was done using a standard 6-Syrian pigtail. There were no apparent immediate complications. HEMODYNAMIC DATA Left ventricle 104 with an end-diastolic pressure of 15-20. Aorta 109/60 with a mean of 82. There is no significant transvalvular aortic gradient on pullback of the pigtail catheter. CORONARY ARTERIOGRAPHY The left main is normal. The left anterior descending is a small to medium sized vessel giving rise to very tiny diagonals. No definite disease is seen in the LAD system. There is a very large ramus intermedius which appears to be angiographically normal. The left circumflex is a medium-sized though dominant vessel giving rise to tiny obtuse marginals. There is relatively diffuse mild disease of the proximal to mid left circumflex resulting in up to 15% stenosis. The right coronary artery is a very small nondominant vessel with no disease. LEFT VENTRICULOGRAPHY On contrast injection of the left ventricle, only the basal segments of the left ventricle contract. Ejection fraction is somewhat difficult to estimate, possibly 25%. Contrast injection was also done in the left arm peripheral IV to assess the position of a right subclavian central line. It appears to be in a persistent left superior vena cava. CONCLUSION 1. Minimal to mild left circumflex disease, otherwise normal coronary arteries. 2. Severely reduced left ventricular systolic function with ejection fraction estimated at 25% with a fairly large area of apical akinesis. MD HECTOR Callahan/MIRIAM /2:34 PM /3:47 PM [facility]
[2017-11-06] MEDS: PROPOFOL 1000 MG/100 ML IV PRN (17:15)
[2017-11-06 23:37] LABS: CRITICAL VALUE YES
[2017-11-07] VITALS (19 sets, daily range): BP systolic 90–120; BP diastolic 65–76; PULSE 87–102; RESP 12–18; TEMP 97.5–100.2; O2SAT 98–100
[2017-11-07] MEDS: FUROSEMIDE 40 MG/4 ML VIAL IV PUSH SCH ×3 (01:38→17:39)
[2017-11-07] MEDS: RESP: ALBUTEROL 2.5 MG/IPRATROPIUM 0.5 MG NEB (SCH) NEB ×4 (03:08→21:37)
[2017-11-07 06:26] LABS: BICARBONATE 25.3 MEQ/L (21.0-32.0); POTASSIUM 3.7 MEQ/L (3.5-5.1)
[2017-11-07] MEDS: DEXT 5%-NACL 0.9% 1000 ML INJ 1,000 ML IV SCH (07:00)
[2017-11-07] MEDS: CHLORHEXIDINE 0.12% (ORAL KIT) 15 ML CUP MT SCH ×2 (08:00→19:48)
--- NOTE | 2017-11-07 08:34 | HHI.CCPN ---
Subjective Remarks/Hospital Course Patient is a 62-year-old female with past medical history significant for coronary artery disease, [place] in 2017, alcohol abuse, tobacco abuse who underwent small bowel resection and lysis of additions today by Dr. Hatch for recurrent small bowel obstruction. Postop patient was extubated and was moved to the PACU. While entering PACU unit patient suddenly became cyanotic and unresponsive and was emergently placed on the monitor in PACU, and Zoll pads attached. CPR was immediately initiated as the patient was found to be pulseless. Patient received epinephrine 2 and monitor showed ventricular fibrillation. Patient was shocked with 200 J DC CV, with return of spontaneous circulation. Patient was reintubated and placed on mechanical ventilation by anesthesia during the Code which last for only 3 minutes. Post code received one amp of bicarbonate, as ABG showed metabolic acidosis. 2 L of normal saline boluses ordered which she is getting now. Had been started on Levophed for shock I evaluated the patient in the PACU. Patient's intubated not on sedation. Systolic blood pressure in the mid 80s on Levophed 5 mcg/m. Patient appears critically ill but she can wake up and follow basic commands. There is no indication for induced hypothermia at this time for neuro protection. I have ordered cardiac workup including cardiac enzymes stat 2-D echo. EKG did not show QT prolongation. Other labs are pending at this time. Levophed will be titrated to maintain MAP>65, and also vasopressin added SUBJ 11/04: Patient remains intubated sedated critically ill. Currently on 7 mcg/m of Levophed. Chest x-ray shows pulmonary vascular congestion. Will start weaning sedation. Give IV Lasix 40 mg 1 along with IV albumin and potassium replacement. Son at bedside updated 11/05: Off sedation. tolerating CPAP, following commands. Coreg and Lisinopril started by Dr. Valentin. Start scheduled IV Lasix, Add Aldactone if BP remains stable in 24 hours 11/06: Reintubated yesterday evening for severe hypoxemic respiratory failure secondary to pulmonary edema. Chest x-ray shows bilateral severe pulmonary edema. IV Lasix increased to [address] Valentin planning on cardiac catheterization in the afternoon 11/07: Remains intubated on mild sedation with 10 mcg/m of propofol. Wakes up easily follows commands. Urine output almost 5 L with IV Lasix. Cardiac catheterization yesterday mild CAD-possible Takotsubo cardiomyopathy per Dr. Valentin. Will repeat Echo in 5-7 days Objective Vital Signs Date Time Temp Pulse Resp B/P (MAP) Pulse Ox O2 Delivery O2 Flow Rate FiO2 11/07/17 06:00 87 11/07/17 05:05 100 40 11/07/17 04:00 97.5 16 90/69 (76) 11/05/17 20:00 Ventilator 11/05/17 10:17 3.00 Intake and Output 11/07/17 11/07/17 11/08/17 08:00 16:00 00:00 Output Total 2770 ml Balance -2770 ml Result Diagram: 11/06/17 0520 11/07/17 0435 Imaging Chest x-ray shows pulmonary edema CT of the abdomen pelvis shows evidence of distal small bowel obstruction Objective Remarks GENERAL: Thin built female patient lying in bed, intubated SKIN: No rashes Warm and dry. HEENT: Atraumatic. Normocephalic. R eye nonreactive (Blind in right eye per history), L eye reactive NECK: Trachea midline. No JVD. Supple. CARDIOVASCULAR: S1-S2 normal. No murmurs RESPIRATORY: Breath sounds equal bilaterally. Bilateral crackles and few wheezes GASTROINTESTINAL: Abdomen soft, round, non distended. Midline incision dressing intact. Mild tenderness to palpation MUSCULOSKELETAL: Extremities without clubbing, cyanosis, or edema. NEUROLOGICAL: Intubated off sedation. Wakes up follows commands 4. No focal deficits A/P Assessment and Plan ASSESSMENT: Cardiac arrest/ventricular fibrillation Acute hypoxemic respiratory failure Severe cardiomyopathy ejection fraction EF 25-30% Congestive heart failure Cardiogenic shock-resolved Metabolic acidosis/Lactic acidosis Status post lysis of additional small bowel resection Hypokalemia Hypomagnesemia PLAN by system: NEURO: Alcohol dependence - Propofol for sedation and patient comfort, hold sedation for weaning trials - WA protocol post extubation - Supplement and multivitamin thiamine - Watch for seizure, alcohol withdrawal RESP: Acute hypoxemic respiratory failure Pulmonary edema - Extubated 11/05/17 after patient passed weaning trials, but needed emergency intubation at 6 PM yesterday for severe pulmonary edema - CXR shows severe bilateral pulmonary edema, repeat CXR today - Sputum culture pending, DuoNeb every 6 hours when necessary. Ventilator bundle CV: Ventricular fibrillation arrest Cardiogenic shock -resolved Congestive heart failure Cardiomyopathy/Possible Takotsubo CM History of coronary artery disease rule out ACS Cardiomyopathy with EF 30% most likely ischemic - Postop developed ventricle fibrillation received CPR for 3 minutes, epinephrine 2 and DC cardioversion 1 11/03 - Cardiac cath q101/07: Minimal to mild left circumflex disease, otherwise normal coronary arteries. Severely reduced left ventricular systolic function with EF 25% with a fairly large area of apical akinesis. - On lisinopril and Coreg. IV Lasix 40 mg every 8 with potassium replacement, increase to 40 q8 - Echo showed apical wall motion abnormality EF 30%. Tentative plan for cardiac catheterization Saturday - Keep potassium more than 4, magnesium more than 2 - Evaluate for AICD prior to Discharge, may need life vest GI: Recurrent small bowel obstruction status post lysis of adhesion, SB resection - Keep nothing by mouth, IV famotidine. Start trickle feed per general surgery if not extubated today - Postop management per Dr. Hatch : - Monitor renal function closely. Dang catheter. - IV Lasix as above ID: Probable sepsis - F/u sputum blood and urine culture. Sputum cx-pending - Empiric Zosyn 3.375 GM IV q6, for broad-spectrum abdominal and lung coverage - Rleural effusion most likely from heart failure HEME: - Monitor CBC, CMP, coags ENDO: Hypokalemia Hypomagnesemia - Aggressive electrolyte replacement per protocol PROPH: - Bilateral lower extremity SCDs. Lovenox on hold for cath-resume. IV famotidine LINES: - s/p L subclavian central line in ICU 11/03/17 - Continue right subclavian central line (located in persistent left SVC). This was confirmed to be in persistent Left SVC by cardiac cath also by venogram CC time 40 min Patient is critically ill status post cardiac arrest. Cardiac catheterization shows minimal coronary artery disease EF reduced to 25. Critically ill but stable, remains at high risk for cardiopulmonary decompensation. Attempt prolonged vent wean Aleena Iglesias MD Nov 07, 2017 08:34
[2017-11-07] MEDS: MULTIVITAMIN INJ 10 ML, THIAMINE INJ 100 MG, FOLIC ACID INJ 1 MG in DEXT 5%-NACL 0.9% 5... IV SCH (08:48)
[2017-11-07] MEDS: SODIUM CHLORIDE 0.9% FLUSH 10 ML FLUSH IV FLUSH SCH ×2 (08:49→19:49)
[2017-11-07] MEDS: FAMOTIDINE 20 MG/2 ML VIAL IV PUSH SCH ×2 (08:49→19:48)
[2017-11-07] MEDS: ENALAPRIL MALEATE 2.5 MG TAB PO SCH (08:49)
[2017-11-07] MEDS: guaiFENesin E.R. 600 MG TAB PO SCH ×2 (08:49→19:49)
[2017-11-07] MEDS: ASPIRIN 81 MG CHEW TAB PO SCH (08:49)
[2017-11-07] MEDS: CARVEDILOL 3.125 MG TAB PO SCH ×2 (08:49→19:48)
[2017-11-07] MEDS: THIAMINE HCL 100 MG TAB PO SCH (08:49)
[2017-11-07] MEDS: POTASSIUM CHLORIDE 25 MEQ EFFERVESCENT TAB PO SCH ×2 (08:50→19:49)
--- NOTE | 2017-11-07 09:06 | RADRPT ---
EXAM DATE/TIME: 11/07/2017 08:29 [facility] COMPARISON: CHEST SINGLE AP, November 06, 2017, 4:35. INDICATIONS : Respiratory disease. Shortness of breath. MEDICAL HISTORY : Chronic obstructive pulmonary disease. Myocardial infarction. Cardiovascular disease. Cervical ca ncer, Bowel obstruction. SURGICAL HISTORY : Hysterectomy. Tonsillectomy. ENCOUNTER: Subsequent ACUITY: 2 days PAIN SCORE: Non-responsive. LOCATION: Bilateral chest FINDINGS: A single view of the chest demonstrates endotracheal tube, nasogastric tube, and right subclavian attila tral line are all in stable position. Pulmonary vascular congestion remains right worse the left. Michael ateral pleural effusions right greater left. I don't see any visible pneumothorax.. Osseous structur es are intact. CONCLUSION: Pulmonary vascular congestion remains right greater left. Right-sided pleural effusion. Tyler Dillon MD on November 07, 2017 at 9:02 Board Certified Radiologist. This report was verified electronically.
--- NOTE | 2017-11-07 09:37 | PD.CARD.PN ---
Subjective Subjective Remarks Intubated. Awake. Alert. Denies CP, dyspnea, dizziness, palpitations. Admits to high level of emotional stress recently. Objective Medications Item Value Date Time Furosemide 40 mg 11/06/17 1000 (Lasix Inj) Q8H/IV PUSH 11/07/17 0850 Aspirin 81 mg 11/05/17 1100 (Aspirin Chew) DAILY/PO 11/07/17 0849 Potassium Bicarb/ 25 meq 11/05/17 1030 Potassium Chloride Q12HR/PO 11/07/17 0850 (K-Lyte Cl Eff) Metoprolol 2.5 mg 11/05/17 1030 Tartrate Q6H PRN/IV PUSH 11/05/17 1705 (Lopressor Inj) Carvedilol 3.125 mg 11/05/17 0900 (Coreg) Q12HR/PO 11/07/17 0849 Enalapril Maleate 2.5 mg 11/05/17 0900 (Vasotec) DAILY/PO 11/07/17 0849 Enalaprilat 0.65 mg 11/02/17 1400 (Vasotec Inj) Q6H PRN/IV PUSH 11/02/17 1509 Current Medications Medications (Trade) Dose Ordered Sig/Jeremy Route Start Time Stop Time Status Last Admin (Zofran Inj) 4 mg Q6H PRN IVP 11/01/17 09:45 (Narcan Inj) 0.4 mg UNSCH PRN IV PUSH 11/01/17 09:45 (Vasotec Inj) 0.65 mg Q6H PRN IV PUSH 11/02/17 14:00 11/02/17 15:09 (Mucinex Er) 600 mg BID PO 11/02/17 21:00 11/07/17 08:49 (Vitamin B1) 100 mg DAILY PO 11/06/17 09:00 11/07/17 08:49 (Romazicon Inj) 0.2 mg Q1M PRN IV PUSH 11/02/17 14:00 (Ativan) 1 mg Q4H PRN PO 11/02/17 14:00 11/04/17 23:25 (Ativan) 2 mg Q2H PRN PO 11/02/17 14:00 (NS Flush) 2 ml UNSCH PRN IV FLUSH 11/03/17 13:30 (NS Flush) 2 ml BID IV FLUSH 11/03/17 21:00 11/07/17 08:49 (Peridex 0.12% Liq) 15 ml BID@08,20 MT 11/03/17 20:00 11/07/17 08:00 (Pepcid Inj) 20 mg Q12HR IV PUSH 11/03/17 13:30 11/07/17 08:49 Vasopressin 40 units/Dextrose 100 ml @ 6 mls/hr [id number] IV 11/03/17 13:52 Future Hold 11/03/17 19:00 Multivitamins 10 ml/Thiamine HCl 100 mg/Folic Acid 1 mg/Dextrose/ Sodium Chloride 511.2 ml @ 125 mls/hr DAILY IV 11/03/17 15:00 11/07/17 08:48 Potassium Chloride 100 ml @ 50 mls/hr Q2H PRN IV 11/03/17 14:15 11/05/17 16:28 Potassium Chloride 100 ml @ 50 mls/hr Q2H PRN IV 11/03/17 14:15 (K-Lyte Cl Eff) 50 meq UNSCH PRN PO 11/03/17 14:15 Potassium Chloride 100 ml @ 25 mls/hr UNSCH PRN IV 11/03/17 14:15 Potassium Chloride 100 ml @ 50 mls/hr Q2H PRN IV 11/03/17 14:15 11/03/17 15:40 Magnesium Sulfate 4 gm/Sodium Chloride 100 ml @ 50 mls/hr UNSCH PRN IV 11/03/17 14:15 (Mag-Ox) 800 mg UNSCH PRN PO 11/03/17 14:15 Magnesium Sulfate 2 gm/Sodium Chloride 100 ml @ 50 mls/hr UNSCH PRN IV 11/03/17 14:15 11/05/17 17:05 (K-Phos) 2,000 mg Q4H PRN PO 11/03/17 14:15 Sodium Phosphate 30 mmol/Sodium Chloride 250 ml @ 42 mls/hr UNSCH PRN IV 11/03/17 14:15 11/06/17 08:02 (K-Phos) 2,000 mg UNSCH PRN PO/TUBE 11/03/17 14:15 Potassium Phosphate 30 mmol/ Sodium Chloride 260 ml @ 42 mls/hr UNSCH PRN IV 11/03/17 14:15 (Morphine Inj) 4 mg Q3H PRN IV PUSH 11/04/17 10:00 (Benadryl) 50 mg [employer] PO 11/05/17 08:00 11/09/17 07:59 (Valium) 10 mg [employer] PO 11/05/17 08:00 11/09/17 07:59 (Coreg) 3.125 mg Q12HR PO 11/05/17 09:00 11/07/17 08:49 (Vasotec) 2.5 mg DAILY PO 11/05/17 09:00 11/07/17 08:49 (Aspirin Chew) 81 mg DAILY PO 11/05/17 11:00 11/07/17 08:49 (K-Lyte Cl Eff) 25 meq Q12HR PO 11/05/17 10:30 11/07/17 08:50 (Lopressor Inj) 2.5 mg Q6H PRN IV PUSH 11/05/17 10:30 11/05/17 17:05 Propofol 100 ml @ 1.425 mls/ hr TITRATE PRN IV 11/05/17 19:15 11/06/17 17:15 (Duoneb Neb) 1 ampule Q6HR NEB NEB 11/06/17 10:00 11/07/17 08:02 (Lasix Inj) 40 mg Q8H IV PUSH 11/06/17 10:00 11/07/17 08:50 (Atropine Inj) 0.5 mg UNSCH PRN IV 11/06/17 15:00 Sodium Chloride 250 ml @ 0 mls/hr UNSCH X1 PRN IV 11/06/17 15:00 11/07/17 14:59 Dextrose/Sodium Chloride 1,000 ml @ 50 mls/hr Q20H IV 11/07/17 07:00 11/07/17 07:00 Vital Signs / I&O Vital Signs Date Time Temp Pulse Resp B/P (MAP) Pulse Ox O2 Delivery O2 Flow Rate FiO2 11/07/17 08:23 100 40 11/07/17 08:23 40 11/07/17 06:00 87 11/07/17 05:05 100 40 11/07/17 04:00 60 11/07/17 04:00 97.5 102 16 90/69 (76) 100 11/07/17 04:00 102 11/07/17 03:08 99 40 11/07/17 02:00 98 11/07/17 00:00 100.2 102 15 106/65 (79) 98 11/07/17 00:00 60 11/07/17 00:00 102 11/06/17 23:39 98 40 11/06/17 22:00 102 11/06/17 20:06 96 40 11/06/17 20:00 110 11/06/17 20:00 98.3 108 15 132/78 (96) 98 11/06/17 20:00 60 11/06/17 18:00 114 11/06/17 16:42 94 40 11/06/17 16:00 111 11/06/17 16:00 98.9 111 18 130/86 (101) 94 11/06/17 16:00 60 11/06/17 14:00 105 11/06/17 13:45 100 100 11/06/17 12:01 96 40 11/06/17 12:00 105 11/06/17 12:00 99.6 110 20 119/77 (91) 99 11/06/17 12:00 60 11/06/17 10:00 89 I/O 11/06/17 11/06/17 11/06/17 11/07/17 11/07/17 11/07/17 07:00 15:00 23:00 07:00 15:00 23:00 Intake Total 392 ml 741 ml Output Total 3135 ml 2080 ml 2770 ml Balance -2743 ml -1339 ml -2770 ml IV Total 232 ml 741 ml Other 160 ml Output Urine Total 2725 ml 2000 ml 2700 ml Gastric Drainage Total 350 ml 0 ml Drainage Total 60 ml 80 ml 70 ml # Bowel Movements 0 0 Physical Exam GENERAL: Well developed, well nourished. Intubated. Awake and in no acute distress. HEENT: Jugular venous pressure is normal. CHEST: Lungs clear to auscultation anteriorly. CARDIAC: Regular rate and rhythm without S3, S4, or murmur. ABDOMEN: Soft, aggressive palpation not pursued. Bowel sounds present. EXTREMITIES: No clubbing, cyanosis, or edema. Laboratory Laboratory Tests Test 11/06/17 19:40 11/07/17 04:35 Phosphorus Level 4.0 MG/DL Blood Urea Nitrogen 8 MG/DL Creatinine 0.32 MG/DL Random Glucose 62 MG/DL Calcium Level 7.8 MG/DL Sodium Level 145 MEQ/L Potassium Level 3.7 MEQ/L Chloride Level 104 MEQ/L Carbon Dioxide Level 25.3 MEQ/L Anion Gap 16 MEQ/L Estimat Glomerular Filtration Rate 209 ML/MIN Imaging Last 24 hours Impressions Chest X-Ray 11/07/17 0000 Signed Impressions: Service Date/Time: October 08:29 - CONCLUSION: Pulmonary vascular congestion remains right greater left. Right-sided pleural effusion. Tyler Dillon MD Assessment and Plan Problem List: (1) Ventricular fibrillation ICD Codes: I49.01 - Ventricular fibrillation Status: Acute Plan: Stable since immediate post op period. No further ventricular tachyarrhythmias. Appears she has underlying Takotsubo syndrome with EF 25%. REC continue to monitor continue beta tosha as BP's tolerate will speak to [employer] rep about external defibrillator for this patient, who apparently has no insurance will be out of town until 11/11; please call coverage if additional cardiac problems or questions arise (2) Cardiomyopathy ICD Codes: I42.9 - Cardiomyopathy, unspecified Status: Chronic Plan: Moderate size area of apical akinesis, EF roughly 30% by echo, 25% by cath. Appears cardiomyopathy due to Takotsubo syndrome. Minimal CAD on cath. BP's too low to intensify medical regimen. REC continue daily aspirin continue low dose beta tosha, ZENA-I, IV Lasix diuresis needs repeat echo in 3-4 months Code Status full code Discussed Condition With patient Problem Qualifiers (1) Cardiomyopathy: Qualified Codes: I42.9 - Cardiomyopathy, unspecified Stanton Valentin MD Nov 07, 2017 09:37
--- NOTE | 2017-11-07 12:57 | HHI.PR ---
Subjective Subjective Notes Intubated; on CPAP Following commands Feels hungry Objective Vitals/I&O Vital Signs Date Time Temp Pulse Resp B/P (MAP) Pulse Ox O2 Delivery O2 Flow Rate FiO2 11/07/17 12:00 40 11/07/17 12:00 92 11/07/17 12:00 99.1 12 112/65 (81) 100 11/05/17 20:00 Ventilator 11/05/17 10:17 3.00 Labs Laboratory Tests Test 11/06/17 19:40 11/07/17 04:35 Phosphorus Level 4.0 Blood Urea Nitrogen 8 Creatinine 0.32 Random Glucose 62 Calcium Level 7.8 Sodium Level 145 Potassium Level 3.7 Chloride Level 104 Carbon Dioxide Level 25.3 Anion Gap 16 Estimat Glomerular Filtration Rate 209 Date/Time Source Procedure Growth Status 11/03/17 20:57 Blood Peripheral Aerobic Blood Culture - Preliminary NO GROWTH IN 4 DAYS Resulted 11/03/17 20:57 Blood Peripheral Anaerobic Blood Culture - Preliminary NO GROWTH IN 4 DAYS Resulted 11/06/17 12:00 Sputum Endotracheal Gram Stain - Final Resulted 11/06/17 12:00 Sputum Culture - Preliminary Gram Negative Jackson Resulted Cardiovascular: Regular Lungs: Clear Abdomen: Other (ALEJANDRO in place with minimal drainage; DIPESH with serosanguineous) Extremities: No edema A/P Assessment and Plan 62 year old female POD4 ex lap; SANKET; SBR -on CPAP trial; possible extubated -Vent per [facility]-----discussed with Dr. Harris Shearer done yesterday shows mild CAD -Okay to start trickle feed if not extubated -If extubated ---start clear liquids -Leave ALEJANDRO in place -Discussed also with ORTIZ Desouza Attending Statement patient seen at bedside s/p cath with mild cad start clears if extubated alejandro Attestation The exam, history, and the medical decision-making described in the above note were completed with the assistance of the mid-level provider. I reviewed and agree with the findings presented. I attest that I had a [id number] encounter with the patient on the same day, and personally performed and documented my assessment and findings in the medical record. Dontae,Renetta B. VOICER Nov 07, 2017 12:57 Joao Hatch MD Nov 11, 2017 19:19
[2017-11-07] MEDS: PROPOFOL 1000 MG/100 ML IV PRN (14:00)
[2017-11-08] VITALS (17 sets, daily range): BP systolic 94–135; BP diastolic 56–77; PULSE 84–99; RESP 15–31; TEMP 98.3–99.4; O2SAT 97–100
[2017-11-08] MEDS: FUROSEMIDE 40 MG/4 ML VIAL IV PUSH SCH ×2 (01:10→11:01)
[2017-11-08] MEDS: DEXT 5%-NACL 0.9% 1000 ML INJ 1,000 ML IV SCH ×2 (03:06→21:28)
[2017-11-08] MEDS: RESP: ALBUTEROL 2.5 MG/IPRATROPIUM 0.5 MG NEB (SCH) NEB ×4 (04:51→21:21)
--- NOTE | 2017-11-08 06:40 | RADRPT ---
EXAM DATE/TIME: 11/08/2017 04:33 [facility] COMPARISON: CHEST SINGLE AP, November 03, 2017, 15:26. CHEST SINGLE AP, November 03, 2017, 13:18. CHEST SINGLE AP, November 07, 2017, 8:29. INDICATIONS : Respiratory disease. MEDICAL HISTORY : Myocardial infarction. Cardiovascular disease, Cervical carcinoma. Chronic obstructive pulmonary dise ase. Bowel obstruction. SURGICAL HISTORY : Hysterectomy. Tonsillectomy. ENCOUNTER: Subsequent ACUITY: 3 weeks PAIN SCORE: Non-responsive. LOCATION: Bilateral chest FINDINGS: Endotracheal tube is present with tip several centimeters above the polo. Nasogastric tube coils in the stomach. Right subclavian central catheter is stable in atypical position descending left of mid line. Hazy right base pleural-parenchymal opacity is grossly stable. Left lung is stable and grossly clear. Cardiac contours are unchanged. CONCLUSION: No significant interval change Harris Salas MD on November 08, 2017 at 6:35 Board Certified Radiologist. This report was verified electronically.
[2017-11-08 07:06] LABS: AUTOMATED NEUTROPHIL # 7.3 TH/MM3 (1.8-7.7); BASOPHIL % 0.3 % (0.0-2.0); EOSINOPHIL # 0.1 TH/MM3 (0-0.4); HEMATOCRIT 31.8 % (35.0-46.0); HEMO FLAGS DIFF FINAL; LYMPH % 10.9 % (9.0-44.0); MEAN CELL VOLUME 101.4 FL (80.0-100.0); MEAN CORPUSCULAR HEMOGLOBIN 34.5 PG (27.0-34.0); MEAN CORPUSCULAR HGB CONC 34.1 % (32.0-36.0); MONO % 5.8 % (0.0-8.0); PLATELET COUNT 304 TH/MM3 (150-450); RED BLOOD COUNT 3.13 MIL/MM3 (4.00-5.30); RED CELL DISTRIBUTION WIDTH 14.6 % (11.6-17.2); WHITE BLOOD COUNT 8.8 TH/MM3 (4.0-11.0)
[2017-11-08 07:39] LABS: ALKALINE PHOSPHATASE 95 U/L (45-117); ALT (GPT) 24 U/L (10-53); ANION GAP 9 MEQ/L (5-15); AST (GOT) 52 U/L (15-37); BICARBONATE 27.7 MEQ/L (21.0-32.0); BLOOD UREA NITROGEN 9 MG/DL (7-18); CHLORIDE 103 MEQ/L (98-107); GLOMERULAR FILTRATION RATE 128 ML/MIN (>89); MAGNESIUM 1.4 MG/DL (1.5-2.5); SODIUM (NA) 140 MEQ/L (136-145); TOTAL BILIRUBIN ADULT 0.8 MG/DL (0.2-1.0)
[2017-11-08 07:43] LABS: POTASSIUM 2.5 MEQ/L (3.5-5.1)
[2017-11-08] MEDS: SODIUM CHLORIDE 0.9% FLUSH 10 ML FLUSH IV FLUSH SCH ×2 (07:53→21:28)
[2017-11-08] MEDS: CHLORHEXIDINE 0.12% (ORAL KIT) 15 ML CUP MT SCH ×2 (07:53→20:00)
[2017-11-08] MEDS: POTASSIUM CHLORIDE 25 MEQ EFFERVESCENT TAB PO SCH (07:54)
[2017-11-08] MEDS: CARVEDILOL 3.125 MG TAB PO SCH ×2 (07:54→21:28)
[2017-11-08] MEDS: FAMOTIDINE 20 MG/2 ML VIAL IV PUSH SCH ×2 (07:54→21:28)
[2017-11-08] MEDS: ASPIRIN 81 MG CHEW TAB PO SCH (07:54)
[2017-11-08] MEDS: guaiFENesin E.R. 600 MG TAB PO SCH ×2 (07:55→21:28)
[2017-11-08] MEDS: ENALAPRIL MALEATE 2.5 MG TAB PO SCH (07:55)
[2017-11-08] MEDS: THIAMINE HCL 100 MG TAB PO SCH (07:55)
[2017-11-08] MEDS: POTASSIUM CHLOR 40 MEQ PREMIX 100 ML IV PRN (07:56)
[2017-11-08] MEDS: MULTIVITAMIN INJ 10 ML, THIAMINE INJ 100 MG, FOLIC ACID INJ 1 MG in DEXT 5%-NACL 0.9% 5... IV SCH (08:24)
[2017-11-08] MEDS: MAGNESIUM SULFATE INJ 2 GM in SODIUM CHLORIDE 0.9% INJ 96 ML IV PRN (11:01)
--- NOTE | 2017-11-08 12:03 | HHI.CCPN ---
Subjective Remarks/Hospital Course Patient is a 62-year-old female with past medical history significant for coronary artery disease, [place] in 2017, alcohol abuse, tobacco abuse who underwent small bowel resection and lysis of additions today by Dr. Hatch for recurrent small bowel obstruction. Postop patient was extubated and was moved to the PACU. While entering PACU unit patient suddenly became cyanotic and unresponsive and was emergently placed on the monitor in PACU, and Zoll pads attached. CPR was immediately initiated as the patient was found to be pulseless. Patient received epinephrine 2 and monitor showed ventricular fibrillation. Patient was shocked with 200 J DC CV, with return of spontaneous circulation. Patient was reintubated and placed on mechanical ventilation by anesthesia during the Code which last for only 3 minutes. Post code received one amp of bicarbonate, as ABG showed metabolic acidosis. 2 L of normal saline boluses ordered which she is getting now. Had been started on Levophed for shock I evaluated the patient in the PACU. Patient's intubated not on sedation. Systolic blood pressure in the mid 80s on Levophed 5 mcg/m. Patient appears critically ill but she can wake up and follow basic commands. There is no indication for induced hypothermia at this time for neuro protection. I have ordered cardiac workup including cardiac enzymes stat 2-D echo. EKG did not show QT prolongation. Other labs are pending at this time. Levophed will be titrated to maintain MAP>65, and also vasopressin added 11/04: Patient remains intubated sedated critically ill. Currently on 7 mcg/m of Levophed. Chest x-ray shows pulmonary vascular congestion. Will start weaning sedation. Give IV Lasix 40 mg 1 along with IV albumin and potassium replacement. Son at bedside updated 11/05: Off sedation. tolerating CPAP, following commands. Coreg and Lisinopril started by Dr. Valentin. Start scheduled IV Lasix, Add Aldactone if BP remains stable in 24 hours 11/06: Reintubated yesterday evening for severe hypoxemic respiratory failure secondary to pulmonary edema. Chest x-ray shows bilateral severe pulmonary edema. IV Lasix increased to [address] Valentin planning on cardiac catheterization in the afternoon 11/07: Remains intubated on mild sedation with 10 mcg/m of propofol. Wakes up easily follows commands. Urine output almost 5 L with IV Lasix. Cardiac catheterization yesterday mild CAD-possible Takotsubo cardiomyopathy per Dr. Valentin. Will repeat Echo in 5-7 days Subjective 11/08: Currently extubated. Hard secretions at end of ET tube with unable to pass suction catheter. Currently awake and alert on 2 L nasal cannula in no acute distress. Abdominal pain control. Requesting diet. Objective Vital Signs Date Time Temp Pulse Resp B/P (MAP) Pulse Ox O2 Delivery O2 Flow Rate FiO2 11/08/17 09:45 99 Nasal Cannula 4.00 11/08/17 08:00 60 11/08/17 08:00 89 11/08/17 08:00 99.4 16 112/65 (81) Intake and Output 11/08/17 11/08/17 11/09/17 08:00 16:00 00:00 Intake Total 1204 ml Output Total 2560 ml Balance -1356 ml Result Diagram: 11/08/17 0648 11/08/17 0648 Other Results Microbiology Date/Time Source Procedure Growth Status 11/03/17 20:57 Blood Peripheral Aerobic Blood Culture - Final NO GROWTH IN 5 DAYS Complete 11/03/17 20:57 Blood Peripheral Anaerobic Blood Culture - Final NO GROWTH IN 5 DAYS Complete 11/06/17 12:00 Sputum Endotracheal Gram Stain - Final Complete 11/06/17 12:00 Sputum Endotracheal Sputum Culture - Final Complete Imaging Last Impressions Chest X-Ray 11/08/17 0600 Signed Impressions: Service Date/Time: Wednesday, November 08, 2017 04:33 - CONCLUSION: No significant interval change Harris Salas MD Abdomen/Pelvis CT 11/01/17 0634 Signed Impressions: Service Date/Time: Wednesday, November 01, 2017 08:28 - CONCLUSION: Followup CT scan of the abdomen pelvis again demonstrates a distal small bowel obstruction without significant change compared to the prior examination. Daljit Jenkins MD Objective Remarks GENERAL: 62 yo female, currently on nasal cannula in no acute distress SKIN: No rashes . Warm and dry. HEENT: Atraumatic. Normocephalic. R eye nonreactive (Blind in right eye per history), L eye reactive NECK: Trachea midline. No JVD. Supple. CARDIOVASCULAR: S1-S2 normal. No S4. No murmurs RESPIRATORY: Breath sounds equal bilaterally. Bilateral coarse crackles appreciated anterior posterior lung jurado. GASTROINTESTINAL: Abdomen soft, round, non distended. Midline incision dressing intact. Mild tenderness to palpation MUSCULOSKELETAL: Extremities without significant peripheral edema. NEUROLOGICAL: Cranial nerves II through XII grossly intact. Strength is equal symmetric. Normal sensation. Urinary Catheter: Yes Assessment to: Continue Dang insert reason: ICU Pt Getting Diuretics Vascular Central Line Catheter: Yes Assessment to: Continue Line: Central Venous Catheter Side: Right Location: Subclavian A/P Assessment and Plan NEURO/PSYCH: Alcohol dependence - Supplement and multivitamin thiamine and folate daily - Watch for seizure, alcohol withdrawal RESP: Acute hypoxemic respiratory failure Pulmonary edema - Extubated 11/05/17 after patient passed weaning trials, but needed emergency intubation at 6 PM 11/06 for severe pulmonary edema - Nasal cannula to maintain saturations greater than equal to 92% - Incentive spirometry while awake - Albuterol/ipratropium aerosols every 6 hours with albuterol aerosols every 2 hours. Dyspnea - Diuresis with furosemide see orders CV: Ventricular fibrillation arrest Cardiogenic shock -resolved Congestive heart failure Cardiomyopathy/Possible Takotsubo CM History of coronary artery disease rule out ACS Cardiomyopathy with EF 30% most likely ischemic - Postop developed ventricle fibrillation received CPR for 3 minutes, epinephrine 2 and DC cardioversion 1 11/03 - Cardiac cath q101/07: Minimal to mild left circumflex disease, otherwise normal coronary arteries. Severely reduced left ventricular systolic function with EF 25% with a fairly large area of apical akinesis. - On lisinopril 2.5 mg daily and carvedilol 3.125 mg twice a day. IV furosemide 40 mg every 24 hours with potassium replacement with 2 mEq daily - Echo showed apical wall motion abnormality EF 30%. - cardiac catheterization Dr. Valentin which revealed minimal left circumflex disease. EF 25% with apical akinesis. - Keep potassium more than 4, magnesium more than 2 - Evaluate for AICD prior to Discharge, may need life vest GI: Recurrent small bowel obstruction status post surgery lap, lysis of adhesion, SB resection by Dr. Hatch 11/03 Hypoalbuminemia - Keep nothing by mouth, okay for clear liquids per surgery - IV famotidine. - Continue trickle feed per general surgery if not extubated today - Postop management per Dr. Hatch with lui drain. DIPESH left lower quadrant 130 cc serosanguineous Renal/: - Monitor renal function closely. Dang catheter while on diuretics. Currently on D5 normal saline at 50 cc an hour Receiving furosemide at 40 mill grams IV daily currently ID: Possible sepsis - - F/u sputum blood and urine culture. Sputum cx-no growth - Pleural effusion most likely from heart failure HEME: Macrocytic anemia - Monitor CBC, CMP, coags ENDO/FEN: Hypokalemia Hypomagnesemia - Aggressive electrolyte replacement per protocol - Recheck magnesium potassium tonight. PROPH: - Bilateral lower extremity SCDs. Lovenox on hold for cath-resume. IV famotidine LINES: - s/p L subclavian central line in ICU 11/03/17 - Continue right subclavian central line (located in persistent left SVC). This was confirmed to be in persistent Left SVC by cardiac cath also by venogram Level II follow-up Akash Gomez MD Nov 08, 2017 12:03
--- NOTE | 2017-11-08 15:56 | HHI.PR ---
Subjective Subjective Notes Intubated on exam Dr. Gomez planning extubation Objective Vitals/I&O Vital Signs Date Time Temp Pulse Resp B/P (MAP) Pulse Ox O2 Delivery O2 Flow Rate FiO2 11/08/17 14:00 95 11/08/17 12:00 99.2 31 94/60 (71) 98 11/08/17 09:45 Nasal Cannula 4.00 11/08/17 08:00 60 Labs Laboratory Tests Test 11/08/17 06:48 White Blood Count 8.8 Red Blood Count 3.13 Hemoglobin 10.8 Hematocrit 31.8 Mean Corpuscular Volume 101.4 Mean Corpuscular Hemoglobin 34.5 Mean Corpuscular Hemoglobin Concent 34.1 Red Cell Distribution Width 14.6 Platelet Count 304 Mean Platelet Volume 8.5 Neutrophils (%) (Auto) 82.0 Lymphocytes (%) (Auto) 10.9 Monocytes (%) (Auto) 5.8 Eosinophils (%) (Auto) 1.0 Basophils (%) (Auto) 0.3 Neutrophils # (Auto) 7.3 Lymphocytes # (Auto) 1.0 Monocytes # (Auto) 0.5 Eosinophils # (Auto) 0.1 Basophils # (Auto) 0.0 CBC Comment DIFF FINAL Differential Comment Blood Urea Nitrogen 9 Creatinine 0.49 Random Glucose 116 Total Protein 5.0 Albumin 1.7 Calcium Level 8.0 Magnesium Level 1.4 Alkaline Phosphatase 95 Aspartate Amino Transf (AST/SGOT) 52 Alanine Aminotransferase (ALT/SGPT) 24 Total Bilirubin 0.8 Sodium Level 140 Potassium Level 2.5 Chloride Level 103 Carbon Dioxide Level 27.7 Anion Gap 9 Estimat Glomerular Filtration Rate 128 Date/Time Source Procedure Growth Status 11/03/17 20:57 Blood Peripheral Aerobic Blood Culture - Final NO GROWTH IN 5 DAYS Complete 11/03/17 20:57 Blood Peripheral Anaerobic Blood Culture - Final NO GROWTH IN 5 DAYS Complete 11/06/17 12:00 Sputum Endotracheal Gram Stain - Final Complete 11/06/17 12:00 Sputum Endotracheal Sputum Culture - Final Complete Cardiovascular: Regular Lungs: Clear Abdomen: Other (ALEJANDRO in place with good seal; DIPESH with clear drainage; abdomen minimally tender ) Extremities: No edema A/P Assessment and Plan 62 year old female POD5 ex lap; SANKET; SBR -on CPAP trial; extubation planned for today -Vent per CCM-----discussed with Dr. Gomez -Cath done shows mild CAD -Start clear liquids after extubation -Clamp NGT -Leave ALEJANDRO in place -Discussed also with ORTIZ Padgett Attending Statement patient seen at bedside possible extubate today per isc incisions healing Attestation The exam, history, and the medical decision-making described in the above note were completed with the assistance of the mid-level provider. I reviewed and agree with the findings presented. I attest that I had a [id number] encounter with the patient on the same day, and personally performed and documented my assessment and findings in the medical record. Renetta Diggs Nov 08, 2017 15:56 Joao Hatch MD Nov 11, 2017 19:24
[2017-11-08 20:55] LABS: POTASSIUM 3.5 MEQ/L (3.5-5.1)
[2017-11-08 20:59] LABS: MAGNESIUM 1.8 MG/DL (1.5-2.5)
[2017-11-09] VITALS (14 sets, daily range): BP systolic 102–129; BP diastolic 63–74; PULSE 86–107; RESP 16–27; TEMP 98.2–99.1; O2SAT 94–100
[2017-11-09] MEDS: RESP: ALBUTEROL 2.5 MG/IPRATROPIUM 0.5 MG NEB (SCH) NEB ×3 (03:06→20:49)
[2017-11-09 05:57] LABS: AUTOMATED NEUTROPHIL # 6.9 TH/MM3 (1.8-7.7); BASOPHIL % 0.4 % (0.0-2.0); EOSINOPHIL # 0.2 TH/MM3 (0-0.4); EOSINOPHIL % 2.4 % (0.0-4.0); HEMO FLAGS DIFF FINAL; LYMPH % 12.9 % (9.0-44.0); LYMPHOCYTE # 1.2 TH/MM3 (1.0-4.8); MEAN CELL VOLUME 101.5 FL (80.0-100.0); MEAN CORPUSCULAR HEMOGLOBIN 35.2 PG (27.0-34.0); MEAN CORPUSCULAR HGB CONC 34.7 % (32.0-36.0); MONO % 7.1 % (0.0-8.0); NEUT % 77.2 % (16.0-70.0); PLATELET COUNT 328 TH/MM3 (150-450); RED BLOOD COUNT 3.15 MIL/MM3 (4.00-5.30); RED CELL DISTRIBUTION WIDTH 14.8 % (11.6-17.2)
[2017-11-09 06:14] LABS: ANION GAP 8 MEQ/L (5-15); AST (GOT) 41 U/L (15-37); BICARBONATE 27.7 MEQ/L (21.0-32.0); BLOOD UREA NITROGEN 8 MG/DL (7-18); CHLORIDE 105 MEQ/L (98-107); GLOMERULAR FILTRATION RATE 166 ML/MIN (>89); MAGNESIUM 1.7 MG/DL (1.5-2.5); POTASSIUM 3.4 MEQ/L (3.5-5.1); SODIUM (NA) 141 MEQ/L (136-145)
[2017-11-09 06:16] LABS: ALT (GPT) 33 U/L (10-53)
[2017-11-09 06:18] LABS: ALKALINE PHOSPHATASE 92 U/L (45-117); TOTAL BILIRUBIN ADULT 0.5 MG/DL (0.2-1.0)
[2017-11-09] MEDS: CHLORHEXIDINE 0.12% (ORAL KIT) 15 ML CUP MT SCH ×2 (08:00→20:00)
--- NOTE | 2017-11-09 08:15 | HHI.CCPN ---
Subjective Remarks/Hospital Course Patient is a 62-year-old female with past medical history significant for coronary artery disease, AL in 2017, alcohol abuse, tobacco abuse who underwent small bowel resection and lysis of additions today by Dr. Hatch for recurrent small bowel obstruction. Postop patient was extubated and was moved to the PACU. While entering PACU unit patient suddenly became cyanotic and unresponsive and was emergently placed on the monitor in PACU, and Zoll pads attached. CPR was immediately initiated as the patient was found to be pulseless. Patient received epinephrine 2 and monitor showed ventricular fibrillation. Patient was shocked with 200 J DC CV, with return of spontaneous circulation. Patient was reintubated and placed on mechanical ventilation by anesthesia during the Code which last for only 3 minutes. Post code received one amp of bicarbonate, as ABG showed metabolic acidosis. 2 L of normal saline boluses ordered which she is getting now. Had been started on Levophed for shock I evaluated the patient in the PACU. Patient's intubated not on sedation. Systolic blood pressure in the mid 80s on Levophed 5 mcg/m. Patient appears critically ill but she can wake up and follow basic commands. There is no indication for induced hypothermia at this time for neuro protection. I have ordered cardiac workup including cardiac enzymes stat 2-D echo. EKG did not show QT prolongation. Other labs are pending at this time. Levophed will be titrated to maintain MAP>65, and also vasopressin added 11/04: Patient remains intubated sedated critically ill. Currently on 7 mcg/m of Levophed. Chest x-ray shows pulmonary vascular congestion. Will start weaning sedation. Give IV Lasix 40 mg 1 along with IV albumin and potassium replacement. Son at bedside updated 11/05: Off sedation. tolerating CPAP, following commands. Coreg and Lisinopril started by Dr. Valentin. Start scheduled IV Lasix, Add Aldactone if BP remains stable in 24 hours 11/06: Reintubated yesterday evening for severe hypoxemic respiratory failure secondary to pulmonary edema. Chest x-ray shows bilateral severe pulmonary edema. IV Lasix increased to [address] Valentin planning on cardiac catheterization in the afternoon 11/07: Remains intubated on mild sedation with 10 mcg/m of propofol. Wakes up easily follows commands. Urine output almost 5 L with IV Lasix. Cardiac catheterization yesterday mild CAD-possible Takotsubo cardiomyopathy per Dr. Valentin. Will repeat Echo in 5-7 days 11/08: Currently extubated. Hard secretions at end of ET tube with unable to pass suction catheter. Currently awake and alert on 2 L nasal cannula in no acute distress. Abdominal pain control. Requesting diet. Subjective 11/09: Currently on nasal cannula in no acute distress. Diet currently been advanced. Currently clear liquids. Objective Vital Signs Date Time Temp Pulse Resp B/P (MAP) Pulse Ox O2 Delivery O2 Flow Rate FiO2 11/09/17 06:00 90 11/09/17 04:00 98.5 16 113/70 (84) 94 11/08/17 21:23 Nasal Cannula 2.00 11/08/17 08:00 60 Intake and Output 11/09/17 11/09/17 11/10/17 08:00 16:00 00:00 Output Total 305 ml Balance -305 ml Result Diagram: 11/09/17 0446 11/09/17 0446 Other Results Microbiology Date/Time Source Procedure Growth Status 11/03/17 20:57 Blood Peripheral Aerobic Blood Culture - Final NO GROWTH IN 5 DAYS Complete 11/03/17 20:57 Blood Peripheral Anaerobic Blood Culture - Final NO GROWTH IN 5 DAYS Complete 11/06/17 12:00 Sputum Endotracheal Gram Stain - Final Complete 11/06/17 12:00 Sputum Endotracheal Sputum Culture - Final Complete Imaging Last Impressions Chest X-Ray 11/08/17 0600 Signed Impressions: Service Date/Time: Wednesday, November 08, 2017 04:33 - CONCLUSION: No significant interval change Harris Salas MD Abdomen/Pelvis CT 11/01/17 0634 Signed Impressions: Service Date/Time: Wednesday, November 01, 2017 08:28 - CONCLUSION: Followup CT scan of the abdomen pelvis again demonstrates a distal small bowel obstruction without significant change compared to the prior examination. Daljit Jenkins MD Objective Remarks GENERAL: 62 yo female, currently on nasal cannula in no acute distress SKIN: No rashes . Warm and dry. HEENT: Atraumatic. Normocephalic. R eye nonreactive (Blind in right eye per history), L eye reactive NECK: Trachea midline. No JVD. Supple. CARDIOVASCULAR: S1-S2 normal. No S4. No murmurs RESPIRATORY: Breath sounds equal bilaterally. Bilateral coarse crackles appreciated anterior posterior lung jurado. GASTROINTESTINAL: Abdomen soft, round, non distended. Midline incision dressing intact. Mild tenderness to palpation MUSCULOSKELETAL: Extremities without significant peripheral edema. NEUROLOGICAL: Cranial nerves II through XII grossly intact. Strength is equal symmetric. Normal sensation. Vascular Central Line Catheter: Yes Assessment to: Continue Line: Central Venous Catheter Side: Right Location: Subclavian A/P Assessment and Plan NEURO/PSYCH: Alcohol dependence - Supplement and multivitamin thiamine and folate daily - Watch for seizure, alcohol withdrawal RESP: Acute hypoxemic respiratory failure Pulmonary edema - Extubated 11/05/17 after patient passed weaning trials, but needed emergency intubation at 6 PM 11/06 for severe pulmonary edema - Nasal cannula to maintain saturations greater than equal to 92% - Incentive spirometry while awake - Albuterol/ipratropium aerosols every 6 hours with albuterol aerosols every 2 hours. Dyspnea - Diuresis with furosemide see orders CV: Ventricular fibrillation arrest Cardiogenic shock -resolved Congestive heart failure Cardiomyopathy/Possible Takotsubo CM History of coronary artery disease rule out ACS Cardiomyopathy with EF 30% most likely ischemic - Postop developed ventricle fibrillation received CPR for 3 minutes, epinephrine 2 and DC cardioversion 1 11/03 - Cardiac cath q101/07: Minimal to mild left circumflex disease, otherwise normal coronary arteries. Severely reduced left ventricular systolic function with EF 25% with a fairly large area of apical akinesis. - On lisinopril 2.5 mg daily and carvedilol 3.125 mg twice a day. IV furosemide 40 mg every 24 hours with potassium replacement with 2 mEq daily - Echo showed apical wall motion abnormality EF 30%. - cardiac catheterization Dr. Valentin which revealed minimal left circumflex disease. EF 25% with apical akinesis. - Keep potassium more than 4, magnesium more than 2 - Evaluate for AICD prior to Discharge, may need life vest GI: Recurrent small bowel obstruction status post surgery lap, lysis of adhesion, SB resection by Dr. Hatch 11/03 Hypoalbuminemia - clear liquids per surgery - IV famotidine. - Continue trickle feed per general surgery if not extubated today - Postop management per Dr. Hatch with lui drain. DIPESH left lower quadrant 170 cc serosanguineous Renal/: - Monitor renal function closely. Dang catheter while on diuretics. Currently on D5 normal saline at 50 cc an hour Receiving furosemide at 40 mill grams IV daily currently ID: Possible sepsis - - F/u sputum blood and urine culture. Sputum cx-no growth - Pleural effusion most likely from heart failure HEME: Macrocytic anemia - Monitor CBC, CMP, coags ENDO/FEN: Hypokalemia Hypomagnesemia - Aggressive electrolyte replacement per protocol PROPH: - Bilateral lower extremity SCDs. Lovenox on hold for cath-resume. IV famotidine LINES: - s/p L subclavian central line in ICU 11/03/17 - Continue right subclavian central line (located in persistent left SVC). This was confirmed to be in persistent Left SVC by cardiac cath also by venogram Level II follow-up Akash Gomez MD Nov 09, 2017 08:15
[2017-11-09] MEDS: MAGNESIUM SULFATE 1 GM PREMIX 100 ML IV SCH ×2 (08:27→10:23)
[2017-11-09] MEDS: POTASSIUM CHLORIDE 20 MEQ PWD PACKET NG SCH (09:00)
--- NOTE | 2017-11-09 10:20 | HHI.PR ---
Subjective Subjective Notes doing well, nc 2L o2, pain controlled tolerating clears Objective Vitals/I&O Vital Signs Date Time Temp Pulse Resp B/P (MAP) Pulse Ox O2 Delivery O2 Flow Rate FiO2 11/09/17 09:46 99 Nasal Cannula 3.00 11/09/17 08:00 98.9 88 20 119/72 (88) 11/08/17 08:00 60 Labs Laboratory Tests Test 11/08/17 20:15 11/09/17 04:46 Potassium Level 3.5 3.4 Magnesium Level 1.8 1.7 White Blood Count 9.0 Red Blood Count 3.15 Hemoglobin 11.1 Hematocrit 32.0 Mean Corpuscular Volume 101.5 Mean Corpuscular Hemoglobin 35.2 Mean Corpuscular Hemoglobin Concent 34.7 Red Cell Distribution Width 14.8 Platelet Count 328 Mean Platelet Volume 9.0 Neutrophils (%) (Auto) 77.2 Lymphocytes (%) (Auto) 12.9 Monocytes (%) (Auto) 7.1 Eosinophils (%) (Auto) 2.4 Basophils (%) (Auto) 0.4 Neutrophils # (Auto) 6.9 Lymphocytes # (Auto) 1.2 Monocytes # (Auto) 0.6 Eosinophils # (Auto) 0.2 Basophils # (Auto) 0.0 CBC Comment DIFF FINAL Differential Comment Blood Urea Nitrogen 8 Creatinine 0.39 Random Glucose 97 Total Protein 4.9 Albumin 1.7 Calcium Level 7.8 Phosphorus Level 3.5 Alkaline Phosphatase 92 Aspartate Amino Transf (AST/SGOT) 41 Alanine Aminotransferase (ALT/SGPT) 33 Total Bilirubin 0.5 Sodium Level 141 Chloride Level 105 Carbon Dioxide Level 27.7 Anion Gap 8 Estimat Glomerular Filtration Rate 166 Date/Time Source Procedure Growth Status 11/03/17 20:57 Blood Peripheral Aerobic Blood Culture - Final NO GROWTH IN 5 DAYS Complete 11/03/17 20:57 Blood Peripheral Anaerobic Blood Culture - Final NO GROWTH IN 5 DAYS Complete 11/06/17 12:00 Sputum Endotracheal Gram Stain - Final Complete 11/06/17 12:00 Sputum Endotracheal Sputum Culture - Final Complete Abdomen: Other (soft incisional tenderness, jazz serous, alejandro good sxn) A/P Assessment and Plan 62 year old female POD6 ex lap; SANKET; SBR extubated yesterday doing well gutierrez for Is and Os will d/c tomorrow am - Ok to transfer to floor, if ok with cardio and isc -Cath done shows mild CAD - NGT removed, Full liq diet +protein shakes - ALEJANDRO remove - ok for anticoagulation - possible d/c planning soon Joao Hatch MD Nov 09, 2017 10:20
[2017-11-09] MEDS: ENALAPRIL MALEATE 2.5 MG TAB PO SCH (10:21)
[2017-11-09] MEDS: ASPIRIN 81 MG CHEW TAB PO SCH (10:21)
[2017-11-09] MEDS: guaiFENesin E.R. 600 MG TAB PO SCH ×2 (10:21→20:44)
[2017-11-09] MEDS: POTASSIUM CHLORIDE 10 MEQ CONTROLLED RELEASE TAB PO SCH ×2 (10:21→20:45)
[2017-11-09] MEDS: THIAMINE HCL 100 MG TAB PO SCH (10:21)
[2017-11-09] MEDS: FAMOTIDINE 20 MG/2 ML VIAL IV PUSH SCH (10:22)
[2017-11-09] MEDS: FUROSEMIDE 40 MG/4 ML VIAL IV PUSH SCH (10:22)
[2017-11-09] MEDS: CARVEDILOL 3.125 MG TAB PO SCH ×2 (10:22→20:45)
[2017-11-09] MEDS: SODIUM CHLORIDE 0.9% FLUSH 10 ML FLUSH IV FLUSH SCH ×2 (10:23→20:46)
[2017-11-09] MEDS: DEXT 5%-NACL 0.9% 1000 ML INJ 1,000 ML IV SCH (17:28)
[2017-11-09] MEDS: FAMOTIDINE 20 MG TAB PO SCH (20:44)
[2017-11-09] MEDS: HEPARIN SODIUM - SQ 10,000 UNITS/ML VIAL SQ SCH (20:46)
[2017-11-10] VITALS (8 sets, daily range): BP systolic 117–130; BP diastolic 67–80; PULSE 77–97; RESP 15–20; TEMP 96.5–99.5; O2SAT 91–100
[2017-11-10] MEDS: RESP: ALBUTEROL 2.5 MG/IPRATROPIUM 0.5 MG NEB (SCH) NEB ×4 (04:27→19:29)
[2017-11-10] MEDS: CHLORHEXIDINE 0.12% (ORAL KIT) 15 ML CUP MT SCH ×2 (08:00→20:00)
[2017-11-10] MEDS: POTASSIUM CHLORIDE 20 MEQ PWD PACKET NG SCH (09:00)
[2017-11-10] MEDS: ENALAPRIL MALEATE 2.5 MG TAB PO SCH (09:00)
[2017-11-10] MEDS: FAMOTIDINE 20 MG TAB PO SCH ×2 (09:27→21:59)
[2017-11-10] MEDS: HEPARIN SODIUM - SQ 10,000 UNITS/ML VIAL SQ SCH ×2 (09:27→22:00)
[2017-11-10] MEDS: guaiFENesin E.R. 600 MG TAB PO SCH ×2 (09:27→21:59)
[2017-11-10] MEDS: SODIUM CHLORIDE 0.9% FLUSH 10 ML FLUSH IV FLUSH SCH ×2 (09:27→21:59)
[2017-11-10] MEDS: ASPIRIN 81 MG CHEW TAB PO SCH (09:28)
[2017-11-10] MEDS: THIAMINE HCL 100 MG TAB PO SCH (09:28)
[2017-11-10] MEDS: CARVEDILOL 3.125 MG TAB PO SCH ×2 (09:29→21:59)
[2017-11-10] MEDS: FUROSEMIDE 40 MG/4 ML VIAL IV PUSH SCH (09:31)
--- NOTE | 2017-11-10 11:57 | HHI.PR ---
Subjective Subjective Notes no pain, eating well Objective Vitals/I&O Vital Signs Date Time Temp Pulse Resp B/P (MAP) Pulse Ox O2 Delivery O2 Flow Rate FiO2 11/10/17 08:00 98.2 90 17 121/75 (90) 97 11/10/17 04:31 Nasal Cannula 2.00 11/08/17 08:00 60 Labs Date/Time Source Procedure Growth Status 11/03/17 20:57 Blood Peripheral Aerobic Blood Culture - Final NO GROWTH IN 5 DAYS Complete 11/03/17 20:57 Blood Peripheral Anaerobic Blood Culture - Final NO GROWTH IN 5 DAYS Complete 11/06/17 12:00 Sputum Endotracheal Gram Stain - Final Complete 11/06/17 12:00 Sputum Endotracheal Sputum Culture - Final Complete Abdomen: Non-distended, Non-tender A/P Assessment and Plan 62 year old female POD7 ex lap; SANKET; SBR pain ok tolerating PO OOB incision clean ok to DC home from surgery standpoint, but she likely needs O2 and other issues addressed by IM prior to DC Benson Linton MD Nov 10, 2017 11:57
[2017-11-10 12:13] LABS: BASOPHIL # 0.1 TH/MM3 (0-0.2); BASOPHIL % 0.6 % (0.0-2.0); EOSINOPHIL # 0.4 TH/MM3 (0-0.4); HEMATOCRIT 40.6 % (35.0-46.0); HEMO FLAGS AUTO DIFF; LYMPH % 13.9 % (9.0-44.0); LYMPHOCYTE # 1.3 TH/MM3 (1.0-4.8); MEAN CELL VOLUME 102.5 FL (80.0-100.0); MEAN CORPUSCULAR HEMOGLOBIN 34.4 PG (27.0-34.0); MEAN CORPUSCULAR HGB CONC 33.6 % (32.0-36.0); MONO % 6.5 % (0.0-8.0); PLATELET COUNT 415 TH/MM3 (150-450); RED BLOOD COUNT 3.96 MIL/MM3 (4.00-5.30); RED CELL DISTRIBUTION WIDTH 14.8 % (11.6-17.2); WHITE BLOOD COUNT 9.4 TH/MM3 (4.0-11.0)
[2017-11-10 12:36] LABS: BICARBONATE 32.1 MEQ/L (21.0-32.0); POTASSIUM 4.3 MEQ/L (3.5-5.1)
[2017-11-10 12:48] LABS: SCAN/DIFF AUTO DIFF CONFIRMED
--- NOTE | 2017-11-10 16:54 | HHI.PR ---
Subjective Remarks Pleasant elderly lady resting in bed comfortably denied chest anal but she is still in slight short of breath she is on oxygen, she is on iv Lasix clinically she doesn't look in decompensation or volume overload however chest x-ray still showing some congestion I will keep her Lasix I will check BNP and adjust accordingly Objective Vitals Vital Signs Date Time Temp Pulse Resp B/P (MAP) Pulse Ox O2 Delivery O2 Flow Rate FiO2 11/10/17 12:00 96.5 77 16 123/68 (86) 99 11/10/17 08:00 98.2 90 17 121/75 (90) 97 11/10/17 04:31 95 Nasal Cannula 2.00 11/10/17 04:00 98.8 97 16 118/68 (85) 95 11/10/17 01:20 96 Nasal Cannula 2.00 11/10/17 00:00 90 11/10/17 00:00 99.5 90 20 117/80 (92) 100 11/10/17 00:00 97.8 90 16 117/73 (88) 91 11/09/17 22:00 96 11/09/17 20:49 100 Nasal Cannula 2.00 11/09/17 20:00 92 11/09/17 20:00 99.1 92 27 129/74 (92) 100 11/09/17 19:00 99 Nasal Cannula 2.00 11/09/17 18:00 97 I/O 11/09/17 11/09/17 11/09/17 11/10/17 11/10/17 11/10/17 07:00 15:00 23:00 07:00 15:00 23:00 Intake Total 100 ml 1800 ml 240 ml Output Total 305 ml 1675 ml 600 ml 650 ml Balance -305 ml -1575 ml 1200 ml -410 ml Intake Oral 800 ml 240 ml IV Total 100 ml 1000 ml Output Urine Total 225 ml 1600 ml 600 ml 650 ml Drainage Total 80 ml 75 ml # Bowel Movements 0 0 Result Diagram: 11/10/17 1155 11/10/17 1155 Objective Remarks GENERAL: This is a well-nourished, well-developed patient, in no apparent distress. SKIN: No rashes, warm and dry HEAD: Atraumatic. Normocephalic. EYES: Pupils equal round and reactive. Extraocular motions intact. No scleral icterus. ENT: Nose without bleeding, or drainage, Airway patent. NECK: Trachea midline. Supple CARDIOVASCULAR: Regular rate and rhythm without murmurs, gallops, or rubs. RESPIRATORY: Fair air entry bilaterally. No wheezes, rales, or rhonchi. GASTROINTESTINAL: Abdomen soft, non-tender, nondistended. Positive bowel sounds MUSCULOSKELETAL: Extremities without clubbing, cyanosis, or edema. Pedal pulses appreciated NEUROLOGICAL: Awake and alert. Moves all extremity. Normal speech.no focal neurological deficit Line: Central Venous Catheter Side: Right Location: Subclavian A/P Problem List: (1) SBO (small bowel obstruction) ICD Code: K56.69 - Other intestinal obstruction Status: Acute (2) Hypertension ICD Code: I10 - Essential (primary) hypertension Assessment and Plan Patient is a 62-year-old female with past medical history significant for coronary artery disease, [place] in 2017, alcohol abuse, tobacco abuse who underwent small bowel resection and lysis of additions today by Dr. Hatch for recurrent small bowel obstruction. Postop patient was extubated and was moved to the PACU. While entering PACU unit patient suddenly became cyanotic and unresponsive and was emergently placed on the monitor in PACU, and Zoll pads attached. CPR was immediately initiated as the patient was found to be pulseless. Patient received epinephrine 2 and monitor showed ventricular fibrillation. Patient was shocked with 200 J DC CV, with return of spontaneous circulation. Patient was reintubated and placed on mechanical ventilation by anesthesia during the Code which last for only 3 minutes. Post code received one amp of bicarbonate, as ABG showed metabolic acidosis. 2 L of normal saline boluses ordered which she is getting now. Had been started on Levophed for shock I evaluated the patient in the PACU. Patient's intubated not on sedation. Systolic blood pressure in the mid 80s on Levophed 5 mcg/m. Patient appears critically ill but she can wake up and follow basic commands. There is no indication for induced hypothermia at this time for neuro protection. I have ordered cardiac workup including cardiac enzymes stat 2-D echo. EKG did not show QT prolongation. Other labs are pending at this time. Levophed will be titrated to maintain MAP>65, and also vasopressin added 11/04: Patient remains intubated sedated critically ill. Currently on 7 mcg/m of Levophed. Chest x-ray shows pulmonary vascular congestion. Will start weaning sedation. Give IV Lasix 40 mg 1 along with IV albumin and potassium replacement. Son at bedside updated 11/05: Off sedation. tolerating CPAP, following commands. Coreg and Lisinopril started by Dr. Valentin. Start scheduled IV Lasix, Add Aldactone if BP remains stable in 24 hours 11/06: Reintubated yesterday evening for severe hypoxemic respiratory failure secondary to pulmonary edema. Chest x-ray shows bilateral severe pulmonary edema. IV Lasix increased to [address] Valentin planning on cardiac catheterization in the afternoon 11/07: Remains intubated on mild sedation with 10 mcg/m of propofol. Wakes up easily follows commands. Urine output almost 5 L with IV Lasix. Cardiac catheterization yesterday mild CAD-possible Takotsubo cardiomyopathy per Dr. Valentin. Will repeat Echo in 5-7 days 11/08: Currently extubated. Hard secretions at end of ET tube with unable to pass suction catheter. Currently awake and alert on 2 L nasal cannula in no acute distress. Abdominal pain control. Requesting diet. 11/09: Currently on nasal cannula in no acute distress. Diet currently been advanced. Currently clear liquids. 11/10: Patient requested nicotine patch it was given, on Lasix iv 40 twice a day , will check BMP, BNP now and in a.m. and adjust diuretic accordingly, clinically she doesn't seem in fluid overload, cardiology recommended LifeVest at discharge A/P: Recurrent small bowel obstruction status post surgery lap, lysis of adhesion, SB resection by Dr. Hatch 11/03 Hypoalbuminemia Ventricular fibrillation arrest Cardiogenic shock -resolved Congestive heart failure Cardiomyopathy/Possible Takotsubo CM History of coronary artery disease rule out ACS Cardiomyopathy with EF 30% most likely ischemic Acute hypoxemic respiratory failure Pulmonary edema Alcohol dependence DVT prophylaxis Plan: - Extubated 11/05/17 after patient passed weaning trials, but needed emergency intubation at 6 PM 11/06 for severe pulmonary edema - Nasal cannula to maintain saturations greater than equal to 92% - Incentive spirometry while awake - Albuterol/ipratropium aerosols every 6 hours with albuterol aerosols every 2 hours. Dyspnea - Postop developed ventricle fibrillation received CPR for 3 minutes, epinephrine 2 and DC cardioversion 1 11/03 - Cardiac cath q101/07: Minimal to mild left circumflex disease, otherwise normal coronary arteries. Severely reduced left ventricular systolic function with EF 25% with a fairly large area of apical akinesis. - On lisinopril 2.5 mg daily and carvedilol 3.125 mg twice a day. IV furosemide 40 mg every 24 hours with potassium replacement with 2 mEq daily - Echo showed apical wall motion abnormality EF 30%. - cardiac catheterization Dr. Valentin which revealed minimal left circumflex disease. EF 25% with apical akinesis. - Keep potassium more than 4, magnesium more than 2 - Evaluate for AICD prior to Discharge, may need life vest - clear liquids per surgery - IV famotidine. - Continue trickle feed per general surgery if not extubated today - Postop management per Dr. Hatch with lui drain. DIPESH left lower quadrant 170 cc serosanguineous - Monitor renal function closely. Dang catheter while on diuretics. Currently on D5 normal saline at 50 cc an hour Receiving furosemide at 40 mill grams IV daily currently - Bilateral lower extremity SCDs. Lovenox on hold for cath-resume. IV famotidine LINES: - s/p L subclavian central line in ICU 11/03/17 Hayden Rodriguez MD Nov 10, 2017 16:54
[2017-11-10] MEDS: DEXT 5%-NACL 0.9% 1000 ML INJ 1,000 ML IV SCH (17:42)
[2017-11-11] VITALS (10 sets, daily range): BP systolic 110–136; BP diastolic 67–80; PULSE 64–98; RESP 16–18; TEMP 97.2–99; O2SAT 91–97
[2017-11-11] MEDS: RESP: ALBUTEROL 2.5 MG/IPRATROPIUM 0.5 MG NEB (SCH) NEB ×4 (02:55→20:47)
[2017-11-11 07:48] LABS: BICARBONATE 28.9 MEQ/L (21.0-32.0); POTASSIUM 3.5 MEQ/L (3.5-5.1)
[2017-11-11] MEDS: CHLORHEXIDINE 0.12% (ORAL KIT) 15 ML CUP MT SCH ×2 (08:00→20:00)
[2017-11-11] MEDS: guaiFENesin E.R. 600 MG TAB PO SCH ×2 (08:59→21:37)
[2017-11-11] MEDS: HEPARIN SODIUM - SQ 10,000 UNITS/ML VIAL SQ SCH ×2 (08:59→21:37)
[2017-11-11] MEDS: FAMOTIDINE 20 MG TAB PO SCH ×2 (08:59→21:37)
[2017-11-11] MEDS: CARVEDILOL 3.125 MG TAB PO SCH ×2 (08:59→21:37)
[2017-11-11] MEDS: POTASSIUM CHLORIDE 20 MEQ PWD PACKET NG SCH (08:59)
[2017-11-11] MEDS: FUROSEMIDE 40 MG/4 ML VIAL IV PUSH SCH (08:59)
[2017-11-11] MEDS: THIAMINE HCL 100 MG TAB PO SCH (09:00)
[2017-11-11] MEDS: ENALAPRIL MALEATE 2.5 MG TAB PO SCH (09:00)
[2017-11-11] MEDS: SODIUM CHLORIDE 0.9% FLUSH 10 ML FLUSH IV FLUSH SCH ×2 (09:00→21:00)
[2017-11-11] MEDS: ASPIRIN 81 MG CHEW TAB PO SCH (09:00)
--- NOTE | 2017-11-11 09:46 | HHI.PR ---
Subjective Subjective Notes Sitting up in the chair Wants to go home only if okay with everyone Tolerating fulls Objective Vitals/I&O Vital Signs Date Time Temp Pulse Resp B/P (MAP) Pulse Ox O2 Delivery O2 Flow Rate FiO2 11/11/17 08:51 94 21 11/11/17 08:00 98.8 98 16 110/67 (81) 11/10/17 20:25 Room Air 11/10/17 19:32 2.00 Labs Laboratory Tests Test 11/10/17 11:55 11/11/17 06:20 White Blood Count 9.4 Red Blood Count 3.96 Hemoglobin 13.6 Hematocrit 40.6 Mean Corpuscular Volume 102.5 Mean Corpuscular Hemoglobin 34.4 Mean Corpuscular Hemoglobin Concent 33.6 Red Cell Distribution Width 14.8 Platelet Count 415 Mean Platelet Volume 9.1 Neutrophils (%) (Auto) 75.0 Lymphocytes (%) (Auto) 13.9 Monocytes (%) (Auto) 6.5 Eosinophils (%) (Auto) 4.0 Basophils (%) (Auto) 0.6 Neutrophils # (Auto) 7.0 Lymphocytes # (Auto) 1.3 Monocytes # (Auto) 0.6 Eosinophils # (Auto) 0.4 Basophils # (Auto) 0.1 CBC Comment AUTO DIFF Differential Comment AUTO DIFF CONFIRMED Blood Urea Nitrogen 6 5 Creatinine 0.56 0.43 Random Glucose 95 89 Calcium Level 9.0 8.6 Magnesium Level 2.0 Sodium Level 139 139 Potassium Level 4.3 3.5 Chloride Level 103 104 Carbon Dioxide Level 32.1 28.9 Anion Gap 4 6 Estimat Glomerular Filtration Rate 109 148 B-Type Natriuretic Peptide 1088 1107 Date/Time Source Procedure Growth Status 11/03/17 20:57 Blood Peripheral Aerobic Blood Culture - Final NO GROWTH IN 5 DAYS Complete 11/03/17 20:57 Blood Peripheral Anaerobic Blood Culture - Final NO GROWTH IN 5 DAYS Complete 11/06/17 12:00 Sputum Endotracheal Gram Stain - Final Complete 11/06/17 12:00 Sputum Endotracheal Sputum Culture - Final Complete Cardiovascular: Regular Lungs: Clear Abdomen: Other (midline incision with ronnie; abd soft; minimal pain; DIPESH removed ) Extremities: No edema A/P Assessment and Plan 62 year old female POD8 ex lap; SANKET; SBR -On RA; stable -Walking hallways -Advance to regular soft diet -GS clear for DC -Follow up end of this week Attending Statement Incision intact, no erythema or drainage. LLQ old drain site healed and dry. Pt sitting up at bedside, going to order lunch. Anxious for Dc home today. The exam, history, and the medical decision-making described in the above note were completed with the assistance of the mid-level provider. I reviewed and agree with the findings presented. I attest that I had a [id number] encounter with the patient on the same day, and personally performed and documented my assessment and findings in the medical record. Renetta Diggs Nov 11, 2017 09:46 Shimon Warner MD Nov 11, 2017 12:09
[2017-11-11] MEDS: DEXT 5%-NACL 0.9% 1000 ML INJ 1,000 ML IV SCH (11:00)
--- NOTE | 2017-11-11 13:02 | PD.CARD.PN ---
Subjective Subjective Remarks Denies CP, dyspnea, dizziness, palpitations, PND Objective Medications Item Value Date Time Furosemide 40 mg 11/06/17 1000 (Lasix Inj) Q8H/IV PUSH 11/07/17 0850 Aspirin 81 mg 11/05/17 1100 (Aspirin Chew) DAILY/PO 11/07/17 0849 Metoprolol 2.5 mg 11/05/17 1030 Tartrate Q6H PRN/IV PUSH 11/05/17 1705 (Lopressor Inj) Potassium Bicarb/ 25 meq 11/05/17 1030 Potassium Chloride Q12HR/PO 11/07/17 0850 (K-Lyte Cl Eff) Carvedilol 3.125 mg 11/05/17 0900 (Coreg) Q12HR/PO 11/07/17 0849 Enalapril Maleate 2.5 mg 11/05/17 0900 (Vasotec) DAILY/PO 11/07/17 0849 Furosemide 40 mg 11/11/17 1800 (Lasix) BID@18/PO Heparin Sodium 5,000 units 11/09/17 2100 (Porcine) Q12HR/SQ 11/11/17 0859 (Heparin Inj) Potassium Chloride 20 meq 11/09/17 0900 (KCl Powder) DAILY/NG 11/11/17 0859 Aspirin 81 mg 11/05/17 1100 (Aspirin Chew) DAILY/PO 11/11/17 0900 Carvedilol 3.125 mg 11/05/17 0900 (Coreg) Q12HR/PO 11/11/17 0859 Enalapril Maleate 2.5 mg 11/05/17 0900 (Vasotec) DAILY/PO 11/11/17 0900 Current Medications Medications (Trade) Dose Ordered Sig/Jeremy Route Start Time Stop Time Status Last Admin (Zofran Inj) 4 mg Q6H PRN IVP 11/01/17 09:45 (Narcan Inj) 0.4 mg UNSCH PRN IV PUSH 11/01/17 09:45 (Vasotec Inj) 0.65 mg Q6H PRN IV PUSH 11/02/17 14:00 11/02/17 15:09 (Mucinex Er) 600 mg BID PO 11/02/17 21:00 11/11/17 08:59 (Vitamin B1) 100 mg DAILY PO 11/06/17 09:00 11/11/17 09:00 (Romazicon Inj) 0.2 mg Q1M PRN IV PUSH 11/02/17 14:00 (Ativan) 1 mg Q4H PRN PO 11/02/17 14:00 11/04/17 23:25 (Ativan) 2 mg Q2H PRN PO 11/02/17 14:00 (NS Flush) 2 ml UNSCH PRN IV FLUSH 11/03/17 13:30 (NS Flush) 2 ml BID IV FLUSH 11/03/17 21:00 11/10/17 21:59 (Peridex 0.12% Liq) 15 ml BID@08,20 MT 11/03/17 20:00 11/11/17 08:00 Vasopressin 40 units/Dextrose 100 ml @ 6 mls/hr [id number] IV 11/03/17 13:52 Future Hold 11/03/17 19:00 (Morphine Inj) 4 mg Q3H PRN IV PUSH 11/04/17 10:00 (Coreg) 3.125 mg Q12HR PO 11/05/17 09:00 11/11/17 08:59 (Vasotec) 2.5 mg DAILY PO 11/05/17 09:00 11/11/17 09:00 (Aspirin Chew) 81 mg DAILY PO 11/05/17 11:00 11/11/17 09:00 (Lopressor Inj) 2.5 mg Q6H PRN IV PUSH 11/05/17 10:30 11/05/17 17:05 Propofol 100 ml @ 1.425 mls/ hr TITRATE PRN IV 11/05/17 19:15 11/07/17 14:00 (Atropine Inj) 0.5 mg UNSCH PRN IV 11/06/17 15:00 (KCl Powder) 20 meq DAILY NG 11/09/17 09:00 11/11/17 08:59 (Duoneb Neb) 1 ampule Q6HR NEB NEB 11/09/17 22:00 11/11/17 08:51 (Pepcid) 20 mg BID PO 11/09/17 21:00 11/11/17 08:59 (Heparin Inj) 5,000 units Q12HR SQ 11/09/17 21:00 11/11/17 08:59 (Lasix) 40 mg BID@,18 PO 11/11/17 18:00 Vital Signs / I&O Vital Signs Date Time Temp Pulse Resp B/P (MAP) Pulse Ox O2 Delivery O2 Flow Rate FiO2 11/11/17 12:00 98.1 95 17 116/68 (84) 93 11/11/17 08:51 94 21 11/11/17 08:00 98.8 98 16 110/67 (81) 91 11/11/17 04:00 94 11/11/17 04:00 98.6 93 16 136/69 (91) 97 11/11/17 00:00 99.0 94 16 120/74 (89) 91 11/11/17 00:00 90 11/10/17 20:25 Room Air 11/10/17 20:00 99.4 95 15 123/72 (89) 91 11/10/17 20:00 86 11/10/17 19:32 99 Nasal Cannula 2.00 11/10/17 16:00 97.1 87 16 130/67 (88) 97 I/O 11/10/17 11/10/17 11/10/17 11/11/17 11/11/17 11/11/17 07:00 15:00 23:00 07:00 15:00 23:00 Intake Total 240 ml 500 ml 521 ml Output Total 650 ml Balance -410 ml 500 ml 521 ml Intake Oral 240 ml 500 ml 240 ml IV Total 281 ml Output Urine Total 650 ml # Voids 5 3 Physical Exam GENERAL: Well developed, thin. HEENT: Jugular venous pressure is normal. CHEST: Lungs clear to auscultation. CARDIAC: Regular rate and rhythm without S3, S4, or murmur. ABDOMEN: Soft, nontender. Bowel sounds present. EXTREMITIES: No clubbing, cyanosis, or edema. Laboratory Laboratory Tests Test 11/11/17 06:20 Blood Urea Nitrogen 5 MG/DL Creatinine 0.43 MG/DL Random Glucose 89 MG/DL Calcium Level 8.6 MG/DL Sodium Level 139 MEQ/L Potassium Level 3.5 MEQ/L Chloride Level 104 MEQ/L Carbon Dioxide Level 28.9 MEQ/L Anion Gap 6 MEQ/L Estimat Glomerular Filtration Rate 148 ML/MIN B-Type Natriuretic Peptide 1107 PG/ML Assessment and Plan Problem List: (1) Ventricular fibrillation ICD Codes: I49.01 - Ventricular fibrillation Status: Acute Plan: Stable since immediate post op period. No further ventricular tachyarrhythmias. Appears she has underlying Takotsubo syndrome with EF 25%. REC LifeVest for at least 3 months; patient without insurance coverage, will place order for LifeVest, leave it to hospital if it will provide coverage continue beta tosha OK for discharge once LifeVest in place; repeat echo in 90 days (2) Cardiomyopathy ICD Codes: I42.9 - Cardiomyopathy, unspecified Status: Chronic Plan: Moderate size area of apical akinesis, EF roughly 30% by echo, 25% by cath. Appears cardiomyopathy due to Takotsubo syndrome. Minimal CAD on cath. BP's too low to intensify medical regimen. REC continue daily aspirin continue beta tosha, ZENA-I, oral furosemide needs repeat echo in 90 days Code Status full code Discussed Condition With patient, at length Problem Qualifiers (1) Cardiomyopathy: Qualified Codes: I42.9 - Cardiomyopathy, unspecified Stanton Valentin MD Nov 11, 2017 13:02
--- NOTE | 2017-11-11 13:23 | HHI.PR ---
Subjective Remarks pt wants to go home however we still waiting for the life vest d/w CM other shaikh pt doing better , i will switch to lasix po and monitor meanwhile awaiting life vest Objective Vitals Vital Signs Date Time Temp Pulse Resp B/P (MAP) Pulse Ox O2 Delivery O2 Flow Rate FiO2 11/11/17 12:00 98.1 95 17 116/68 (84) 93 11/11/17 08:51 94 21 11/11/17 08:00 98.8 98 16 110/67 (81) 91 11/11/17 04:00 94 11/11/17 04:00 98.6 93 16 136/69 (91) 97 11/11/17 00:00 99.0 94 16 120/74 (89) 91 11/11/17 00:00 90 11/10/17 20:25 Room Air 11/10/17 20:00 99.4 95 15 123/72 (89) 91 11/10/17 20:00 86 11/10/17 19:32 99 Nasal Cannula 2.00 11/10/17 16:00 97.1 87 16 130/67 (88) 97 I/O 11/10/17 11/10/17 11/10/17 11/11/17 11/11/17 11/11/17 07:00 15:00 23:00 07:00 15:00 23:00 Intake Total 240 ml 500 ml 521 ml Output Total 650 ml Balance -410 ml 500 ml 521 ml Intake Oral 240 ml 500 ml 240 ml IV Total 281 ml Output Urine Total 650 ml # Voids 5 3 Result Diagram: 11/10/17 1155 11/11/17 0620 Objective Remarks GENERAL: This is a well-nourished, well-developed patient, in no apparent distress. SKIN: No rashes, warm and dry HEAD: Atraumatic. Normocephalic. EYES: Pupils equal round and reactive. Extraocular motions intact. No scleral icterus. ENT: Nose without bleeding, or drainage, Airway patent. NECK: Trachea midline. Supple CARDIOVASCULAR: Regular rate and rhythm without murmurs, gallops, or rubs. RESPIRATORY: Fair air entry bilaterally. No wheezes, rales, or rhonchi. GASTROINTESTINAL: Abdomen soft, non-tender, nondistended. Positive bowel sounds MUSCULOSKELETAL: Extremities without clubbing, cyanosis, or edema. Pedal pulses appreciated NEUROLOGICAL: Awake and alert. Moves all extremity. Normal speech.no focal neurological deficit Line: Central Venous Catheter Side: Right Location: Subclavian A/P Problem List: (1) SBO (small bowel obstruction) ICD Code: K56.69 - Other intestinal obstruction Status: Acute (2) Hypertension ICD Code: I10 - Essential (primary) hypertension Assessment and Plan Patient is a 62-year-old female with past medical history significant for coronary artery disease, [place] in 2017, alcohol abuse, tobacco abuse who underwent small bowel resection and lysis of additions today by Dr. Hatch for recurrent small bowel obstruction. Postop patient was extubated and was moved to the PACU. While entering PACU unit patient suddenly became cyanotic and unresponsive and was emergently placed on the monitor in PACU, and Zoll pads attached. CPR was immediately initiated as the patient was found to be pulseless. Patient received epinephrine 2 and monitor showed ventricular fibrillation. Patient was shocked with 200 J DC CV, with return of spontaneous circulation. Patient was reintubated and placed on mechanical ventilation by anesthesia during the Code which last for only 3 minutes. Post code received one amp of bicarbonate, as ABG showed metabolic acidosis. 2 L of normal saline boluses ordered which she is getting now. Had been started on Levophed for shock I evaluated the patient in the PACU. Patient's intubated not on sedation. Systolic blood pressure in the mid 80s on Levophed 5 mcg/m. Patient appears critically ill but she can wake up and follow basic commands. There is no indication for induced hypothermia at this time for neuro protection. I have ordered cardiac workup including cardiac enzymes stat 2-D echo. EKG did not show QT prolongation. Other labs are pending at this time. Levophed will be titrated to maintain MAP>65, and also vasopressin added 11/04: Patient remains intubated sedated critically ill. Currently on 7 mcg/m of Levophed. Chest x-ray shows pulmonary vascular congestion. Will start weaning sedation. Give IV Lasix 40 mg 1 along with IV albumin and potassium replacement. Son at bedside updated 11/05: Off sedation. tolerating CPAP, following commands. Coreg and Lisinopril started by Dr. Valentin. Start scheduled IV Lasix, Add Aldactone if BP remains stable in 24 hours 11/06: Reintubated yesterday evening for severe hypoxemic respiratory failure secondary to pulmonary edema. Chest x-ray shows bilateral severe pulmonary edema. IV Lasix increased to [address] Valentin planning on cardiac catheterization in the afternoon 11/07: Remains intubated on mild sedation with 10 mcg/m of propofol. Wakes up easily follows commands. Urine output almost 5 L with IV Lasix. Cardiac catheterization yesterday mild CAD-possible Takotsubo cardiomyopathy per Dr. Valentin. Will repeat Echo in 5-7 days 11/08: Currently extubated. Hard secretions at end of ET tube with unable to pass suction catheter. Currently awake and alert on 2 L nasal cannula in no acute distress. Abdominal pain control. Requesting diet. 11/09: Currently on nasal cannula in no acute distress. Diet currently been advanced. Currently clear liquids. 11/10: Patient requested nicotine patch it was given, on Lasix iv 40 twice a day , will check BMP, BNP now and in a.m. and adjust diuretic accordingly, clinically she doesn't seem in fluid overload, cardiology recommended LifeVest at discharge 11/11: stable for dc once life vest is available, d/x with CM in details A/P: Recurrent small bowel obstruction status post surgery lap, lysis of adhesion, SB resection by Dr. Hatch 11/03 Hypoalbuminemia Ventricular fibrillation arrest Cardiogenic shock -resolved Congestive heart failure Cardiomyopathy/Possible Takotsubo CM History of coronary artery disease rule out ACS Cardiomyopathy with EF 30% most likely ischemic Acute hypoxemic respiratory failure Pulmonary edema Alcohol dependence DVT prophylaxis Plan: - Extubated 11/05/17 after patient passed weaning trials, but needed emergency intubation at 6 PM 11/06 for severe pulmonary edema - Nasal cannula to maintain saturations greater than equal to 92% - Incentive spirometry while awake - Albuterol/ipratropium aerosols every 6 hours with albuterol aerosols every 2 hours. Dyspnea - Postop developed ventricle fibrillation received CPR for 3 minutes, epinephrine 2 and DC cardioversion 1 11/03 - Cardiac cath q101/07: Minimal to mild left circumflex disease, otherwise normal coronary arteries. Severely reduced left ventricular systolic function with EF 25% with a fairly large area of apical akinesis. - On lisinopril 2.5 mg daily and carvedilol 3.125 mg twice a day. IV furosemide 40 mg every 24 hours with potassium replacement with 2 mEq daily - Echo showed apical wall motion abnormality EF 30%. - cardiac catheterization Dr. Valentin which revealed minimal left circumflex disease. EF 25% with apical akinesis. - Keep potassium more than 4, magnesium more than 2 - Evaluate for AICD prior to Discharge, may need life vest - clear liquids per surgery - IV famotidine. - Continue trickle feed per general surgery if not extubated today - Postop management per Dr. Hatch with lui drain. DIPESH left lower quadrant 170 cc serosanguineous - Monitor renal function closely. Dang catheter while on diuretics. Currently on D5 normal saline at 50 cc an hour Receiving furosemide at 40 mill grams IV daily currently - Bilateral lower extremity SCDs. Lovenox on hold for cath-resume. IV famotidine LINES: - s/p L subclavian central line in ICU 11/03/17 Hayden Rodriguez MD Nov 11, 2017 13:23
[2017-11-11] MEDS ORDERED: FUROSEMIDE 40 MG TAB PO SCH (18:00)
[2017-11-12] VITALS: BP 128/79; PULSE 89; RESP 18; TEMP 98.4; O2SAT 95
[2017-11-12 00:10] VITALS: PULSE 86
[2017-11-12 04:00] VITALS: BP 131/70; PULSE 85; PULSE 92; RESP 18; TEMP 97.1; O2SAT 96
[2017-11-12] MEDS: RESP: ALBUTEROL 2.5 MG/IPRATROPIUM 0.5 MG NEB (SCH) NEB ×2 (04:44→09:07)
[2017-11-12 05:21] LABS: POTASSIUM 3.4 MEQ/L (3.5-5.1)
[2017-11-12 08:00] VITALS: BP 138/77; PULSE 88; RESP 16; TEMP 97; O2SAT 94
[2017-11-12] MEDS: CHLORHEXIDINE 0.12% (ORAL KIT) 15 ML CUP MT SCH (08:00)
[2017-11-12] MEDS: POTASSIUM CHLORIDE 20 MEQ PWD PACKET NG SCH (09:00)
[2017-11-12] MEDS ORDERED: FUROSEMIDE 40 MG TAB PO SCH (09:00)
[2017-11-12 09:09] VITALS: O2SAT 98
[2017-11-12] MEDS: guaiFENesin E.R. 600 MG TAB PO SCH (09:10)
[2017-11-12] MEDS: FAMOTIDINE 20 MG TAB PO SCH (09:11)
[2017-11-12] MEDS: THIAMINE HCL 100 MG TAB PO SCH (09:11)
[2017-11-12] MEDS: ASPIRIN 81 MG CHEW TAB PO SCH (09:11)
[2017-11-12] MEDS: SODIUM CHLORIDE 0.9% FLUSH 10 ML FLUSH IV FLUSH SCH (09:11)
[2017-11-12] MEDS: ENALAPRIL MALEATE 2.5 MG TAB PO SCH (09:11)
[2017-11-12] MEDS: CARVEDILOL 3.125 MG TAB PO SCH (09:11)
[2017-11-12] MEDS: HEPARIN SODIUM - SQ 10,000 UNITS/ML VIAL SQ SCH (09:11)
--- NOTE | 2017-11-12 11:06 | HHI.FF ---
Face to Face Verification Diagnosis: (1) Cardiomyopathy (2) SBO (small bowel obstruction) Physical Therapy Order: Evaluate and Treat Home Health Nursing Order: CHF education Nursing assessment with vital signs Statistics Intern Order: To Evaluate: Support services Order: To Provide: Long range planning I have seen patient Gia Pretty on 11/12/17. My clinical findings support the need for the requested home health care services because: Deconditioned w/ increased weakness I certify that my clinical findings support that this patient is homebound because: Unsafe to leave home unassisted Gianni Hurtado MD Nov 12, 2017 11:06
[2017-11-12] MEDS ORDERED: ASPI81 PO (11:12)
[2017-11-12] MEDS ORDERED: Albuterol-Ipratropium Neb NEB (11:12)
[2017-11-12] MEDS ORDERED: THIA100 PO (11:12)
[2017-11-12] MEDS ORDERED: ENAL2.5T PO (11:12)
[2017-11-12] MEDS ORDERED: FURO40TA PO (11:12)
[2017-11-12] MEDS ORDERED: CARV3.125 PO (11:12)
[2017-11-12] MEDS ORDERED: POTA-163 PO (11:13)
--- NOTE | 2017-11-12 11:43 | HHI.PR ---
Subjective Subjective Notes Up to chair Wants to go home today Objective Vitals/I&O Vital Signs Date Time Temp Pulse Resp B/P (MAP) Pulse Ox O2 Delivery O2 Flow Rate FiO2 11/12/17 09:09 98 11/12/17 08:00 97.0 88 16 138/77 (97) 11/11/17 21:45 Room Air 11/11/17 08:51 21 11/10/17 19:32 2.00 Labs Laboratory Tests Test 11/12/17 04:14 Blood Urea Nitrogen 5 Creatinine 0.46 Random Glucose 90 Calcium Level 8.7 Sodium Level 139 Potassium Level 3.4 Chloride Level 102 Carbon Dioxide Level 29.0 Anion Gap 8 Estimat Glomerular Filtration Rate 137 B-Type Natriuretic Peptide 633 Date/Time Source Procedure Growth Status 11/03/17 20:57 Blood Peripheral Aerobic Blood Culture - Final NO GROWTH IN 5 DAYS Complete 11/03/17 20:57 Blood Peripheral Anaerobic Blood Culture - Final NO GROWTH IN 5 DAYS Complete 11/06/17 12:00 Sputum Endotracheal Gram Stain - Final Complete 11/06/17 12:00 Sputum Endotracheal Sputum Culture - Final Complete Cardiovascular: Regular Lungs: Clear Abdomen: Other (midline incision with ronnie ) Extremities: No edema A/P Assessment and Plan 62 year old female POD9 ex lap; SANKET; SBR -On RA; stable -Walking hallways -Tolerating regular soft diet -GS clear for DC -Follow up end of this week Attending Statement patient seen at bedside doing much better cardio stable ok for d.c. Attestation The exam, history, and the medical decision-making described in the above note were completed with the assistance of the mid-level provider. I reviewed and agree with the findings presented. I attest that I had a [id number] encounter with the patient on the same day, and personally performed and documented my assessment and findings in the medical record. Renetta Diggs Nov 12, 2017 11:43 Joao Hatch MD Nov 15, 2017 23:12
[2017-11-12 12:00] VITALS: BP 135/73; PULSE 85; RESP 17; TEMP 97.5; O2SAT 95
[2017-11-12] MEDS ORDERED: VENTAER INH (12:46)
--- NOTE | 2017-11-13 02:22 | HHI.PR ---
Subjective Remarks Patient seen this morning. Says she's feeling all right. Denies any chest pain or shortness of breath. Feels like going home. Objective Vital Signs Date Time Temp Pulse Resp B/P (MAP) Pulse Ox O2 Delivery O2 Flow Rate FiO2 11/12/17 12:00 97.5 85 17 135/73 (93) 95 11/12/17 09:09 98 11/12/17 08:00 97.0 88 16 138/77 (97) 94 11/12/17 04:00 85 11/12/17 04:00 97.1 92 18 131/70 (90) 96 I/O 11/12/17 11/12/17 11/12/17 11/13/17 11/13/17 11/13/17 07:00 15:00 23:00 07:00 15:00 23:00 Intake Total 480 ml Balance 480 ml Intake Oral 480 ml # Voids 3 Result Diagram: 11/10/17 1155 11/12/17 0414 Procedures NG tube placement to slow suction Objective Remarks GENERAL: patient sitting up in chair. Appears comfortable.alert and oriented 3. SKIN: Warm and dry. HEAD: Normocephalic. EYES: No scleral icterus. No injection or drainage. NECK: Supple, trachea midline. No JVD or lymphadenopathy. CARDIOVASCULAR: Regular rate and rhythm without murmurs, gallops, or rubs. RESPIRATORY: Breath sounds equal bilaterally. No accessory muscle use. GASTROINTESTINAL: Abdomen soft, non-tender, nondistended. MUSCULOSKELETAL: No cyanosis, or edema. BACK: Nontender without obvious deformity. No CVA tenderness. A/P Assessment and Plan Patient is a 62-year-old female with past medical history significant for coronary artery disease, [place] in 2017, alcohol abuse, tobacco abuse who underwent small bowel resection and lysis of additions today by Dr. Hatch for recurrent small bowel obstruction. Postop patient was extubated and was moved to the PACU. While entering PACU unit patient suddenly became cyanotic and unresponsive and was emergently placed on the monitor in PACU, and Zoll pads attached. CPR was immediately initiated as the patient was found to be pulseless. Patient received epinephrine 2 and monitor showed ventricular fibrillation. Patient was shocked with 200 J DC CV, with return of spontaneous circulation. Patient was reintubated and placed on mechanical ventilation by anesthesia during the Code which last for only 3 minutes. Post code received one amp of bicarbonate, as ABG showed metabolic acidosis. 2 L of normal saline boluses ordered which she is getting now. Had been started on Levophed for shock I evaluated the patient in the PACU. Patient's intubated not on sedation. Systolic blood pressure in the mid 80s on Levophed 5 mcg/m. Patient appears critically ill but she can wake up and follow basic commands. There is no indication for induced hypothermia at this time for neuro protection. I have ordered cardiac workup including cardiac enzymes stat 2-D echo. EKG did not show QT prolongation. Other labs are pending at this time. Levophed will be titrated to maintain MAP>65, and also vasopressin added 11/04: Patient remains intubated sedated critically ill. Currently on 7 mcg/m of Levophed. Chest x-ray shows pulmonary vascular congestion. Will start weaning sedation. Give IV Lasix 40 mg 1 along with IV albumin and potassium replacement. Son at bedside updated 11/05: Off sedation. tolerating CPAP, following commands. Coreg and Lisinopril started by Dr. Valentin. Start scheduled IV Lasix, Add Aldactone if BP remains stable in 24 hours 11/06: Reintubated yesterday evening for severe hypoxemic respiratory failure secondary to pulmonary edema. Chest x-ray shows bilateral severe pulmonary edema. IV Lasix increased to [address] Valentin planning on cardiac catheterization in the afternoon 11/07: Remains intubated on mild sedation with 10 mcg/m of propofol. Wakes up easily follows commands. Urine output almost 5 L with IV Lasix. Cardiac catheterization yesterday mild CAD-possible Takotsubo cardiomyopathy per Dr. Valentin. Will repeat Echo in 5-7 days 11/08: Currently extubated. Hard secretions at end of ET tube with unable to pass suction catheter. Currently awake and alert on 2 L nasal cannula in no acute distress. Abdominal pain control. Requesting diet. 11/09: Currently on nasal cannula in no acute distress. Diet currently been advanced. Currently clear liquids. 11/10: Patient requested nicotine patch it was given, on Lasix iv 40 twice a day , will check BMP, BNP now and in a.m. and adjust diuretic accordingly, clinically she doesn't seem in fluid overload, cardiology recommended LifeVest at discharge 11/11: stable for dc once life vest is available, d/x with CM in details 11/11. DC order once life vest is available. A/P: Recurrent small bowel obstruction status post surgery lap, lysis of adhesion, SB resection by Dr. Hatch 11/03 Hypoalbuminemia Ventricular fibrillation arrest Cardiogenic shock -resolved Congestive heart failure Cardiomyopathy/Possible Takotsubo CM History of coronary artery disease rule out ACS Cardiomyopathy with EF 30% most likely ischemic Acute hypoxemic respiratory failure Pulmonary edema Alcohol dependence DVT prophylaxis Plan: - Extubated 11/05/17 after patient passed weaning trials, but needed emergency intubation at 6 PM 11/06 for severe pulmonary edema - Nasal cannula to maintain saturations greater than equal to 92% - Incentive spirometry while awake - Albuterol/ipratropium aerosols every 6 hours with albuterol aerosols every 2 hours. Dyspnea - Postop developed ventricle fibrillation received CPR for 3 minutes, epinephrine 2 and DC cardioversion 1 11/03 - Cardiac cath q101/07: Minimal to mild left circumflex disease, otherwise normal coronary arteries. Severely reduced left ventricular systolic function with EF 25% with a fairly large area of apical akinesis. - On lisinopril 2.5 mg daily and carvedilol 3.125 mg twice a day. IV furosemide 40 mg every 24 hours with potassium replacement with 2 mEq daily - Echo showed apical wall motion abnormality EF 30%. - cardiac catheterization Dr. Valentin which revealed minimal left circumflex disease. EF 25% with apical akinesis. - Keep potassium more than 4, magnesium more than 2 - Evaluate for AICD prior to Discharge, may need life vest - clear liquids per surgery - IV famotidine. - Continue trickle feed per general surgery if not extubated today - Postop management per Dr. Hatch with lui drain. DIPESH left lower quadrant 170 cc serosanguineous - Monitor renal function closely. Dang catheter while on diuretics. Currently on D5 normal saline at 50 cc an hour Receiving furosemide at 40 mill grams IV daily currently - Bilateral lower extremity SCDs. Lovenox on hold for cath-resume. IV famotidine LINES: - s/p L subclavian central line in ICU 11/03/17 Discharge Planning discharge home with LifeVest. Gianni Hurtado MD Nov 13, 2017 02:22
--- NOTE | 2017-11-13 02:29 | HHI.DS ---
Discharge Summary Admission Date Nov 01, 2017 at 09:41 Discharge Date: Nov 13, 2017 Admitting Diagnosis Small bowel obstruction (1) SBO (small bowel obstruction) ICD Code: K56.69 - Other intestinal obstruction Status: Acute (2) Hypertension ICD Code: I10 - Essential (primary) hypertension Brief History - From Admission Note from 11/01/17. Ms. Pretty is a 62-year-old female patient with a known medical history of small bowel obstruction, CAD with history of CT who presented to the ED with complaints of worsening abdominal pain. Patient was discharged last week for small bowel obstruction and treated medically. She actually left AMA due to some family issues but a that time it appeared that she was improving to go home. Patient states she has overall been feeling well since she left the hospital up until around 1900 last evening. She developed severe abdominal pain located in her mid-epigastric area that is constant in nature, rated a 8/10 on pain scale. She does admit to one bout of vomiting in radiology last evening. Last BM was two days ago. Denies any hematochezia. Denies any recent fever, chills, headache, shortness of breath, or dysuria. Has been eating well for the past week. Does admit to drinking two alcoholic drinks last evening. Patient was admitted in April for a small bowel obstruction, was seen by general surgery and was treated nonoperatively with IV antibiotics which eventually the obstruction resolved. CBC/BMP: 11/10/17 1155 11/12/17 0414 Significant Findings Laboratory Tests Test 11/10/17 11:55 11/11/17 06:20 11/12/17 04:14 Red Blood Count 3.96 MIL/MM3 (4.00-5.30) Mean Corpuscular Volume 102.5 FL (80.0-100.0) Mean Corpuscular Hemoglobin 34.4 PG (27.0-34.0) Neutrophils (%) (Auto) 75.0 % (16.0-70.0) Blood Urea Nitrogen 6 MG/DL (7-18) 5 MG/DL (7-18) 5 MG/DL (7-18) Carbon Dioxide Level 32.1 MEQ/L (21.0-32.0) Anion Gap 4 MEQ/L (5-15) B-Type Natriuretic Peptide 1088 PG/ML (0-100) 1107 PG/ML (0-100) 633 PG/ML (0-100) Creatinine 0.43 MG/DL (0.50-1.00) 0.46 MG/DL (0.50-1.00) Potassium Level 3.4 MEQ/L (3.5-5.1) Imaging Last Impressions Chest X-Ray 11/08/17 0600 Signed Impressions: Service Date/Time: Wednesday, November 08, 2017 04:33 - CONCLUSION: No significant interval change Harris Salas MD Abdomen/Pelvis CT 11/01/17 0634 Signed Impressions: Service Date/Time: Wednesday, November 01, 2017 08:28 - CONCLUSION: Followup CT scan of the abdomen pelvis again demonstrates a distal small bowel obstruction without significant change compared to the prior examination. Daljit Jenkins MD PE at Discharge GENERAL: This is a well-nourished, well-developed patient, in no apparent distress. SKIN: No rashes, warm and dry HEAD: Atraumatic. Normocephalic. EYES: Pupils equal round and reactive. Extraocular motions intact. No scleral icterus. ENT: Nose without bleeding, or drainage, Airway patent. NECK: Trachea midline. Supple CARDIOVASCULAR: Regular rate and rhythm without murmurs, gallops, or rubs. RESPIRATORY: Fair air entry bilaterally. No wheezes, rales, or rhonchi. GASTROINTESTINAL: Abdomen soft, non-tender, nondistended. Positive bowel sounds MUSCULOSKELETAL: Extremities without clubbing, cyanosis, or edema. Pedal pulses appreciated NEUROLOGICAL: Awake and alert. Moves all extremity. Normal speech.no focal neurological deficit Hospital Course Patient is a 62-year-old female with past medical history significant for coronary artery disease, CT in 2017, alcohol abuse, tobacco abuse who underwent small bowel resection and lysis of additions today by Dr. Hatch for recurrent small bowel obstruction. Postop patient was extubated and was moved to the PACU. While entering PACU unit patient suddenly became cyanotic and unresponsive and was emergently placed on the monitor in PACU, and Zoll pads attached. CPR was immediately initiated as the patient was found to be pulseless. Patient received epinephrine 2 and monitor showed ventricular fibrillation. Patient was shocked with 200 J DC CV, with return of spontaneous circulation. Patient was reintubated and placed on mechanical ventilation by anesthesia during the Code which last for only 3 minutes. Post code received one amp of bicarbonate, as ABG showed metabolic acidosis. 2 L of normal saline boluses ordered which she is getting now. Had been started on Levophed for shock I evaluated the patient in the PACU. Patient's intubated not on sedation. Systolic blood pressure in the mid 80s on Levophed 5 mcg/m. Patient appears critically ill but she can wake up and follow basic commands. There is no indication for induced hypothermia at this time for neuro protection. I have ordered cardiac workup including cardiac enzymes stat 2-D echo. EKG did not show QT prolongation. Other labs are pending at this time. Levophed will be titrated to maintain MAP>65, and also vasopressin added 11/04: Patient remains intubated sedated critically ill. Currently on 7 mcg/m of Levophed. Chest x-ray shows pulmonary vascular congestion. Will start weaning sedation. Give IV Lasix 40 mg 1 along with IV albumin and potassium replacement. Son at bedside updated 11/05: Off sedation. tolerating CPAP, following commands. Coreg and Lisinopril started by Dr. Valentin. Start scheduled IV Lasix, Add Aldactone if BP remains stable in 24 hours 11/06: Reintubated yesterday evening for severe hypoxemic respiratory failure secondary to pulmonary edema. Chest x-ray shows bilateral severe pulmonary edema. IV Lasix increased to [address] Valentin planning on cardiac catheterization in the afternoon 11/07: Remains intubated on mild sedation with 10 mcg/m of propofol. Wakes up easily follows commands. Urine output almost 5 L with IV Lasix. Cardiac catheterization yesterday mild CAD-possible Takotsubo cardiomyopathy per Dr. Valentin. Will repeat Echo in 5-7 days 11/08: Currently extubated. Hard secretions at end of ET tube with unable to pass suction catheter. Currently awake and alert on 2 L nasal cannula in no acute distress. Abdominal pain control. Requesting diet. 11/09: Currently on nasal cannula in no acute distress. Diet currently been advanced. Currently clear liquids. 11/10: Patient requested nicotine patch it was given, on Lasix iv 40 twice a day , will check BMP, BNP now and in a.m. and adjust diuretic accordingly, clinically she doesn't seem in fluid overload, cardiology recommended LifeVest at discharge 11/11: stable for dc once life vest is available, d/x with CM in details 11/11. DC order once life vest is available. A/P: Recurrent small bowel obstruction status post surgery lap, lysis of adhesion, SB resection by Dr. Hatch 11/03 Hypoalbuminemia Ventricular fibrillation arrest Cardiogenic shock -resolved Congestive heart failure Cardiomyopathy/Possible Takotsubo CM History of coronary artery disease rule out ACS Cardiomyopathy with EF 30% most likely ischemic Acute hypoxemic respiratory failure Pulmonary edema Alcohol dependence DVT prophylaxis Plan: - Extubated 11/05/17 after patient passed weaning trials, but needed emergency intubation at 6 PM 11/06 for severe pulmonary edema - Nasal cannula to maintain saturations greater than equal to 92% - Incentive spirometry while awake - Albuterol/ipratropium aerosols every 6 hours with albuterol aerosols every 2 hours. Dyspnea - Postop developed ventricle fibrillation received CPR for 3 minutes, epinephrine 2 and DC cardioversion 1 11/03 - Cardiac cath q101/07: Minimal to mild left circumflex disease, otherwise normal coronary arteries. Severely reduced left ventricular systolic function with EF 25% with a fairly large area of apical akinesis. - On lisinopril 2.5 mg daily and carvedilol 3.125 mg twice a day. IV furosemide 40 mg every 24 hours with potassium replacement with 2 mEq daily - Echo showed apical wall motion abnormality EF 30%. - cardiac catheterization Dr. Valentin which revealed minimal left circumflex disease. EF 25% with apical akinesis. - Keep potassium more than 4, magnesium more than 2 - Evaluate for AICD prior to Discharge, may need life vest - clear liquids per surgery - IV famotidine. - Continue trickle feed per general surgery if not extubated today - Postop management per Dr. Hatch with lui drain. DIPESH left lower quadrant 170 cc serosanguineous - Monitor renal function closely. Dang catheter while on diuretics. Currently on D5 normal saline at 50 cc an hour Receiving furosemide at 40 mill grams IV daily currently - Bilateral lower extremity SCDs. Lovenox on hold for cath-resume. IV famotidine LINES: - s/p L subclavian central line in ICU 11/03/17 Discharge Planning discharge home with LifeVest. Pt Condition on Discharge: Good Discharge Disposition: Disch w/ Home Health Serv Discharge Time: > 30 minutes Discharge Instructions DIET: Follow Instructions for: Heart Healthy Diet Activities you can perform: Regular-No Restrictions Follow up Referrals: Cardiology - 2 Weeks with Stanton Valentin MD Cardiology, Interventional PCP Follow-up - 1 Week PCP Follow-up SNF[facility]/ with [facility] - 3-5 Days with Joao Hatch MD New Medications: Albuterol 18 GM Inh (Ventolin Hfa 18 GM Inh) 90 Mcg/Act Aer 1 PUFF INH Q4H PRN for SHORTNESS OF BREATH, #1 INHALER 0 Refills Potassium Chloride ER (Potassium Chloride ER) 20 Meq Tab 20 MEQ PO DAILY for Electrolyte Replacement, #30 TAB 0 Refills Aspirin (Tgt Aspirin) 81 Mg Chw 81 MG PO DAILY for heart for 30 Days, EA Carvedilol (Coreg) 3.125 Mg Tab 3.125 MG PO Q12HR for heart for 30 Days, TAB Enalapril (Enalapril) 2.5 Mg Tab 2.5 MG PO DAILY for heart for 30 Days, #30 TAB Furosemide (Furosemide) 40 Mg Tab 40 MG PO DAILY for heart for 30 Days, #30 TAB Thiamine HCl (Gnp Vitamin B-1) 100 Mg Tab 100 MG PO DAILY for vitamin for 30 Days, #30 TAB Gianni Hurtado MD Nov 13, 2017 02:28
== END 2017-11-12 15:16 | disposition home health service (06) | DRG 329 ==
LOC: PHED 05:51 → PHEDA 09:41 → PH3B 10:49 → N07B 18:30 → N03B 11-03 13:35 → N07A 11-10 01:00
PROVIDERS: ADMIT Internal Medicine; ATTEND Internal Medicine
PROC: 0DN80ZZ Release Small Intestine, Open Approach (ICD-10-PCS; 2017-11-03)
PROC: 02HV33Z Insertion of Infusion Device into Superior Vena Cava, Percutaneous Approach (ICD-10-PCS; 2017-11-03)
PROC: 5A12012 Performance of Cardiac Output, Single, Manual (ICD-10-PCS; 2017-11-03)
PROC: 5A1945Z Respiratory Ventilation, 24-96 Consecutive Hours (ICD-10-PCS; 2017-11-03)
PROC: 0DB80ZZ Excision of Small Intestine, Open Approach (ICD-10-PCS; principal; 2017-11-03 11:20)
PROC: 0BH17EZ Insertion of Endotracheal Airway into Trachea, Via Natural or Artificial Opening (ICD-10-PCS; 2017-11-05)
PROC: 5A1945Z Respiratory Ventilation, 24-96 Consecutive Hours (ICD-10-PCS; 2017-11-05)
PROC: B5171ZZ Fluoroscopy of Left Subclavian Vein using Low Osmolar Contrast (ICD-10-PCS; 2017-11-06)
PROC: B2151ZZ Fluoroscopy of Left Heart using Low Osmolar Contrast (ICD-10-PCS; 2017-11-06)
PROC: B2111ZZ Fluoroscopy of Multiple Coronary Arteries using Low Osmolar Contrast (ICD-10-PCS; 2017-11-06)
PROC: 4A023N7 Measurement of Cardiac Sampling and Pressure, Left Heart, Percutaneous Approach (ICD-10-PCS; 2017-11-06)
DX: K56.50 Intestinal adhesions [bands], unspecified as to partial versus complete obstruction (principal); J96.01 Acute respiratory failure with hypoxia; R57.0 Cardiogenic shock; I49.01 Ventricular fibrillation; E87.2 Acidosis; I51.81 Takotsubo syndrome; E88.09 Other disorders of plasma-protein metabolism, not elsewhere classified; I50.9 Heart failure, unspecified; E83.42 Hypomagnesemia; I25.5 Ischemic cardiomyopathy; I25.10 Atherosclerotic heart disease of native coronary artery without angina pectoris; I25.2 Old myocardial infarction; E87.6 Hypokalemia; F10.20 Alcohol dependence, uncomplicated; F17.210 Nicotine dependence, cigarettes, uncomplicated; R03.0 Elevated blood-pressure reading, without diagnosis of hypertension; I10 Essential (primary) hypertension; D53.9 Nutritional anemia, unspecified; H54.40 Blindness, one eye, unspecified eye; Z90.710 Acquired absence of both cervix and uterus; Z85.41 Personal history of malignant neoplasm of cervix uteri
CPT/HCPCS: 31500; 36556; 36600; 71010; 74177; 80048; 80053; 80307; 82550; 82805; 82948; 83605; 83690; 83735; 83880; 84100; 84132; 84155; 84484; 85025; 85610; 85730; 86850; 86900; 86901; 87040; 87070; 87077; 87186; 87205; 87641; 88307; 88341; 88342; 92950; 93005; 93306; 93458; 94002; 94003; 94150; 94640; 94664; 96361; 96374; 99152; C1769; C1893; J0131; J0171; J0330; J1100; J1644; J1940; J2250; J2270; J2370; J2405; J2710; J3010; J3411; J3475; J3480; J7030; J7040; J7042; J7050; P9047; Q9963; Q9967

== ENCOUNTER → 2018-02-20 | Outpatient (CLI) | payer OTHER ==
[~2018-02-20] MED LIST changes: +ASPI81 PO; +CARV3.125 PO; +ENAL2.5T PO; -EPINEPHrine HCL (1:10,000) 1 MG/10 ML SYRINGE IV ONE; +FURO40TA PO; -MIRA3350 PO; +POTA-163 PO; +THIA100 PO; +VENTAER INH
--- NOTE | 2018-02-20 19:50 | ECHRPT ---
Indication: SYNCOPE CONCLUSIONS Normal left ventricular size and wall thickness. The left ventricular systolic function is normal wi th an estimated ejection fraction in the range of 60-65%. Normal wall motion. Trace mitral valve regurgitation. There is trace tricuspid valve regurgitation. The estimated pulmonary arterial pressure is 20 mmHg. BP: / HR: Rhythm: Sinus MEASUREMENTS (Male / Female) Normal Values Technical Quality:Fair 2D ECHO LV Diastolic Diameter PLAX 3.3 cm 4.2 - 5.9 / 3.9 - 5.3 cm LV Systolic Diameter PLAX 2.2 cm IVS Diastolic Thickness 1.3 cm 0.6 - 1.0 / 0.6 - 0.9 cm LVPW Diastolic Thickness 1.2 cm 0.6 - 1.0 / 0.6 - 0.9 cm LV Relative Wall Thickness 0.8 LVOT Diameter 1.7 cm LA Systolic Diameter LX 3.2 cm 3.0 - 4.0 / 2.7 - 3.8 cm LV Ejection Fraction MOD 4C 67.9 % LV Ejection Fraction 4C AL 69.8 % M-MODE Aortic Root Diameter MM 1.9 cm LA Systolic Diameter MM 3.0 cm LA Ao Ratio MM 1.6 AV Cusp Separation MM 1.2 cm DOPPLER AV Peak Velocity 157.0 cm/s AV Peak Gradient 9.9 mmHg LVOT Peak Velocity 95.3 cm/s LVOT Peak Gradient 3.6 mmHg AV Area Cont Eq pk 1.4 cm MV Area PHT 3.4 cm Mitral E Point Velocity 91.3 cm/s Mitral A Point Velocity 90.3 cm/s Mitral E to A Ratio 1.0 LV E' Lateral Velocity 8.3 cm/s Mitral E to LV E' Lateral Ratio 11.0 LV E' Septal Velocity 6.5 cm/s Mitral E to LV E' Septal Ratio 14.0 TR Peak Velocity 174.0 cm/s TR Peak Gradient 12.1 mmHg Right Atrial Pressure 10.0 mmHg Pulmonary Artery Systolic Pressu 22.1 mmHg Right Ventricular Systolic Press 22.1 mmHg PV Peak Velocity 99.1 cm/s PV Peak Gradient 3.9 mmHg FINDINGS LEFT VENTRICLE Normal left ventricular size and wall thickness. The left ventricular systolic function is normal wi th an estimated ejection fraction in the range of 60-65%. Normal wall motion. RIGHT VENTRICLE Normal right ventricular size and systolic function. LEFT ATRIUM The left atrial size is normal. RIGHT ATRIUM The right atrial size is normal. ATRIAL SEPTUM Normal atrial septal thickness without atrial level shunting by limited color doppler interrogation. AORTA The aortic root and proximal ascending aorta are normal in size on limited imaging. MITRAL VALVE Structurally normal mitral valve. Trace mitral valve regurgitation. AORTIC VALVE Trileaflet aortic valve. No aortic valve stenosis or regurgitation. TRICUSPID VALVE There is trace tricuspid valve regurgitation. The estimated pulmonary arterial pressure is 20 mmHg. PULMONARY VALVE No pulmonary valve regurgitation or stenosis. VESSELS The inferior vena cava is normal in size. PERICARDIUM No pericardial effusion. Stanton Valentin MD (Electronically Signed) Final Date:20 February 2018 19:49
== END ==
LOC: HECH 08:35
PROVIDERS: ATTEND Internal Medicine Cardiovascular Disease
DX: I49.01 Ventricular fibrillation (principal)
CPT/HCPCS: 93306